=== PATIENT | male | born 1935 | race Caucasian/White ===

== ENCOUNTER → 2017-01-13 | Outpatient (CLI) | payer BC ==
[~2017-01-13] MED LIST: ALBUAER2 INH; ALLO300T2 PO; ASPI1TAB2 PO; ATOR-26 PO; AZIT250T5 PO; BISA-16 PO; CHOL1000 PO; CHOL100010 PO; FAMO20TA11 PO; FLM4 PO; IPRASOL4 INH; ISOS30TA35 PO; METO25TA56 PO; MOME200A INH; MONT1TAB3 PO; OXGN; PRD10 PO; SYMIN160 PO; VNTHFA/IN PO; bipap INH
[2017-01-13 18:13] LABS: BLOOD UREA NITROGEN 24 mg/dl (7-18); BUN/CREATININE RATIO 28.8 (10-20); CALCIUM 8.7 mg/dl (8.5-10.1); CARBON DIOXIDE 34 mmol/L (21-32); CHLORIDE 106 mmol/L (98-107); CREATININE 0.82 mg/dl (0.60-1.40); GLUCOSE 87 mg/dl (70-99); POTASSIUM 4.3 mmol/L (3.5-5.1); SODIUM 144 mmol/L (136-145)
[2017-01-13 18:21] LABS: ESTIMATED AVERAGE GLUCOSE 123 mg/dl; HA1C FLAG Normal (Normal)
--- NOTE | 2017-01-21 14:15 | CODING QUERY MEDICAL NECESSITY ---
SUPPORTING DIAGNOSIS NEEDED A supporting diagnosis is required for the test/procedure performed on this patient in order for us to be reimbursed by the patient's insurance. Please provide a supporting diagnosis for the following test/procedure listed below next to the test name along with your signature. *If there is no additional diagnosis for this patient that would support the following test/procedure please document that below next to the test/procedure. Test(s)/Procedure(s) that require a supporting diagnosis: * GLYCATED HEMOGLOBIN DIAGNOSIS: * DOS: 01/13/17 Provider Signature: Date: Thank you [facility] Once completed, please kindly fax back to [phone] For questions please call [phone]
== END | disposition home or self-care (01) ==
LOC: C.LAB1850 16:47
PROVIDERS: ATTEND Physician Assistant
DX: J44.9 Chronic obstructive pulmonary disease, unspecified (principal); D64.9 Anemia, unspecified; N28.9 Disorder of kidney and ureter, unspecified; M10.9 Gout, unspecified; R73.9 Hyperglycemia, unspecified

== ENCOUNTER → 2017-01-20 | Outpatient (CLI) | payer BC ==
[~2017-01-20] MED LIST changes: +AZIT-60 PO; -AZIT250T5 PO; +OPTIRAY 320 IV PRN
--- NOTE | 2017-01-20 13:56 | DIAGNOSTIC IMAGING REPORT ---
CT OF THE CHEST WITH IV CONTRAST CLINICAL HISTORY: Chronic respiratory failure. Chronic obstructive pulmonary disease. Non-small cell lung cancer. COMPARISON STUDY: Chest CT September 02, 2016 and PET/CT May 19, 2016. TECHNIQUE: Following IV administration of 93 mL of Optiray-320, helical axial images of the chest were obtained. Images were viewed in the axial, sagittal and coronal planes. IV contrast was administered without complication. CT DOSE: 539.24 mGy.cm FINDINGS: There are stable postoperative findings consistent with a right upper lobectomy. Right paramediastinal opacity with distortion is unchanged. A small right pleural effusion is unchanged. There is severe emphysema. There is no pneumothorax. Central airways are patent. The size of the heart is at the upper limits of normal. This extensive coronary artery calcification. A 2.5 cm left lobe thyroid nodule is noted. There are no suspicious pulmonary nodules. Bony thorax is unremarkable. There are gallstones within the gallbladder. There is a cyst within the inferior aspect of the spleen. Several renal cysts are partially imaged on this exam. Prominent right paratracheal and right axillary/retropectoral lymph nodes are similar to prior exam. IMPRESSION: 1. Stable postoperative findings following right upper lobectomy. No significant change in right paramediastinal opacity which is likely post therapeutic. Stable small right pleural effusion. 2. No significant change in prominent right paratracheal and right axillary/retropectoral lymph nodes since prior exam. These are likely benign but can be assessed on subsequent studies. Electronically signed by: Dale Borrego M.D. 01/20/2017 1:55 PM Dictated Date/Time: 01/20/2017 9:18 AM
== END | disposition home or self-care (01) ==
LOC: C.CTS 08:52
PROVIDERS: ATTEND Internal Medicine Pulmonary Disease
DX: J44.9 Chronic obstructive pulmonary disease, unspecified (principal); J96.10 Chronic respiratory failure, unspecified whether with hypoxia or hypercapnia; G47.30 Sleep apnea, unspecified; Z90.2 Acquired absence of lung [part of]

== ENCOUNTER → 2017-02-13 | Outpatient (CLI) | payer BC ==
[~2017-02-13] MED LIST changes: -OPTIRAY 320 IV PRN
[2017-02-13 12:15] LABS: BASO % 0.1 %; BASO ABS # 0.01 K/uL (0-0.2); COMPLETE YES; EOS % 1.9 %; HEMATOCRIT 37.8 % (42-52); LYMPH % 13.6 %; LYMPH ABS # 0.92 K/uL (1.2-3.4); MEAN CELL VOLUME 93.1 fL (80-100); MEAN CORPUSCULAR HEMOGLOBIN 27.8 pg (25-34); MEAN CORPUSCULAR HGB CONC 29.9 g/dl (32-36); MEAN PLATELET VOLUME 9.6 fL (7.4-10.4); MONO % 9.3 %; NEUT % 75.1 %; PLATELET COUNT 230 K/uL (130-400); RED BLOOD COUNT 4.06 M/uL (4.7-6.1); WHITE BLOOD COUNT 6.76 K/uL (4.8-10.8)
[2017-02-13 12:29] LABS: CHOLESTEROL/HDL RATIO 2.6
[2017-02-13 12:47] LABS: ESTIMATED AVERAGE GLUCOSE 123 mg/dl; HA1C FLAG Normal (Normal)
--- NOTE | 2017-02-23 10:11 | CODING QUERY MEDICAL NECESSITY ---
CQSUPPORTING DIAGNOSIS NEEDED A supporting diagnosis is required for the test/procedure performed on this patient in order for us to be reimbursed by the patient's insurance. Please provide a supporting diagnosis for the following test/procedure listed below next to the test name along with your signature. *If there is no additional diagnosis for this patient that would support the following test/procedure please document that below next to the test/procedure. Test(s)/Procedure(s) that require a supporting diagnosis: DOS 02/13/17 GLYCATED HEMOGLOBIN Provider Signature: Date: Thank you Tara Goodwin [employer] Once completed, please kindly fax back to [phone] For questions please call [phone]
== END | disposition home or self-care (01) ==
LOC: C.LAB1850 09:23
PROVIDERS: ATTEND Internal Medicine
DX: E78.00 Pure hypercholesterolemia, unspecified (principal); R73.9 Hyperglycemia, unspecified

== ENCOUNTER → 2017-03-30 | Outpatient (CLI) | payer BC ==
--- NOTE | 2017-03-30 17:01 | DIAGNOSTIC IMAGING REPORT ---
C-SPINE ROUTINE 4 OR 5 VIEWS CLINICAL HISTORY: Neck pain. COMPARISON STUDY: PET/CT May 19, 2016. FINDINGS: C7 is partially obscured on this exam. There is slight reversal of the normal cervical lordosis. No fracture or suspicious lesion is identified by radiography. There is moderate multilevel disc space narrowing and facet arthrosis. Postsurgical findings within the right upper hemithorax are again noted. These are suboptimally assessed by radiography but appear similar to prior exam of January 20, 2017. IMPRESSION: 1. No acute cervical spine fracture or subluxation although C7 is partially obscured on this exam. 2. Moderate multilevel degenerative disc disease and facet arthrosis of the cervical spine. Electronically signed by: Dale Borrego M.D. 03/30/2017 4:59 PM Dictated Date/Time: 03/30/2017 4:56 PM
== END | disposition home or self-care (01) ==
LOC: C.RAD1850 16:41
PROVIDERS: ATTEND Internal Medicine
DX: M50.30 Other cervical disc degeneration, unspecified cervical region (principal)

== ENCOUNTER → 2017-04-20 | Outpatient (CLI) | payer BC ==
[~2017-04-20] MED LIST changes: -AZIT-60 PO; +AZIT250T5 PO
--- NOTE | 2017-04-20 10:24 | DIAGNOSTIC IMAGING REPORT ---
CHEST 2 VIEWS ROUTINE CLINICAL HISTORY: J44.9 Chronic obstructive pulmonary [id number] squamous cell carcinoma COMPARISON STUDY: 05/06/2016 FINDINGS: The heart remains normal in size. There is underlying pulmonary emphysema. There is right-sided volume loss. There is a right paramediastinal opacity, similar to the preceding study. There is superior hilar retraction on the right. There is right apical pleural thickening. The right para mediastinal opacity appears slightly larger than on the preceding April 2016 chest x-ray. The right apical pleural thickening is also increased slightly.[ IMPRESSION: Postsurgical changes of right upper lobectomy. Slight interval increase in the nonspecific right apical pleural thickening and right paramediastinal soft tissue opacity Electronically signed by: Anton Styles M.D. 04/20/2017 10:23 AM Dictated Date/Time: 04/20/2017 10:20 AM
== END | disposition home or self-care (01) ==
LOC: C.RAD1850 09:52
PROVIDERS: ATTEND Internal Medicine Pulmonary Disease
DX: C34.90 Malignant neoplasm of unspecified part of unspecified bronchus or lung (principal); J44.9 Chronic obstructive pulmonary disease, unspecified; J96.10 Chronic respiratory failure, unspecified whether with hypoxia or hypercapnia; G47.30 Sleep apnea, unspecified

== ENCOUNTER 2017-05-30 06:15 | Emergency (ER) | payer BC ==
[~2017-05-30] VITALS: Ht 170.2 cm; Wt 87.8 kg
[~2017-05-30 06:15] MED LIST changes: -AZIT250T5 PO; -CHOL1000 PO; -SYMIN160 PO; -VNTHFA/IN PO
--- NOTE | 2017-05-30 06:28 | EMERGENCY ROOM VISIT NOTE ---
History Report prepared by Maria T: Odette Yan Under the Supervision of: Dr. Augustus Garcia M.D. First contact with patient: 06:24 Chief Complaint: CARDIAC ASSESSMENT Stated Complaint: CHEST PAIN WITH SHORTNESS OF BREATH History of Present Illness The patient is a 81 year old male who presents to the Emergency Room with complaints of shortness of breath beginning 10 hours ago. He also reports having chest pain beginning yesterday afternoon. The patient states that he woke up 4 hours ago and was unable to sleep due to the chest pain. He denies gaining weight in the last couple of weeks. The patient took 4 baby aspirin by EMS. The patient had a heart catheterization in 2016 with no stents, and he has a history of lung cancer with resection. Source of History: patient, EMS Onset: 10 hours ago Position: other (global) Quality: other (shortness of breath) Associated Symptoms: + chest pain Note: denies: recent weight gain Review of Systems See HPI for pertinent positives & negatives. A total of 10 systems reviewed and were otherwise negative. Past Medical & Surgical Medical Problems: (1) Asthma (2) Cancer of lower lobe of right lung (3) Chest pain at rest (4) COPD (chronic obstructive pulmonary disease) (5) History of lobectomy of lung (6) Respiratory failure with hypoxia and hypercapnia (7) SOB (shortness of breath) (8) Tachycardia Surgical Problems: (1) Hx of cholecystectomy Family History FH: cancer Social History Smoking Status: Former Smoker Alcohol Use: occasionally Drug Use: none Marital Status: Housing Status: lives with family Occupation Status: retired Current/Historical Medications Scheduled Albuterol Hfa (Ventolin Hfa), 2 PUFFS PO UD Allopurinol (Zyloprim), 300 MG PO DAILY Aspirin (Ivan Aspirin Ec Low Dose), 81 MG PO DAILY Atorvastatin (Lipitor), 80 MG PO HS Azithromycin (Zithromax), 250 MG PO DAILY Bisacodyl (Dulcolax), 5 TAB PO DAILY Budesonide/Formoterol Fumarate (Symbicort 160/4.5 Inhaler), 2 PUFFS PO BID Cholecalciferol (Vitamin D3), 1 TAB PO DAILY Famotidine (Pepcid), 20 MG PO BID Home O2 Therapy (Oxygen), 3 LITERS NA CONTINOUS Ipratropium-Albuterol (Duoneb), 1 TREATMENT INH BID Isosorbide Mononitrate Ext Rel (Imdur Ext Rel), 30 MG PO DAILY Metoprolol Tartrate (Lopressor) (Lopressor), 25 MG PO BID Montelukast Sodium (Singulair), 10 MG PO HS Tamsulosin HCl (Tamsulosin HCl), 0.4 MG PO DAILY Allergies Coded Allergies: Amoxicillin (Unverified Allergy, Mild, itching, 05/30/17) Clavulanic Acid (Unverified Allergy, Mild, itching, 05/30/17) Physical Exam Vital Signs Date Time Temp Pulse Resp B/P (MAP) Pulse Ox O2 Delivery O2 Flow Rate FiO2 05/30/17 09:05 101 16 164/109 99 Nasal Cannula 2.0 05/30/17 08:30 96 16 148/85 97 Room Air 05/30/17 07:07 103 16 115/65 99 Room Air 05/30/17 06:56 122 149/90 05/30/17 06:41 142 29 149/90 100 BiPAP 50 05/30/17 06:39 134 99 50 05/30/17 06:26 134 05/30/17 06:22 97 Nasal Cannula 3.0 05/30/17 06:15 93 Nasal Cannula 2.0 05/30/17 06:15 37.1 132 28 160/84 92 Nasal Cannula 2.0 Physical Exam GENERAL: Patient is unwell appearing and in moderate distress. HEENT: No acute trauma, normocephalic atraumatic, mucous membranes moist, no nasal congestion, no scleral icterus. NECK: No stridor, no adenopathy, no meningismus, trachea is midline. LUNGS: Dyspneic and tachypneic. Diffuse crackles/wet lung sounds throughout all lung mayorga. HEART: Tachycardic and regular rhythm. No murmurs, rubs, gallops appreciated. ABDOMEN: Large ventral scar. Soft, nontender, bowel sounds positive, no masses appreciated, no peritonitis. BACK: No midline tenderness, no CVA tenderness EXTREMITIES: 1+ edema bilateral lower legs. N/V intact NEUROLOGIC: Alert and oriented, no acute motor or sensory deficits, no focal weakness, cranial nerves grossly intact. SKIN: No rash, no jaundice, no diaphoresis. Medical Decision & Procedures ER Provider Diagnostic Interpretation: X ray results are stated below per my interpretation and the radiologist's interpretation. CHEST ONE VIEW PORTABLE HISTORY: Atypical Chest Pain COMPARISON: Chest 04/20/2017. FINDINGS: No pneumothorax. No pleural effusions. The heart is stable in size. Mild left basilar interstitial thickening, unchanged. The left upper lung zone is clear. Stable right-sided volume loss with right apical pleural thickening and right paratracheal thickening. IMPRESSION: No change compared to the prior study. Chronic changes within the right hemithorax are again noted. No new focal lung consolidations. Electronically signed by: Yuri Jaramillo M.D. 05/30/2017 7:40 AM Dictated Date/Time: 05/30/2017 7:[address] results as stated below per interpretation by me and the radiologist: CHEST CTA for PULMONARY ARTERIES CT DOSE: 1189.85 mGy.cm HISTORY: Atypical chest pain. TECHNIQUE: Multiaxial CT images of the chest were performed following the intravenous administration of contrast to evaluate the pulmonary arteries. Maximal intensity projection images were also obtained. A dose lowering technique was utilized adhering to the principles of ALARA. COMPARISON STUDY: Chest 01/20/2017. FINDINGS: Normal caliber thoracic aorta with no evidence for dissection. The heart is normal in size. Motion artifact within the left lower lobe segmental and subsegmental pulmonary arteries resulting in suboptimal evaluation. Prior right upper lobectomy. The remaining pulmonary arteries show no filling defects to suggest pulmonary embolus. Cholelithiasis. The visualized liver is unremarkable. Stable 2 cm hypodense lesion within the spleen. The visualized adrenal glands are unremarkable. A 2.5 cm left thyroid nodule, unchanged. Stable subcentimeter right subpectoral lymph nodes. Trace left pleural effusion. Small right pleural effusion, unchanged. Trace pericardial fluid, unchanged. Stable prominent upper right peritracheal lymph node measuring 14 x 8 mm. No suspicious lytic or blastic osseous lesions. Stable irregularity within the right lower lobe bronchus. Emphysema. No pneumothorax. A new 4 mm nodular density within the right lower lobe in image 161. There is also a 4 mm nodular density within the left lower lobe on image 161. Stable consolidation within the right hilar/paramediastinal location. IMPRESSION: 1. No evidence for pulmonary embolus. 2. Stable chronic findings within the right hemithorax status post right upper lobectomy. 3. Stable small right pleural effusion and trace pericardial effusion. There is a new trace left pleural effusion. 4. No significant change in the prominent right peritracheal and right subpectoral lymph nodes. 5. There are total of 2, 4 mm pulmonary nodules within the lower lobes. However, these favor mild dependent change. These bear watching on future examinations. 6. Cholelithiasis. Electronically signed by: Yuri Jaramillo M.D. 05/30/2017 9:10 AM Dictated Date/Time: 05/30/2017 8:57 AM Laboratory Results 05/30/17 06:34 Red Blood Count 4.16, Mean Corpuscular Volume 94.5, Mean Corpuscular Hemoglobin 30.0, Mean Corpuscular Hemoglobin Concent 31.8, Mean Platelet Volume 9.1, Neutrophils (%) (Auto) 72.3, Lymphocytes (%) (Auto) 12.9, Monocytes (%) (Auto) 13.1, Eosinophils (%) (Auto) 1.5, Basophils (%) (Auto) 0.1, Neutrophils # (Auto ) 5.42, Lymphocytes # (Auto) 0.97, Monocytes # (Auto) 0.98, Eosinophils # (Auto ) 0.11, Basophils # (Auto) 0.01 05/30/17 06:34 Test 05/30/17 06:34 White Blood Count 7.50 K/uL (4.8-10.8) Red Blood Count 4.16 M/uL (4.7-6.1) Hemoglobin 12.5 g/dL (14.0-18.0) Hematocrit 39.3 % (42-52) Mean Corpuscular Volume 94.5 fL (80-100) Mean Corpuscular Hemoglobin 30.0 pg (25-34) Mean Corpuscular Hemoglobin Concent 31.8 g/dl (32-36) Platelet Count 226 K/uL (130-400) Mean Platelet Volume 9.1 fL (7.4-10.4) Neutrophils (%) (Auto) 72.3 % Lymphocytes (%) (Auto) 12.9 % Monocytes (%) (Auto) 13.1 % Eosinophils (%) (Auto) 1.5 % Basophils (%) (Auto) 0.1 % Neutrophils # (Auto) 5.42 K/uL (1.4-6.5) Lymphocytes # (Auto) 0.97 K/uL (1.2-3.4) Monocytes # (Auto) 0.98 K/uL (0.11-0.59) Eosinophils # (Auto) 0.11 K/uL (0-0.5) Basophils # (Auto) 0.01 K/uL (0-0.2) RDW Standard Deviation 59.8 fL (36.4-46.3) RDW Coefficient of Variation 17.4 % (11.5-14.5) Immature Granulocyte % (Auto) 0.1 % Immature Granulocyte # (Auto) 0.01 K/uL (0.00-0.02) Venous Blood pH 7.35 (7.36-7.41) Venous Blood Partial Pressure CO2 61 mmHg (38.0-50.0) Venous Blood Partial Pressure O2 31 mmHg Venous Blood HCO3 33 mmol/L Venous Blood Oxygen Saturation < 60.0 % Venous Blood Base Excess 5.8 mEq/L Anion Gap 4.0 mmol/L (3-11) Est Creatinine Clear Calc Drug Dose 67.0 ml/min Estimated GFR () 89.5 Estimated GFR (Non- 77.3 BUN/Creatinine Ratio 22.7 (10-20) Calcium Level 9.1 mg/dl (8.5-10.1) Magnesium Level 2.1 mg/dl (1.8-2.4) Total Creatine Kinase 234 U/L (39-308) Creatine Kinase MB 1.8 ng/ml (0.5-3.6) Creatine Kinase MB Ratio 0.8 (0-3.0) Pro-B-Type Natriuretic Peptide 558 pg/ml (0-1800) Laboratory results as reviewed by me. Medications Administered Medications (Trade) Dose Ordered Sig/Cinthia Route Start Time Stop Time Status Last Admin Dose Admin Nitroglycerin (Nitrostat Tab) 0.4 mg Q5M PRN SL 05/30/17 06:30 05/30/17 11:42 DC 05/30/17 06:43 0.4 MG Metoprolol Tartrate (Lopressor Iv) 5 mg NOW STAT IV 05/30/17 06:49 05/30/17 06:50 DC 05/30/17 06:56 5 MG Methylprednisolone Sodium Succinate (Solu-Medrol IV) 125 mg NOW STAT IV 05/30/17 07:24 05/30/17 07:25 DC 8/12/17 07:48 125 MG ECG Indication: chest pain, SOB/dyspnea Rate (beats per minute): 133 Rhythm: sinus tachycardia Findings: no acute ischemic change, no ectopy ED Course 0625: The patient was evaluated in room B9. A complete history and physical exam was performed. 0630: Ordered Nitroglycerin 0.4 mg SL. 0645: With BiPAP and Nitroglycerin, the patient states that he is feeling better but is still tachycardic. 0649: Ordered Metoprolol Tartrate 5 mg IV. 0724: Ordered Methylprednisolone Sodium Succinate 125 mg IV. 0725: Discussed the patient's case with Dr. Bloom. The patient will be evaluated for further treatment and disposition. 0730: The patient initially said that he will not stay here. However, he admits that he was unable to breathe at home and he will discuss coming into the hospital with the hospitalist. 0750: Upon reevaluation, the patient is resting. Discussed results and treatment plan with the patient. He verbalized understanding and agreement with the treatment plan. The patient will be evaluated for further management. Medical Decision Differential: Cardiac Ischemia (STEMI, NSTEMI, Unstable Angina, etc), Aortic Dissection, Arrhythmia, Pulmonary Embolism, Pneumonia, Pneumothorax, MSK, Infectious, Pericarditis/Myocarditis, Esophageal Rupture, Gastrointestinal, amongst other pathologies entertained. 81 yr old male with history of COPD and previous lung resection due to CA arrives in acute repiratory distress. Exam seems more consistent with CHF, especially given how his symptoms improve with SLNTG and bipap. 1ish + edema in legs and denies recent weight gain. Has been much more active last few days. No wheezing on exam though with some retaining on vbg will start steroids. No clear evidence of infectious etiology. O2 sats doing well thus I have low suspicion for PE. HR improved with Metoprolol. Avoid Duoneb for the moment given his improvement in symptoms otherwise and fact want to avoid further tachycardia. Chest pain seems likely not ACS though could be cardiac stress related and will need further rule out. Breathing comfortably and in much better shape at time of hospitalist evaluation. Medication Reconcilliation Current Medication List: was personally reviewed by me Blood Pressure Screening Patient's blood pressure: Elevated blood pressure Blood pressure disposition: Referred to PCP Consults Time Called: 714 Consulting Physician: Dr. Bloom- [facility] Returned Call: [phone] Discussed the patient's case. The patient will be evaluated for further treatment and disposition. Impression Primary Impression: Chest pain Additional Impressions: Tachycardia Respiratory failure Critical Care I have personally spent greater than 35 minutes of critical care time in the direct management of this patient. This was a life/limb threatening event. This includes time spent evaluating patient, direct bedside care, chart review, placing orders, interpretation of diagnostic studies, discussion with consultants, patient, and family members, as well as other required patient management activities. This 35 minutes is in excess of all separately billable procedures. Scribe Attestation The scribe's documentation has been prepared under my direction and personally reviewed by me in its entirety. I confirm that the note above accurately reflects all work, treatment, procedures, and medical decision making performed by me. Departure Information Dispostion Being Evaluated By Hospitalist Jerry Sampson M.D. (PCP) Patient Instructions My [facility] Problem Qualifiers
[2017-05-30] MEDS ORDERED: AZIT250T5 PO (06:33)
[2017-05-30] MEDS ORDERED: SYMIN160 PO (06:34)
[2017-05-30] MEDS ORDERED: CHOL1000 PO (06:34)
[2017-05-30] MEDS: NITROGLYCERIN 0.4 MG SL PER TAB CHARGE SL PRN ×2 (06:34→06:43)
[2017-05-30] MEDS ORDERED: VNTHFA/IN PO (06:34)
[2017-05-30 06:39] VITALS: PULSE 134; O2SAT 99
[2017-05-30 06:45] LABS: BASO % 0.1 %; BASO ABS # 0.01 K/uL (0-0.2); COMPLETE YES; EOS % 1.5 %; HEMATOCRIT 39.3 % (42-52); IG% 0.1 %; LYMPH % 12.9 %; LYMPH ABS # 0.97 K/uL (1.2-3.4); MEAN CELL VOLUME 94.5 fL (80-100); MEAN CORPUSCULAR HGB CONC 31.8 g/dl (32-36); MEAN PLATELET VOLUME 9.1 fL (7.4-10.4); MONO % 13.1 %; NEUT % 72.3 %; PLATELET COUNT 226 K/uL (130-400); RED BLOOD COUNT 4.16 M/uL (4.7-6.1)
[2017-05-30 06:49] LABS: VEN BLD GAS O2 SATURATION < 60.0 %; VEN BLOOD GAS BASE EXCESS 5.8 mEq/L; VENOUS BLOOD GAS PCO2 61 mmHg (38.0-50.0); VENOUS BLOOD GAS PO2 31 mmHg
[2017-05-30] MEDS ORDERED: METOPROLOL TARTRATE 1 MG/ML VIAL IV STA (06:49)
[2017-05-30 07:13] LABS: BLOOD UREA NITROGEN 21 mg/dl (7-18); BUN/CREATININE RATIO 22.7 (10-20); CALCIUM 9.1 mg/dl (8.5-10.1); CARBON DIOXIDE 34 mmol/L (21-32); CHLORIDE 101 mmol/L (98-107); CREATININE 0.93 mg/dl (0.60-1.40); GLUCOSE 120 mg/dl (70-99); MAGNESIUM 2.1 mg/dl (1.8-2.4); POTASSIUM 4.4 mmol/L (3.5-5.1); SODIUM 139 mmol/L (136-145)
[2017-05-30 07:18] LABS: CKMB/CK RATIO 0.8 (0-3.0)
[2017-05-30] MEDS ORDERED: METHYLPREDNISOLONE 125 MG VIAL IV STA (07:24)
--- NOTE | 2017-05-30 07:42 | DIAGNOSTIC IMAGING REPORT ---
CHEST ONE VIEW PORTABLE HISTORY: Atypical Chest Pain COMPARISON: Chest 04/20/2017. FINDINGS: No pneumothorax. No pleural effusions. The heart is stable in size. Mild left basilar interstitial thickening, unchanged. The left upper lung zone is clear. Stable right-sided volume loss with right apical pleural thickening and right paratracheal thickening. IMPRESSION: No change compared to the prior study. Chronic changes within the right hemithorax are again noted. No new focal lung consolidations. Electronically signed by: Yuri Jaramillo M.D. 05/30/2017 7:40 AM Dictated Date/Time: 05/30/2017 7:39 AM
[2017-05-30] MEDS ORDERED: OPTIRAY 320 IV PRN (08:15)
--- NOTE | 2017-05-30 09:11 | DIAGNOSTIC IMAGING REPORT ---
CHEST CTA for PULMONARY ARTERIES CT DOSE: 1189.85 mGy.cm HISTORY: Atypical chest pain. TECHNIQUE: Multiaxial CT images of the chest were performed following the intravenous administration of contrast to evaluate the pulmonary arteries. Maximal intensity projection images were also obtained. A dose lowering technique was utilized adhering to the principles of ALARA. COMPARISON STUDY: Chest 01/20/2017. FINDINGS: Normal caliber thoracic aorta with no evidence for dissection. The heart is normal in size. Motion artifact within the left lower lobe segmental and subsegmental pulmonary arteries resulting in suboptimal evaluation. Prior right upper lobectomy. The remaining pulmonary arteries show no filling defects to suggest pulmonary embolus. Cholelithiasis. The visualized liver is unremarkable. Stable 2 cm hypodense lesion within the spleen. The visualized adrenal glands are unremarkable. A 2.5 cm left thyroid nodule, unchanged. Stable subcentimeter right subpectoral lymph nodes. Trace left pleural effusion. Small right pleural effusion, unchanged. Trace pericardial fluid, unchanged. Stable prominent upper right peritracheal lymph node measuring 14 x 8 mm. No suspicious lytic or blastic osseous lesions. Stable irregularity within the right lower lobe bronchus. Emphysema. No pneumothorax. A new 4 mm nodular density within the right lower lobe in image 161. There is also a 4 mm nodular density within the left lower lobe on image 161. Stable consolidation within the right hilar/paramediastinal location. IMPRESSION: 1. No evidence for pulmonary embolus. 2. Stable chronic findings within the right hemithorax status post right upper lobectomy. 3. Stable small right pleural effusion and trace pericardial effusion. There is a new trace left pleural effusion. 4. No significant change in the prominent right peritracheal and right subpectoral lymph nodes. 5. There are total of 2, 4 mm pulmonary nodules within the lower lobes. However, these favor mild dependent change. These bear watching on future examinations. 6. Cholelithiasis. Electronically signed by: Yuri Jaramillo M.D. 05/30/2017 9:10 AM Dictated Date/Time: 05/30/2017 8:57 AM
[2017-05-30] MEDS ORDERED: ACETAMINOPHEN 325 MG TAB PO PRN (09:30)
[2017-05-30] MEDS ORDERED: MoRPHine SULFATE 2 MG/ML CARP IV PRN (09:30)
[2017-05-30] MEDS ORDERED: NITROGLYCERIN 0.4 MG SL PER TAB CHARGE SL PRN (09:30)
[2017-05-30] MEDS ORDERED: ONDANSETRON INJ 2 MG/ML 2 ML VIAL IV PRN (09:30)
[2017-05-30] MEDS ORDERED: SODIUM CHLORIDE 0.9% 1000ML 1,000 ML IV SCH (09:30)
[2017-05-30] MEDS ORDERED: IV FLUIDS COMPLETED PRN (09:45)
[2017-05-30] MEDS ORDERED: LEVALBUTEROL 1.25MG/3ML NEB INH PRN (09:45)
[2017-05-30] MEDS ORDERED: ASPIRIN 81 MG CHEW ONE (10:17)
[2017-05-30] MEDS ORDERED: METOPROLOL TARTRATE 50 MG TAB ONE (10:17)
[2017-05-30] MEDS ORDERED: ISOSORBIDE MONONITRATE 30 MG TABCR PO ONE ×2 (10:17→12:00)
[2017-05-30] MEDS ORDERED: METOPROLOL TARTRATE 25 MG TAB PO ONE (12:00)
[2017-05-30] MEDS ORDERED: ASPIRIN 81 MG ECTAB PO ONE (12:00)
[2017-05-30] MEDS ORDERED: ALLOPURINOL 300 MG TAB PO ONE (12:00)
[2017-05-30 12:30] VITALS: BP 114/59; PULSE 78; TEMP 37; O2SAT 97
--- NOTE | 2017-05-30 12:49 | History and Physical ---
History & Physical Date & Time of Service: May 30, 2017 at 12:26 Chief Complaint: Chest Pain At Rest, Tachycardia Primary Care Physician: Jerry Boyd M.D. History of Present Illness Source: patient, family, hospital records 81 yo male with history of COPD with chronic hypoxia, episodes of hypercapnia in the past as well as right lower lobe lung cancer s/p lobectomy with remission based on PET scans, presented to the ED early this AM with complaints of chest pain and pressure at rest as well as shortness of breath. Per the patient and his daughter who is at the bedside, the patient has had a lot of increased activity the past two days that is abnormal for him. He has been hosting 20 guests and family at his home. He has been walking a lot more, lifting things, even went up stairs which he never does. He typically rests in the afternoon on his couch but instead he has been entertaining guests. He has been eating well, moving bowels, urinating well. No fever or chills, no cough and he says that his weight is stable, no edema in legs. Last night around 10pm he experienced some lower chest pain that radiated to his left neck and was associated with shortness of breath. He confirmed that he had no chest pain all day and his breathing was stable all day. His daughter says that she did not notice any difficulty breathing for him during the day. When he experienced the chest pain and dyspnea, he laid down and used his trilogy machine and tried to sleep. He could not sleep due to the pain and early in the morning when the pain did not subside he decided to call an ambulance. In the ED he was tachycardic with HR in the 130-140's, sinus. He was placed on BIPAP but there was no evidence of hypoxia, he typically wears 3L at home. EKG showed no signs of ischemia and troponin was normal. CXR showed surgical changes on the right, no infiltrate, no edema. He was given Solu Medrol 125mg and metoprolol 5mg IV x 1 and SL Nitro. At the time of my exam he felt much better, HR in the low 100's, chest pain was 2 out of 10 and he actually pointed more towards his epigastric region and abdominal muscles were sore. Given acute onset of pain, dyspnea and tachycardia, I suggested a CT scan of chest to rule out a PE. CT chest did not show a PE and also did not show any reason for his dyspnea, there was no edema, no infiltrate, just small bilateral effusions. Since patient was feeling better he wanted to go home. I discussed that it would be best to rule out for cardiac ischemia by checking two more sets of cardiac enzymes, he agreed to stay for observation. Past Medical/Surgical History Non small cell lung cancer with right lower lobe resection and recurrence in right upper lobe, resected PET scan in May 2016 with no evidence of malignancy COPD Chronic hypoxic respiratory failure h/o hypercapnic respiratory failure Obesity DANTE Asthma HTN CAD - cath in the past showed mild to moderate disease, no stents needed echo in 2014 showed EF 60% s/p cholecystectomy Gout Hyperlipidemia GERD Vitamin D deficiency Family History FH: cancer Social History Smoking Status: Former Smoker Drug Use: none Marital Status: Housing status: lives with family Occupational Status: retired Immunizations History of Influenza Vaccine: No History of Tetanus Vaccine?: No History of Pneumococcal: No History of Hepatitis B Vaccine: No Multi-Drug Resistant Organisms History of MDRO: No Allergies Coded Allergies: Amoxicillin (Unverified Allergy, Mild, itching, 05/30/17) Clavulanic Acid (Unverified Allergy, Mild, itching, 05/30/17) Home Medications Scheduled Albuterol Hfa (Ventolin Hfa), 2 PUFFS PO UD Allopurinol (Zyloprim), 300 MG PO DAILY Aspirin (Ivan Aspirin Ec Low Dose), 81 MG PO DAILY Atorvastatin (Lipitor), 80 MG PO HS Azithromycin (Zithromax), 250 MG PO DAILY Bisacodyl (Dulcolax), 5 TAB PO DAILY Budesonide/Formoterol Fumarate (Symbicort 160/4.5 Inhaler), 2 PUFFS PO BID Cholecalciferol (Vitamin D3), 1 TAB PO DAILY Famotidine (Pepcid), 20 MG PO BID Home O2 Therapy (Oxygen), 3 LITERS NA CONTINOUS Ipratropium-Albuterol (Duoneb), 1 TREATMENT INH BID Isosorbide Mononitrate Ext Rel (Imdur Ext Rel), 30 MG PO DAILY Metoprolol Tartrate (Lopressor) (Lopressor), 25 MG PO BID Montelukast Sodium (Singulair), 10 MG PO HS Tamsulosin HCl (Tamsulosin HCl), 0.4 MG PO DAILY Review of Systems Constitutional: No fever, No chills, No sweats, No weight loss, No weakness, No fatigue, No problem reported Eyes: No worsening of vision, No eye pain, No redness, No discharge, No diplopia, No problem reported ENT: No hearing loss, No unusual epistaxis, No nasal symptoms, No sore throat, No tinnitus, No dental problems, No trouble swallowing, No problem reported Respiratory: + shortness of breath, + dyspnea on exertion, No cough, No sputum , No wheezing, No dyspnea at rest, No hemoptysis Cardiovascular: + chest pain (lower chest, epigastric region), No orthopnea, No PND, No edema, No claudication, No palpitations Abdomen: No pain, No nausea, No vomiting, No diarrhea, No constipation, No GI bleeding, No problem reported Musculoskeletal: No joint pain, No muscle pain, No swelling, No calf pain, No problem reported Genitourinary - Male: No hematuria, No dysuria, No urinary frequency, No urinary urgency Neurologic: No memory loss, No paralysis, No weakness, No numbness/tingling, No vertigo, No balance problems, No problem reported Psychiatric: No depression symptoms, No anhedonism, No anxiety, No insomnia, No substance abuse, No problem reported Endocrine: No fatigue, No excessive thirst, No excessive urination, No problem reported Hematologic / Lymphatic: No abnormal bleeding/bruising, No clotting problems, No swollen lymph nodes, No night sweats, No problem reported Integumentary: No rash, No itch, No new/changing skin lesions, No color change , No bleeding, No problem reported Allergic / Immunologic: No environmental allergies, No seasonal allergies, No pet sensitivities, No food allergies, No hives, No frequent infections, No poor healing, No prolonged convalescence, No problem reported Physical Exam Vital Signs Date Time Temp Pulse Resp B/P (MAP) Pulse Ox O2 Delivery O2 Flow Rate FiO2 05/30/17 11:22 89 16 104/67 98 05/30/17 10:21 107 20 175/94 98 Nasal Cannula 2.0 05/30/17 09:05 101 16 164/109 99 Nasal Cannula 2.0 05/30/17 08:30 96 16 148/85 97 Room Air 05/30/17 07:07 103 16 115/65 99 Room Air 05/30/17 06:56 122 149/90 05/30/17 06:41 142 29 149/90 100 BiPAP 50 05/30/17 06:39 134 99 50 05/30/17 06:26 134 05/30/17 06:22 97 Nasal Cannula 3.0 05/30/17 06:15 93 Nasal Cannula 2.0 05/30/17 06:15 37.1 132 28 160/84 92 Nasal Cannula 2.0 General Appearance: no apparent distress, + obese Head: normocephalic, atraumatic Eyes: normal inspection, EOMI, sclerae normal ENT: normal ENT inspection, hearing grossly normal, pharynx normal Neck: supple, no adenopathy, no JVD, trachea midline Respiratory/Chest: chest non-tender, lungs clear, normal breath sounds, no respiratory distress, no accessory muscle use Cardiovascular: regular rate, rhythm, no edema, no gallop, no JVD, no murmur, normal peripheral pulses Abdomen/GI: normal bowel sounds, soft, no organomegaly, + tenderness ( epigastric region, more superficial like tenderness of abdominal muscles) Back: normal inspection, no CVA tenderness, no muscle spasm, normal range of motion Extremities/Musculoskelatal: normal inspection, no calf tenderness, normal capillary refill, no pedal edema, normal range of motion, pelvis stable Neurologic/Psych: hot shot II-XII nml as tested, no motor/sensory deficits, alert, normal mood/affect, normal reflexes, oriented x 3 Skin: normal color, warm/dry, no rash Diagnostics Laboratory Results Results Past 24 Hours Test 05/30/17 06:34 05/30/17 11:25 Range/Units White Blood Count 7.50 4.8-10.8 K/uL Red Blood Count 4.16 4.7-6.1 M/uL Hemoglobin 12.5 14.0-18.0 g/dL Hematocrit 39.3 42-52 % Mean Corpuscular Volume 94.5 80-100 fL Mean Corpuscular Hemoglobin 30.0 25-34 pg Mean Corpuscular Hemoglobin Concent 31.8 32-36 g/dl Platelet Count 226 130-400 K/uL Mean Platelet Volume 9.1 7.4-10.4 fL Neutrophils (%) (Auto) 72.3 % Lymphocytes (%) (Auto) 12.9 % Monocytes (%) (Auto) 13.1 % Eosinophils (%) (Auto) 1.5 % Basophils (%) (Auto) 0.1 % Neutrophils # (Auto) 5.42 1.4-6.5 K/uL Lymphocytes # (Auto) 0.97 1.2-3.4 K/uL Monocytes # (Auto) 0.98 0.11-0.59 K/uL Eosinophils # (Auto) 0.11 0-0.5 K/uL Basophils # (Auto) 0.01 0-0.2 K/uL RDW Standard Deviation 59.8 36.4-46.3 fL RDW Coefficient of Variation 17.4 11.5-14.5 % Immature Granulocyte % (Auto) 0.1 % Immature Granulocyte # (Auto) 0.01 0.00-0.02 K/uL Venous Blood pH 7.35 7.36-7.41 Venous Blood Partial Pressure CO2 61 38.0-50.0 mmHg Venous Blood Partial Pressure O2 31 mmHg Venous Blood HCO3 33 mmol/L Venous Blood Oxygen Saturation < 60.0 % Venous Blood Base Excess 5.8 mEq/L Sodium Level 139 136-145 mmol/L Potassium Level 4.4 3.5-5.1 mmol/L Chloride Level 101 98-107 mmol/L Carbon Dioxide Level 34 21-32 mmol/L Anion Gap 4.0 3-11 mmol/L Blood Urea Nitrogen 21 7-18 mg/dl Creatinine 0.93 0.60-1.40 mg/dl Est Creatinine Clear Calc Drug Dose 67.0 ml/min Estimated GFR () 89.5 Estimated GFR (Non- 77.3 BUN/Creatinine Ratio 22.7 10-20 Random Glucose 120 70-99 mg/dl Calcium Level 9.1 8.5-10.1 mg/dl Magnesium Level 2.1 1.8-2.4 mg/dl Total Creatine Kinase 234 39-308 U/L Creatine Kinase MB 1.8 0.5-3.6 ng/ml Creatine Kinase MB Ratio 0.8 0-3.0 Troponin I < 0.015 < 0.015 0-0.045 ng/ml Pro-B-Type Natriuretic Peptide 558 0-1800 pg/ml Diagnostic Radiology CHEST ONE VIEW PORTABLE HISTORY: Atypical Chest Pain COMPARISON: Chest 04/20/2017. FINDINGS: No pneumothorax. No pleural effusions. The heart is stable in size. Mild left basilar interstitial thickening, unchanged. The left upper lung zone is clear. Stable right-sided volume loss with right apical pleural thickening and right paratracheal thickening. IMPRESSION: No change compared to the prior study. Chronic changes within the right hemithorax are again noted. No new focal lung consolidations. CHEST CTA for PULMONARY ARTERIES CT DOSE: 1189.85 mGy.cm HISTORY: Atypical chest pain. TECHNIQUE: Multiaxial CT images of the chest were performed following the intravenous administration of contrast to evaluate the pulmonary arteries. Maximal intensity projection images were also obtained. A dose lowering technique was utilized adhering to the principles of ALARA. COMPARISON STUDY: Chest 01/20/2017. FINDINGS: Normal caliber thoracic aorta with no evidence for dissection. The heart is normal in size. Motion artifact within the left lower lobe segmental and subsegmental pulmonary arteries resulting in suboptimal evaluation. Prior right upper lobectomy. The remaining pulmonary arteries show no filling defects to suggest pulmonary embolus. Cholelithiasis. The visualized liver is unremarkable. Stable 2 cm hypodense lesion within the spleen. The visualized adrenal glands are unremarkable. A 2.5 cm left thyroid nodule, unchanged. Stable subcentimeter right subpectoral lymph nodes. Trace left pleural effusion. Small right pleural effusion, unchanged. Trace pericardial fluid, unchanged. Stable prominent upper right peritracheal lymph node measuring 14 x 8 mm. No suspicious lytic or blastic osseous lesions. Stable irregularity within the right lower lobe bronchus. Emphysema. No pneumothorax. A new 4 mm nodular density within the right lower lobe in image 161. There is also a 4 mm nodular density within the left lower lobe on image 161. Stable consolidation within the right hilar/paramediastinal location. IMPRESSION: 1. No evidence for pulmonary embolus. 2. Stable chronic findings within the right hemithorax status post right upper lobectomy. 3. Stable small right pleural effusion and trace pericardial effusion. There is a new trace left pleural effusion. 4. No significant change in the prominent right peritracheal and right subpectoral lymph nodes. 5. There are total of 2, 4 mm pulmonary nodules within the lower lobes. However, these favor mild dependent change. These bear watching on future examinations. 6. Cholelithiasis. EKG sinus tachycardia, normal axis, no ST depressions or TW inversions Impression Assessment and Plan 81 yo male with history of lung cancer, COPD, chronic hypoxia and mild to moderate CAD, presents with sudden onset of chest pain at rest with dyspnea, no hypoxia Improved with Solu Medrol, Lopressor IV and Nitro SL - Chest pain at rest, atypical, tenderness of epigastric muscles on exam observe for 12 hours on tele with two more sets of cardiac enzymes, EKG third troponin at 1730, if negative he can be d/c to home since he has obvious tenderness on palpation of abdominal muscles, feel that pain is related to muscle strain PE ruled out - Dyspnea without acute hypoxia in patient with chronic hypoxia unclear etiology at this time, no edema, lungs clear on exam, no PE breathing is back to baseline - Sinus tachycardia: examines slightly dry, will give NSS at 80cc/hr especially after IV contrast for CT HR in the 90's after Lopressor given, 25mg plan to d/c to home later today as long as troponin negative Level of Care Telemetry Resuscitation Status FULL RESUSCITATION VTE Prophylaxis VTE Risk Assessment Done? Y/N: Yes Risk Level: High Given or contraindicated: Treatment not indicated (short stay) Additional Copies To Jerry Boyd M.D.
[2017-05-30 13:03] VITALS: BP 121/64; PULSE 93; TEMP 36.9; O2SAT 98; Ht 170.2 cm; Wt 87.8 kg
[2017-05-30 15:22] VITALS: BP 115/68; PULSE 85; TEMP 36.7; O2SAT 94
--- NOTE | 2017-05-30 15:46 | Discharge Instructions ---
Discharge Instructions Date of Service May 30, 2017. Admission Reason for Admission: Chest Pain At Rest, Tachycardia Discharge Discharge Diagnosis / Problem: Chest pain at rest, tachycardia Discharge Goals Goal(s): Decrease discomfort, Improve function Activity Recommendations Activity Limitations: resume your previous activity Lifting Limitations: none Exercise/Sports Limitations: as tolerated May Resume Sexual Activity: when tolerated Shower/Bathe: no limitations Driving or Machine Use: no limitations . Instructions / Follow-Up Instructions / Follow-Up Medications: no changes Chest pain at rest, atypical presentation: no signs of ischemia on EKG and heart enzymes negative x 3 sets no pulmonary embolism on CT of the chest, no pneumonia, no pulmonary edema either pain likely musculoskeletal brought on by increased activity of having guests and entertaining make sure you get rest for the next few days if you have further pain you can try Ibuprofen 600mg three times a day, make sure to take with food, only take for a few days FOLLOW UP - keep all previously scheduled appointments with primary care physician and specialists Current Hospital Diet Patient's current hospital diet: AHA Diet (Heart Healthy) Discharge Diet Recommended Diet: AHA Diet (Heart Healthy) Pending Studies Studies pending at discharge: no Medical Emergencies . Who to Call and When: Medical Emergencies: If at any time you feel your situation is an emergency, please call 911 immediately. . Non-Emergent Contact Non-Emergency issues call your: Primary Care Provider Call Non-Emergent contact if: you have any medication questions . . "Provider Documentation" section prepared by Dev Bloom. . VTE Core Measure Inpt VTE Proph given/why not?: Treatment not indicated (short stay) [place] Drug Monitoring Program Search Results: no issues identified
[2017-05-30 16:00] VITALS: O2SAT 94
[2017-05-30 17:53] VITALS: BP 115/68; PULSE 85; TEMP 36.7; O2SAT 94
[2017-05-30] MEDS ORDERED: METOPROLOL TARTRATE 25 MG TAB PO SCH (21:00)
[2017-05-30] MEDS ORDERED: ATORVASTATIN 40 MG TAB PO SCH (21:00)
[2017-05-30] MEDS ORDERED: FAMOTIDINE 20 MG TAB PO SCH (21:00)
[2017-05-30] MEDS ORDERED: BUDESONIDE/FORMOTEROL FUMARATE 160/4.5 60 PUFFS/INHALER INH SCH (21:00)
[2017-05-30] MEDS ORDERED: MONTELUKAST SOD 10 MG TAB PO SCH (21:00)
--- NOTE | 2017-05-31 07:30 | Discharge Summary ---
Discharge Summary Date of Service May 30, 2017. Discharge Summary Admission Date: May 30, 2017 at 09:33 Discharge Date: May 30, 2017 Discharge Disposition: Home Principal Diagnosis: Chest pain at rest Problems/Secondary Diagnoses: Dyspnea Chronic hypoxic respiratory failure COPD/asthma DANTE h/o lung cancer s/p right lower lobectomy Immunizations: Have You Had Influenza Vaccine: No History of Tetanus Vaccine?: No History of Pneumococcal: No History of Hepatitis B Vaccine: No Procedures: none Consultations: none Medication Reconciliation Continued Medications: Albuterol Hfa (Ventolin Hfa) 200 Puffs/98465 Mcg Aers 2 PUFFS PO UD 8-12 puffs daily Allopurinol (Zyloprim) 300 Mg Tab 300 MG PO DAILY, TAB Aspirin (Ivan Aspirin Ec Low Dose) 81 Mg Tab 81 MG PO DAILY, 3 Refills Atorvastatin (Lipitor) 80 Mg Tab 80 MG PO HS, TAB Azithromycin (Zithromax) 250 Mg Tab 250 MG PO DAILY, #90 Bisacodyl (Dulcolax) 5 Mg Tab 5 TAB PO DAILY Budesonide/Formoterol Fumarate (Symbicort 160/4.5 Inhaler) 120 Puffs/ Aero 2 PUFFS PO BID Cholecalciferol (Vitamin D3) 1,000 Unit Tab 1 TAB PO DAILY, 3 Refills Famotidine (Pepcid) 20 Mg Tab 20 MG PO BID Home O2 Therapy (Oxygen) Gas 3 LITERS NA CONTINOUS Ipratropium-Albuterol (Duoneb) 3 Ml Nebu 1 TREATMENT INH BID, INHA Isosorbide Mononitrate Ext Rel (Imdur Ext Rel) 30 Mg Tabcr 30 MG PO DAILY Metoprolol Tartrate (Lopressor) (Lopressor) 25 Mg Tab 25 MG PO BID Montelukast Sodium (Singulair) 10 Mg Tab 10 MG PO HS, TAB Tamsulosin HCl (Tamsulosin HCl) 0.4 Mg Cap 0.4 MG PO DAILY Discharge Exam Patient rested in bed all day, no further chest pain during the day. Ate well. Breathing stable. Troponin negative x 3 sets total, discharged to home. Review of Systems: Constitutional: No fever, No chills, No sweats, No weight loss, No weakness , No fatigue, No problem reported Eyes: No worsening of vision, No eye pain, No redness, No discharge, No diplopia, No problem reported ENT: No hearing loss, No unusual epistaxis, No nasal symptoms, No sore throat, No tinnitus, No dental problems, No trouble swallowing, No problem reported Respiratory: + dyspnea on exertion, No cough, No sputum, No wheezing, No shortness of breath, No dyspnea at rest, No hemoptysis, No problem reported Cardiovascular: No chest pain, No orthopnea, No PND, No edema, No claudication, No palpitations, No problem reported Abdomen: No pain, No nausea, No vomiting, No diarrhea, No constipation, No GI bleeding, No problem reported Musculoskeletal: No joint pain, No muscle pain, No swelling, No calf pain, No problem reported Genitourinary - Male: No hematuria, No dysuria, No urinary frequency, No urinary urgency Neurologic: No memory loss, No paralysis, No weakness, No numbness/tingling , No vertigo, No balance problems, No problem reported Psychiatric: No depression symptoms, No anhedonism, No anxiety, No insomnia , No substance abuse, No problem reported Endocrine: No fatigue, No excessive thirst, No excessive urination, No problem reported Hematologic / Lymphatic: No abnormal bleeding/bruising, No clotting problems , No swollen lymph nodes, No night sweats, No problem reported Integumentary: No rash, No itch, No new/changing skin lesions, No color change, No bleeding, No problem reported Physical Exam: General Appearance: no apparent distress, + obese Eyes: normal inspection, EOMI, sclerae normal ENT: normal ENT inspection, hearing grossly normal, pharynx normal Neck: supple, no adenopathy, no JVD, trachea midline Respiratory/Chest: chest non-tender, lungs clear, normal breath sounds, no respiratory distress, no accessory muscle use Cardiovascular: regular rate, rhythm, no edema, no gallop, no JVD, no murmur , normal peripheral pulses Abdomen / GI: normal bowel sounds, non tender, soft, no organomegaly Extremities: normal inspection, no calf tenderness, normal capillary refill , no pedal edema, normal range of motion, pelvis stable Neurologic/Psychiatric: bark fitter II-XII nml as tested, no motor/sensory deficits , alert, normal mood/affect, normal reflexes, oriented x 3 Skin: normal color, warm/dry, no rash Lymphatic: no adenopathy Hospital Course 81 yo male with history of lung cancer, COPD, chronic hypoxia and mild to moderate CAD, presents with sudden onset of chest pain at rest with dyspnea, no hypoxia Improved with Solu Medrol, Lopressor IV and Nitro SL - Chest pain at rest, atypical, tenderness of epigastric muscles on exam observed for 12 hours on tele with two more sets of cardiac enzymes all three troponin were negative, EKG without ischemic changes d/c to home since he has obvious tenderness on palpation of abdominal muscles, feel that pain is related to muscle strain suggested that if pain persists he could take ibuprofen 600mg TID with food for a few days PE ruled out on CTA chest - Dyspnea without acute hypoxia in patient with chronic hypoxia unclear etiology at this time, no edema, lungs clear on exam, no PE breathing is back to baseline, remained stable while on observation - Sinus tachycardia: examines slightly dry, will give NSS at 80cc/hr especially after IV contrast for CT HR in the 90's after Lopressor given, 25mg HR remained stable during the day d/c to home, follow up with PCP as needed Total Time Spent: Less than 30 minutes This includes examination of the patient, discharge planning, medication reconciliation, and communication with other providers. Discharge Instructions Please refer to the electronic Patient Visit Report (Discharge Instructions) for additional information. Follow-Up Dr. Boyd as previously scheduled Additional Copies To Jerry Boyd M.D.
[2017-05-31] MEDS ORDERED: ALLOPURINOL 300 MG TAB PO SCH (09:00)
[2017-05-31] MEDS ORDERED: ISOSORBIDE MONONITRATE 30 MG TABCR PO SCH (09:00)
[2017-05-31] MEDS ORDERED: TAMSULOSIN HCL 0.4 MG CAP PO SCH (09:00)
[2017-05-31] MEDS ORDERED: BISACODYL 5 MG TABEC PO SCH (09:00)
[2017-05-31] MEDS ORDERED: AZITHROMYCIN 250 MG TAB PO SCH (09:00)
[2017-05-31] MEDS ORDERED: ASPIRIN 81 MG ECTAB PO SCH (09:00)
[2017-05-31] MEDS ORDERED: CHOLECALCIFEROL 1000 INTER.UNIT TAB PO SCH (09:00)
== END 2017-05-30 18:30 | disposition home or self-care (01) ==
LOC: EDBD 06:15 → C.EDB 06:17 → C.2T 09:33 → CANRESERV 10:13 → ENRESERV 10:13
PROVIDERS: ADMIT Internal Medicine; ATTEND Internal Medicine
DX: R07.9 Chest pain, unspecified (principal); J96.10 Chronic respiratory failure, unspecified whether with hypoxia or hypercapnia; M10.9 Gout, unspecified; J44.9 Chronic obstructive pulmonary disease, unspecified; J45.909 Unspecified asthma, uncomplicated; I25.10 Atherosclerotic heart disease of native coronary artery without angina pectoris; K21.9 Gastro-esophageal reflux disease without esophagitis; E55.9 Vitamin D deficiency, unspecified; I10 Essential (primary) hypertension; C34.90 Malignant neoplasm of unspecified part of unspecified bronchus or lung; Z87.891 Personal history of nicotine dependence; Z90.2 Acquired absence of lung [part of]; Z79.82 Long term (current) use of aspirin; Z79.899 Other long term (current) drug therapy; Z99.81 Dependence on supplemental oxygen

== ENCOUNTER → 2017-07-24 | Outpatient (CLI) | payer BC ==
[2017-07-16 11:05] LABS: BLOOD UREA NITROGEN 19 mg/dl (7-18); CREATININE 0.81 mg/dl (0.60-1.40)
[~2017-07-24] MED LIST changes: -ALBUAER2 INH; +AZIT250T5 PO; +CHOL1000 PO; -CHOL100010 PO; -MOME200A INH; +OPTIRAY 320 IV PRN; -PRD10 PO; +SYMIN160 PO; +VNTHFA/IN PO; -bipap INH
--- NOTE | 2017-07-24 10:29 | DIAGNOSTIC IMAGING REPORT ---
CT SCAN OF THE CHEST WITH IV CONTRAST CLINICAL HISTORY: Squamous cell lung cancer. COMPARISON STUDY: Chest CT scans dated 05/30/2017 and 09/24/2015. TECHNIQUE: Following the IV administration of 118 cc of Optiray 320, CT scan of the thorax was performed from the thoracic inlet to the upper abdomen. Images are reviewed in the axial, sagittal, and coronal planes. IV contrast was administered without complication. A dose lowering technique was utilized adhering to the principles of ALARA. CT DOSE: 646.52 mGy.cm FINDINGS: Thyroid: Imaged portions of the thyroid gland are normal in size and attenuation. A 2.3 cm low-attenuation nodule is again seen in the left lobe. Thoracic aorta: There is atherosclerotic calcification of the thoracic aorta, which is normal in caliber and demonstrates standard 3-vessel arch anatomy. No dissection is seen. Pulmonary vasculature: The pulmonary trunk is normal in caliber. There are no filling defects identified in the central pulmonary vessels to indicate pulmonary embolus. Note that this examination was not protocoled for evaluation of the pulmonary arteries. Heart: The heart is normal in size and configuration, and without pericardial effusion. The coronary arteries are densely calcified. Lungs and pleural spaces: Evaluation of lung parenchyma is degraded by motion artifact. Advanced emphysema is again noted. The trachea is clear. Again seen are postoperative changes from right upper lobe resection with compensatory hyperinflation of the left lung.. There is fibrotic change and consolidation seen in the right upper lung and in the right paramediastinal region. A small volume of loculated fluid is again seen in the right posterior thorax and at the right apex. These findings are unchanged from previous and likely treatment related. Minimal groundglass opacities are present the right lung base. No left-sided pulmonary lesions are identified. Mediastinum: Prominent high right paratracheal lymph nodes are similar to the 05/30/2017 examination. The largest node is seen on image #54 and measures 1.2 x 2.5 cm. No additional pathologically enlarged mediastinal lymph nodes are identified. Lower neck: No supraclavicular adenopathy is seen. Arabella: The right hilar region is obscured by fibrotic change. No left hilar adenopathy is seen. Axillae: Shotty right axillary and subpectoral lymph nodes are unchanged and are not pathologically enlarged by size criteria. The largest measures 10 mm. Upper abdomen: There are numerous calcified gallstones. A tiny hiatal hernia is identified. Renal cysts are partially imaged and measure up to 4.1 cm. A 2 cm cyst is noted in the inferior spleen. No adrenal lesion is identified. There is a fat-containing ventral hernia in the upper abdominal wall. Skeletal structures: The skeletal structures are osteopenic. Degenerative change is seen throughout the thoracic spine and in the shoulders. No lytic or blastic bony lesions are seen. IMPRESSION: 1. Advanced emphysema with postoperative change from right upper lobe resection. 2. Fibrotic change and a small volume of loculated pleural fluid in the right lung is unchanged from prior examinations and likely treatment related. 3. Mildly enlarged high right peritracheal lymph nodes as well as prominent right axillary and right subpectoral lymph nodes are unchanged from previous and remain pathologically indeterminant. 4. There is no evidence of recurrent pulmonary lesion. 5. Minimal groundglass change is seen at the right lung base. This could present atelectasis versus a mild infectious/inflammatory pneumonitis. Clinical correlation will be required. 6. Cholelithiasis. 7. Additional findings as above. Electronically signed by: Jaya Henning M.D. 07/24/2017 10:27 AM Dictated Date/Time: 07/24/2017 10:15 AM
== END | disposition home or self-care (01) ==
LOC: C.CTS 09:37
PROVIDERS: ATTEND Internal Medicine Pulmonary Disease
DX: C34.90 Malignant neoplasm of unspecified part of unspecified bronchus or lung (principal); J43.9 Emphysema, unspecified; Z90.2 Acquired absence of lung [part of]; R91.8 Other nonspecific abnormal finding of lung field; K80.20 Calculus of gallbladder without cholecystitis without obstruction

== ENCOUNTER 2017-09-17 18:11 | Emergency (ER) | payer BC ==
[~2017-09-17] VITALS: Ht 170.2 cm; Wt 87.0 kg
[~2017-09-17 18:11] MED LIST changes: -ALLO300T2 PO; +AZIT-60 PO; -AZIT250T5 PO; -FLM4 PO; -OPTIRAY 320 IV PRN
[2017-09-17 18:15] VITALS: TEMP 37.8; Ht 170.2 cm; Wt 87.0 kg
[2017-09-17] MEDS ORDERED: ASPIRIN 324 MG CHEW PO STA (18:30)
[2017-09-17] MEDS ORDERED: ASPIRIN 81 MG CHEW ONE (18:30)
[2017-09-17 18:42] VITALS: O2SAT 97
--- NOTE | 2017-09-17 18:42 | EMERGENCY ROOM VISIT NOTE ---
History Report prepared by Maria T: Iris Hardwick Under the Supervision of: Dr. Lisandro Barton D.O. First contact with patient: 18:20 Chief Complaint: REFERRED BY DOCTOR Stated Complaint: DR BOYD REFFERRED History of Present Illness The patient is a 81 year old male who presents to the Emergency Room with complaints of intermittent chest pain beginning yesterday afternoon. The patient was eating when the pain began. The patient took 3 nitroglycerin yesterday as well as 3 today. He called his PCP, Dr. Boyd, this morning who referred him to the ED. The patient is short of breath which he notes is baseline for him. He reports some upper leg swelling. Presently, the patient has no chest pain. He states his pain went away today about 3 hours ago. The patient reports taking an aspirin this morning. He denies any worsening factors. The patient states yesterday was the first time he's ever taken nitroglycerin. The patient states he got the prescriptions of nitroglycerin in June because he was having episodes of chest pain. The patient has a history of a partial heart blockage. The patient has a history of lung cancer and has part of his lung removed. The patient states he quit smoking 12 years ago. Source of History: patient Onset: yesterday afternoon Position: chest Timing: intermittent Modifying Factors (Worsening): other (none) Associated Symptoms: + chest pain, + SOB Review of Systems See HPI for pertinent positives & negatives. A total of 10 systems reviewed and were otherwise negative. Past Medical & Surgical Medical Problems: (1) Asthma (2) Cancer of lower lobe of right lung (3) Chest pain at rest (4) COPD (chronic obstructive pulmonary disease) (5) History of lobectomy of lung (6) Respiratory failure with hypoxia and hypercapnia (7) SOB (shortness of breath) (8) Tachycardia Surgical Problems: (1) Hx of cholecystectomy Family History FH: cancer Social History Smoking Status: Former Smoker Alcohol Use: occasionally Drug Use: none Marital Status: Housing Status: lives with family Occupation Status: retired Current/Historical Medications Scheduled Albuterol Hfa (Ventolin Hfa), 2 PUFFS PO UD Allopurinol (Zyloprim), 300 MG PO DAILY Aspirin (Ivan Aspirin Ec Low Dose), 81 MG PO DAILY Atorvastatin (Lipitor), 80 MG PO HS Azithromycin (Zithromax), 250 MG PO DAILY Bisacodyl (Dulcolax), 5 TAB PO DAILY Budesonide/Formoterol Fumarate (Symbicort 160/4.5 Inhaler), 2 PUFFS PO BID Cholecalciferol (Vitamin D3), 1 TAB PO DAILY Famotidine (Pepcid), 20 MG PO BID Ipratropium-Albuterol (Duoneb), 1 TREATMENT INH BID Isosorbide Mononitrate Ext Rel (Imdur Ext Rel), 30 MG PO DAILY Metoprolol Tartrate (Lopressor) (Lopressor), 25 MG PO BID Montelukast Sodium (Singulair), 10 MG PO HS Tamsulosin HCl (Tamsulosin HCl), 0.4 MG PO DAILY Allergies Coded Allergies: Amoxicillin (Unverified Allergy, Mild, itching, 09/17/17) Clavulanic Acid (Unverified Allergy, Mild, itching, 09/17/17) Physical Exam Vital Signs Date Time Temp Pulse Resp B/P (MAP) Pulse Ox O2 Delivery O2 Flow Rate FiO2 09/17/17 20:40 110 20 152/77 95 09/17/17 19:35 106 20 159/84 97 Nasal Cannula 2.0 09/17/17 19:10 110 20 180/95 95 Nasal Cannula 2.0 09/17/17 18:42 97 Nasal Cannula 2.0 09/17/17 18:42 97 Nasal Cannula 2.0 09/17/17 18:36 113 09/17/17 18:15 37.8 116 22 162/84 89 Nasal Cannula 2.0 Physical Exam GENERAL: Patient is awake, alert, and in no acute distress. Patient is resting comfortably and showing no signs of anxiety EYES: The conjunctivae are clear. The pupils are round and reactive. EARS, NOSE, MOUTH AND THROAT: The nose is without any evidence of any deformity. Mucous membranes are moist tongue is midline NECK: The neck is nontender and supple. RESPIRATORY: Lung sounds diminished throughout. Rales at both bases mild tachypnea appreciated. CARDIOVASCULAR: Regular rate and rhythm noted there no murmurs rubs or gallops normal S1 normal S2 GASTROINTESTINAL: The abdomen is soft. Bowel sounds are present in all quadrants. Abdomen is nontender MUSCULOSKELETAL/EXTREMITIES: There is no evidence of gross deformity full range of motion is noted in the hips and shoulders SKIN: Pedal edema bilaterally. There is no obvious evidence of any rash. There are no petechiae, pallor or cyanosis noted. NEUROLOGIC: Patient is awake alert and oriented x3. Medical Decision & Procedures ER Provider Diagnostic Interpretation: Radiology results as stated below per my review and radiologist interpretation: CHEST ONE VIEW PORTABLE FINDINGS: Cardiac silhouette is mildly enlarged, unchanged. There are unchanged postsurgical changes of the right upper lobe with chronic volume loss and chronic consolidation with rightward mediastinal shift. Emphysematous changes redemonstrated. Left lung appears generally clear with mild left basilar atelectasis/scarring. No pneumothorax. Bones of the chest appear grossly intact. IMPRESSION: 1. No acute cardiopulmonary process. 2. Emphysema with postsurgical changes compatible with prior right upper lobe resection with chronic right perihilar and right upper lung consolidative opacities suggesting scarring. The above report was generated using voice recognition software. It may contain grammatical, syntax or spelling errors. Electronically signed by: Diaz Aguilar M.D. Laboratory Results 09/17/17 18:39 Red Blood Count 4.14, Mean Corpuscular Volume 94.0, Mean Corpuscular Hemoglobin 29.0, Mean Corpuscular Hemoglobin Concent 30.8, Mean Platelet Volume 9.5, Neutrophils (%) (Auto) 76.8, Lymphocytes (%) (Auto) 11.1, Monocytes (%) (Auto) 11.2, Eosinophils (%) (Auto) 0.6, Basophils (%) (Auto) 0.0, Neutrophils # (Auto ) 7.33, Lymphocytes # (Auto) 1.06, Monocytes # (Auto) 1.07, Eosinophils # (Auto ) 0.06, Basophils # (Auto) 0.00 09/17/17 18:39 Test 09/17/17 18:39 White Blood Count 9.55 K/uL (4.8-10.8) Red Blood Count 4.14 M/uL (4.7-6.1) Hemoglobin 12.0 g/dL (14.0-18.0) Hematocrit 38.9 % (42-52) Mean Corpuscular Volume 94.0 fL (80-100) Mean Corpuscular Hemoglobin 29.0 pg (25-34) Mean Corpuscular Hemoglobin Concent 30.8 g/dl (32-36) Platelet Count 196 K/uL (130-400) Mean Platelet Volume 9.5 fL (7.4-10.4) Neutrophils (%) (Auto) 76.8 % Lymphocytes (%) (Auto) 11.1 % Monocytes (%) (Auto) 11.2 % Eosinophils (%) (Auto) 0.6 % Basophils (%) (Auto) 0.0 % Neutrophils # (Auto) 7.33 K/uL (1.4-6.5) Lymphocytes # (Auto) 1.06 K/uL (1.2-3.4) Monocytes # (Auto) 1.07 K/uL (0.11-0.59) Eosinophils # (Auto) 0.06 K/uL (0-0.5) Basophils # (Auto) 0.00 K/uL (0-0.2) RDW Standard Deviation 56.5 fL (36.4-46.3) RDW Coefficient of Variation 16.3 % (11.5-14.5) Immature Granulocyte % (Auto) 0.3 % Immature Granulocyte # (Auto) 0.03 K/uL (0.00-0.02) Prothrombin Time 11.4 SECONDS (9.0-12.0) Prothromb Time International Ratio 1.1 (0.9-1.1) Activated Partial Thromboplast Time 41.5 SECONDS (21.0-31.0) Partial Thromboplastin Ratio 1.6 Anion Gap 5.0 mmol/L (3-11) Est Creatinine Clear Calc Drug Dose 69.0 ml/min Estimated GFR () 93.2 Estimated GFR (Non- 80.4 BUN/Creatinine Ratio 15.5 (10-20) Calcium Level 9.1 mg/dl (8.5-10.1) Total Bilirubin 1.4 mg/dl (0.2-1) Direct Bilirubin 0.3 mg/dl (0-0.2) Aspartate Amino Transf (AST/SGOT) 15 U/L (15-37) Alanine Aminotransferase (ALT/SGPT) 19 U/L (12-78) Alkaline Phosphatase 90 U/L (45-117) Total Creatine Kinase 121 U/L (39-308) Creatine Kinase MB 1.0 ng/ml (0.5-3.6) Creatine Kinase MB Ratio 0.8 (0-3.0) Troponin I < 0.015 ng/ml (0-0.045) Total Protein 8.0 gm/dl (6.4-8.2) Albumin 3.2 gm/dl (3.4-5.0) Lipase 154 U/L (73-393) Laboratory results per my review. Medications Administered Medications (Trade) Dose Ordered Sig/Cinthia Route Start Time Stop Time Status Last Admin Dose Admin Aspirin (Aspirin Chew) 324 mg STK-MED ONCE .ROUTE 09/17/17 18:30 09/17/17 18:31 DC 09/17/17 18:35 324 MG ECG Indication: chest pain Rate (beats per minute): 114 Rhythm: sinus tachycardia Findings: no ectopy, other (No Actue ST segment, inferior [place] depression) Comparison ECG Date: 05/30/17 Change: no significant change ED Course 1821: The patient was evaluated in room B11B. A complete history and physical examination were performed. 1829: Ordered Aspirin 324 mg PO, Aspirin 324 mg .ROUTE. 1941: I updated the patient and advised him to stay in the hospital. He would like to discuss it with his family before making a decision. 2000: I discussed the patient's case with Dr. Lozano Cardiology. He will look at the patient's history 2009: Dr. Sawyer looked at the patient's previous catheterization and he recommends the patient stays in the hospital. 2014: The patient does not want to stay in the hospital and will follow up with his PCP. 2039: Upon reevaluation, the patient is resting comfortably. I discussed the results and treatment plan with him. He verbalized agreement of the treatment plan. The patient was discharged home. Medical Decision Differential diagnosis: Etiologies such as cardiac ischemia, aortic dissection, pulmonary embolism, pneumonia, pneumothorax, musculoskeletal, infections, pericarditis, myocarditis , esophageal rupture, gastrointestinal, as well as others were entertained. Nursing notes reviewed. The patient is an 81-year-old male who presented to the emergency department for an evaluation of chest discomfort. The patient called his primary care physician and was referred to the emergency department. The patient is a history of cardiac catheterization in the past which showed some lesions which at that time didn't require stenting. The patient has a history of lung cancer with resection. The patient was found to be hypertensive as well and the emergency department. I discussed the patient's laboratory and radiographic studies with him. His EKG did not show any specific change from previous in his cardiac biomarkers were negative. The patient's pain was relieved with nitroglycerin earlier in the day and at that time he presented to the emergency department he was not having chest pain. I discussed the patient's condition with the on-call [facility] audit intern. The patient requested to be discharged home. He does not wish to stay in the hospital. He was told by his primary care physician that if his cardiac biomarkers were negative he could likely be discharged. I was concerned that the patient's blood pressure may require further intervention. The patient had multiple family members who presented to the emergency Department with him. There were very concerned about his condition and trying to convince him to stay in the hospital for serial troponins but the patient ultimately wish to be discharged home. He was encouraged to rest and avoid any strenuous activity. He was also encouraged to continue all medications as prescribed and follow-up with his family doctor soon as possible. He was also encouraged to call his audit intern in the morning for follow-up appointment. Otherwise she was encouraged to return the emergency Department immediately if symptoms change worsen or the need arises. Medication Reconcilliation Current Medication List: was personally reviewed by me Blood Pressure Screening Patient's blood pressure: Elevated blood pressure Blood pressure disposition: Referred to PCP Consults Time Called: 1955 Consulting Physician: Dr. Moody Cardiogy Returned Call: 2000 I discussed the patient's case with Dr. Lozano Cardiology. He will look at the patient's history. Impression Primary Impression: Chest pain Additional Impression: Hypertension Scribe Attestation The scribe's documentation has been prepared under my direction and personally reviewed by me in its entirety. I confirm that the note above accurately reflects all work, treatment, procedures, and medical decision making performed by me. Departure Information Dispostion Home / Self-Care Referrals Jerry Boyd M.D. (PCP) Forms HOME CARE DOCUMENTATION FORM, IMPORTANT VISIT INFORMATION, WORK / SCHOOL INSTRUCTIONS Patient Instructions ED Chest Pain Angina Stable, My [facility] Additional Instructions Call your audit intern in the morning to schedule a follow-up appointment. Change some of your medications as we discussed this evening. Increase your metoprolol 25 milligrams to 3 times a day. Increase the Imdur to 60 mg a day. Rest and avoid any strenuous activity. Return to the emergency Department immediately if symptoms change worsen or the need arises. Your blood pressure was elevated this evening in the emergency department. I would recommend having her blood pressure rechecked with your family as well as your audit intern as soon as possible. Problem Qualifiers Primary Impression: Chest pain Chest pain type: unspecified Qualified Codes: R07.9 - Chest pain, unspecified Additional Impression: Hypertension Hypertension type: unspecified Qualified Codes: I10 - Essential (primary) hypertension
[2017-09-17 18:54] LABS: COMPLETE YES; EOS % 0.6 %; HEMATOCRIT 38.9 % (42-52); IG% 0.3 %; LYMPH % 11.1 %; LYMPH ABS # 1.06 K/uL (1.2-3.4); MEAN CORPUSCULAR HGB CONC 30.8 g/dl (32-36); MEAN PLATELET VOLUME 9.5 fL (7.4-10.4); MONO % 11.2 %; NEUT % 76.8 %; PLATELET COUNT 196 K/uL (130-400); RED BLOOD COUNT 4.14 M/uL (4.7-6.1); WHITE BLOOD COUNT 9.55 K/uL (4.8-10.8)
--- NOTE | 2017-09-17 18:57 | DIAGNOSTIC IMAGING REPORT ---
CHEST ONE VIEW PORTABLE HISTORY: 81 years-old Male CHEST PAIN acute atypical chest pain COMPARISON: Chest radiograph 05/30/2017, chest CT 07/24/2017 TECHNIQUE: Portable upright AP view of the chest FINDINGS: Cardiac silhouette is mildly enlarged, unchanged. There are unchanged postsurgical changes of the right upper lobe with chronic volume loss and chronic consolidation with rightward mediastinal shift. Emphysematous changes redemonstrated. Left lung appears generally clear with mild left basilar atelectasis/scarring. No pneumothorax. Bones of the chest appear grossly intact. IMPRESSION: 1. No acute cardiopulmonary process. 2. Emphysema with postsurgical changes compatible with prior right upper lobe resection with chronic right perihilar and right upper lung consolidative opacities suggesting scarring. The above report was generated using voice recognition software. It may contain grammatical, syntax or spelling errors. Electronically signed by: Diaz Aguilar M.D. 09/17/2017 6:55 PM Dictated Date/Time: 09/17/2017 6:53 PM
[2017-09-17 19:04] LABS: INR 1.1 (0.9-1.1); PARTIAL THROMBOPLASTIN RATIO 1.6; PROTHROMBIN TIME (PATIENT) 11.4 SECONDS (9.0-12.0)
[2017-09-17 19:13] LABS: ALT/SGPT 19 U/L (12-78); BLOOD UREA NITROGEN 14 mg/dl (7-18); BUN/CREATININE RATIO 15.5 (10-20); CALCIUM 9.1 mg/dl (8.5-10.1); CARBON DIOXIDE 34 mmol/L (21-32); CHLORIDE 98 mmol/L (98-107); GLUCOSE 118 mg/dl (70-99); POTASSIUM 4.6 mmol/L (3.5-5.1); SODIUM 137 mmol/L (136-145)
[2017-09-17 19:19] LABS: ALKALINE PHOSPHATASE 90 U/L (45-117); AST/SGOT 15 U/L (15-37); CKMB/CK RATIO 0.8 (0-3.0)
[2017-09-17] MEDS ORDERED: FLM4 PO (19:45)
[2017-09-17 20:40] VITALS: BP 152/77; PULSE 110; O2SAT 95
[2017-09-17] MEDS ORDERED: ALLO300T2 PO (22:30)
== END 2017-09-17 20:40 | disposition home or self-care (01) ==
LOC: C.EDB 18:12
DX: R07.9 Chest pain, unspecified (principal); I10 Essential (primary) hypertension; J45.909 Unspecified asthma, uncomplicated; J44.9 Chronic obstructive pulmonary disease, unspecified; Z87.891 Personal history of nicotine dependence; Z79.82 Long term (current) use of aspirin; J43.9 Emphysema, unspecified

== ENCOUNTER → 2017-11-04 | Outpatient (CLI) | payer BC ==
[~2017-11-04] MED LIST changes: +ALLO300T2 PO; +FLM4 PO; -OXGN
--- NOTE | 2017-11-04 12:44 | DIAGNOSTIC IMAGING REPORT ---
CHEST 2 VIEWS ROUTINE CLINICAL HISTORY: C34.90 Squamous cell carcinoma of [id number] COMPARISON STUDY: 09/17/2017 FINDINGS: The chest is emphysematous configuration. There is volume loss in the right hemithorax. Left lung is clear. There is right para hilar and mediastinal consolidative change with superior retraction. There is right apical pleural thickening. There are groundglass opacities within the right apex.[ IMPRESSION: 1. Postoperative changes on the right with right parahilar mediastinal consolidative change with superior retraction. Persistent right apical pleural thickening. Persistent right lung volume loss. Slight increase in groundglass opacity within the right apex. This could indicate a superimposed pneumonitis or other lung pathology. Electronically signed by: Anton Styles M.D. 11/04/2017 12:43 PM Dictated Date/Time: 11/04/2017 12:39 PM
== END | disposition home or self-care (01) ==
LOC: C.RAD1850 12:25
PROVIDERS: ATTEND Internal Medicine Pulmonary Disease
DX: C34.90 Malignant neoplasm of unspecified part of unspecified bronchus or lung (principal)

== ENCOUNTER → 2017-12-28 | Outpatient (CLI) | payer BC ==
[2017-12-28 17:27] LABS: BASO % 0.1 %; BASO ABS # 0.01 K/uL (0-0.2); EOS ABS # 0.21 K/uL (0-0.5); HEMATOCRIT 39.8 % (42-52); HEMOGLOBIN 12.2 g/dL (14.0-18.0); IG# 0.02 K/uL (0.00-0.02); LYMPH % 16.3 %; LYMPH ABS # 1.14 K/uL (1.2-3.4); MEAN CELL VOLUME 92.6 fL (80-100); MEAN CORPUSCULAR HEMOGLOBIN 28.4 pg (25-34); MEAN CORPUSCULAR HGB CONC 30.7 g/dl (32-36); MONO ABS # 1.19 K/uL (0.11-0.59); NEUT % 63.3 %; NEUT ABS # 4.44 K/uL (1.4-6.5); PLATELET COUNT 210 K/uL (130-400); RED CELL DISTRIBUTION WIDTH CV 16.4 % (11.5-14.5); RED CELL DISTRIBUTION WIDTH SD 56.1 fL (36.4-46.3); WHITE BLOOD COUNT 7.01 K/uL (4.8-10.8)
[2017-12-28 17:50] LABS: BLOOD UREA NITROGEN 23 mg/dl (7-18); CALCIUM 9.2 mg/dl (8.5-10.1); CARBON DIOXIDE 31 mmol/L (21-32); CREATININE 1.09 mg/dl (0.60-1.40); GLUCOSE 95 mg/dl (70-99); POTASSIUM 3.9 mmol/L (3.5-5.1); SODIUM 137 mmol/L (136-145)
--- NOTE | 2017-12-28 18:47 | DIAGNOSTIC IMAGING REPORT ---
CHEST 2 VIEWS ROUTINE HISTORY: 82 years-old Male E78.00 follow-up study in a patient with history of squamous cell carcinoma of the lung. COMPARISON: Chest radiograph 11/04/2017 TECHNIQUE: PA and lateral views of the chest FINDINGS: Cardiac silhouette is within normal limits in size, unchanged. Postoperative changes of the right lung redemonstrated with chronic volume loss, right perihilar and right para mediastinal consolidation with pleural parenchymal scarring and retraction. Slight deviation of the trachea to the right. Chronic appearing interstitial opacities within the left perihilar lung and left lung base. Bones of the chest appear grossly intact. IMPRESSION: Stable postoperative changes about the right hemithorax without acute process identified. The above report was generated using voice recognition software. It may contain grammatical, syntax or spelling errors. Electronically signed by: Diaz Aguilar M.D. 12/28/2017 6:46 PM Dictated Date/Time: 12/28/2017 6:44 PM
[2017-12-29 06:33] LABS: HEMOGLOBIN A1C 6.2 % (4.5-5.6)
== END | disposition home or self-care (01) ==
LOC: C.RAD1850 16:55
PROVIDERS: ATTEND Internal Medicine
DX: E78.00 Pure hypercholesterolemia, unspecified (principal)

== ENCOUNTER → 2018-01-18 | Outpatient (CLI) | payer BC ==
--- NOTE | 2018-01-18 13:34 | DIAGNOSTIC IMAGING REPORT ---
PARANASAL SINUSES 4 VIEWS CLINICAL HISTORY: COPD. Sinus pain. FINDINGS: 4 views of the paranasal sinuses are correlated with CT of the brain dated 09/06/2015. The skeletal structures are osteopenic. There is no radiographic evidence of paranasal sinus disease. The mastoid air cells appear well-pneumatized. The imaged calvarium appears maintained. The bony orbits are intact as visualized. IMPRESSION: There is no radiographic evidence of paranasal sinus disease. Electronically signed by: Jaya Henning M.D. 01/18/2018 1:33 PM Dictated Date/Time: 01/18/2018 1:32 PM
== END | disposition home or self-care (01) ==
LOC: C.RAD1850 12:51
PROVIDERS: ATTEND Physician Assistant
DX: J44.1 Chronic obstructive pulmonary disease with (acute) exacerbation (principal)

== ENCOUNTER → 2018-01-21 | Outpatient (CLI) | payer BC | END | disposition home or self-care (01) | LOC: C.LAB1850 10:05 | PROVIDERS: ATTEND Physician Assistant | DX: J44.1 Chronic obstructive pulmonary disease with (acute) exacerbation (principal) ==

== ENCOUNTER → 2018-02-08 | Outpatient (CLI) | payer BC | END | disposition home or self-care (01) | LOC: C.LAB1850 08:40 | PROVIDERS: ATTEND Internal Medicine | DX: E78.00 Pure hypercholesterolemia, unspecified (principal) ==

== ENCOUNTER → 2018-06-10 | Outpatient (CLI) | payer BC ==
[~2018-06-10] MED LIST changes: +IPRA-64 INH; -IPRASOL4 INH
[2018-06-10 10:13] LABS: BASO % 0.2 %; BASO ABS # 0.01 K/uL (0-0.2); EOS ABS # 0.06 K/uL (0-0.5); HEMATOCRIT 40.4 % (42-52); HEMOGLOBIN 12.4 g/dL (14.0-18.0); IG# 0.04 K/uL (0.00-0.02); LYMPH % 17.9 %; LYMPH ABS # 1.04 K/uL (1.2-3.4); MEAN CELL VOLUME 97.6 fL (80-100); MEAN CORPUSCULAR HGB CONC 30.7 g/dl (32-36); MONO ABS # 0.58 K/uL (0.11-0.59); NEUT % 70.2 %; NEUT ABS # 4.07 K/uL (1.4-6.5); PLATELET COUNT 120 K/uL (130-400); RED CELL DISTRIBUTION WIDTH SD 56.9 fL (36.4-46.3)
[2018-06-10 11:01] LABS: ALT/SGPT 50 U/L (12-78); AST/SGOT 28 U/L (15-37); BLOOD UREA NITROGEN 21 mg/dl (7-18); CALCIUM 8.6 mg/dl (8.5-10.1); CARBON DIOXIDE 33 mmol/L (21-32); CHOLESTEROL 186 mg/dl (0-200); CREATININE 0.91 mg/dl (0.60-1.40); GLUCOSE 91 mg/dl (70-99); LDL CHOLESTEROL CALCULATED 83 mg/dl; POTASSIUM 3.8 mmol/L (3.5-5.1); SODIUM 143 mmol/L (136-145)
== END | disposition home or self-care (01) ==
LOC: C.LAB1850 09:30
PROVIDERS: ATTEND Physician Assistant
DX: J44.9 Chronic obstructive pulmonary disease, unspecified (principal); I25.10 Atherosclerotic heart disease of native coronary artery without angina pectoris; D64.9 Anemia, unspecified

== ENCOUNTER 2019-07-06 20:31 | Inpatient (IN) ==
[2019-07-06] MEDS ORDERED: VANCOMYCIN CONSULT ACTIVE PRN (20:46)
[2019-07-06] MEDS ORDERED: ALBUT/IPRATROP 3MG/0.5MG NEB 3 ML VIAL NEB ONE (20:46)
[2019-07-06] MEDS ORDERED: DOXYCYCLINE HYCLATE 100 MG in DEXTROSE 5% 100 ML IV STA (20:46)
[2019-07-06] MEDS ORDERED: methylPREDNISolone 125 MG/2 ML VIAL IV STA (20:46)
[2019-07-06] MEDS ORDERED: VANCOMYCIN HCL 1,750 MG in SODIUM CHLORIDE 0.9% 500 ML IV ONE (20:46)
[2019-07-06] MEDS ORDERED: CEFEPIME 2,000 MG/20 ML VIAL IV STA (20:46)
[2019-07-06 21:05] LABS: Basophils # (auto) 0.01 K/uL (0-0.2); Basophils % (auto) 0.1 %; Eosinophils # (auto) 0.16 K/uL (0-0.5); Hemoglobin 11.1 g/dL (14.0-18.0); Immature Granulocytes # (auto) 0.01 K/uL (0.00-0.02); Immature Granulocytes % (auto) 0.1 %; Lymphocytes # (auto) 0.96 K/uL (1.2-3.4); Lymphocytes % (auto) 11.7 %; Mean Corpuscular Hemoglobin 30.8 pg (25-34); Mean Corpuscular Hgb Conc 30.8 g/dL (32-36); Mean Platelet Volume 9.7 fL (7.4-10.4); Monocytes # (auto) 0.99 K/uL (0.11-0.59); Monocytes % (auto) 12.1 %; Neutrophils # (auto) 6.06 K/uL (1.4-6.5); Platelet Count 204 K/uL (130-400); RDW Coefficient of Variation 15.3 % (11.5-14.5); RDW Standard Deviation 56.6 fL (36.4-46.3); White Blood Count 8.19 K/uL (4.8-10.8)
[2019-07-06 21:12] LABS: Base Excess VBG 2.8 mEq/L; HCO3 VBG 32 mmol/L; PCO2 VBG 73 mmHg (38-50); PO2 VBG 34 mmHg; pH VBG 7.26 (7.36-7.41)
[2019-07-06 21:13] LABS: Oxygen Saturation VBG < 60.0 %
--- NOTE | 2019-07-06 21:13 | XRay Report ---
XR chest 1V portable CLINICAL HISTORY: Sepsis. Lung cancer. COMPARISON STUDY: Chest CT February 22, 2019. Chest radiograph July 05, 2019. FINDINGS: The patient is status post right upper lobectomy as shown on chest CT of February 22, 2019.] Isabela hilar/apical opacity is unchanged. These favor scarring. There is emphysema. No pneumothorax or pleur al effusion is noted. The appearance of the chest is unchanged. There is no evidence for pulmonary ed luke. IMPRESSION: No acute cardiopulmonary findings. No change in appearance of chest with right perihilar /right apical opacity. Electronically signed by: Dale Borrego M.D. 07/06/2019 9:11 PM
[2019-07-06 21:25] LABS: Albumin Level 2.8 gm/dl (3.4-5.0); BUN Creatinine Ratio 19.4 (10-20); Calcium 8.9 mg/dl (8.5-10.1); Creatinine Clr Calc Pharmacy 47.9 ml/min; Est GFR (African American) 62.4; Est GFR (Non-African American) 53.8; Magnesium 2.5 mg/dl (1.8-2.4); Potassium 4.7 mmol/L (3.5-5.1)
[2019-07-06 21:28] LABS: Albumin Globulin Ratio 0.6 (0.9-2); Bilirubin,Total 0.5 mg/dl (0.2-1); Globulin 4.9 gm/dl (2.5-4.0); Phosphorus 3.3 mg/dl (2.5-4.9); Total Protein 7.7 gm/dl (6.4-8.2)
[2019-07-06 21:30] LABS: INR 1.1 (0.9-1.1); Partial Thromboplastin Ratio 1.3; Partial Thromboplastin Time 35.6 Seconds (21.0-31.0); Prothrombin Time 10.8 Seconds (9.0-12.0)
[2019-07-06] MEDS ORDERED: OPTIRAY 320 125ml IV PRN (22:52)
--- NOTE | 2019-07-06 23:09 | Emergency Department Note ---
Entered by Noemi Ruby acting as a scribe for History of Present Illness General Chief complaint: Shortness of Breath/Dyspnea Stated complaint: TROUBLE BREATHING, REFERRED BY DR Irvin Seen by Provider: 07/06/19 20:37 Source: patient History of Present Illness Provider complaint: Shortness of breath Onset (ago): day(s) 1 Location: chest Relieved By: + none Exacerbated By: + movement Associated symptoms: + fever/chills The patient is a 83 year old male who presents to the Emergency Room with complaints of worsening shortness of breath that began yesterday. The patient states the symptoms are not relieved by anything but they are exacerbated by movement. The patient reports experiencing a fever about 3 days ago. The patient notes that he is on 3L of oxygen and started antibiotics on Thursday. The patient mentioned he hasn't taken his water pills for 2 days and uses CIPAP at night. Home Medications Home Medications Medication Instructions Recorded Confirmed Type albuterol sulfate HFA 90 See Rx Instructions INH Q6H PRN 05/20/19 07/07/19 History mcg/actuation aerosol inhaler allopurinol 300 mg tablet 300 mg PO DAILY 05/20/19 07/07/19 History aspirin 81 mg tablet,delayed 81 mg PO DAILY 05/20/19 07/07/19 History release atorvastatin 80 mg tablet 80 mg PO QPM 05/20/19 07/07/19 History cholecalciferol (vitamin D3) 1,000 1,000 units PO DAILY 05/20/19 07/07/19 History unit capsule lifitegrast 5 % eye drops in a 1 drops OP BID 05/20/19 07/07/19 History dropperette metoprolol tartrate 25 mg tablet 75 mg PO DAILY tab 05/20/19 07/07/19 History ipratropium-albuterol 0.5 mg-3 See Rx Instructions .ROUTE 05/23/19 07/07/19 Rx mg(2.5 mg base)/3 mL nebulization .COMPLEX #180 unspecified soln isosorbide mononitrate ER 60 mg 60 mg PO DAILY #90 tab 06/09/19 07/07/19 Rx tablet,extended release 24 hr tamsulosin 0.4 mg capsule 0.4 mg PO DAILY #90 cap 06/09/19 07/07/19 Rx famotidine 20 mg tablet 40 mg PO DAILY tab 06/14/19 07/07/19 History furosemide 40 mg tablet 40 mg PO 2XWK tab 06/14/19 07/07/19 History montelukast 10 mg tablet 10 mg PO DAILY #30 tab 06/14/19 07/07/19 History nitroglycerin 0.4 mg sublingual 0.4 mg SL Q5M PRN tab 06/14/19 07/07/19 History tablet prednisone 10 mg tablet 10 mg PO DAILY #100 tab 06/21/19 07/07/19 Rx cefuroxime axetil 500 mg tablet 500 mg PO BID #20 tab 07/04/19 07/07/19 Rx budesonide-formoterol HFA 160 2 puffs INH WEEKLY gm 07/06/19 07/07/19 History mcg-4.5 mcg/actuation aerosol inhaler Allergies Allergy/AdvReac Type Severity Reaction Status Date / Time amoxicillin Allergy Mild itching Unverified 07/07/19 00:27 clavulanic acid Allergy Mild itching Unverified 07/07/19 00:27 Past Med/Surg History Medical History History of lobectomy of lung (Resolved) Fever (Acute) Hypoxia (Acute) Pneumonia (Acute) GI bleed (Acute 11/13/13) Acute GI bleeding (Acute) Lung cancer, upper lobe (Acute 02/26/11) 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) COPD (chronic obstructive pulmonary disease) (Chronic) Asthma (Chronic) Chest pain at rest Hypoxia (Acute) Respiratory failure with hypoxia and hypercapnia SOB (shortness of breath) Tachycardia Surgical History Hx of cholecystectomy (Resolved) Social History Preferred Language: Kyrgyz Communication Ability: Effective Control Systems Eng Required: No Beliefs That Will Affect Care: Tenriism Tenriism Beliefs: Priti Current Living Situation: Spouse Other Information That Helps Us Care for You: No Feels Safe at Home: Yes Safety Concerns: Feels Safe At This Time Smoking Status: Former smoker Do You Dip or Chew Tobacco: No ; Second Hand Exposure: No ; Tobacco Cessation Education Requested by Patient: No Hx Alcohol Use: Yes Alcohol type: hard liquor Hx Substance Use: No Review of Systems See HPI for pertinent positives & negatives. and A total of 10 systems reviewed and were otherwise negative Physical Exam Vital Signs Vital Signs - 24 hr 07/06/19 20:34 07/06/19 21:14 07/06/19 21:42 Temperature 37.7 C H Temperature Source Oral Sepsis Recent Fever Within 48 Hours No Sepsis New/Unexplained Change in Mental Status No Sepsis Action Taken by Nursing No Action Required Pulse Rate 100 H 89 Pulse Rate [Apical] 90 Pulse Rhythm [Apical] Respiratory Rate 26 H 26 H Respiratory Effort / Characteristics Labored Spontaneous Respiratory Depth Shallow Respiratory Pattern Blood Pressure 133/74 Blood Pressure [Left Arm] Blood Pressure Mean 93 Blood Pressure Mean [Left Arm] Blood Pressure Position Sitting Blood Pressure Position [Left Arm] Pulse Oximetry 80 L 97 99 Oxygen Delivery Method Nasal Cannula BiPAP BiPAP Oxygen Flow Rate 3 Fraction of Inspired Oxygen 30 07/06/19 21:58 07/06/19 23:08 07/06/19 23:10 Temperature Temperature Source Sepsis Recent Fever Within 48 Hours Sepsis New/Unexplained Change in Mental Status Sepsis Action Taken by Nursing Pulse Rate 78 Pulse Rate [Apical] 84 72 Pulse Rhythm [Apical] Regular Respiratory Rate 19 20 18 Respiratory Effort / Characteristics Non-Labored Non-Labored Spontaneous Respiratory Depth Normal Normal Respiratory Pattern Regular Regular Blood Pressure Blood Pressure [Left Arm] 110/62 144/80 H Blood Pressure Mean Blood Pressure Mean [Left Arm] 78 101 Blood Pressure Position Blood Pressure Position [Left Arm] Lying Pulse Oximetry 99 98 96 Oxygen Delivery Method BiPAP Room Air Oxygen Flow Rate 3 Fraction of Inspired Oxygen 30 GENERAL: Awake, alert, ill-appearing, in no distress HENT: Normocephalic, atraumatic. Oropharynx with dry mucous membranes and otherwise unremarkable. EYES: Normal conjunctiva. Sclera non-icteric. NECK: Supple. No nuchal rigidity. FROM. No JVD. RESPIRATORY: Diminished breath sounds throughout with intermittent wheeze. CARDIAC: Tachycardic rate, normal rhythm. Extremities warm and well perfused. Pulses equal. ABDOMEN: Soft, non-distended. No tenderness to palpation. No rebound or guarding. No masses. RECTAL: Deferred. MUSCULOSKELETAL: Chest examination reveals no tenderness. The back is symmetrical on inspection without obvious abnormality. There is no CVA tenderness to palpation. No joint edema. LOWER EXTREMITIES: Calves are equal size bilaterally and non-tender. No edema. No discoloration. NEURO: Normal sensorium. No sensory or motor deficits noted. SKIN: No rash or jaundice noted. Course 2039: Past medical records reviewed. The patient was evaluated in room B12B. A complete history and physical exam was performed. 2151: I reevaluated the patient and he is having improved work of breathing while on BIPAP and Nebulizers. 2207: I spoke with Dr. Bowen about the patient's case and he Administered Medications Aspirin (Ecotrin Ectab) 81 mg PO BID DANNA Stop: 08/06/19 01:20 Last Admin: 07/07/19 01:48 Dose: 81 mg Documented by: [id number] Colchicine (Colcrys) 0.6 mg PO BID DANNA Stop: 08/06/19 01:20 Last Admin: 07/07/19 01:47 Dose: 0.6 mg Documented by: [id number] Ioversol (Optiray 320 125ml) 115 ml IV ONCE PRN PRN Reason: Interaction Checking Stop: 07/10/19 22:51 Last Admin: 07/06/19 22:53 Dose: 115 ml Documented by: [id number] Discontinued Medications Albuterol (Duoneb) 12 ml NEB ONE ONE Stop: 07/06/19 20:47 Last Admin: 07/06/19 21:13 Dose: 12 ml Documented by: [id number] Cefepime HCl (Maxipime) 2,000 mg in 20 mls @ 5 mls/min IV NOW STA; Protocol Stop: 07/06/19 20:49 Last Admin: 07/06/19 21:11 Dose: 5 mls/min Documented by: [id number] Vancomycin HCl 1,750 mg/ (Sodium Chloride) 535 mls @ 200 mls/hr IV NOW ONE Stop: 07/06/19 23:26 Last Infusion: 07/07/19 00:33 Dose: 0 mls/hr Documented by: [id number] Admin: 07/06/19 21:24 Dose: 200 mls/hr Documented by: [id number] Doxycycline Hyclate 100 mg/ (Dextrose) 110 mls @ 50 mls/hr IV NOW STA Stop: 07/06/19 22:57 Last Infusion: 07/06/19 23:18 Dose: 0 mls/hr Documented by: [id number] Admin: 07/06/19 21:24 Dose: 50 mls/hr Documented by: [id number] Methylprednisolone (Solumedrol) 125 mg IV NOW STA Stop: 07/06/19 20:47 Last Admin: 07/06/19 21:11 Dose: 125 mg Documented by: [id number] Medical Decision Making Differential Diagnosis Differential diagnosis: Etiologies such as infections, reactive airway disease, COPD, pneumonia, pleural effusion, pulmonary edema, ARDS, pneumothorax, CHF, cardiac ischemia, cardiac tamponade, dysrhythmia, anemia, pulmonary embolism, musculoskeletal, gastrointestinal process, as well as others were entertained. Medical Records Attestation: I reviewed the patient's medical records. Home Medications Current Medication List: was personally reviewed by me Laboratory Data Attestation: I reviewed the patient's lab results. Result diagrams: 07/06/19 20:55 07/06/19 20:55 Lab Results 07/06/19 07/06/19 07/06/19 Range/Units 20:55 20:55 20:55 WBC 8.19 (4.8-10.8) K/uL RBC 3.60 L (4.7-6.1) M/uL Hgb 11.1 L (14.0-18.0) g/dL Hct 36.0 L (42-52) % MCV 100.0 (80-100) fL MCH 30.8 (25-34) pg MCHC 30.8 L (32-36) g/dL RDW Std Deviation 56.6 H (36.4-46.3) fL RDW Coeff of [place] 15.3 H (11.5-14.5) % Plt Count 204 (130-400) K/uL MPV 9.7 (7.4-10.4) fL Immature Gran % (Auto) 0.1 % Neut % (Auto) 74.0 % Lymph % (Auto) 11.7 % [place] % (Auto) 12.1 % Eos % (Auto) 2.0 % Baso % (Auto) 0.1 % Immature Gran # (Auto) 0.01 (0.00-0.02) K/uL Neut # (Auto) 6.06 (1.4-6.5) K/uL Lymph # (Auto) 0.96 L (1.2-3.4) K/uL [place] # (Auto) 0.99 H (0.11-0.59) K/uL Eos # (Auto) 0.16 (0-0.5) K/uL Baso # (Auto) 0.01 (0-0.2) K/uL PT 10.8 (9.0-12.0) Seconds INR 1.1 (0.9-1.1) APTT 35.6 H (21.0-31.0) Seconds PTT Ratio 1.3 VBG pH (7.36-7.41) VBG pCO2 (38-50) mmHg VBG pO2 mmHg VBG HCO3 mmol/L VBG O2 Saturation % VBG Base Excess mEq/L Barometric Pressure mm/Hg Sodium 140 (136-145) mmol/L Potassium 4.7 (3.5-5.1) mmol/L Chloride 105 (98-107) mmol/L Carbon Dioxide 31 (21-32) mmol/L Anion Gap 4.0 (3-11) BUN 24 H (7-18) mg/dl Creatinine 1.24 D (0.6-1.4) mg/dl Est Cr Clr Drug Dosing 47.9 ml/min Est GFR ( Amer) 62.4 Est GFR (Non-Af Amer) 53.8 BUN/Creatinine Ratio 19.4 (10-20) Glucose 113 H (70-99) mg/dl Lactate (0.4-2.0) mmol/L Calcium 8.9 (8.5-10.1) mg/dl Phosphorus 3.3 (2.5-4.9) mg/dl Magnesium 2.5 H (1.8-2.4) mg/dl Total Bilirubin 0.5 (0.2-1) mg/dl AST 33 (15-37) U/L ALT 37 (12-78) U/L Alkaline Phosphatase 84 (45-117) U/L Troponin I (0-0.045) ng/ml NT-Pro-B Natriuret Pep 1145 (0-1800) pg/ml Total Protein 7.7 (6.4-8.2) gm/dl Albumin 2.8 L (3.4-5.0) gm/dl Globulin 4.9 H (2.5-4.0) gm/dl Albumin/Globulin Ratio 0.6 L (0.9-2) Influenza Type A (PCR) (Neg) Influenza Type B (PCR) (Neg) 07/06/19 07/06/19 07/06/19 Range/Units 20:55 20:55 20:55 WBC (4.8-10.8) K/uL RBC (4.7-6.1) M/uL Hgb (14.0-18.0) g/dL Hct (42-52) % MCV (80-100) fL MCH (25-34) pg MCHC (32-36) g/dL RDW Std Deviation (36.4-46.3) fL RDW Coeff of [place] (11.5-14.5) % Plt Count (130-400) K/uL MPV (7.4-10.4) fL Immature Gran % (Auto) % Neut % (Auto) % Lymph % (Auto) % [place] % (Auto) % Eos % (Auto) % Baso % (Auto) % Immature Gran # (Auto) (0.00-0.02) K/uL Neut # (Auto) (1.4-6.5) K/uL Lymph # (Auto) (1.2-3.4) K/uL [place] # (Auto) (0.11-0.59) K/uL Eos # (Auto) (0-0.5) K/uL Baso # (Auto) (0-0.2) K/uL PT (9.0-12.0) Seconds INR (0.9-1.1) APTT (21.0-31.0) Seconds PTT Ratio VBG pH 7.26 L (7.36-7.41) VBG pCO2 73 H (38-50) mmHg VBG pO2 34 mmHg VBG HCO3 32 mmol/L VBG O2 Saturation < 60.0 % VBG Base Excess 2.8 mEq/L Barometric Pressure 738.2 mm/Hg Sodium (136-145) mmol/L Potassium (3.5-5.1) mmol/L Chloride (98-107) mmol/L Carbon Dioxide (21-32) mmol/L Anion Gap (3-11) BUN (7-18) mg/dl Creatinine (0.6-1.4) mg/dl Est Cr Clr Drug Dosing ml/min Est GFR ( Amer) Est GFR (Non-Af Amer) BUN/Creatinine Ratio (10-20) Glucose (70-99) mg/dl Lactate 0.9 (0.4-2.0) mmol/L Calcium (8.5-10.1) mg/dl Phosphorus (2.5-4.9) mg/dl Magnesium (1.8-2.4) mg/dl Total Bilirubin (0.2-1) mg/dl AST (15-37) U/L ALT (12-78) U/L Alkaline Phosphatase (45-117) U/L Troponin I < 0.015 (0-0.045) ng/ml NT-Pro-B Natriuret Pep (0-1800) pg/ml Total Protein (6.4-8.2) gm/dl Albumin (3.4-5.0) gm/dl Globulin (2.5-4.0) gm/dl Albumin/Globulin Ratio (0.9-2) Influenza Type A (PCR) (Neg) Influenza Type B (PCR) (Neg) 07/06/19 Range/Units 22:30 WBC (4.8-10.8) K/uL RBC (4.7-6.1) M/uL Hgb (14.0-18.0) g/dL Hct (42-52) % MCV (80-100) fL MCH (25-34) pg MCHC (32-36) g/dL RDW Std Deviation (36.4-46.3) fL RDW Coeff of [place] (11.5-14.5) % Plt Count (130-400) K/uL MPV (7.4-10.4) fL Immature Gran % (Auto) % Neut % (Auto) % Lymph % (Auto) % [place] % (Auto) % Eos % (Auto) % Baso % (Auto) % Immature Gran # (Auto) (0.00-0.02) K/uL Neut # (Auto) (1.4-6.5) K/uL Lymph # (Auto) (1.2-3.4) K/uL [place] # (Auto) (0.11-0.59) K/uL Eos # (Auto) (0-0.5) K/uL Baso # (Auto) (0-0.2) K/uL PT (9.0-12.0) Seconds INR (0.9-1.1) APTT (21.0-31.0) Seconds PTT Ratio VBG pH (7.36-7.41) VBG pCO2 (38-50) mmHg VBG pO2 mmHg VBG HCO3 mmol/L VBG O2 Saturation % VBG Base Excess mEq/L Barometric Pressure mm/Hg Sodium (136-145) mmol/L Potassium (3.5-5.1) mmol/L Chloride (98-107) mmol/L Carbon Dioxide (21-32) mmol/L Anion Gap (3-11) BUN (7-18) mg/dl Creatinine (0.6-1.4) mg/dl Est Cr Clr Drug Dosing ml/min Est GFR ( Amer) Est GFR (Non-Af Amer) BUN/Creatinine Ratio (10-20) Glucose (70-99) mg/dl Lactate (0.4-2.0) mmol/L Calcium (8.5-10.1) mg/dl Phosphorus (2.5-4.9) mg/dl Magnesium (1.8-2.4) mg/dl Total Bilirubin (0.2-1) mg/dl AST (15-37) U/L ALT (12-78) U/L Alkaline Phosphatase (45-117) U/L Troponin I (0-0.045) ng/ml NT-Pro-B Natriuret Pep (0-1800) pg/ml Total Protein (6.4-8.2) gm/dl Albumin (3.4-5.0) gm/dl Globulin (2.5-4.0) gm/dl Albumin/Globulin Ratio (0.9-2) Influenza Type A (PCR) Neg for Influ A (Neg) Influenza Type B (PCR) Neg for Influ B (Neg) Imaging Data Radiologist's Impression: Radiology results as stated below per my review and the radiologist's interpretation: XR chest 1V portable CLINICAL HISTORY: Sepsis. Lung cancer. COMPARISON STUDY: Chest CT February 22, 2019. Chest radiograph July 05, 2019. FINDINGS: The patient is status post right upper lobectomy as shown on chest CT of February 22, 2019.] Perihilar/apical opacity is unchanged. These favor scarring. There is emphysema. No pneumothorax or pleural effusion is noted. The appearance of the chest is unchanged. There is no evidence for pulmonary edema. IMPRESSION: No acute cardiopulmonary findings. No change in appearance of chest with right perihilar/right apical opacity. Electronically signed by: Dale Borrego M.D. 07/06/2019 9:11 PM ECG Data Attestation: I personally reviewed and interpreted this ECG as follows: Indication: SOB/dyspnea Rate (beats per minute): 84 Rhythm: normal sinus Findings: + other (Normal axis, leads 2, 3, and AVF) and + ST elevation (Concave up) Comparison ECG Date: from (09/17/2017) Change: the following changes noted (V3, 4, 5, and 6 are slightly more p ronounced ) Blood Pressure Blood Pressure Findings: Normal blood pressure Blood Pressure Disposition: further management by hospitalist BATSHEVA Espinoza The patient is a pleasant 83-year-old gentleman with a past medical history of COPD on 3 L home O2, history of recurrent lung cancer currently in remission, history of aortic stenosis, CKD, CAD with cath in 2016 with PRESS CLIPPER of RCA and 50% mid LAD disease who presents emergency department with worsening shortness of breath over the past several weeks in setting of being treated with oral antibiotics over the past several days without improvement and subsequently being seen by cardiology today with concern for ST elevations on his EKG per hpi. Of note, the patient did not want to come to the hospital this afternoon after seeing cardiology but agreed to have outpatient troponin performed which was subsequently negative. Patient and family report patient's symptoms haven been progressive over weeks and has never had acute episode of CP nor does he complain of chest heaviness/pain with exertion, though he becomes dyspneic easily with exertion. Tonight, the patient continued to feel worse throughout the evening and now comes to the hospital. On arrival the patient is uncomfortable in moderate respiratory distress with tripod breathing with diminished breath sounds throughout and intermittent wheezes. His temperature is 37.7, heart rate in the 100s with respiratory rate in the upper 20s and hypoxic to 80% on his baseline 3 L nasal cannula. Given the patient's respiratory distress the patient was ordered for BiPAP, steroids and continuous neb as well as blood cultures and empiric antibiotics. Chest x-ray was negative for acute process and demonstrated stable findings. EKG demonstrates ST elevations as described on cardiology note from today although they do appear to be concave up and upon review of the patient's EKG from August 2017, he did have some component of these at that time. WBC within normal limits. H/H 11.1/36 slightly increased from recent however within prior range of values. Platelets within normal limits. VBG with pH of 7.26 and PCO2 of 73 without recent prior values for comparison. Chemistry with bicarb of 31. Creatinine 1.24. Lactate within normal limits. Electrolytes and LFTs unremarkable. Troponin negative and undetectable. BNP within normal limits. Patient reevaluated and appearing significantly improved after placed on BiPAP and treatment with steroids and neb. Case discussed with Dr. Bowen, [facility] hospitalist and given outpatient cardiology's concern earlier today with EKG changes will discuss with cardiology but also order CT-PE for further evaluation of possible cause for his EKG abnormalities. CT negative for PE and comments on small to moderate pericardial effusion which was documented in August 2018 but not in February 2019 though upon review of images appears that it was also present. Limited bedside echo performed with suboptimal views does demonstrate small seemingly circumferential pericardial effusion without evidence of tamponade. However clinically the patient does not exhibit any hemodynamic instability. I did discuss the case with, Dr. Azul, [place] cardiology, and given the patient's symptoms have progressed over weeks in the setting of negative troponin and unclear chronicity the patient's EKG would not treat with heparin at this time. Dr. Bowen updated. Impression & Plan Abnormal ECG, Acute on chronic respiratory failure with hypoxia and hypercapnia, CAD (coronary artery disease), COPD (chronic obstructive pulmonary disease) Critical Care Time Critical Care Time: Yes Total Critical Care Time: 75 I have personally spent greater than 75 minutes of critical care time in the direct management of this patient. This includes bedside care, interpretation of diagnostic studies, and testing, discussion with consultants, patient, and family members, and other required patient management activities. This 75 minutes is in excess of all separately billable procedures. Discharge Plan Visit Data *Final* Discharge Date/Time: 07/07/19 00:58 Chief Complaint: Shortness of Breath/Dyspnea Stated Complaint: TROUBLE BREATHING, REFERRED BY ED Provider: Jesus Fierro Discharge Problem: Abnormal ECG, Acute on chronic respiratory failure with hypoxia and hypercapnia, CAD (coronary artery disease), COPD (chronic obstructive pulmonary disease) Patient Disposition: Admitted As Inpatient Discharge Instructions Interventions: ED Discharge Assessment Last Done: 07/07/19 00:58 The scribe's documentation has been prepared under my direction and personally reviewed by me in its entirety. I confirm that the note above accurately ref lects all work, treatment, procedures, and medical decision making performed by me.
--- NOTE | 2019-07-06 23:17 | CT Scan Report ---
CT ANGIOGRAPHY OF THE CHEST, PULMONARY EMBOLUS PROTOCOL CLINICAL HISTORY: Shortness of breath. Lung cancer. COMPARISON STUDY: Chest CT February 22, 2019. Chest radiograph performed earlier today. TECHNIQUE: Following IV administration of 115 mL of Optiray-320, helical axial images of the chest we re obtained utilizing the pulmonary embolus protocol. Maximal intensity projections and sagittal and coronal reformats were viewed on an independent 3D workstation. IV contrast was administered withou t complication. Automated exposure control was utilized for the study. A dose lowering technique wa s utilized adhering to the principles of ALARA. CT DOSE: 630.52 mGy.cm FINDINGS: No pulmonary emboli are identified. There is no evidence for thoracic aortic dissection. T here is moderate calcified plaque of the ascending aorta. The heart is mildly enlarged. A small to mo derate pericardial effusion has developed since CT of February 22, 2019. There are trace bilateral pleural effusions. The patient is status post right upper lobectomy. The postoperative appearance is unchange d since prior exam. A few mildly enlarged right paratracheal lymph nodes are unchanged. Prominent rig ht retropectoral lymph nodes are unchanged. Severe emphysema is noted. There is no consolidation to s uggest pneumonia. There are no suspicious pulmonary nodules. No suspicious osseous lesions within the bony thorax are noted. Left lobe thyroid nodule is incidentally noted. Visualized portions of the up per abdomen demonstrate trace right upper quadrant ascites. There are gallstones within the gallbladd er. Hypodense splenic lesion is benign. Suspected right renal cysts are partially imaged. IMPRESSION: 1. No pulmonary emboli identified. 2. Interval development of a small to moderate pericardial effusion since chest CT of February 22, 2019. 3. Trace bilateral pleural effusions. 4. Stable postoperative findings following right upper lobectomy with right perihilar and apical scar ring. Prominent lymph nodes which are likely benign given stability. 5. Severe emphysema. Electronically signed by: Dale Borrego M.D. 07/06/2019 11:15 PM
[2019-07-06 23:18] LABS: Influenza A virus by PCR Neg for Influ A (Neg); Influenza B virus by PCR Neg for Influ B (Neg)
[2019-07-07] MEDS ORDERED: ALUMINUM/MAGNESIUM SUSP 30 ML UDC PO PRN (01:21)
[2019-07-07] MEDS ORDERED: ACETAMINOPHEN 325 MG TAB PO PRN (01:21)
[2019-07-07] MEDS ORDERED: MAGNESIUM HYDROXIDE SUSP 30 ML UDC PO PRN (01:21)
[2019-07-07] MEDS ORDERED: NITROGLYCERIN SL 0.4 MG/TAB TAB SL PRN (01:21)
[2019-07-07] MEDS ORDERED: BUDESONIDE/FORMOTEROL FUMARATE 160/4.5 60 PUFFS/INHALER INH SCH (01:21)
[2019-07-07] MEDS ORDERED: ONDANSETRON INJ 2 MG/ML 2 ML VIAL IV PRN (01:21)
[2019-07-07] MEDS: COLCHICINE 0.6 MG TAB PO SCH ×3 (01:47→21:16)
[2019-07-07] MEDS: ASPIRIN 81 MG ECTAB PO SCH ×3 (01:48→21:15)
[2019-07-07] MEDS ORDERED: ALBUT/IPRATROP 3MG/0.5MG NEB 3 ML VIAL NEB PRN ×2 (02:30→13:01)
[2019-07-07 02:33] LABS: Appearance Urine Clear (Clear); Bacteria Urine Automated Negative (Negative); Bilirubin Urine Negative (Negative); Blood Urine Negative (Negative); Color Urine Yellow; Glucose Urine UA Negative (Negative); Ketones Urine 1+ (Negative); Leukocyte Esterase Urine Negative (Negative); Nitrite Urine Negative (Negative); Protein Urine 1+ (Negative); RBC Urine Automated 0-4 /hpf (0-4); Specific Gravity Urine > 1.045 (1.000-1.030); Urobilinogen Urine Negative (Negative)
--- NOTE | 2019-07-07 03:21 | History & Physical Report ---
Date of Service July 07, 2019 Assessment & Plan (1) Acute respiratory failure with hypoxia and hypercapnia: Acute respiratory failure with hypoxia and hypercapnia/COPD exacerbation- Continue BiPAP at current settings for now, taper to nasal cannula as symptoms improve. Difficulty obtaining ABG in the ED. Given Solu-Medrol 125 mg IV in the ED. Place on Solu-Medrol 40 mg IV every 8 hours. DuoNeb's every 4 hours as needed. He was also given cefepime 2 g IV, vancomycin 1750 mg IV and doxycycline 100 mg IV by the ED. We will hold on any further antibiotics for now, except for Azithromycin 500 mg IV daily for anti-inflammatory effect. Present on Admission?: Yes (2) COPD exacerbation: See above Present on Admission?: Yes (3) Pericarditis: EKG with ST segment elevations inferior laterally. Troponin was negative in the outpatient setting and in the ED tonight. CTA chest does show new mild to moderate pericardial effusion. Start colchicine 0.6 mg p.o. twice daily and aspirin 81 mg p.o. twice daily. Order echocardiogram for the a.m. Order follow-up troponin 3 AM. Consult cardiology. Present on Admission?: Yes (4) CAD (coronary artery disease), [place] coronary artery: CAD/hypertension- Continue aspirin 81 mg daily, isosorbide mononitrate ER 60 mg p.o. daily. Outpatient dosing has metoprolol tartrate 75 mg p.o. daily. He will be placed on metoprolol tartrate 25 mg p.o. twice daily. Present on Admission?: Yes (5) Hypertension: See above Present on Admission?: Yes (6) Hyperlipidemia: Continue atorvastatin 80 mg in evening Present on Admission?: Yes (7) History of lobectomy of lung: History of lung cancer status post lobectomy on the right side. Chest x-ray and CTA performed today are read as stable. Continue to follow with outpatient physicians Present on Admission?: Yes (8) GERD (gastroesophageal reflux disease): Continue famotidine 40 mg p.o. daily Present on Admission?: Yes (9) BPH (benign prostatic hyperplasia): Continue with tamsulosin 0.4 mg at bedtime Present on Admission?: Yes (10) Anemia: Anemia of chronic disease- Hemoglobin is 11.1 today. Range of hemoglobins has been from 11.0-12.9. Suspect this has been worked up in the outpatient setting, and will not pursue further at this time. Present on Admission?: Yes (11) Acute kidney injury: Creatinine 1.72 on 07/05/2019. Repeat today 1.24. Continue to follow. Present on Admission?: Yes (12) Hernia of abdominal wall: Family reports that the patient will tend to hold his hernia in his right lower quadrant of abdomen and as he coughs or sneezes because it can temporarily hurt him at that time, but does not persist. He has no desire to have any type of intervention done. Suggested to his family that he consider getting an abdominal wall binder Present on Admission?: Yes History of Present Illness Chief Complaint: Patient presents to the emergency department complaining of 1 to 2 months of generally not feeling well with dyspnea on exertion. Primary Care Provider: Jerry Boyd MD The patient is a 83-year-old male who has been having difficulty breathing over the past 1 to 2 months. He was recently seen by his PCP in the outpatient setting, and started on an azithromycin. He was seen by cardiology earlier in the day today, who as part of their work-up, did an EKG suggestive of inferior lateral ischemia. The patient was then recommended to go to the emergency department. However, the patient did refused to go. He did have a troponin test which was negative, and then he went home. Patient presents to the emergency department tonight with persistent and worsening shortness of breath. Upon arrival in the ED, he was found to be in respiratory distress, and was placed on BiPAP by the ED staff. Allergies Allergy/AdvReac Type Severity Reaction Status Date / Time amoxicillin Allergy Mild itching Unverified 07/07/19 00:27 clavulanic acid Allergy Mild itching Unverified 07/07/19 00:27 Home Medications Home Medications Medication Instructions Recorded Confirmed Type albuterol sulfate HFA 90 See Rx Instructions INH Q6H PRN 05/20/19 07/07/19 History mcg/actuation aerosol inhaler allopurinol 300 mg tablet 300 mg PO DAILY 05/20/19 07/07/19 History aspirin 81 mg tablet,delayed 81 mg PO DAILY 05/20/19 07/07/19 History release atorvastatin 80 mg tablet 80 mg PO QPM 05/20/19 07/07/19 History cholecalciferol (vitamin D3) 1,000 1,000 units PO DAILY 05/20/19 07/07/19 History unit capsule lifitegrast 5 % eye drops in a 1 drops OP BID 05/20/19 07/07/19 History dropperette metoprolol tartrate 25 mg tablet 75 mg PO DAILY tab 05/20/19 07/07/19 History ipratropium-albuterol 0.5 mg-3 See Rx Instructions .ROUTE 05/23/19 07/07/19 Rx mg(2.5 mg base)/3 mL nebulization .COMPLEX #180 unspecified soln isosorbide mononitrate ER 60 mg 60 mg PO DAILY #90 tab 06/09/19 07/07/19 Rx tablet,extended release 24 hr tamsulosin 0.4 mg capsule 0.4 mg PO DAILY #90 cap 06/09/19 07/07/19 Rx famotidine 20 mg tablet 40 mg PO DAILY tab 06/14/19 07/07/19 History furosemide 40 mg tablet 40 mg PO 2XWK tab 06/14/19 07/07/19 History montelukast 10 mg tablet 10 mg PO DAILY #30 tab 06/14/19 07/07/19 History nitroglycerin 0.4 mg sublingual 0.4 mg SL Q5M PRN tab 06/14/19 07/07/19 History tablet prednisone 10 mg tablet 10 mg PO DAILY #100 tab 06/21/19 07/07/19 Rx cefuroxime axetil 500 mg tablet 500 mg PO BID #20 tab 07/04/19 07/07/19 Rx budesonide-formoterol HFA 160 2 puffs INH WEEKLY gm 07/06/19 07/07/19 History mcg-4.5 mcg/actuation aerosol inhaler Past Med/Surg History Medical History History of lobectomy of lung (Resolved) Fever (Acute) Hypoxia (Acute) Pneumonia (Acute) GI bleed (Acute 11/13/13) Acute GI bleeding (Acute) Lung cancer, upper lobe (Acute 02/26/11) 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) COPD (chronic obstructive pulmonary disease) (Chronic) Asthma (Chronic) Chest pain at rest Hypoxia (Acute) Respiratory failure with hypoxia and hypercapnia SOB (shortness of breath) Tachycardia Surgical History Hx of cholecystectomy (Resolved) Social History Preferred Language: Slovenian Communication Ability: Effective Net Front End Developer Required: No Beliefs That Will Affect Care: Mormon Mormon Beliefs: Priti Current Living Situation: Spouse Other Information That Helps Us Care for You: No Feels Safe at Home: Yes Safety Concerns: Feels Safe At This Time Smoking Status: Former smoker Do You Dip or Chew Tobacco: No ; Second Hand Exposure: No ; Tobacco Cessation Education Requested by Patient: No Hx Alcohol Use: Yes Alcohol type: hard liquor Hx Substance Use: No Review of Systems Review of Systems: The patient denies chest pain, palpitations, cough, lower extremity swelling, sore throat, fevers, chills, sweats, weight change, fatigue, nausea, vomiting, diarrhea , constipation, abdominal pain, pelvic pain, blood in urine or stool, dysuria, urinary frequency or urgency, lightheadedness, dizziness, headache, memory loss, loss of consciousness, focal weakness, numbness or tingling in arms or legs, generalized arthralgias or myalgias, or night sweats. The review of systems is otherwise negative other than for that already noted above, and at least 10 systems have been reviewed. Physical Exam Physical Exam: The patient is awake, alert and oriented 3, has BiPAP mask in place, lying in bed and in no acute distress. HEENT--PERRL, EOMI, mucous membranes and oropharynx dry. Neck--supple. No JVD. No bruits. Thyroid normal, trachea midline, no adenopathy. Heart--normal S1 and S2. No murmurs, rubs or gallops. Lungs--diminished throughout. Initially described as moderate respiratory distress, no accessory muscle use. Abdomen--normal bowel sounds and soft. Nontender. Nondistended. Extremities--no cyanosis or clubbing. No edema. There are good distal pulses b/l. Dermatologic--normal skin turgor, normal color, no abnormal lymph nodes, no rash. Neurologic--cranial nerves II through XII grossly intact. Rheumatologic--normal range of motion. Psychiatric--normal affect. Results & Data Vital Signs (Past 12 Hours) Vital Signs Temp Pulse Pulse Resp BP BP Pulse Ox 07/07/19 02:35 88 22 96 07/07/19 01:22 97.9 F 87 22 131/88 100 07/07/19 00:44 78 20 138/68 96 07/06/19 23:10 78 18 96 07/06/19 23:08 72 20 144/80 H 98 07/06/19 21:58 84 19 110/62 99 07/06/19 21:42 99 07/06/19 21:14 89 90 26 H 97 07/06/19 20:34 99.9 F H 100 H 26 H 133/74 80 L Laboratory Results Laboratory Results WBC 8.19 K/uL (4.8-10.8) 07/06/19 20:55 RBC 3.60 M/uL (4.7-6.1) L 07/06/19 20:55 Hgb 11.1 g/dL (14.0-18.0) L 07/06/19 20:55 Hct 36.0 % (42-52) L 07/06/19 20:55 MCV 100.0 fL (80-100) 07/06/19 20:55 MCH 30.8 pg (25-34) 07/06/19 20:55 MCHC 30.8 g/dL (32-36) L 07/06/19 20:55 RDW Std Deviation 56.6 fL (36.4-46.3) H 07/06/19 20:55 RDW Coeff of [place] 15.3 % (11.5-14.5) H 07/06/19 20:55 Plt Count 204 K/uL (130-400) 07/06/19 20:55 MPV 9.7 fL (7.4-10.4) 07/06/19 20:55 Immature Gran % (Auto) 0.1 % 07/06/19 20:55 Neut % (Auto) 74.0 % 07/06/19 20:55 Lymph % (Auto) 11.7 % 07/06/19 20:55 Irwin % (Auto) 12.1 % 07/06/19 20:55 Eos % (Auto) 2.0 % 07/06/19 20:55 Baso % (Auto) 0.1 % 07/06/19 20:55 Immature Gran # (Auto) 0.01 K/uL (0.00-0.02) 07/06/19 20:55 Neut # (Auto) 6.06 K/uL (1.4-6.5) 07/06/19 20:55 Lymph # (Auto) 0.96 K/uL (1.2-3.4) L 07/06/19 20:55 Irwin # (Auto) 0.99 K/uL (0.11-0.59) H 07/06/19 20:55 Eos # (Auto) 0.16 K/uL (0-0.5) 07/06/19 20:55 Baso # (Auto) 0.01 K/uL (0-0.2) 07/06/19 20:55 PT 10.8 Seconds (9.0-12.0) 07/06/19 20:55 INR 1.1 (0.9-1.1) 07/06/19 20:55 APTT 35.6 Seconds (21.0-31.0) H 07/06/19 20:55 PTT Ratio 1.3 07/06/19 20:55 VBG pH 7.26 (7.36-7.41) L 07/06/19 20:55 VBG pCO2 73 mmHg (38-50) H 07/06/19 20:55 VBG pO2 34 mmHg 07/06/19 20:55 VBG HCO3 32 mmol/L 07/06/19 20:55 VBG O2 Saturation < 60.0 % 07/06/19 20:55 VBG Base Excess 2.8 mEq/L 07/06/19 20:55 Barometric Pressure 738.2 mm/Hg 07/06/19 20:55 Sodium 140 mmol/L (136-145) 07/06/19 20:55 Potassium 4.7 mmol/L (3.5-5.1) 07/06/19 20:55 Chloride 105 mmol/L (98-107) 07/06/19 20:55 Carbon Dioxide 31 mmol/L (21-32) 07/06/19 20:55 Anion Gap 4.0 (3-11) 07/06/19 20:55 BUN 24 mg/dl (7-18) H 07/06/19 20:55 Creatinine 1.24 mg/dl (0.6-1.4) D 07/06/19 20:55 Est Cr Clr Drug Dosing 47.9 ml/min 07/06/19 20:55 Est GFR ( Amer) 62.4 07/06/19 20:55 Est GFR (Non-Af Amer) 53.8 07/06/19 20:55 BUN/Creatinine Ratio 19.4 (10-20) 07/06/19 20:55 Glucose 113 mg/dl (70-99) H 07/06/19 20:55 Lactate 0.9 mmol/L (0.4-2.0) 07/06/19 20:55 Calcium 8.9 mg/dl (8.5-10.1) 07/06/19 20:55 Phosphorus 3.3 mg/dl (2.5-4.9) 07/06/19 20:55 Magnesium 2.5 mg/dl (1.8-2.4) H 07/06/19 20:55 Total Bilirubin 0.5 mg/dl (0.2-1) 07/06/19 20:55 AST 33 U/L (15-37) 07/06/19 20:55 ALT 37 U/L (12-78) 07/06/19 20:55 Alkaline Phosphatase 84 U/L (45-117) 07/06/19 20:55 Troponin I < 0.015 ng/ml (0-0.045) 07/06/19 20:55 NT-Pro-B Natriuret Pep 1145 pg/ml (0-1800) 07/06/19 20:55 Total Protein 7.7 gm/dl (6.4-8.2) 07/06/19 20:55 Albumin 2.8 gm/dl (3.4-5.0) L 07/06/19 20:55 Globulin 4.9 gm/dl (2.5-4.0) H 07/06/19 20:55 Albumin/Globulin Ratio 0.6 (0.9-2) L 07/06/19 20:55 Urine Color Yellow 07/07/19 02:20 Urine Appearance Clear (Clear) 07/07/19 02:20 Urine pH 5.0 (4.5-7.5) 07/07/19 02:20 Ur Specific [place] > 1.045 (1.000-1.030) H 07/07/19 02:20 Urine Protein 1+ (Negative) H 07/07/19 02:20 Urine Glucose (UA) Negative (Negative) 07/07/19 02:20 Urine Ketones 1+ (Negative) H 07/07/19 02:20 Urine Blood Negative (Negative) 07/07/19 02:20 Urine Nitrite Negative (Negative) 07/07/19 02:20 Urine Bilirubin Negative (Negative) 07/07/19 02:20 Urine Urobilinogen Negative (Negative) 07/07/19 02:20 Ur Leukocyte Esterase Negative (Negative) 07/07/19 02:20 Urine WBC (Auto) 1-5 /hpf (0-5) 07/07/19 02:20 Urine RBC (Auto) 0-4 /hpf (0-4) 07/07/19 02:20 U Hyaline Cast (Auto) 1-5 /lpf (0-5) 07/07/19 02:20 U Epithel Cells (Auto) 10-20 /lpf (0-5) H 07/07/19 02:20 Urine Bacteria (Auto) Negative (Negative) 07/07/19 02:20 Influenza Type A (PCR) Neg for Influ A (Neg) 07/06/19 22:30 Influenza Type B (PCR) Neg for Influ B (Neg) 07/06/19 22:30 Diagnostic Findings [place] [phone] XRay Report Patient: JESSICA ALBA Date: 07/06/19 MR#: [id number]: [address] [facility] Acct ID:[id number]: [address] Date: 1935City Zip: [place] [address] Age: 83Location: ED Sex: M Room/Bed: Att Phy:Diagnosis: TROUBLE BREATHING, REFERRED BY DR Corona Phy: Jerry Boyd MDService Date: 07/06/19 Fam Phy:Interpreting Phy: Dale Borrego MD Admit Phy: Ordering Phy: Jesus Fierro M.D. cc: ~ XR chest 1V portable CLINICAL HISTORY: Sepsis. Lung cancer. COMPARISON STUDY: Chest CT February 22, 2019. Chest radiograph July 05, 2019. FINDINGS: The patient is status post right upper lobectomy as shown on chest CT of February 22, 2019.] Perihilar/apical opacity is unchanged. These favor scarring. There is emphysema. No pneumothorax or pleural effusion is noted. The appearance of the chest is unchanged. There is no evidence for pulmonary edema. IMPRESSION: No acute cardiopulmonary findings. No change in appearance of chest with right perihilar/right apical opacity. Electronically signed by: Dale Borrego M.D. 07/06/2019 9:11 PM Dictated: 07/06/192108 Transcribed: 07/06/192108 [facility] MD [phone] CT Scan Report Patient: JESSICA ALBA DAdmit Date: 07/06/19 MR#: [id number]: [address] [facility] Acct ID:[id number]: MIKE [address]ON [address] Date: [address] Zip: [place] [address] Age: 83Location: ED Sex: M Room/Bed: Att Phy:Diagnosis: TROUBLE BREATHING, REFERRED BY DR Corona Phy: Jerry Boyd MDService Date: 07/06/19 Fam Phy:Interpreting Phy: Dale Borrego MD Admit Phy: Ordering Phy: Jesus Fierro M.D. cc: ~ CT ANGIOGRAPHY OF THE CHEST, PULMONARY EMBOLUS PROTOCOL CLINICAL HISTORY: Shortness of breath. Lung cancer. COMPARISON STUDY: Chest CT February 22, 2019. Chest radiograph performed earlier today. TECHNIQUE: Following IV administration of 115 mL of Optiray-320, helical axial images of the chest were obtained utilizing the pulmonary embolus protocol. Maximal intensity projections and sagittal and coronal reformats were viewed on an independent 3D workstation. IV contrast was administered without complication. Automated exposure control was utilized for the study. A dose lowering technique was utilized adhering to the principles of ALARA. CT DOSE: 630.52 mGy.cm FINDINGS: No pulmonary emboli are identified. There is no evidence for thoracic aortic dissection. There is moderate calcified plaque of the ascending aorta. The heart is mildly enlarged. A small to moderate pericardial effusion has developed since CT of February 22, 2019. There are trace bilateral pleural effusions. The patient is status post right upper lobectomy. The postoperative appearance is unchanged since prior exam. A few mildly enlarged right paratracheal lymph nodes are unchanged. Prominent right retropectoral lymph nodes are unchanged. Severe emphysema is noted. There is no consolidation to suggest pneumonia. There are no suspicious pulmonary nodules. No suspicious osseous lesions within the marie ny thorax are noted. Left lobe thyroid nodule is incidentally noted. Visualized portions of the upper abdomen demonstrate trace right upper quadrant ascites. There are gallstones within the gallbladder. Hypodense splenic lesion is benign. Suspected right renal cysts are partially imaged. IMPRESSION: 1. No pulmonary emboli identified. 2. Interval development of a small to moderate pericardial effusion since chest CT of February 22, 2019. 3. Trace bilateral pleural effusions. 4. Stable postoperative findings following right upper lobectomy with right perihilar and apical scarring. Prominent lymph nodes which are likely benign given stability. 5. Severe emphysema. Electronically signed by: Dale Borrego M.D. 07/06/2019 11:15 PM Dictated: 07/06/19 2259 Transcribed: 07/06/19 2259 Code Status & VTE Plan Code Status Full code VTE Prophylaxis Plan VTE Prophylaxis will be ordered: Yes PG Care Time/CCT Total # of Minutes Spent Total Time Spent with Patient: Total time spent is greater than 50% in coordination of care (as documented) at patient's floor/unit and/or counseling patient:
[2019-07-07 06:41] LABS: Hematocrit (blood only) 32.9 % (42-52); Hemoglobin 9.9 g/dL (14.0-18.0); Immature Granulocytes # (auto) 0.01 K/uL (0.00-0.02); Immature Granulocytes % (auto) 0.2 %; Lymphocytes # (auto) 0.34 K/uL (1.2-3.4); Lymphocytes % (auto) 6.9 %; Mean Corpuscular Hgb Conc 30.1 g/dL (32-36); Mean Corpuscular Volume 99.7 fL (80-100); Mean Platelet Volume 9.8 fL (7.4-10.4); Monocytes # (auto) 0.09 K/uL (0.11-0.59); Monocytes % (auto) 1.8 %; Neutrophils # (auto) 4.46 K/uL (1.4-6.5); Neutrophils % (auto) 91.1 %; Platelet Count 186 K/uL (130-400); RDW Coefficient of Variation 15.2 % (11.5-14.5); RDW Standard Deviation 55.1 fL (36.4-46.3)
[2019-07-07 07:01] LABS: Monotest Negative (Negative)
[2019-07-07 07:11] LABS: Alanine Aminotransferase 32 U/L (12-78); Albumin Level 2.5 gm/dl (3.4-5.0); Aspartate Aminotransferase 26 U/L (15-37); BUN Creatinine Ratio 21.8 (10-20); Blood Urea Nitrogen 24 mg/dl (7-18); Calcium 8.9 mg/dl (8.5-10.1); Carbon Dioxide 31 mmol/L (21-32); Chloride 106 mmol/L (98-107); Creatinine Clr Calc Pharmacy 55.6 ml/min; Est GFR (African American) 72.1; Est GFR (Non-African American) 62.2; Glucose 144 mg/dl (70-99); Magnesium 2.4 mg/dl (1.8-2.4); Potassium 5.1 mmol/L (3.5-5.1); Sodium 142 mmol/L (136-145)
[2019-07-07 07:16] LABS: Albumin Globulin Ratio 0.5 (0.9-2); Alkaline Phosphatase 78 U/L (45-117); Bilirubin,Total 0.4 mg/dl (0.2-1); Globulin 4.6 gm/dl (2.5-4.0); Total Protein 7.1 gm/dl (6.4-8.2); Troponin I < 0.015 ng/ml (0-0.045)
[2019-07-07 07:28] LABS: Lyme Ab IgM w/WB Rflx Negative (Negative)
[2019-07-07 07:29] LABS: Lyme Ab IgG w/WB Rflx Negative (Negative)
[2019-07-07] MEDS ORDERED: predniSONE 10 MG TABLET PO SCH (09:00)
[2019-07-07] MEDS ORDERED: HEPARIN SOD 5,000 UNIT/0.5 ML VIAL SQ SCH (09:00)
--- NOTE | 2019-07-07 09:33 | Cardiology Consultation ---
Date of Consultation July 07, 2019 Assessment & Plan (1) COPD exacerbation: (2) Acute respiratory failure: (3) CAD (coronary artery disease), [place] coronary artery: (4) Cancer of lower lobe of right lung: (5) Pericardial effusion: The pericardial effusion is small on the echocardiogram. There is no echocardiographic evidence for tamponode. I agree with starting the patient on colchicine. The concern here is the possibility of a malignant effusion. It may be beneficial for the patient's oncologist to see him while he is in the hospital. As far as his recent respiratory decline, this may be an exacerbation of his emphysema and COPD and I think we should have the die press operator see him especially in light of his history of lung cancer and radiation. We will follow along with you during his hospital stay. History of Present Illness Attending Physician: Clifford Jaramillo, DO History of Present Illness This is an 83-year-old male patient whom I follow in the office. He has a history of lung cancer with a right upper lobectomy in 2010 and then a reoccurrence in 2014 treated with radiation and chemotherapy. He also has a history of coronary artery disease as outlined below and mild aortic stenosis. He was a long time cigarette smoker. He has been stable for several years. Recently he developed increased secretions and progressive shortness of breath. He was put on an antibiotic as an outpatient with no improvement and eventually admitted to the hospital. His EKG has ST segment changes that could be consistent with an acute coronary syndrome however, his cardiac troponins are negative. A CT of the chest was obtained which shows a pericardial effusion which is new and could certainly account for the patient's EKG changes. An echocardiogram was obtained this morning that shows a small pericardial effusion without tamponade physiology. The patient states that while he was taking his antibiotic he stopped his diuretics out of a concern for interaction of the 2 medications. He denies chest pain. He has had no heart palpitations or tachycardia. Past medical history: 1. 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 Coronary artery disease with an occluded right coronary artery and moderate nonobstructive disease of the LAD by cardiac catheterization Feb, 2015 3. Mild aortic stenosis 4. COPD 5. History of cigarette smoking Allergies Allergy/AdvReac Type Severity Reaction Status Date / Time amoxicillin Allergy Mild itching Unverified 07/07/19 00:27 clavulanic acid Allergy Mild itching Unverified 07/07/19 00:27 Home Medications Home Medications Medication Instructions Recorded Confirmed Type albuterol sulfate HFA 90 See Rx Instructions INH Q6H PRN 05/20/19 07/07/19 History mcg/actuation aerosol inhaler allopurinol 300 mg tablet 300 mg PO DAILY 05/20/19 07/07/19 History aspirin 81 mg tablet,delayed 81 mg PO DAILY 05/20/19 07/07/19 History release atorvastatin 80 mg tablet 80 mg PO QPM 05/20/19 07/07/19 History cholecalciferol (vitamin D3) 1,000 1,000 units PO DAILY 05/20/19 07/07/19 History unit capsule lifitegrast 5 % eye drops in a 1 drops OP BID 05/20/19 07/07/19 History dropperette metoprolol tartrate 25 mg tablet 75 mg PO DAILY tab 05/20/19 07/07/19 History ipratropium-albuterol 0.5 mg-3 See Rx Instructions .ROUTE 05/23/19 07/07/19 Rx mg(2.5 mg base)/3 mL nebulization .COMPLEX #180 unspecified soln isosorbide mononitrate ER 60 mg 60 mg PO DAILY #90 tab 06/09/19 07/07/19 Rx tablet,extended release 24 hr tamsulosin 0.4 mg capsule 0.4 mg PO DAILY #90 cap 06/09/19 07/07/19 Rx famotidine 20 mg tablet 40 mg PO DAILY tab 06/14/19 07/07/19 History furosemide 40 mg tablet 40 mg PO 2XWK tab 06/14/19 07/07/19 History montelukast 10 mg tablet 10 mg PO DAILY #30 tab 06/14/19 07/07/19 History nitroglycerin 0.4 mg sublingual 0.4 mg SL Q5M PRN tab 06/14/19 07/07/19 History tablet prednisone 10 mg tablet 10 mg PO DAILY #100 tab 06/21/19 07/07/19 Rx cefuroxime axetil 500 mg tablet 500 mg PO BID #20 tab 07/04/19 07/07/19 Rx budesonide-formoterol HFA 160 2 puffs INH WEEKLY gm 07/06/19 07/07/19 History mcg-4.5 mcg/actuation aerosol inhaler Patient History Medical History History of lobectomy of lung (Resolved) Fever (Acute) Hypoxia (Acute) Pneumonia (Acute) GI bleed (Acute 11/13/13) Acute GI bleeding (Acute) Lung cancer, upper lobe (Acute 02/26/11) 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) COPD (chronic obstructive pulmonary disease) (Chronic) Asthma (Chronic) Chest pain at rest Hypoxia (Acute) Respiratory failure with hypoxia and hypercapnia SOB (shortness of breath) Tachycardia Surgical History Hx of cholecystectomy (Resolved) Social History Preferred Language: Yakut Communication Ability: Effective Engraver Letter Required: No Beliefs That Will Affect Care: Orthodoxy Orthodoxy Beliefs: Priti Current Living Situation: Spouse Other Information That Helps Us Care for You: No Feels Safe at Home: Yes Safety Concerns: Feels Safe At This Time Smoking Status: Former smoker Do You Dip or Chew Tobacco: No ; Second Hand Exposure: No ; Tobacco Cessation Education Requested by Patient: No Hx Alcohol Use: Yes Alcohol type: hard liquor Hx Substance Use: No Review of Systems Review of Systems: All systems reviewed & are unremarkable except as noted in HPI & below Nothing additional. Physical Exam Physical Exam: General: no acute distress and stated age Head: normocephalic, no masses, lesions, tenderness or abnormalities Eyes: conjunctiva are pink and non-injected, sclera clear Neck: supple, no adenopathy, no bruits, normal jugular venous pulse, no hepatojugular reflux Chest: normal shape and normal respiratory effort Lungs: Diffuse rhonchi. Some wheezing. Diminished breath sounds in the right upper lobe. Cardiac Exam: - regular rate & rhythm, no murmurs gallops or rubs - normal S1, normal S2 Pulses: 2(+) throughout Abdomen: abdomen soft, non-tender, no abnormal masses and no hepatosplenomegaly Musculoskeletal: no gait disturbance, no joint inflammation, no deforming arthritis Extremities: no edema and no cyanosis Neuro: grossly normal exam Results & Data Vital Signs (Past 12 Hours) Vital Signs Temp Pulse Pulse Pulse Resp BP Pulse Ox 07/07/19 07:53 36.7 C 101 H 24 171/83 H 93 07/07/19 07:20 98 H 12 95 07/07/19 03:32 36.6 C 90 20 123/74 93 07/07/19 02:35 88 22 96 07/07/19 01:22 36.6 C 87 22 131/88 100 07/07/19 00:44 78 20 138/68 96 07/06/19 23:10 78 18 96 07/06/19 23:08 72 20 144/80 H 98 07/06/19 21:58 84 19 110/62 99 07/06/19 21:42 99 Laboratory Results Laboratory Results - last 24 hr 07/06/19 07/06/19 07/06/19 20:55 20:55 20:55 WBC 8.19 RBC 3.60 L Hgb 11.1 L Hct 36.0 L MCV 100.0 MCH 30.8 MCHC 30.8 L RDW Std Deviation 56.6 H RDW Coeff of [place] 15.3 H Plt Count 204 MPV 9.7 Immature Gran % (Auto) 0.1 Neut % (Auto) 74.0 Lymph % (Auto) 11.7 Elk % (Auto) 12.1 Eos % (Auto) 2.0 Baso % (Auto) 0.1 Immature Gran # (Auto) 0.01 Neut # (Auto) 6.06 Lymph # (Auto) 0.96 L [place] # (Auto) 0.99 H Eos # (Auto) 0.16 Baso # (Auto) 0.01 PT 10.8 INR 1.1 APTT 35.6 H PTT Ratio 1.3 VBG pH VBG pCO2 VBG pO2 VBG HCO3 VBG O2 Saturation VBG Base Excess Barometric Pressure Sodium 140 Potassium 4.7 Chloride 105 Carbon Dioxide 31 Anion Gap 4.0 BUN 24 H Creatinine 1.24 D Est Cr Clr Drug Dosing 47.9 Est GFR ( Amer) 62.4 Est GFR (Non-Af Amer) 53.8 BUN/Creatinine Ratio 19.4 Glucose 113 H Lactate Uric Acid Calcium 8.9 Phosphorus 3.3 Magnesium 2.5 H Total Bilirubin 0.5 AST 33 ALT 37 Alkaline Phosphatase 84 Troponin I NT-Pro-B Natriuret Pep 1145 Total Protein 7.7 Albumin 2.8 L Globulin 4.9 H Albumin/Globulin Ratio 0.6 L Urine Color Urine Appearance Urine pH Ur Specific [place] Urine Protein Urine Glucose (UA) Urine Ketones Urine Blood Urine Nitrite Urine Bilirubin Urine Urobilinogen Ur Leukocyte Esterase Urine WBC (Auto) Urine RBC (Auto) U Hyaline Cast (Auto) U Epithel Cells (Auto) Urine Bacteria (Auto) Lyme Disease IgG Ab Lyme Disease IgM Ab [place] Type B(1) Ab [place] Type B(2) Ab [place] Type B(3) Ab [place] Type B(4) Ab [place] Type B(5) Ab [place] Type B(6) Ab CMV IgG Ab CMV IgM Ab EBV Capsid Ag IgG Ab EBV Capsid Ag IgM Ab EBV EA Restrict+Diffuse EBV Nuclear Antigen Ab Monoscreen Influenza Type A (PCR) Influenza Type B (PCR) Parvovirus IgG Ab Index Parvovirus IgM Ab Index 07/06/19 07/06/19 07/06/19 20:55 20:55 20:55 WBC RBC Hgb Hct MCV MCH MCHC RDW Std Deviation RDW Coeff of [place] Plt Count MPV Immature Gran % (Auto) Neut % (Auto) Lymph % (Auto) [place] % (Auto) Eos % (Auto) Baso % (Auto) Immature Gran # (Auto) Neut # (Auto) Lymph # (Auto) [place] # (Auto) Eos # (Auto) Baso # (Auto) PT INR APTT PTT Ratio VBG pH 7.26 L VBG pCO2 73 H VBG pO2 34 VBG HCO3 32 VBG O2 Saturation < 60.0 VBG Base Excess 2.8 Barometric Pressure 738.2 Sodium Potassium Chloride Carbon Dioxide Anion Gap BUN Creatinine Est Cr Clr Drug Dosing Est GFR ( Amer) Est GFR (Non-Af Amer) BUN/Creatinine Ratio Glucose Lactate 0.9 Uric Acid Calcium Phosphorus Magnesium Total Bilirubin AST ALT Alkaline Phosphatase Troponin I < 0.015 NT-Pro-B Natriuret Pep Total Protein Albumin Globulin Albumin/Globulin Ratio Urine Color Urine Appearance Urine pH Ur Specific [place] Urine Protein Urine Glucose (UA) Urine Ketones Urine Blood Urine Nitrite Urine Bilirubin Urine Urobilinogen Ur Leukocyte Esterase Urine WBC (Auto) Urine RBC (Auto) U Hyaline Cast (Auto) U Epithel Cells (Auto) Urine Bacteria (Auto) Lyme Disease IgG Ab Lyme Disease IgM Ab [place] Type B(1) Ab [place] Type B(2) Ab [place] Type B(3) Ab [place] Type B(4) Ab [place] Type B(5) Ab [place] Type B(6) Ab CMV IgG Ab CMV IgM Ab EBV Capsid Ag IgG Ab EBV Capsid Ag IgM Ab EBV EA Restrict+Diffuse EBV Nuclear Antigen Ab Monoscreen Influenza Type A (PCR) Influenza Type B (PCR) Parvovirus IgG Ab Index Parvovirus IgM Ab Index 07/06/19 07/07/19 07/07/19 22:30 02:20 06:21 WBC RBC Hgb Hct MCV MCH MCHC RDW Std Deviation RDW Coeff of [place] Plt Count MPV Immature Gran % (Auto) Neut % (Auto) Lymph % (Auto) [place] % (Auto) Eos % (Auto) Baso % (Auto) Immature Gran # (Auto) Neut # (Auto) Lymph # (Auto) [place] # (Auto) Eos # (Auto) Baso # (Auto) PT INR APTT PTT Ratio VBG pH VBG pCO2 VBG pO2 VBG HCO3 VBG O2 Saturation VBG Base Excess Barometric Pressure Sodium Potassium Chloride Carbon Dioxide Anion Gap BUN Creatinine Est Cr Clr Drug Dosing Est GFR ( Amer) Est GFR (Non-Af Amer) BUN/Creatinine Ratio Glucose Lactate Uric Acid 3.9 Calcium Phosphorus Magnesium Total Bilirubin AST ALT Alkaline Phosphatase Troponin I NT-Pro-B Natriuret Pep Total Protein Albumin Globulin Albumin/Globulin Ratio Urine Color Yellow Urine Appearance Clear Urine pH 5.0 Ur Specific [place] > 1.045 H Urine Protein 1+ H Urine Glucose (UA) Negative Urine Ketones 1+ H Urine Blood Negative Urine Nitrite Negative Urine Bilirubin Negative Urine Urobilinogen Negative Ur Leukocyte Esterase Negative Urine WBC (Auto) 1-5 Urine RBC (Auto) 0-4 U Hyaline Cast (Auto) 1-5 U Epithel Cells (Auto) 10-20 H Urine Bacteria (Auto) Negative Lyme Disease IgG Ab Lyme Disease IgM Ab [place] Type B(1) Ab [place] Type B(2) Ab [place] Type B(3) Ab [place] Type B(4) Ab [place] Type B(5) Ab [place] Type B(6) Ab CMV IgG Ab CMV IgM Ab EBV Capsid Ag IgG Ab EBV Capsid Ag IgM Ab EBV EA Restrict+Diffuse EBV Nuclear Antigen Ab Monoscreen Influenza Type A (PCR) Neg for Influ A Influenza Type B (PCR) Neg for Influ B Parvovirus IgG Ab Index Parvovirus IgM Ab Index 07/07/19 07/07/19 07/07/19 06:21 06:21 06:21 WBC 4.90 RBC 3.30 L Hgb 9.9 L Hct 32.9 L MCV 99.7 MCH 30.0 MCHC 30.1 L RDW Std Deviation 55.1 H RDW Coeff of [place] 15.2 H Plt Count 186 MPV 9.8 Immature Gran % (Auto) 0.2 Neut % (Auto) 91.1 Lymph % (Auto) 6.9 [place] % (Auto) 1.8 Eos % (Auto) 0.0 Baso % (Auto) 0.0 Immature Gran # (Auto) 0.01 Neut # (Auto) 4.46 Lymph # (Auto) 0.34 L [place] # (Auto) 0.09 L Eos # (Auto) 0.00 Baso # (Auto) 0.00 PT INR APTT PTT Ratio VBG pH VBG pCO2 VBG pO2 VBG HCO3 VBG O2 Saturation VBG Base Excess Barometric Pressure Sodium 142 Potassium 5.1 Chloride 106 Carbon Dioxide 31 Anion Gap 5.0 BUN 24 H Creatinine 1.10 Est Cr Clr Drug Dosing 55.6 Est GFR ( Amer) 72.1 Est GFR (Non-Af Amer) 62.2 BUN/Creatinine Ratio 21.8 H Glucose 144 H Lactate Uric Acid Calcium 8.9 Phosphorus Magnesium 2.4 Total Bilirubin 0.4 AST 26 ALT 32 Alkaline Phosphatase 78 Troponin I < 0.015 NT-Pro-B Natriuret Pep Total Protein 7.1 Albumin 2.5 L Globulin 4.6 H Albumin/Globulin Ratio 0.5 L Urine Color Urine Appearance Urine pH Ur Specific [place] Urine Protein Urine Glucose (UA) Urine Ketones Urine Blood Urine Nitrite Urine Bilirubin Urine Urobilinogen Ur Leukocyte Esterase Urine WBC (Auto) Urine RBC (Auto) U Hyaline Cast (Auto) U Epithel Cells (Auto) Urine Bacteria (Auto) Lyme Disease IgG Ab Negative Lyme Disease IgM Ab Negative [place] Type B(1) Ab [place] Type B(2) Ab [place] Type B(3) Ab [place] Type B(4) Ab [place] Type B(5) Ab [place] Type B(6) Ab CMV IgG Ab CMV IgM Ab EBV Capsid Ag IgG Ab EBV Capsid Ag IgM Ab EBV EA Restrict+Diffuse EBV Nuclear Antigen Ab Monoscreen Negative Influenza Type A (PCR) Influenza Type B (PCR) Parvovirus IgG Ab Index Parvovirus IgM Ab Index 07/07/19 06:21 WBC RBC Hgb Hct MCV MCH MCHC RDW Std Deviation RDW Coeff of [place] Plt Count MPV Immature Gran % (Auto) Neut % (Auto) Lymph % (Auto) [place] % (Auto) Eos % (Auto) Baso % (Auto) Immature Gran # (Auto) Neut # (Auto) Lymph # (Auto) [place] # (Auto) Eos # (Auto) Baso # (Auto) PT INR APTT PTT Ratio VBG pH VBG pCO2 VBG pO2 VBG HCO3 VBG O2 Saturation VBG Base Excess Barometric Pressure Sodium Potassium Chloride Carbon Dioxide Anion Gap BUN Creatinine Est Cr Clr Drug Dosing Est GFR ( Amer) Est GFR (Non-Af Amer) BUN/Creatinine Ratio Glucose Lactate Uric Acid Calcium Phosphorus Magnesium Total Bilirubin AST ALT Alkaline Phosphatase Troponin I NT-Pro-B Natriuret Pep Total Protein Albumin Globulin Albumin/Globulin Ratio Urine Color Urine Appearance Urine pH Ur Specific [place] Urine Protein Urine Glucose (UA) Urine Ketones Urine Blood Urine Nitrite Urine Bilirubin Urine Urobilinogen Ur Leukocyte Esterase Urine WBC (Auto) Urine RBC (Auto) U Hyaline Cast (Auto) U Epithel Cells (Auto) Urine Bacteria (Auto) Lyme Disease IgG Ab Lyme Disease IgM Ab [place] Type B(1) Ab Pending [place] Type B(2) Ab Pending [place] Type B(3) Ab Pending [place] Type B(4) Ab Pending [place] Type B(5) Ab Pending [place] Type B(6) Ab Pending CMV IgG Ab Pending CMV IgM Ab Pending EBV Capsid Ag IgG Ab Pending EBV Capsid Ag IgM Ab Pending EBV EA Restrict+Diffuse Pending EBV Nuclear Antigen Ab Pending Monoscreen Influenza Type A (PCR) Influenza Type B (PCR) Parvovirus IgG Ab Index Pending Parvovirus IgM Ab Index Pending Diagnostic Findings Echocardiogram indicates a small pericardial effusion without tamponade. Medications Administered Current Inpatient Medications Acetaminophen (Tylenol) 650 mg PO Q4H PRN PRN Reason: Pain or Fever Stop: 08/06/19 01:20 Al Hydrox/Mg Hydrox/Simethicone (Maalox) 15 ml PO Q4H PRN PRN Reason: Dyspepsia Stop: 08/06/19 01:20 Albuterol (Duoneb) 3 ml NEB Q4H PRN PRN Reason: dyspnea Stop: 08/06/19 02:29 Allopurinol (Zyloprim) 300 mg PO DAILY DANNA Stop: 08/06/19 08:59 Last Admin: 07/07/19 10:22 Dose: 300 mg Documented by: Aspirin (Ecotrin Ectab) 81 mg PO BID DANNA Stop: 08/06/19 01:20 Last Admin: 07/07/19 10:14 Dose: 81 mg Documented by: Atorvastatin Calcium (Lipitor) 80 mg PO QPM DANNA Stop: 08/06/19 20:59 Budesonide/Formoterol Fumarate (Symbicort 160mcg/4.5mcg) 2 puffs INH WEEKLY DANNA Stop: 08/06/19 01:20 Colchicine (Colcrys) 0.6 mg PO BID DANNA Stop: 08/06/19 01:20 Last Admin: 07/07/19 10:13 Dose: 0.6 mg Documented by: Famotidine (Pepcid) 40 mg PO DAILY DANNA Stop: 08/06/19 08:59 Last Admin: 07/07/19 10:19 Dose: 40 mg Documented by: Heparin Sodium (Porcine) (Heparin Sodium (Porcine)) 5,000 units SQ Q12 DANNA Stop: 08/06/19 08:59 Last Admin: 07/07/19 10:15 Dose: 5,000 units Documented by: Methylprednisolone 40 mg/ (Syringe) 0.64 mls @ 1.5 mls/min IV Q8H DANNA Stop: 08/06/19 06:59 Last Admin: 07/07/19 10:12 Dose: 1.5 mls/min Documented by: Azithromycin 500 mg/ Dextrose 255 mls @ 125 mls/hr IV DAILY DANNA Stop: 07/14/19 08:59 Last Admin: 07/07/19 10:22 Dose: 125 mls/hr Documented by: Ioversol (Optiray 320 125ml) 115 ml IV ONCE PRN PRN Reason: Interaction Checking Stop: 07/10/19 22:51 Last Admin: 07/06/19 22:53 Dose: 115 ml Documented by: Isosorbide Mononitrate (Imdur Extended Rel) 60 mg PO DAILY [facility] Stop: 08/06/19 08:59 Last Admin: 07/07/19 10:16 Dose: 60 mg Documented by: Magnesium Hydroxide (Milk Of Magnesia) 30 ml PO Q12H PRN PRN Reason: Constipation Stop: 08/06/19 01:20 Metoprolol Tartrate (Lopressor) 25 mg PO BID [facility] Stop: 08/06/19 08:59 Last Admin: 07/07/19 10:17 Dose: 25 mg Documented by: Montelukast Sodium (Singulair) 10 mg PO DAILY [facility] Stop: 08/06/19 08:59 Last Admin: 07/07/19 10:20 Dose: 10 mg Documented by: Nitroglycerin (Nitrostat) 0.4 mg SL Q5M PRN PRN Reason: chest pain Stop: 08/06/19 01:20 Ondansetron HCl (Zofran) 4 mg IV Q6H PRN PRN Reason: Nausea Stop: 08/06/19 01:20 Tamsulosin HCl (Flomax) 0.4 mg PO DAILY [facility] Stop: 08/06/19 08:59 Last Admin: 07/07/19 10:14 Dose: 0.4 mg Documented by: Vitamin D (Vitamin D3) 1,000 units PO DAILY [facility] Stop: 08/06/19 08:59 Last Admin: 07/07/19 10:21 Dose: 1,000 units Documented by: (1) Acute respiratory failure Respiratory failure complication: hypoxia Qualified Code(s): J96.01 - Acute respiratory failure with hypoxia
[2019-07-07] MEDS: methylPREDNISolone 40 MG in SYRINGE 0 ML IV SCH ×3 (10:12→22:56)
[2019-07-07] MEDS: TAMSULOSIN HCL 0.4 MG CAP PO SCH (10:14)
[2019-07-07] MEDS: ISOSORBIDE MONO EXTENDED REL 60 MG TABCR PO SCH (10:16)
[2019-07-07] MEDS: METOPROLOL TARTRATE 25 MG TAB PO SCH ×2 (10:17→21:16)
[2019-07-07] MEDS: FAMOTIDINE 20 MG TAB PO SCH (10:19)
[2019-07-07] MEDS: MONTELUKAST SODIUM 10 MG TABLET PO SCH (10:20)
[2019-07-07] MEDS: CHOLECALCIFEROL 1,000 UNITS TAB PO SCH (10:21)
[2019-07-07] MEDS: allopurinoL 300 MG TAB PO SCH (10:22)
[2019-07-07] MEDS: AZITHROMYCIN 500 MG in DEXTROSE 5% 250 ML IV SCH (10:22)
--- NOTE | 2019-07-07 11:23 | Family Medicine Progress Note ---
Date of Service July 07, 2019 Assessment & Plan (1) Acute and chronic respiratory failure ([id number]): - COPD exacerbation on Severe Emphysema - CTA of the chest showed the following: No PE, mild to moderate pericardial effusion, BL trace pleural effusions, s/p right upper lobectomy, diffuse severe emphysema, incidental L thyroid nodule No sign of PNA on CT - 125 mg IV methylprednisolone, Duonebs Q4 for COPD exacerbation management - NC with O2 titration to saturations up to 94% - Antibiotics appear unnecessary at this point given the lack of pneumonia on CT Chest - Patient was already on Azithromycin prior to coming into the hospital, reasonable to restart given anti-inflammatory abilities (2) Pericarditis: - treating with Colchicine - Pericardial effusion is mild/moderate - cardiac echo shows EF 60-65%, no signs of tamponade or requirement for pericardial window (3) Acute kidney injury: improving. 1.72 on 07/05 -> 1.10 today. (4) Anemia: - Pt's baseline Hg appears to be between 11-12. - dropped to 9.9 this morning - ordered fecal occult blood test to r/o GIB - will continue to monitor H&H - per pt's loss prevention agent he has been treated for anemia of chronic disease on a few separate occasions with EPO. - Iron panel ordered to identify if patient would benefit from iron supplementation or if it is acute sequestration in setting of disease (5) Hernia of abdominal wall: CT shows fat filled inguinal hernia. No intervention necessary at this time. (6) Hypertension: - takes 75 mg Metoprolol tartrate at home, - giving 25 metoprolol tartrate BID in hosp (7) CAD (coronary artery disease), [place] coronary artery: Supervising Physician Co-Signing Physician Notes I personally examined the patient and verified all kohli points of history and exam, discussed case, and agree with decision making with Dr Leon. feeling about the same. not worse. extensive discussion with pt and family and answered all questions to the best of my ability. vitals noted nad but fatigued lungs fairly coarse and wheezy. No accessory muscle use good effort. Skin shows no rashes no pallor or icterus. COPD exacerbationno pneumonia. Distill antibiotics down to Zithromax only. Continue steroids and inhalers. As he improves will need to look at what his home inhaler regimen is, as there is a question of what he is actually taking versus what he might have been given from the office, and we definitely want to ensure he is on a good regimen including a baseline of anticholinergic. Otherwise as above. Subjective Tense 83 yo M here for COPD exacerbation with underlying Emphysema and possible pneumonia. Patient was sent to the ED after experiencing chest pain at cardiology office and showing inferior lateral ischemia on EKG. Patient refused to go to ED, had trop neg x1 in office. Long after returning home, patient returned to ED for persistent worsening shortness of breath and was placed on Bipap, given solu-medrol as well as a multitude of antibiotics [cefepime, vanc, doxy, azithro]. He was taking azithro in outpt setting prior as well. Today, still attests to shortness of breath. Denies chest pain, pleurisy, pleuritic chest pain, pain with breathing. Does say he is unable to take a deep breath due to the weight of his body. Denies nausea, vomiting, constipation, diarrhea. Patient's , daughter and grandson at bedside when I saw them; Patient's loss prevention agent also came into the room around the same time. Appreciated his recommendations. Review of Systems Constitutional: no fever, no chills, no body aches, no weakness and no increa sed appetite Respiratory: + cough, + dyspnea, + sputum production and + wheezing; no hemoptysis and no pain with cough Cardiovascular: no chest pain, no dyspnea on exertion and no palpitations Gastrointestinal: no abdominal pain, no nausea, no vomiting, no cramping, no change in stools, no constipation and no diarrhea/loose stools Physical Exam Constitutional: well developed, + ill appearing and + overweight laying propped up in bed, with some baseline difficulty in breathing. Face is often red when he talks or forgets to breath through his nose instead of his mouth. Respiratory: + labored breathing and + cough; no respiratory distress, does not use accessory muscles, + not able to speak in complete sentence and no nasal flaring Auscultation: + wheezes (good airflow throughout both lungs however profoundly wheezy); no diminished lung sounds, no crackles and no rales Cardiovascular: Rate/Rhythm: regular rhythm and + tachycardic Heart Sounds: no gallop and no murmur (heart sounds difficult to hear over profound wheezing of lungs) Extremities: no calf tenderness Gastrointestinal (Abdomen): Inspection/Auscultation: abdomen normal to inspection; abdomen not distended Percussion/Palpation: abdomen soft; abdomen nontender and no guarding Results & Data Vital Signs (Past 12 Hours) Vital Signs Temp Pulse Pulse Pulse Resp BP Pulse Ox 07/07/19 11:08 36.8 C 109 H 22 137/68 94 07/07/19 07:53 36.7 C 101 H 24 171/83 H 93 07/07/19 07:20 98 H 12 95 07/07/19 03:32 36.6 C 90 20 123/74 93 07/07/19 02:35 88 22 96 07/07/19 01:22 36.6 C 87 22 131/88 100 07/07/19 00:44 78 20 138/68 96 Laboratory Results WBC 4.90 K/uL (4.8-10.8) 07/07/19 06:21 RBC 3.30 M/uL (4.7-6.1) L 07/07/19 06:21 Hgb 9.9 g/dL (14.0-18.0) L 07/07/19 06:21 Hct 32.9 % (42-52) L 07/07/19 06:21 MCV 99.7 fL (80-100) 07/07/19 06:21 MCH 30.0 pg (25-34) 07/07/19 06:21 MCHC 30.1 g/dL (32-36) L 07/07/19 06:21 RDW Std Deviation 55.1 fL (36.4-46.3) H 07/07/19 06:21 RDW Coeff of [place] 15.2 % (11.5-14.5) H 07/07/19 06:21 Plt Count 186 K/uL (130-400) 07/07/19 06:21 MPV 9.8 fL (7.4-10.4) 07/07/19 06:21 Immature Gran % (Auto) 0.2 % 07/07/19 06:21 Neut % (Auto) 91.1 % 07/07/19 06:21 Lymph % (Auto) 6.9 % 07/07/19 06:21 [place] % (Auto) 1.8 % 07/07/19 06:21 Eos % (Auto) 0.0 % 07/07/19 06:21 Baso % (Auto) 0.0 % 07/07/19 06:21 Immature Gran # (Auto) 0.01 K/uL (0.00-0.02) 07/07/19 06:21 Neut # (Auto) 4.46 K/uL (1.4-6.5) 07/07/19 06:21 Lymph # (Auto) 0.34 K/uL (1.2-3.4) L 07/07/19 06:21 [place] # (Auto) 0.09 K/uL (0.11-0.59) L 07/07/19 06:21 Eos # (Auto) 0.00 K/uL (0-0.5) 07/07/19 06:21 Baso # (Auto) 0.00 K/uL (0-0.2) 07/07/19 06:21 PT 10.8 Seconds (9.0-12.0) 07/06/19 20:55 INR 1.1 (0.9-1.1) 07/06/19 20:55 APTT 35.6 Seconds (21.0-31.0) H 07/06/19 20:55 PTT Ratio 1.3 07/06/19 20:55 ABG pH 7.29 (7.35-7.45) L 07/07/19 13:20 ABG pCO2 64 mmHg (35-46) H 07/07/19 13:20 ABG pO2 87 mm/Hg (80-95) 07/07/19 13:20 ABG HCO3 30 mmol/L (19-24) H 07/07/19 13:20 ABG O2 Saturation 96.0 % (90-95) H 07/07/19 13:20 ABG Base Excess 2.1 mEq/L (-9-1.8) H 07/07/19 13:20 Brian Test Pos (Pos) 07/07/19 13:20 VBG pH 7.26 (7.36-7.41) L 07/06/19 20:55 VBG pCO2 73 mmHg (38-50) H 07/06/19 20:55 VBG pO2 34 mmHg 07/06/19 20:55 VBG HCO3 32 mmol/L 07/06/19 20:55 VBG O2 Saturation < 60.0 % 07/06/19 20:55 VBG Base Excess 2.8 mEq/L 07/06/19 20:55 Barometric Pressure 738.9 mm/Hg 07/07/19 13:20 Oxygen Given 30% 07/07/19 13:20 Sodium 142 mmol/L (136-145) 07/07/19 06:21 Potassium 5.1 mmol/L (3.5-5.1) 07/07/19 06:21 Chloride 106 mmol/L (98-107) 07/07/19 06:21 Carbon Dioxide 31 mmol/L (21-32) 07/07/19 06:21 Anion Gap 5.0 (3-11) 07/07/19 06:21 BUN 24 mg/dl (7-18) H 07/07/19 06:21 Creatinine 1.10 mg/dl (0.6-1.4) 07/07/19 06:21 Est Cr Clr Drug Dosing 55.6 ml/min 07/07/19 06:21 Est GFR ( Amer) 72.1 07/07/19 06:21 Est GFR (Non-Af Amer) 62.2 07/07/19 06:21 BUN/Creatinine Ratio 21.8 (10-20) H 07/07/19 06:21 Glucose 144 mg/dl (70-99) H 07/07/19 06:21 Lactate 0.9 mmol/L (0.4-2.0) 07/06/19 20:55 Uric Acid 3.9 mg/dl (2.6-7.2) 07/07/19 06:21 Calcium 8.9 mg/dl (8.5-10.1) 07/07/19 06:21 Phosphorus 3.3 mg/dl (2.5-4.9) 07/06/19 20:55 Magnesium 2.4 mg/dl (1.8-2.4) 07/07/19 06:21 Total Bilirubin 0.4 mg/dl (0.2-1) 07/07/19 06:21 AST 26 U/L (15-37) 07/07/19 06:21 ALT 32 U/L (12-78) 07/07/19 06:21 Alkaline Phosphatase 78 U/L (45-117) 07/07/19 06:21 Troponin I < 0.015 ng/ml (0-0.045) 07/07/19 06:21 NT-Pro-B Natriuret Pep 1145 pg/ml (0-1800) 07/06/19 20:55 Total Protein 7.1 gm/dl (6.4-8.2) 07/07/19 06:21 Albumin 2.5 gm/dl (3.4-5.0) L 07/07/19 06:21 Globulin 4.6 gm/dl (2.5-4.0) H 07/07/19 06:21 Albumin/Globulin Ratio 0.5 (0.9-2) L 07/07/19 06:21 Urine Color Yellow 07/07/19 02:20 Urine Appearance Clear (Clear) 07/07/19 02:20 Urine pH 5.0 (4.5-7.5) 07/07/19 02:20 Ur Specific [place] > 1.045 (1.000-1.030) H 07/07/19 02:20 Urine Protein 1+ (Negative) H 07/07/19 02:20 Urine Glucose (UA) Negative (Negative) 07/07/19 02:20 Urine Ketones 1+ (Negative) H 07/07/19 02:20 Urine Blood Negative (Negative) 07/07/19 02:20 Urine Nitrite Negative (Negative) 07/07/19 02:20 Urine Bilirubin Negative (Negative) 07/07/19 02:20 Urine Urobilinogen Negative (Negative) 07/07/19 02:20 Ur Leukocyte Esterase Negative (Negative) 07/07/19 02:20 Urine WBC (Auto) 1-5 /hpf (0-5) 07/07/19 02:20 Urine RBC (Auto) 0-4 /hpf (0-4) 07/07/19 02:20 U Hyaline Cast (Auto) 1-5 /lpf (0-5) 07/07/19 02:20 U Epithel Cells (Auto) 10-20 /lpf (0-5) H 07/07/19 02:20 Urine Bacteria (Auto) Negative (Negative) 07/07/19 02:20 Lyme Disease IgG Ab Negative (Negative) 07/07/19 06:21 Lyme Disease IgM Ab Negative (Negative) 07/07/19 06:21 Monoscreen Negative (Negative) 07/07/19 06:21 Influenza Type A (PCR) Neg for Influ A (Neg) 07/06/19 22:30 Influenza Type B (PCR) Neg for Influ B (Neg) 07/06/19 22:30 PG Care Time/CCT Total # of Minutes Spent Total Time Spent with Patient: Total time spent is greater than 50% in coordination of care (as documented) at patient's floor/unit and/or counseling patient: Resident Activity Tracking Resident Involvement: Resident Care Provided Care Provided: Adult Hospital Medicine
--- NOTE | 2019-07-07 12:25 | Pulmonary Consultation ---
Date of Consultation July 07, 2019 Assessment & Plan (1) Acute and chronic respiratory failure ([id number]): Currently on BiPAP 14/6 FiO2 30% with 3 L of oxygen flow rate Patient is able to talk in full sentences with the mask in place EBV, CMV, coxsackie, parvovirus IgG/IgM pending Day #1 azithromycin 500 mg IV daily Received cefepime, doxycycline, and vancomycin in the emergency department Loaded with methylprednisolone 125 mg IV 07/06 at 20:46 Currently receiving Solu-Medrol 40 mg IV every 8 hours (patient chronically on 10 mg of prednisone daily at home) Patient currently ordered duo nebs as needed will change to every 6 hours scheduled and every 3 hours as needed Continue Singulair 10 mg p.o. daily Negative for influenza A and B Check MRSA screening Check ABG Echocardiogram today: * Preserved left ventricular ejection fraction of 65 to 70%. * There is a small pericardial effusion. * Mild to moderate tricuspid regurgitation. * Mild pulmonary hypertension. * No evidence of cardiac tamponade Continue current supportive measures including methylprednisolone, antibiotics, oxygen supplementation Await blood cultures x2 Continue to monitor on telemetry Consider pulmonary rehab as an outpatient (2) Pericardial effusion: Echocardiogram completed today shows no evidence of cardiac tamponade and small pericardial effusion Cardiology following (3) Lung cancer, upper lobe: Initial imaging 08/14/2011 Status post right upper lobe lobectomy 02/26/201111/2014 PET/CT with right proximal mainstem bronchus mass * Status post chemoradiation Surveillance imaging through 02/22/2019- for new disease Benign colon polyp removed 03/04/2013 at Continue to follow with Dr. Martins at [facility] (4) DVT prophylaxis: No current chemical prophylaxis secondary to drop in hemoglobin Patient with SCDs in place Ambulatory dysfunction at home secondary to pulmonary limitations Thank you for including us in the care of this patient. We will continue to follow along with you. Please refer to Dr. Justin's addendum for further recommendations. Supervising Physician Co-Signing Physician Notes I saw and examined the patient with Jaya Alberts PA-C. I agree with this assessment and plan aside for any exceptions/additions noted: He has end-stage COPD. I discussed options with him. I discussed palliative care and he was not interested. Continue inhaler regimen. Continue steroids for 5 days. Continue antibiotics for 5 days. He wants to think about pulmonary rehab at this time. His prognosis is poor overall. History of Present Illness Attending Physician: Clifford Jaramillo DO History of Present Illness Attending: Dr. Justin This is an 83-year-old male with a history of severe restrictive lung disease, COPD, cor pulmonale, pulmonary hypertension, obstructive sleep apnea on trilogy, history of squamous cell carcinoma of lung x2, morbid obesity, status post chemo radiation therapy with most recent chemotherapy in 2014. The patient has a past history of tobacco abuse but quit in 2004. The patient presents with 2 weeks of progressive shortness of breath. He is to the point where he can only walk for short distances and must stop and rest. He does have supplemental O2 at 3 to 4 L at rest and uses a trilogy ventilator at night with supplemental oxygen secondary to his obstructive sleep apnea. The patient has a past medical history of right upper lobectomy secondary to stage I b squamous cell carcinoma treated with radiation chemotherapy in 2010. He was then found to have obstruction at the right hilum of the bronchus intermedius and underwent chemoradiation with Dr. Valentine and with Dr. Yoder. He has had serial CT monitoring with the most recent CT outpatient being in February 2019 which showed no progression of the disease. The patient states he is chronically on prednisone 10 mg daily. 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 Home trilogy settings appear to be pressure support minimum 6cm, pressure support maximum 26 cm, EPAP minimum of 4 cm, EPAP maximum 15 cm, tidal volume 525 cc, auto respiratory rate, and a DC max of 30. Patient's most recent PFTs revealed severe mixed restrictive/obstructive disease with an FEV1 of 20% of predicted. There is also extremely severe reduction in DLCO. Patient follows with pulmonary with Dr. Parks and his primary care physician is Dr. Boyd. The patient denies any leg pain. No asymmetrical edema. No pleuritic pain. He felt warm and had a low-grade fever according to daughter but no quantitative information is available. The patient denies any night sweats. He has no abdominal pain other than from chronic ventral hernia. He denies any nausea or vomiting. He has no back pain or flank tenderness. The patient denies any diarrhea. The patient has no known melena, hematochezia, bright red blood per rectum. He has no hemoptysis. He has no hematemesis. He reports that he does have productive cough with clear sputum. He does have severe malaise. Otherwise, the patient has no acute complaints. Allergies Allergy/AdvReac Type Severity Reaction Status Date / Time amoxicillin Allergy Mild itching Unverified 07/07/19 00:27 clavulanic acid Allergy Mild itching Unverified 07/07/19 00:27 Home Medications Home Medications Medication Instructions Recorded Confirmed Type albuterol sulfate HFA 90 See Rx Instructions INH Q6H PRN 05/20/19 07/07/19 History mcg/actuation aerosol inhaler allopurinol 300 mg tablet 300 mg PO DAILY 05/20/19 07/07/19 History aspirin 81 mg tablet,delayed 81 mg PO DAILY 05/20/19 07/07/19 History release atorvastatin 80 mg tablet 80 mg PO QPM 05/20/19 07/07/19 History cholecalciferol (vitamin D3) 1,000 1,000 units PO DAILY 05/20/19 07/07/19 History unit capsule lifitegrast 5 % eye drops in a 1 drops OP BID 05/20/19 07/07/19 History dropperette metoprolol tartrate 25 mg tablet 75 mg PO DAILY tab 05/20/19 07/07/19 History ipratropium-albuterol 0.5 mg-3 See Rx Instructions .ROUTE 05/23/19 07/07/19 Rx mg(2.5 mg base)/3 mL nebulization .COMPLEX #180 unspecified soln isosorbide mononitrate ER 60 mg 60 mg PO DAILY #90 tab 06/09/19 07/07/19 Rx tablet,extended release 24 hr tamsulosin 0.4 mg capsule 0.4 mg PO DAILY #90 cap 06/09/19 07/07/19 Rx famotidine 20 mg tablet 40 mg PO DAILY tab 06/14/19 07/07/19 History furosemide 40 mg tablet 40 mg PO 2XWK tab 06/14/19 07/07/19 History montelukast 10 mg tablet 10 mg PO DAILY #30 tab 06/14/19 07/07/19 History nitroglycerin 0.4 mg sublingual 0.4 mg SL Q5M PRN tab 06/14/19 07/07/19 History tablet prednisone 10 mg tablet 10 mg PO DAILY #100 tab 06/21/19 07/07/19 Rx cefuroxime axetil 500 mg tablet 500 mg PO BID #20 tab 07/04/19 07/07/19 Rx budesonide-formoterol HFA 160 2 puffs INH WEEKLY gm 07/06/19 07/07/19 History mcg-4.5 mcg/actuation aerosol inhaler Patient History Medical History History of lobectomy of lung (Resolved) Fever (Acute) Hypoxia (Acute) Pneumonia (Acute) GI bleed (Acute 11/13/13) Acute GI bleeding (Acute) Lung cancer, upper lobe (Acute 02/26/11) 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) COPD (chronic obstructive pulmonary disease) (Chronic) Asthma (Chronic) Chest pain at rest Hypoxia (Acute) Respiratory failure with hypoxia and hypercapnia SOB (shortness of breath) Tachycardia Surgical History Hx of cholecystectomy (Resolved) Social History Preferred Language: [place] Communication Ability: Effective Pastry Assistant Required: No Beliefs That Will Affect Care: Evangelical Evangelical Beliefs: Priti Current Living Situation: Spouse Other Information That Helps Us Care for You: No Feels Safe at Home: Yes Safety Concerns: Feels Safe At This Time Smoking Status: Former smoker Do You Dip or Chew Tobacco: No ; Second Hand Exposure: No ; Tobacco Cessation Education Requested by Patient: No Hx Alcohol Use: Yes Alcohol type: hard liquor Hx Substance Use: No Review of Systems Review of Systems: All systems reviewed & are unremarkable except as noted in HPI & below Physical Exam Physical Exam: GENERAL : No acute distress EYES: No icterus, gaze conjugate NOSE: No evidence of epistaxis MOUTH: No lesions or candidiasis. Mucosa appears moist NECK: Supple. No stridor LUNGS: Patient has diffuse bronchospasm. There are coarse crackles at bilateral bases. Patient also appears to have some early rhonchi in the upper [place]. There is no paradoxical chest wall movement. Patient has no tenderness to palpation of the chest. HEART: Regular, rate controlled. No appreciation of ectopy. ABDOMEN: Soft, NT, ND, BS Present. No rebound tenderness. No guarding. EXTREMITIES: Trace bilateral LE edema, pedal pulses intact and equal bilaterally. SCDs are in place bilaterally NEURO: A&OX3 Results & Data Vital Signs (Past 12 Hours) Vital Signs Temp Pulse Pulse Pulse Resp BP Pulse Ox 07/07/19 11:08 36.8 C 109 H 22 137/68 94 07/07/19 07:53 36.7 C 101 H 24 171/83 H 93 07/07/19 07:20 98 H 12 95 07/07/19 03:32 36.6 C 90 20 123/74 93 07/07/19 02:35 88 22 96 07/07/19 01:22 36.6 C 87 22 131/88 100 07/07/19 00:44 78 20 138/68 96 Laboratory Results 07/07/19 06:21 07/07/19 06:[address] ANGIOGRAPHY OF THE CHEST, PULMONARY EMBOLUS PROTOCOL CLINICAL HISTORY: Shortness of breath. Lung cancer. COMPARISON STUDY: Chest CT February 22, 2019. Chest radiograph performed earlier today. TECHNIQUE: Following IV administration of 115 mL of Optiray-320, helical axial images of the chest were obtained utilizing the pulmonary embolus protocol. Maximal intensity projections and sagittal and coronal reformats were viewed on an independent 3D workstation. IV contrast was administered without complication. Automated exposure control was utilized for the study. A dose lowering technique was utilized adhering to the principles of ALARA. CT DOSE: 630.52 mGy.cm FINDINGS: No pulmonary emboli are identified. There is no evidence for thoracic aortic dissection. There is moderate calcified plaque of the ascending aorta. The heart is mildly enlarged. A small to moderate pericardial effusion has developed since CT of February 22, 2019. There are trace bilateral pleural effusions. The patient is status post right upper lobectomy. The postoperative appearance is unchanged since prior exam. A few mildly enlarged right paratracheal lymph nodes are unchanged. Prominent right retropectoral lymph nodes are unchanged. Severe emphysema is noted. There is no consolidation to suggest pneumonia. There are no suspicious pulmonary nodules. No suspicious osseous lesions within the [place] thorax are noted. Left lobe thyroid nodule is incidentally noted. Visualized portions of the upper abdomen demonstrate trace right upper quadrant ascites. There are gallstones within the gallbladder. Hypodense splenic lesion is benign. Suspected right renal cysts are partially imaged. IMPRESSION: 1. No pulmonary emboli identified. 2. Interval development of a small to moderate pericardial effusion since chest CT of February 22, 2019. 3. Trace bilateral pleural effusions. 4. Stable postoperative findings following right upper lobectomy with right perihilar and apical scarring. Prominent lymph nodes which are likely benign given stability. 5. Severe emphysema. Electronically signed by: Dale Borrego M.D. 07/06/2019 11:15 PM PG Care Time/CCT Total # of Minutes Spent Total Time Spent with Patient: Total time spent is greater than 50% in coordination of care (as documented) at patient's floor/unit and/or counseling patient: 60 minutes including discussion with family and patient
[2019-07-07 13:38] LABS: Allen Test Pos (Pos); Base Excess ABG 2.1 mEq/L (-9-1.8); HCO3 ABG 30 mmol/L (19-24); PCO2 ABG 64 mmHg (35-46); PO2 ABG 87 mm/Hg (80-95); pH ABG 7.29 (7.35-7.45)
[2019-07-07] MEDS: ALBUT/IPRATROP 3MG/0.5MG NEB 3 ML VIAL NEB SCH ×3 (15:33→23:24)
[2019-07-07] MEDS: ENOXAPARIN INJ 40 MG/0.4 ML SYR SQ SCH (16:26)
[2019-07-07] MEDS: HYDROCODONE/HOMATROPINE SYRUP 5MG/1.5MG 5ML UDP PO PRN (17:35)
[2019-07-07 17:36] LABS: Ferritin 540.8 ng/ml (8-388)
[2019-07-07] MEDS: ATORVASTATIN 40 MG TAB PO SCH (21:16)
[2019-07-08] MEDS: ALBUT/IPRATROP 3MG/0.5MG NEB 3 ML VIAL NEB SCH ×6 (03:26→23:31)
[2019-07-08] MEDS: methylPREDNISolone 40 MG in SYRINGE 0 ML IV SCH ×3 (06:04→23:49)
[2019-07-08 07:52] LABS: Hemoglobin 10.6 g/dL (14.0-18.0); Mean Corpuscular Hemoglobin 29.6 pg (25-34); Mean Corpuscular Hgb Conc 29.4 g/dL (32-36); Mean Corpuscular Volume 100.6 fL (80-100); Mean Platelet Volume 9.7 fL (7.4-10.4); Platelet Count 219 K/uL (130-400); RDW Standard Deviation 55.7 fL (36.4-46.3); Red Blood Count 3.58 M/uL (4.7-6.1); White Blood Count 6.82 K/uL (4.8-10.8)
[2019-07-08] MEDS: allopurinoL 300 MG TAB PO SCH (08:26)
[2019-07-08] MEDS: CHOLECALCIFEROL 1,000 UNITS TAB PO SCH (08:26)
[2019-07-08] MEDS: METOPROLOL TARTRATE 25 MG TAB PO SCH (08:26)
[2019-07-08] MEDS: COLCHICINE 0.6 MG TAB PO SCH ×2 (08:26→20:07)
[2019-07-08 08:27] LABS: Albumin Level 2.8 gm/dl (3.4-5.0); BUN Creatinine Ratio 26.2 (10-20); Calcium 9.2 mg/dl (8.5-10.1); Est GFR (African American) 55.8; Est GFR (Non-African American) 48.1; Potassium 5.1 mmol/L (3.5-5.1)
[2019-07-08] MEDS: ASPIRIN 81 MG ECTAB PO SCH ×2 (08:27→20:07)
[2019-07-08] MEDS: FAMOTIDINE 20 MG TAB PO SCH (08:27)
[2019-07-08] MEDS: TAMSULOSIN HCL 0.4 MG CAP PO SCH (08:27)
[2019-07-08] MEDS: MONTELUKAST SODIUM 10 MG TABLET PO SCH (08:27)
[2019-07-08] MEDS: ENOXAPARIN INJ 40 MG/0.4 ML SYR SQ SCH (08:28)
[2019-07-08] MEDS: ISOSORBIDE MONO EXTENDED REL 60 MG TABCR PO SCH (08:28)
[2019-07-08 08:29] LABS: Albumin Globulin Ratio 0.6 (0.9-2); Bilirubin,Total 0.3 mg/dl (0.2-1); Globulin 4.9 gm/dl (2.5-4.0); Total Protein 7.7 gm/dl (6.4-8.2)
[2019-07-08] MEDS: AZITHROMYCIN 500 MG in DEXTROSE 5% 250 ML IV SCH (09:02)
--- NOTE | 2019-07-08 10:21 | Family Medicine Progress Note ---
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 - NC with O2 titration to saturations up to 94% - Antibiotics appear unnecessary at this point given the lack of pneumonia on CT Chest - Azithromycin 500 mg daily for anti-inflammation - Pulmonology on board, appreciated their recommendations for outpatient pulmonary rehab after discharge. (2) Pericarditis: - treating with Colchicine 0.6 mg BID - Pericardial effusion is mild/moderate - cardiac echo shows EF 60-65%, no signs of tamponade or requirement for pericardial window - Cardio following peripherally (3) Acute kidney injury: improving. 1.72 on 07/05 -> 1.10 -> 1.36 today. Holding home lasix monitoring volume status (4) Anemia: - Pt's baseline Hg appears to be between 11-12. - dropped to 9.9, back up to 10.6 this AM. 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 - Iron panel ordered to identify if patient would benefit from iron supplementation or if it is acute sequestration in setting of disease (5) Hernia of abdominal wall: CT shows fat filled inguinal hernia. No intervention necessary at this time. (6) Hypertension: - According to patient he takes 50 mg Metoprolol BID at home - changed medication orders to mirror this and hopefully control his low level tachycardia - HTN bump likely secondary to IV steroid treatment (7) CAD (coronary artery disease), [place] coronary artery: ASA 81 daily for anti-platelet therapy Supervising Physician Co-Signing Physician Notes I personally examined the patient and verified all kohli points of history and exam, discussed case, and agree with decision making with Dr Leon. resting comfortably at the time of my arrival. dtr feels that he's looking a little better. extensive discussions on ongoing treatment plans, as well as on managmeent with inhalers after discharge. vitals noted nad breathing unlabored no accessory muscle use good effort. Skin shows no rashes no pallor or icterus. COPD exacerbationseems to be slowly improving. Given the severity of his COPD, slow improvement is no surprise. Continue current course of therapy. Antibiotics as Zithromax, given that he had no infiltrate on CT, and therefore no nidus for covering for typical bacteria, and while he has been on Zithromax chronically, with no infiltrate to cover a broader spectrum of antibiotics would likely be of little benefit, and to transition to doxycycline for a different atypical coverage seems unlikely to be of benefit. Further since he is improving, we will stay the course. We will review how he is actually taking his inhalers as he gets closer towards discharge. Acute pericarditisEKG changes consistent with pericarditis, likely brought on by the same virus that was the initial nidus for his COPD exacerbation. Continue colchicine. DVT prophylaxisheparin subcu Otherwise as above. Subjective Pt is a pleasant 83 yo M with extensive PMH of COPD, Emphysema, HTN, Anemia of Chronic Disease who was admitted to the hospital for EKG changes and shortness of breath, found to be secondary to a COPD exacerbation and concomitant pericarditis causing pericardial effusion. Today he feels his breathing is mildly improved. Denies chest pain, Chest pressure, difficulty with taking a deep breath, pain with inspiration. Has a cough that is nonproductive at this time. Review of Systems Constitutional: + body aches (right shoulder pain that started this morning); no fever, no chills and no fatigue Respiratory: + cough, + dyspnea and + wheezing; no pain on inspiration, no pain with cough and no sputum production Cardiovascular: no chest pain Gastrointestinal: no abdominal pain, no nausea, no vomiting and no cramping Physical Exam Constitutional: well developed, + obese, cooperative and comfortable; no language barrier (patient is a little hard of hearing) Sitting up at side of bed and generally looking more well than yesterday. Still gets red in the face when coughing, but had less coughing episodes while I was in the room with him today. ABle to speak in full sentences with 3L NC in place. Respiratory: + labored breathing, + cough, able to speak in complete sentences, + prolonged expiratory phase, + pursed lip breathing, + tripod positioning and symmetric chest movement; + abnormal respiratory effort, no retractions and does not use accessory muscles Auscultation: lungs clear to auscultation bilaterally, + rhonchi and + wheezes; no crackles and no rales Improvement on exam from yesterday. Right lung more rhonchorous with mixed wheezing while Left lung sounds like it is improving faster. Cardiovascular: Rate/Rhythm: regular rhythm and + tachycardic Heart Sounds: no click, no gallop and no murmur Extremities: no calf tenderness Gastrointestinal (Abdomen): Inspection/Auscultation: abdomen normal to inspection and + abdomen distended Percussion/Palpation: abdomen soft; abdomen nontender Results & Data Vital Signs (Past 12 Hours) Vital Signs Temp Pulse Pulse Resp BP Pulse Ox 07/08/19 07:14 107 H 24 95 07/08/19 07:10 36.8 C 109 H 24 151/101 H 95 07/08/19 03:44 36.7 C 85 20 129/67 93 07/08/19 03:35 83 19 95 07/08/19 03:26 83 19 95 07/07/19 23:44 36.7 C 82 20 120/62 99 07/07/19 23:37 82 18 96 07/07/19 23:35 82 18 96 Laboratory Results WBC 6.82 K/uL (4.8-10.8) 07/08/19 07:21 RBC 3.58 M/uL (4.7-6.1) L 07/08/19 07:21 Hgb 10.6 g/dL (14.0-18.0) L 07/08/19 07:21 Hct 36.0 % (42-52) L 07/08/19 07:21 MCV 100.6 fL (80-100) H 07/08/19 07:21 MCH 29.6 pg (25-34) 07/08/19 07:21 MCHC 29.4 g/dL (32-36) L 07/08/19 07:21 RDW Std Deviation 55.7 fL (36.4-46.3) H 07/08/19 07:21 RDW Coeff of [place] 15.0 % (11.5-14.5) H 07/08/19 07:21 Plt Count 219 K/uL (130-400) 07/08/19 07:21 MPV 9.7 fL (7.4-10.4) 07/08/19 07:21 Immature Gran % (Auto) 0.2 % 07/07/19 06:21 Neut % (Auto) 91.1 % 07/07/19 06:21 Lymph % (Auto) 6.9 % 07/07/19 06:21 [place] % (Auto) 1.8 % 07/07/19 06:21 Eos % (Auto) 0.0 % 07/07/19 06:21 Baso % (Auto) 0.0 % 07/07/19 06:21 Immature Gran # (Auto) 0.01 K/uL (0.00-0.02) 07/07/19 06:21 Neut # (Auto) 4.46 K/uL (1.4-6.5) 07/07/19 06:21 Lymph # (Auto) 0.34 K/uL (1.2-3.4) L 07/07/19 06:21 [place] # (Auto) 0.09 K/uL (0.11-0.59) L 07/07/19 06:21 Eos # (Auto) 0.00 K/uL (0-0.5) 07/07/19 06:21 Baso # (Auto) 0.00 K/uL (0-0.2) 07/07/19 06:21 PT 10.8 Seconds (9.0-12.0) 07/06/19 20:55 INR 1.1 (0.9-1.1) 07/06/19 20:55 APTT 35.6 Seconds (21.0-31.0) H 07/06/19 20:55 PTT Ratio 1.3 07/06/19 20:55 ABG pH 7.29 (7.35-7.45) L 07/07/19 13:20 ABG pCO2 64 mmHg (35-46) H 07/07/19 13:20 ABG pO2 87 mm/Hg (80-95) 07/07/19 13:20 ABG HCO3 30 mmol/L (19-24) H 07/07/19 13:20 ABG O2 Saturation 96.0 % (90-95) H 07/07/19 13:20 ABG Base Excess 2.1 mEq/L (-9-1.8) H 07/07/19 13:20 Brian Test Pos (Pos) 07/07/19 13:20 VBG pH 7.26 (7.36-7.41) L 07/06/19 20:55 VBG pCO2 73 mmHg (38-50) H 07/06/19 20:55 VBG pO2 34 mmHg 07/06/19 20:55 VBG HCO3 32 mmol/L 07/06/19 20:55 VBG O2 Saturation < 60.0 % 07/06/19 20:55 VBG Base Excess 2.8 mEq/L 07/06/19 20:55 Barometric Pressure 738.9 mm/Hg 07/07/19 13:20 Oxygen Given 30% 07/07/19 13:20 Sodium 142 mmol/L (136-145) 07/08/19 07:21 Potassium 5.1 mmol/L (3.5-5.1) 07/08/19 07:21 Chloride 105 mmol/L (98-107) 07/08/19 07:21 Carbon Dioxide 33 mmol/L (21-32) H 07/08/19 07:21 Anion Gap 5.0 (3-11) 07/08/19 07:21 BUN 36 mg/dl (7-18) H 07/08/19 07:21 Creatinine 1.36 mg/dl (0.6-1.4) 07/08/19 07:21 Est Cr Clr Drug Dosing 45.0 ml/min 07/08/19 07:21 Est GFR ( Amer) 55.8 07/08/19 07:21 Est GFR (Non-Af Amer) 48.1 07/08/19 07:21 BUN/Creatinine Ratio 26.2 (10-20) H 07/08/19 07:21 Glucose 172 mg/dl (70-99) H 07/08/19 07:21 Lactate 0.9 mmol/L (0.4-2.0) 07/06/19 20:55 Uric Acid 3.9 mg/dl (2.6-7.2) 07/07/19 06:21 Calcium 9.2 mg/dl (8.5-10.1) 07/08/19 07:21 Phosphorus 3.3 mg/dl (2.5-4.9) 07/06/19 20:55 Magnesium 2.4 mg/dl (1.8-2.4) 07/07/19 06:21 Iron 20 mcg/dl (35-175) L 07/07/19 06:21 TIBC 208 mcg/dl (250-450) L 07/07/19 06:21 Transferrin 154 mg/dl (200-360) L 07/07/19 06:21 Ferritin 540.8 ng/ml (8-388) H 07/07/19 06:21 Total Bilirubin 0.3 mg/dl (0.2-1) 07/08/19 07:21 AST 23 U/L (15-37) 07/08/19 07:21 ALT 33 U/L (12-78) 07/08/19 07:21 Alkaline Phosphatase 76 U/L (45-117) 07/08/19 07:21 Troponin I < 0.015 ng/ml (0-0.045) 07/07/19 06:21 NT-Pro-B Natriuret Pep 1145 pg/ml (0-1800) 07/06/19 20:55 Total Protein 7.7 gm/dl (6.4-8.2) 07/08/19 07:21 Albumin 2.8 gm/dl (3.4-5.0) L 07/08/19 07:21 Globulin 4.9 gm/dl (2.5-4.0) H 07/08/19 07:21 Albumin/Globulin Ratio 0.6 (0.9-2) L 07/08/19 07:21 Urine Color Yellow 07/07/19 02:20 Urine Appearance Clear (Clear) 07/07/19 02:20 Urine pH 5.0 (4.5-7.5) 07/07/19 02:20 Ur Specific [place] > 1.045 (1.000-1.030) H 07/07/19 02:20 Urine Protein 1+ (Negative) H 07/07/19 02:20 Urine Glucose (UA) Negative (Negative) 07/07/19 02:20 Urine Ketones 1+ (Negative) H 07/07/19 02:20 Urine Blood Negative (Negative) 07/07/19 02:20 Urine Nitrite Negative (Negative) 07/07/19 02:20 Urine Bilirubin Negative (Negative) 07/07/19 02:20 Urine Urobilinogen Negative (Negative) 07/07/19 02:20 Ur Leukocyte Esterase Negative (Negative) 07/07/19 02:20 Urine WBC (Auto) 1-5 /hpf (0-5) 07/07/19 02:20 Urine RBC (Auto) 0-4 /hpf (0-4) 07/07/19 02:20 U Hyaline Cast (Auto) 1-5 /lpf (0-5) 07/07/19 02:20 U Epithel Cells (Auto) 10-20 /lpf (0-5) H 07/07/19 02:20 Urine Bacteria (Auto) Negative (Negative) 07/07/19 02:20 Nasal Screen MRSA (PCR) Negative (Negative) 07/07/19 13:45 Stool Occult Bld Scrn Negative (Negative) 07/07/19 16:45 Lyme Disease IgG Ab Negative (Negative) 07/07/19 06:21 Lyme Disease IgM Ab Negative (Negative) 07/07/19 06:21 Monoscreen Negative (Negative) 07/07/19 06:21 Influenza Type A (PCR) Neg for Influ A (Neg) 07/06/19 22:30 Influenza Type B (PCR) Neg for Influ B (Neg) 07/06/19 22:30 PG Care Time/CCT Total # of Minutes Spent Total Time Spent with Patient: Total time spent is greater than 50% in coordination of care (as documented) at patient's floor/unit and/or counseling patient: Resident Activity Tracking Resident Involvement: Resident Care Provided Care Provided: Adult Hospital Medicine
--- NOTE | 2019-07-08 15:16 | Cardiology Progress Note ---
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 This is most likely an acute exacerbation of his COPD. I would continue his current treatment. He is tolerating the colchicine. You may want to have a follow-up echocardiogram in a few days to monitor his pericardial effusion. Subjective The patient is resting comfortably with his daughter being in the room. He seems to be improving. Review of Systems Review of Systems: All systems reviewed & are unremarkable except as noted in HPI & below Nothing additional to add. Physical Exam Physical Exam: General: no acute distress and stated age Head: normocephalic, no masses, lesions, tenderness or abnormalities Eyes: conjunctiva are pink and non-injected, sclera clear Neck: supple, no adenopathy, no bruits, normal jugular venous pulse, no hepatoj ugular reflux Chest: normal shape and normal respiratory effort Lungs: clear to auscultation and percussion Cardiac Exam: - regular rate & rhythm, no murmurs gallops or rubs - normal S1, normal S2 Pulses: 2(+) throughout Abdomen: abdomen soft, non-tender, no abnormal masses and no hepatosplenomegaly Musculoskeletal: no gait disturbance, no joint inflammation, no deforming arthritis Extremities: no edema and no cyanosis Neuro: grossly normal exam Results & Data Vital Signs (Past 12 Hours) Vital Signs Temp Pulse Pulse Resp BP Pulse Ox 07/08/19 15:02 88 18 97 07/08/19 12:26 36.9 C 91 H 18 119/63 96 07/08/19 10:54 91 H 18 98 07/08/19 08:00 94 H 07/08/19 07:14 107 H 24 95 07/08/19 07:10 36.8 C 109 H 24 151/101 H 95 07/08/19 03:44 36.7 C 85 20 129/67 93 07/08/19 03:35 83 19 95 07/08/19 03:26 83 19 95 Laboratory Results Laboratory Results - last 24 hr 07/07/19 07/07/19 07/07/19 06:21 13:45 16:45 WBC RBC Hgb Hct MCV MCH MCHC RDW Std Deviation RDW Coeff of [place] Plt Count MPV Sodium Potassium Chloride Carbon Dioxide Anion Gap BUN Creatinine Est Cr Clr Drug Dosing Est GFR ( Amer) Est GFR (Non-Af Amer) BUN/Creatinine Ratio Glucose Calcium Iron 20 L TIBC 208 L Transferrin 154 L Ferritin 540.8 H Total Bilirubin AST ALT Alkaline Phosphatase Total Protein Albumin Globulin Albumin/Globulin Ratio Nasal Screen MRSA (PCR) Negative Stool Occult Bld Scrn Negative 07/08/19 07/08/19 07:21 07:21 WBC 6.82 RBC 3.58 L Hgb 10.6 L Hct 36.0 L MCV 100.6 H MCH 29.6 MCHC 29.4 L RDW Std Deviation 55.7 H RDW Coeff of [place] 15.0 H Plt Count 219 MPV 9.7 Sodium 142 Potassium 5.1 Chloride 105 Carbon Dioxide 33 H Anion Gap 5.0 BUN 36 H Creatinine 1.36 Est Cr Clr Drug Dosing 45.0 Est GFR ( Amer) 55.8 Est GFR (Non-Af Amer) 48.1 BUN/Creatinine Ratio 26.2 H Glucose 172 H Calcium 9.2 Iron TIBC Transferrin Ferritin Total Bilirubin 0.3 AST 23 ALT 33 Alkaline Phosphatase 76 Total Protein 7.7 Albumin 2.8 L Globulin 4.9 H Albumin/Globulin Ratio 0.6 L Nasal Screen MRSA (PCR) Stool Occult Bld Scrn Medications Administered Current Inpatient Medications Acetaminophen (Tylenol) 650 mg PO Q4H PRN PRN Reason: Pain or Fever Stop: 08/06/19 01:20 Last Admin: 07/08/19 09:01 Dose: 650 mg Documented by: Al Hydrox/Mg Hydrox/Simethicone (Maalox) 15 ml PO Q4H PRN PRN Reason: Dyspepsia Stop: 08/06/19 01:20 Albuterol (Duoneb) 3 ml NEB QIDR PRN PRN Reason: dyspnea Stop: 08/06/19 02:29 Albuterol (Duoneb) 3 ml NEB Q4R DANNA Stop: 08/06/19 14:59 Last Admin: 07/08/19 15:01 Dose: 3 ml Documented by: Allopurinol (Zyloprim) 300 mg PO DAILY DANNA Stop: 08/06/19 08:59 Last Admin: 07/08/19 08:26 Dose: 300 mg Documented by: Aspirin (Ecotrin Ectab) 81 mg PO BID DANNA Stop: 08/06/19 01:20 Last Admin: 07/08/19 08:27 Dose: 81 mg Documented by: Atorvastatin Calcium (Lipitor) 80 mg PO QPM DANNA Stop: 08/06/19 20:59 Last Admin: 07/07/19 21:16 Dose: 80 mg Documented by: Budesonide/Formoterol Fumarate (Symbicort 160mcg/4.5mcg) 2 puffs INH WEEKLY DANNA Stop: 08/06/19 01:20 Colchicine (Colcrys) 0.6 mg PO BID DANNA Stop: 08/06/19 01:20 Last Admin: 07/08/19 08:26 Dose: 0.6 mg Documented by: Enoxaparin Sodium (Lovenox) 40 mg SQ QAM DANNA Stop: 08/06/19 14:59 Last Admin: 07/08/19 08:28 Dose: 40 mg Documented by: Famotidine (Pepcid) 40 mg PO DAILY DANNA Stop: 08/06/19 08:59 Last Admin: 07/08/19 08:27 Dose: 40 mg Documented by: Hydrocodone Bit/Homatropine Methylb (Hycodan) 5 ml PO Q8H PRN PRN Reason: Cough Stop: 07/21/19 16:11 Last Admin: 07/07/19 17:35 Dose: 5 ml Documented by: Methylprednisolone 40 mg/ (Syringe) 0.64 mls @ 1.5 mls/min IV Q8H DANNA Stop: 08/06/19 06:59 Last Admin: 07/08/19 06:04 Dose: 1.5 mls/min Documented by: Azithromycin 500 mg/ Dextrose 255 mls @ 125 mls/hr IV DAILY DANNA Stop: 07/14/19 08:59 Last Infusion: 07/08/19 11:59 Dose: Infused Documented by: Ioversol (Optiray 320 125ml) 115 ml IV ONCE PRN PRN Reason: Interaction Checking Stop: 07/10/19 22:51 Last Admin: 07/06/19 22:53 Dose: 115 ml Documented by: Isosorbide Mononitrate (Imdur Extended Rel) 60 mg PO DAILY DANNA Stop: 08/06/19 08:59 Last Admin: 07/08/19 08:28 Dose: 60 mg Documented by: Magnesium Hydroxide (Milk Of Magnesia) 30 ml PO Q12H PRN PRN Reason: Constipation Stop: 08/06/19 01:20 Metoprolol Tartrate (Lopressor) 50 mg PO BID [facility] Stop: 08/07/19 20:59 Montelukast Sodium (Singulair) 10 mg PO DAILY [facility] Stop: 08/06/19 08:59 Last Admin: 07/08/19 08:27 Dose: 10 mg Documented by: Nitroglycerin (Nitrostat) 0.4 mg SL Q5M PRN PRN Reason: chest pain Stop: 08/06/19 01:20 Ondansetron HCl (Zofran) 4 mg IV Q6H PRN PRN Reason: Nausea Stop: 08/06/19 01:20 Tamsulosin HCl (Flomax) 0.4 mg PO DAILY [facility] Stop: 08/06/19 08:59 Last Admin: 07/08/19 08:27 Dose: 0.4 mg Documented by: Vitamin D (Vitamin D3) 1,000 units PO DAILY [facility] Stop: 08/06/19 08:59 Last Admin: 07/08/19 08:26 Dose: 1,000 units Documented by: (1) Acute respiratory failure Respiratory failure complication: hypoxia Qualified Code(s): J96.01 - Acute respiratory failure with hypoxia
[2019-07-08] MEDS: ATORVASTATIN 40 MG TAB PO SCH (20:07)
[2019-07-08] MEDS ORDERED: HEPARIN SOD 5,000 UNIT/0.5 ML VIAL SQ SCH (21:00)
[2019-07-08] MEDS ORDERED: METOPROLOL TARTRATE 25 MG TAB PO SCH (21:00)
[2019-07-09] MEDS: ALBUT/IPRATROP 3MG/0.5MG NEB 3 ML VIAL NEB SCH ×6 (03:28→23:25)
[2019-07-09] MEDS ORDERED: METOPROLOL TARTRATE 25 MG TAB PO ONE (04:04)
[2019-07-09 08:03] LABS: iSTAT Allen Test Pass; iSTAT Arterial Blood Gas HCO3 39 meg/L (19-24); iSTAT Arterial Blood Gas pCO2 73 mmHg (35-46); iSTAT Arterial Blood Gas pH 7.34 (7.35-7.45); iSTAT Arterial Blood Gas pO2 < 32 mmHg (80-95); iSTAT Carbon Dioxide > 40 mEq/l (24-31); iSTAT Hematocrit 30 % (42-52); iSTAT Hemoglobin 10.2 g/dl (14.0-18.0); iSTAT Potassium 5.7 mEq/L (3.3-5.0); iSTAT Site L Radial; iSTAT Sodium 139 mEq/L (135-144)
--- NOTE | 2019-07-09 08:28 | CT Scan Report ---
CT OF THE HEAD WITHOUT CONTRAST CLINICAL HISTORY: mental status change COMPARISON STUDY: Head CT September 06, 2015. CT DOSE: 614.27 mGy.cm TECHNIQUE: Helical axial images of the head were obtained without IV contrast. Automated exposure con trol was utilized for the study. A dose lowering technique was utilized adhering to the principles o f ALARA. FINDINGS: Exam is mildly compromised by motion artifact. No acute intracranial hemorrhage, midline sh ift or mass effect is present. Ventricular system is unremarkable. The basilar cisterns are patent. M ild white matter hypodensity suggests small vessel disease. There are no findings to suggest acute du ral sinus thrombosis or acute territorial infarct. There are no significant calvarial abnormalities. IMPRESSION: No acute intracranial findings. Electronically signed by: Dale Borrego M.D. 07/09/2019 8:26 AM
[2019-07-09 09:23] LABS: Hematocrit (blood only) 36.7 % (42-52); Immature Granulocytes # (auto) 0.02 K/uL (0.00-0.02); Immature Granulocytes % (auto) 0.2 %; Lymphocytes # (auto) 0.34 K/uL (1.2-3.4); Lymphocytes % (auto) 3.8 %; Mean Corpuscular Hemoglobin 30.6 pg (25-34); Mean Corpuscular Volume 101.9 fL (80-100); Mean Platelet Volume 9.4 fL (7.4-10.4); Monocytes % (auto) 6.8 %; Neutrophils # (auto) 7.89 K/uL (1.4-6.5); Neutrophils % (auto) 89.2 %; Platelet Count 269 K/uL (130-400); RDW Coefficient of Variation 15.3 % (11.5-14.5); RDW Standard Deviation 57.3 fL (36.4-46.3); White Blood Count 8.85 K/uL (4.8-10.8)
[2019-07-09] MEDS: methylPREDNISolone 40 MG in SYRINGE 0 ML IV SCH ×3 (09:39→19:53)
[2019-07-09] MEDS: AZITHROMYCIN 500 MG in DEXTROSE 5% 250 ML IV SCH (09:40)
[2019-07-09 09:47] LABS: BUN Creatinine Ratio 26.5 (10-20); Est GFR (African American) 53.4; Est GFR (Non-African American) 46.1
[2019-07-09] MEDS: ISOSORBIDE MONO EXTENDED REL 60 MG TABCR PO SCH (09:47)
[2019-07-09] MEDS: METOPROLOL TARTRATE 25 MG TAB PO SCH ×2 (09:47→19:56)
[2019-07-09] MEDS: CHOLECALCIFEROL 1,000 UNITS TAB PO SCH (09:48)
[2019-07-09] MEDS: ENOXAPARIN INJ 40 MG/0.4 ML SYR SQ SCH (09:48)
[2019-07-09] MEDS: MONTELUKAST SODIUM 10 MG TABLET PO SCH (09:49)
[2019-07-09] MEDS: FAMOTIDINE 20 MG TAB PO SCH (09:49)
[2019-07-09] MEDS: allopurinoL 300 MG TAB PO SCH (09:50)
[2019-07-09] MEDS: TAMSULOSIN HCL 0.4 MG CAP PO SCH (09:50)
[2019-07-09] MEDS: COLCHICINE 0.6 MG TAB PO SCH ×2 (09:50→19:53)
[2019-07-09] MEDS: ASPIRIN 81 MG ECTAB PO SCH ×2 (09:50→19:52)
[2019-07-09 10:08] LABS: Troponin I 3.3 ng/ml (0-0.045)
--- NOTE | 2019-07-09 10:31 | Family Medicine Progress Note ---
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 - NC with O2 titration to saturations up to 94% - Antibiotics appear unnecessary at this point given the lack of pneumonia on CT Chest - Azithromycin 500 mg daily for anti-inflammation - Pulmonology on board, appreciated their recommendations for outpatient pulmonary rehab after discharge. (2) Pericarditis: - treating with Colchicine 0.6 mg BID - Pericardial effusion is mild/moderate - cardiac echo shows EF 60-65%, no signs of tamponade or requirement for pericardial window - Cardio following peripherally (3) Acute kidney injury: improving. 1.72 on 07/05 -> 1.10 -> 1.36 today. Holding home lasix monitoring volume status (4) Anemia: - Pt's baseline Hg appears to be between 11-12. - dropped to 9.9, back up to 10.6 this AM. - ordered fecal occult blood test to r/o GIB - will continue to monitor H&H - per pt's costumed character he has been treated for anemia of chronic disease on a few separate occasions with EPO, also has a hx of Acute renal failure requiring dialysis ~ 8 years ago. - Iron panel shows low iron, low TIBC, low Transferrin, high Ferritin which is in line with an anemia of chronic disease (5) Hernia of abdominal wall: CT shows fat filled inguinal hernia. No intervention necessary at this time. (6) Hypertension: - According to patient he takes 50 mg Metoprolol BID at home - changed medication orders to mirror this and hopefully control his low level tachycardia - HTN bump likely secondary to IV steroid treatment (7) CAD (coronary artery disease), [place] coronary artery: ASA 81 daily for anti-platelet therapy (8) Elevated troponin: - Troponin of 3.5 overnight - 32 beat run of Vtach overnight - EKGs stable - not complaining of chest pain - per cardio will repeat Echo tomorrow to ensure no progression of pericardial effusion causing tamponade Supervising Physician Co-Signing Physician Notes I personally examined the patient and verified all kohli points of history and exam, discussed case, and agree with decision making with Dr Leon. Sitting up in a chair looking brighter. He notes that he feels about the same, daughter notes that he looks better. Case discussed with cardiology, input appreciated. vitals noted awake and alert fatigued appearing but no distress. HEENT normocephalic atraumatic mucous membranes moist. Breathing shows his lungs to be much more clear than before, he has a few scattered rhonchi and one faint wheeze but overall much more clear. Diminished air entry no accessory muscle use. Neuro shows no focal deficits. Skin shows no rashes no pallor or icterus. COPD exacerbationshowing ongoing improvement. Prior PFTs reviewed from 3 years ago and his FEV1 was something on the order of 0.6 L, FVC approximately 1.3 L, and FEV1 to FVC ratio of about 45%. Given the severity of his COPD, slow improvement is no surprise. Continue current course of therapy. Antibiotics as Zithromax, given that he had no infiltrate on CT, and therefore no nidus for covering for typical bacteria, and while he has been on Zithromax chronically, with no infiltrate to cover a broader spectrum of antibiotics would likely be of little benefit, and to transition to doxycycline for a different atypical coverage seems unlikely to be of benefit. Seems to be showing slow and steady improvement. We will review how he is actually taking his inhalers as he gets closer towards discharge. V. tach and elevated troponinno hypoxia from his COPD exacerbation combined with his coronary artery disease likely led to hypoxic irritability of his ventricular myocardium. The elevated troponin is almost certainly demand ischemia from the whole situation. Beta-luis manuel has been increased. May need to consider antiarrhythmic therapy, but certainly would only want to do so with caution due to risk of further pulmonary toxicity. Acute pericarditisEKG changes consistent with pericarditis, likely brought on by the same virus that was the initial nidus for his COPD exacerbation. Continue colchicine. DVT prophylaxisheparin subcu Otherwise as above. Subjective Overnight patient was altered, Nursing was concerned for acute mental status change as the patient was speaking in his [place] tongue and did not appear to know where he was. He was given a breathing treatment and then sent down for a CT head without contrast which was negative for intracranial bleed. The patient also motion to his chest and mentioned chest pain at which time EKG was also performed. The EKG was unchanged from previous. This morning he is seeming more of his usual self. I talked extensively with his daughter who attested that he seems to be more "with it" when he is speaking to his family members as opposed to hospital staff. She also agrees that he seems to be more of himself compared to last night.This morning his mood is more depressed but he does not complain of any pain with breathing, chest tightness trouble breathing, chest pain this AM. Review of Systems Constitutional: + fatigue; no fever and no chills Respiratory: + cough and + dyspnea; no dyspnea on exertion, no pain on inspiration, no sputum production and no wheezing Cardiovascular: no chest pain, no palpitations and no edema Gastrointestinal: no abdominal pain, no nausea and no change in bowel habits Physical Exam Constitutional: well developed, + ill appearing, + obese, cooperative, comfortable and + overweight; no language barrier (patient is a little hard of hearing) Respiratory: + labored breathing, + cough, able to speak in complete sentences and symmetric chest movement; + abnormal respiratory effort, no respiratory distress, no retractions, does not use accessory muscles, expiratory phase not prolonged, no nasal flaring, no pursed lip breathing and no tripod positioning Auscultation: lungs clear to auscultation bilaterally and + wheezes; no diminished lung sounds, no crackles, no rales and no rhonchi Cardiovascular: Rate/Rhythm: regular rhythm and + tachycardic Heart Sounds: no click, no gallop and no murmur Extremities: no calf tenderness Gastrointestinal (Abdomen): Inspection/Auscultation: abdomen normal to inspection and + abdomen distended Percussion/Palpation: abdomen soft; abdomen nontender and no guarding Results & Data Vital Signs (Past 12 Hours) Vital Signs Temp Pulse Pulse Pulse Resp BP Pulse Ox 07/09/19 08:20 36.9 C 94 H 18 141/78 H 97 07/09/19 06:59 90 20 99 07/09/19 03:43 97 07/09/19 03:30 89 20 97 07/09/19 03:02 95 H 07/09/19 02:50 36.7 C 93 H 23 153/78 H 97 07/09/19 00:33 36.4 C L 91 H 20 126/73 96 07/08/19 23:31 86 16 100 Laboratory Results WBC 8.85 K/uL (4.8-10.8) 07/09/19 09:05 RBC 3.60 M/uL (4.7-6.1) L 07/09/19 09:05 Hgb 11.0 g/dL (14.0-18.0) L 07/09/19 09:05 POC Hgb 10.2 g/dl (14.0-18.0) L 07/09/19 07:48 Hct 36.7 % (42-52) L 07/09/19 09:05 POC Hct 30 % (42-52) L 07/09/19 07:48 MCV 101.9 fL (80-100) H 07/09/19 09:05 MCH 30.6 pg (25-34) 07/09/19 09:05 MCHC 30.0 g/dL (32-36) L 07/09/19 09:05 RDW Std Deviation 57.3 fL (36.4-46.3) H 07/09/19 09:05 RDW Coeff of [place] 15.3 % (11.5-14.5) H 07/09/19 09:05 Plt Count 269 K/uL (130-400) 07/09/19 09:05 MPV 9.4 fL (7.4-10.4) 07/09/19 09:05 Immature Gran % (Auto) 0.2 % 07/09/19 09:05 Neut % (Auto) 89.2 % 07/09/19 09:05 Lymph % (Auto) 3.8 % 07/09/19 09:05 [place] % (Auto) 6.8 % 07/09/19 09:05 Eos % (Auto) 0.0 % 07/09/19 09:05 Baso % (Auto) 0.0 % 07/09/19 09:05 Immature Gran # (Auto) 0.02 K/uL (0.00-0.02) 07/09/19 09:05 Neut # (Auto) 7.89 K/uL (1.4-6.5) H 07/09/19 09:05 Lymph # (Auto) 0.34 K/uL (1.2-3.4) L 07/09/19 09:05 [place] # (Auto) 0.60 K/uL (0.11-0.59) H 07/09/19 09:05 Eos # (Auto) 0.00 K/uL (0-0.5) 07/09/19 09:05 Baso # (Auto) 0.00 K/uL (0-0.2) 07/09/19 09:05 PT 10.8 Seconds (9.0-12.0) 07/06/19 20:55 INR 1.1 (0.9-1.1) 07/06/19 20:55 APTT 35.6 Seconds (21.0-31.0) H 07/06/19 20:55 PTT Ratio 1.3 07/06/19 20:55 Sample Site L Radial 07/09/19 07:48 POC pH 7.34 (7.35-7.45) L 07/09/19 07:48 POC pCO2 73 mmHg (35-46) H 07/09/19 07:48 POC pO2 < 32 mmHg (80-95) L 07/09/19 07:48 POC HCO3 39 julio/L (19-24) H 07/09/19 07:48 POC Total CO2 > 40 mEq/l (24-31) H* 07/09/19 07:48 POC Base Excess 13.0 julio/L (-9-1.8) H 07/09/19 07:48 ABG pH 7.29 (7.35-7.45) L 07/07/19 13:20 ABG pCO2 64 mmHg (35-46) H 07/07/19 13:20 ABG pO2 87 mm/Hg (80-95) 07/07/19 13:20 ABG HCO3 30 mmol/L (19-24) H 07/07/19 13:20 ABG O2 Saturation 96.0 % (90-95) H 07/07/19 13:20 ABG Base Excess 2.1 mEq/L (-9-1.8) H 07/07/19 13:20 Brian Test Pass 07/09/19 07:48 VBG pH 7.26 (7.36-7.41) L 07/06/19 20:55 VBG pCO2 73 mmHg (38-50) H 07/06/19 20:55 VBG pO2 34 mmHg 07/06/19 20:55 VBG HCO3 32 mmol/L 07/06/19 20:55 VBG O2 Saturation < 60.0 % 07/06/19 20:55 VBG Base Excess 2.8 mEq/L 07/06/19 20:55 Barometric Pressure 738.9 mm/Hg 07/07/19 13:20 Oxygen Given 30% 07/07/19 13:20 O2 Delivery Device Cannula 07/09/19 07:48 POC Sodium 139 mEq/L (135-144) 07/09/19 07:48 Sodium 141 mmol/L (136-145) 07/09/19 09:04 POC Potassium 5.7 mEq/L (3.3-5.0) H 07/09/19 07:48 Potassium 5.0 mmol/L (3.5-5.1) 07/09/19 09:04 Chloride 103 mmol/L (98-107) 07/09/19 09:04 Carbon Dioxide 37 mmol/L (21-32) H 07/09/19 09:04 Anion Gap 1.0 (3-11) L 07/09/19 09:04 BUN 37 mg/dl (7-18) H 07/09/19 09:04 Creatinine 1.41 mg/dl (0.6-1.4) H 07/09/19 09:04 Est Cr Clr Drug Dosing 43.0 ml/min 07/09/19 09:04 Est GFR ( Amer) 53.4 07/09/19 09:04 Est GFR (Non-Af Amer) 46.1 07/09/19 09:04 BUN/Creatinine Ratio 26.5 (10-20) H 07/09/19 09:04 Glucose 172 mg/dl (70-99) H 07/09/19 09:04 Lactate 0.9 mmol/L (0.4-2.0) 07/06/19 20:55 Uric Acid 3.9 mg/dl (2.6-7.2) 07/07/19 06:21 Calcium 9.0 mg/dl (8.5-10.1) 07/09/19 09:04 Phosphorus 3.3 mg/dl (2.5-4.9) 07/06/19 20:55 Magnesium 2.4 mg/dl (1.8-2.4) 07/07/19 06:21 Iron 20 mcg/dl (35-175) L 07/07/19 06:21 TIBC 208 mcg/dl (250-450) L 07/07/19 06:21 Transferrin 154 mg/dl (200-360) L 07/07/19 06:21 Ferritin 540.8 ng/ml (8-388) H 07/07/19 06:21 Total Bilirubin 0.3 mg/dl (0.2-1) 07/08/19 07:21 AST 23 U/L (15-37) 07/08/19 07:21 ALT 33 U/L (12-78) 07/08/19 07:21 Alkaline Phosphatase 76 U/L (45-117) 07/08/19 07:21 Troponin I Cancelled 07/09/19 09:06 NT-Pro-B Natriuret Pep 1145 pg/ml (0-1800) 07/06/19 20:55 Total Protein 7.7 gm/dl (6.4-8.2) 07/08/19 07:21 Albumin 2.8 gm/dl (3.4-5.0) L 07/08/19 07:21 Globulin 4.9 gm/dl (2.5-4.0) H 07/08/19 07:21 Albumin/Globulin Ratio 0.6 (0.9-2) L 07/08/19 07:21 Urine Color Yellow 07/07/19 02:20 Urine Appearance Clear (Clear) 07/07/19 02:20 Urine pH 5.0 (4.5-7.5) 07/07/19 02:20 Ur Specific [place] > 1.045 (1.000-1.030) H 07/07/19 02:20 Urine Protein 1+ (Negative) H 07/07/19 02:20 Urine Glucose (UA) Negative (Negative) 07/07/19 02:20 Urine Ketones 1+ (Negative) H 07/07/19 02:20 Urine Blood Negative (Negative) 07/07/19 02:20 Urine Nitrite Negative (Negative) 07/07/19 02:20 Urine Bilirubin Negative (Negative) 07/07/19 02:20 Urine Urobilinogen Negative (Negative) 07/07/19 02:20 Ur Leukocyte Esterase Negative (Negative) 07/07/19 02:20 Urine WBC (Auto) 1-5 /hpf (0-5) 07/07/19 02:20 Urine RBC (Auto) 0-4 /hpf (0-4) 07/07/19 02:20 U Hyaline Cast (Auto) 1-5 /lpf (0-5) 07/07/19 02:20 U Epithel Cells (Auto) 10-20 /lpf (0-5) H 07/07/19 02:20 Urine Bacteria (Auto) Negative (Negative) 07/07/19 02:20 Nasal Screen MRSA (PCR) Negative (Negative) 07/07/19 13:45 Stool Occult Bld Scrn Negative (Negative) 07/07/19 16:45 Lyme Disease IgG Ab Negative (Negative) 07/07/19 06:21 Lyme Disease IgM Ab Negative (Negative) 07/07/19 06:21 Monoscreen Negative (Negative) 07/07/19 06:21 Influenza Type A (PCR) Neg for Influ A (Neg) 07/06/19 22:30 Influenza Type B (PCR) Neg for Influ B (Neg) 07/06/19 22:30 PG Care Time/CCT Total # of Minutes Spent Total Time Spent with Patient: Total time spent is greater than 50% in coordination of care (as documented) at patient's floor/unit and/or counseling patient: Resident Activity Tracking Resident Involvement: Resident Care Provided Care Provided: Adult Hospital Medicine
--- NOTE | 2019-07-09 13:42 | Cardiology Progress Note ---
Date of Service July 09, 2019 Assessment & Plan (1) Paroxysmal ventricular tachycardia: (2) Pericardial effusion: (3) Acute and chronic respiratory failure ([id number]): The patient has a history of coronary heart disease with an occluded right coronary artery and moderate nonobstructive disease of the LAD by cardiac catheterization in 2014. He has a long-standing history of COPD and squamous cell carcinoma the lung diagnosed in 2010 with recurrence in 2014. He presented with an acute exacerbation of COPD and been found to have a small pericardial effusion on CT and echo cardiogram on admission. Telemetry overnight revealed a 5 beat run of nonsustained ventricular tach ycardia on 07/09/2019 1:31 AM. A 32 beat run of nonsustained ventricular tachycardia was observed at 1:36 AM with rate ranging from 117 bpm to 208 bpm while patient was sleeping. Follow-up chemistry panel revealed relatively stable findings with upper limit of normal potassium level of 5 mmol/L on chemistry panel at 904 this morning. Follow-up EKG x2 was within normal limits. Patient has no nelsy angina, ongoing shortness of breath consistent with his presenting symptoms. His troponin trended up to 3.3 this morning having had 3 normal levels earlier this hospital stay. Elevated troponin is likely sales representative livestock of myocardial strain in the setting of hypoxia from his COPD exacerbation. EKG does not suggest evidence of an acute coronary syndrome. Continue current dose of metoprolol 75 mg twice daily. I discussed my preference to obtain a repeat echocardiogram on the patient tomorrow to reassess his LV systolic function, and for reassessment of the pericardial effusion. The patient and his daughter declined this test at present. After I completed my visit with the patient, the patient's nurse shared bit with me explaining that the patient had a difficult day yesterday. Consideration of palliative care was recommended by pulmonology, and apparently the patient and family are feeling a bit discouraged. At this time we will continue to follow him. I will discuss with him my recom mendations for repeat echocardiogram when I see him tomorrow and see if he changes his mind. Subjective Chief complaint: Follow-up shortness of breath, pericardial effusion Subjective: Patient states that he still short of breath and coughing. He does not feel that he has improved during his hospital stay, and he feels perhaps he is worse than 2 days ago. Review of Systems Review of Systems: All systems reviewed & are unremarkable except as noted in HPI & below Physical Exam Physical Exam: Temp Pulse Resp BP Pulse Ox 36.9 C 87 18 141/78 H 95 07/09/19 08:20 07/09/19 11:24 07/09/19 11:24 07/09/19 08:20 07/09/19 11:24 Constitutional: WD/WN, vitals as above Respiratory: Coarse breath sounds bilaterally with inspiration Cardiovascular: Rate/Rhythm: regular rhythm Heart Sounds: no murmur Vessels: no JVD Neurologic: PERRL, EOMI, accommodation nl, no face palsy, no dysarthria Results & Data Vital Signs (Past 12 Hours) Vital Signs Temp Pulse Pulse Pulse Resp BP Pulse Ox 07/09/19 11:24 87 18 95 07/09/19 08:20 36.9 C 94 H 18 141/78 H 97 07/09/19 06:59 90 20 99 07/09/19 03:43 97 07/09/19 03:30 89 20 97 07/09/19 03:02 95 H 07/09/19 02:50 36.7 C 93 H 23 153/78 H 97 Diagnostic Findings EKG performed 07/09/2019 at 1:51 AM: Normal sinus rhythm at 94 bpm, normal EKG without significant ST segment changes, the QT interval was normal at 440 ms. EKG performed this morning 07/09/2019 at 10:42 AM and reviewed independently: Normal sinus rhythm at 93 bpm, no significant repolarization changes, stable QT interval 430 ms. Summary of echocardiogram report 07/07/2019: A small pericardial effusion was observed with no echo indications of tamponade Left ventricular systolic function is normal with ejection fraction in the range of 65 to 70%. Mild to moderate tricuspid regurgitation, normal RV systolic function, mild pulmonary hypertension
[2019-07-09] MEDS ORDERED: LACTOBACILLUS ACIDOPHILUS (FLORANEX) TAB PO STA (17:22)
[2019-07-09] MEDS: ATORVASTATIN 40 MG TAB PO SCH (19:55)
[2019-07-09] MEDS: HYDROCODONE/HOMATROPINE SYRUP 5MG/1.5MG 5ML UDP PO PRN (23:22)
[2019-07-10] MEDS: ALBUT/IPRATROP 3MG/0.5MG NEB 3 ML VIAL NEB SCH ×6 (03:13→22:55)
[2019-07-10] MEDS ORDERED: methylPREDNISolone 40 MG in SYRINGE 0 ML IV ONE (06:30)
--- NOTE | 2019-07-10 06:52 | XRay Report ---
XR chest 1V portable CLINICAL HISTORY: 83 years-old Male presenting with increased oxygen demand, crackles. TECHNIQUE: Portable upright AP view of the chest was obtained. COMPARISON: 07/06/2019. FINDINGS: Atherosclerosis of the aortic arch. Cardiac silhouette enlarged. Unchanged appearance of the right ap ex with right lung volume loss related to the history of right upper lobectomy and upper retraction o f the right hilum. Unchanged density in the right apex with possible loculated right apical effusion. Mild pulmonary vascular prominence stable to slightly increased from prior. Hyperinflation of the le ft lung. Minimal left basilar opacity unchanged. No large effusion or pneumothorax. IMPRESSION: 1. Cardiomegaly with slightly increased volume overload. No nelsy pulmonary edema. 2. Chronic changes of the right lung status post right upper lobectomy and right apical/suprahilar s carring. 3. Trace left basilar scarring or atelectasis, unchanged. 4. Hyperinflated left lung consistent with underlying emphysema. Electronically signed by: Pedro Washington M.D. 07/10/2019 6:50 AM
[2019-07-10 07:20] LABS: Hematocrit (blood only) 34.9 % (42-52); Hemoglobin 10.2 g/dL (14.0-18.0); Immature Granulocytes # (auto) 0.05 K/uL (0.00-0.02); Immature Granulocytes % (auto) 0.6 %; Lymphocytes # (auto) 0.65 K/uL (1.2-3.4); Lymphocytes % (auto) 7.3 %; Mean Corpuscular Hemoglobin 29.4 pg (25-34); Mean Corpuscular Hgb Conc 29.2 g/dL (32-36); Mean Corpuscular Volume 100.6 fL (80-100); Mean Platelet Volume 9.5 fL (7.4-10.4); Monocytes # (auto) 0.79 K/uL (0.11-0.59); Monocytes % (auto) 8.9 %; Neutrophils # (auto) 7.39 K/uL (1.4-6.5); Neutrophils % (auto) 83.2 %; Platelet Count 251 K/uL (130-400); RDW Coefficient of Variation 15.4 % (11.5-14.5); Red Blood Count 3.47 M/uL (4.7-6.1); White Blood Count 8.88 K/uL (4.8-10.8)
[2019-07-10 07:38] LABS: Base Excess VBG 7.5 mEq/L; Oxygen Saturation VBG 74.8 %; pH VBG 7.31 (7.36-7.41)
[2019-07-10 07:46] LABS: BUN Creatinine Ratio 33.9 (10-20); Calcium 8.8 mg/dl (8.5-10.1); Creatinine Clr Calc Pharmacy 46.9 ml/min; Est GFR (African American) 59.4; Est GFR (Non-African American) 51.3; Potassium 4.5 mmol/L (3.5-5.1)
[2019-07-10] MEDS: AZITHROMYCIN 500 MG in DEXTROSE 5% 250 ML IV SCH (08:51)
--- NOTE | 2019-07-10 08:53 | Family Medicine Progress Note ---
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 - NC with O2 titration to saturations up to 94% - Azithromycin 500 mg daily PO - Bipap during day and night other than meals as tolerated to help offload CO2 - following VBGs and symptomatic change - Pulmonology on board, appreciated their recommendations for outpatient pulmonary rehab after discharge. (2) Pericarditis: - treating with Colchicine 0.6 mg BID - Pericardial effusion is mild/moderate - cardiac echo shows EF 60-65%, no signs of tamponade or requirement for pericardial window - TTE today to evaluate for change in myocardial contractility and function after 32 beat run of VTach 2 nights ago - Cardio following peripherally (3) Acute kidney injury: improving. 1.72 on 07/05 -> 1.29 today. Holding home lasix monitoring volume status (4) Anemia: - Pt's baseline Hg appears to be between 11-12. - dropped to 9.9, back up to 10.6 this AM. 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 - Iron panel followed signs of anemia of chronic disease - HG stable (5) Hernia of abdominal wall: CT shows fat filled inguinal hernia. No intervention necessary at this time. (6) Hypertension: - home 50 BID metoprolol increased to 75 mg BID following VTach run 2 nights ago - blood pressures are intermittently high (7) CAD (coronary artery disease), [place] coronary artery: ASA 81 daily for anti-platelet therapy (8) Diarrhea: New onset during stay multiple episodes during morning yesterday and today denies any bloody bowel movements C Diff stool culture ordered to r/o hospital acquired C Diff/development after being on antibiotics Present on Admission?: No Supervising Physician Co-Signing Physician Notes I personally examined the patient and verified all kohli points of history and exam, discussed case, and agree with decision making with Dr Leon. Seems to be feeling about the same, still looking a bit brighter. No new complaints. vitals noted awake and alert fatigued appearing but no distress. HEENT normocephalic atraumatic mucous membranes moist. Lungs quiet but clear without rales rhonchi or wheezes. No accessory muscle use good effort. Skin shows no rashes no pallor or icterus. COPD exacerbationshowing ongoing improvement. Prior PFTs reviewed from 3 years ago and his FEV1 was something on the order of 0.6 L, FVC approximately 1.3 L, and FEV1 to FVC ratio of about 45%. Given the severity of his COPD, slow improvement is no surprise. Continue current care, cautiously follow. BiPAP when he is asleep or as needed respiratory fatigue. V. tach and elevated troponinno hypoxia from his COPD exacerbation combined with his coronary artery disease likely led to hypoxic irritability of his ventricular myocardium. Fortunately no wall motion abnormalities on repeat echo, and he has had no rhythm issues since the increase in metoprolol. Acute pericarditisEKG changes consistent with pericarditis, likely brought on by the same virus that was the initial nidus for his COPD exacerbation. Continue colchicine. Agree with cardiology that steroids for the COPD exacerbation would likely help with this as well. Initially there was concern posed by cardiology about whether or not this could be a malignant effusion, but given the improvement, as well as the high likelihood of this all having been infectious, initiated by a viral etiology, the improving effusion is very reassuring DVT prophylaxisheparin subcu Otherwise as above. Subjective Mr. Law feels okay today, does not attest to any improvement today, and didn't sleep well last night. family continues to be concerned about his episodes of mental status alteration/sundowning in the evenings. Denies chest pain, chest pressure, chest tightness. Breathing better when sitting up in chair rather than laying in bed. Also attests to breathing easier when wearing the bipap mask. Review of Systems Constitutional: + fatigue, + weakness and + anorexia; no chills Respiratory: + cough and + dyspnea; no change in sputum, no hemoptysis, no pain on inspiration, no pain with cough and no sputum production Cardiovascular: no chest pain, no palpitations, no edema and no calf pain Physical Exam Constitutional: well nourished, + obese, + frail appearing and cooperative; no acute distress Respiratory: + labored breathing, + cough, + tachypneic and + pursed lip breathing Auscultation: + rhonchi; no diminished lung sounds, no crackles, no rales and no wheezes Cardiovascular: Rate/Rhythm: regular rhythm and + tachycardic Heart Sounds: no click, no gallop and no murmur Results & Data Vital Signs (Past 12 Hours) Vital Signs Temp Pulse Pulse Pulse Resp BP Pulse Ox 07/10/19 07:37 36.8 C 93 H 20 157/78 H 98 07/10/19 07:05 94 H 26 H 96 07/10/19 06:28 94 H 24 94 07/10/19 03:13 96 H 24 95 07/10/19 02:47 36.8 C 98 H 21 147/77 H 93 07/10/19 00:06 36.7 C 96 H 20 148/85 H 95 07/09/19 23:25 96 H 22 93 07/09/19 22:20 87 07/09/19 21:55 92 H 22 96 Laboratory Results WBC 8.88 K/uL (4.8-10.8) 07/10/19 07:10 RBC 3.47 M/uL (4.7-6.1) L 07/10/19 07:10 Hgb 10.2 g/dL (14.0-18.0) L 07/10/19 07:10 POC Hgb 10.2 g/dl (14.0-18.0) L 07/09/19 07:48 Hct 34.9 % (42-52) L 07/10/19 07:10 POC Hct 30 % (42-52) L 07/09/19 07:48 MCV 100.6 fL (80-100) H 07/10/19 07:10 MCH 29.4 pg (25-34) 07/10/19 07:10 MCHC 29.2 g/dL (32-36) L 07/10/19 07:10 RDW Std Deviation 56.0 fL (36.4-46.3) H 07/10/19 07:10 RDW Coeff of [place] 15.4 % (11.5-14.5) H 07/10/19 07:10 Plt Count 251 K/uL (130-400) 07/10/19 07:10 MPV 9.5 fL (7.4-10.4) 07/10/19 07:10 Immature Gran % (Auto) 0.6 % 07/10/19 07:10 Neut % (Auto) 83.2 % 07/10/19 07:10 Lymph % (Auto) 7.3 % 07/10/19 07:10 [place] % (Auto) 8.9 % 07/10/19 07:10 Eos % (Auto) 0.0 % 07/10/19 07:10 Baso % (Auto) 0.0 % 07/10/19 07:10 Immature Gran # (Auto) 0.05 K/uL (0.00-0.02) H 07/10/19 07:10 Neut # (Auto) 7.39 K/uL (1.4-6.5) H 07/10/19 07:10 Lymph # (Auto) 0.65 K/uL (1.2-3.4) L 07/10/19 07:10 [place] # (Auto) 0.79 K/uL (0.11-0.59) H 07/10/19 07:10 Eos # (Auto) 0.00 K/uL (0-0.5) 07/10/19 07:10 Baso # (Auto) 0.00 K/uL (0-0.2) 07/10/19 07:10 PT 10.8 Seconds (9.0-12.0) 07/06/19 20:55 INR 1.1 (0.9-1.1) 07/06/19 20:55 APTT 35.6 Seconds (21.0-31.0) H 07/06/19 20:55 PTT Ratio 1.3 07/06/19 20:55 Sample Site L Radial 07/09/19 07:48 POC pH 7.34 (7.35-7.45) L 07/09/19 07:48 POC pCO2 73 mmHg (35-46) H 07/09/19 07:48 POC pO2 < 32 mmHg (80-95) L 07/09/19 07:48 POC HCO3 39 julio/L (19-24) H 07/09/19 07:48 POC Total CO2 > 40 mEq/l (24-31) H* 07/09/19 07:48 POC Base Excess 13.0 julio/L (-9-1.8) H 07/09/19 07:48 ABG pH 7.29 (7.35-7.45) L 07/07/19 13:20 ABG pCO2 64 mmHg (35-46) H 07/07/19 13:20 ABG pO2 87 mm/Hg (80-95) 07/07/19 13:20 ABG HCO3 30 mmol/L (19-24) H 07/07/19 13:20 ABG O2 Saturation 96.0 % (90-95) H 07/07/19 13:20 ABG Base Excess 2.1 mEq/L (-9-1.8) H 07/07/19 13:20 Brian Test Pass 07/09/19 07:48 VBG pH 7.31 (7.36-7.41) L 07/10/19 07:10 VBG pCO2 72 mmHg (38-50) H 07/10/19 07:10 VBG pO2 43 mmHg 07/10/19 07:10 VBG HCO3 36 mmol/L 07/10/19 07:10 VBG O2 Saturation 74.8 % 07/10/19 07:10 VBG Base Excess 7.5 mEq/L 07/10/19 07:10 Barometric Pressure 736.6 mm/Hg 07/10/19 07:10 Oxygen Given 30% 07/07/19 13:20 O2 Delivery Device Cannula 07/09/19 07:48 POC Sodium 139 mEq/L (135-144) 07/09/19 07:48 Sodium 143 mmol/L (136-145) 07/10/19 07:10 POC Potassium 5.7 mEq/L (3.3-5.0) H 07/09/19 07:48 Potassium 4.5 mmol/L (3.5-5.1) 07/10/19 07:10 Chloride 104 mmol/L (98-107) 07/10/19 07:10 Carbon Dioxide 35 mmol/L (21-32) H 07/10/19 07:10 Anion Gap 4.0 (3-11) 07/10/19 07:10 BUN 44 mg/dl (7-18) H 07/10/19 07:10 Creatinine 1.29 mg/dl (0.6-1.4) 07/10/19 07:10 Est Cr Clr Drug Dosing 46.9 ml/min 07/10/19 07:10 Est GFR ( Amer) 59.4 07/10/19 07:10 Est GFR (Non-Af Amer) 51.3 07/10/19 07:10 BUN/Creatinine Ratio 33.9 (10-20) H 07/10/19 07:10 Glucose 167 mg/dl (70-99) H 07/10/19 07:10 Lactate 0.9 mmol/L (0.4-2.0) 07/06/19 20:55 Uric Acid 3.9 mg/dl (2.6-7.2) 07/07/19 06:21 Calcium 8.8 mg/dl (8.5-10.1) 07/10/19 07:10 Phosphorus 3.3 mg/dl (2.5-4.9) 07/06/19 20:55 Magnesium 2.4 mg/dl (1.8-2.4) 07/07/19 06:21 Iron 20 mcg/dl (35-175) L 07/07/19 06:21 TIBC 208 mcg/dl (250-450) L 07/07/19 06:21 Transferrin 154 mg/dl (200-360) L 07/07/19 06:21 Ferritin 540.8 ng/ml (8-388) H 07/07/19 06:21 Total Bilirubin 0.3 mg/dl (0.2-1) 07/08/19 07:21 AST 23 U/L (15-37) 07/08/19 07:21 ALT 33 U/L (12-78) 07/08/19 07:21 Alkaline Phosphatase 76 U/L (45-117) 07/08/19 07:21 Troponin I 2.680 ng/ml (0-0.045) H* 07/09/19 17:34 NT-Pro-B Natriuret Pep 1145 pg/ml (0-1800) 07/06/19 20:55 Total Protein 7.7 gm/dl (6.4-8.2) 07/08/19 07:21 Albumin 2.8 gm/dl (3.4-5.0) L 07/08/19 07:21 Globulin 4.9 gm/dl (2.5-4.0) H 07/08/19 07:21 Albumin/Globulin Ratio 0.6 (0.9-2) L 07/08/19 07:21 Urine Color Yellow 07/07/19 02:20 Urine Appearance Clear (Clear) 07/07/19 02:20 Urine pH 5.0 (4.5-7.5) 07/07/19 02:20 Ur Specific [place] > 1.045 (1.000-1.030) H 07/07/19 02:20 Urine Protein 1+ (Negative) H 07/07/19 02:20 Urine Glucose (UA) Negative (Negative) 07/07/19 02:20 Urine Ketones 1+ (Negative) H 07/07/19 02:20 Urine Blood Negative (Negative) 07/07/19 02:20 Urine Nitrite Negative (Negative) 07/07/19 02:20 Urine Bilirubin Negative (Negative) 07/07/19 02:20 Urine Urobilinogen Negative (Negative) 07/07/19 02:20 Ur Leukocyte Esterase Negative (Negative) 07/07/19 02:20 Urine WBC (Auto) 1-5 /hpf (0-5) 07/07/19 02:20 Urine RBC (Auto) 0-4 /hpf (0-4) 07/07/19 02:20 U Hyaline Cast (Auto) 1-5 /lpf (0-5) 07/07/19 02:20 U Epithel Cells (Auto) 10-20 /lpf (0-5) H 07/07/19 02:20 Urine Bacteria (Auto) Negative (Negative) 07/07/19 02:20 Nasal Screen MRSA (PCR) Negative (Negative) 07/07/19 13:45 Stool Occult Bld Scrn Negative (Negative) 07/07/19 16:45 Lyme Disease IgG Ab Negative (Negative) 07/07/19 06:21 Lyme Disease IgM Ab Negative (Negative) 07/07/19 06:21 Monoscreen Negative (Negative) 07/07/19 06:21 Influenza Type A (PCR) Neg for Influ A (Neg) 07/06/19 22:30 Influenza Type B (PCR) Neg for Influ B (Neg) 07/06/19 22:30 PG Care Time/CCT Total # of Minutes Spent Total Time Spent with Patient: Total time spent is greater than 50% in coordination of care (as documented) at patient's floor/unit and/or counseling patient: Resident Activity Tracking Resident Involvement: Resident Care Provided Care Provided: Adult Hospital Medicine
--- NOTE | 2019-07-10 09:34 | Cardiology Progress Note ---
Date of Service July 10, 2019 Assessment & Plan (1) Paroxysmal ventricular tachycardia: No recurrence. VT and elevated troponin likely due to myocardial strain in setting of chronic CAD, remote known chronic RCA occlusion in setting of hypoxia. (2) Pericardial effusion: Pt / family agreeable to repeat echocardiogram. Recent EKG tracings from yesterday revealed interval resolution of the diffuse ST segment elevation noted on his admission EKG. Pericardial effusion may be due to inflammatory response in setting of acute exacerbation of COPD. Malignancy of course a consideration. The echocardiogram performed on admission reveals a small amount of fluid , not enough to allow pericardial sampling percutaneously. Solumedrol which pt is receiving for the AECOPD is should help treat an inflammatory pericardial effusion. Pt not a candidate for NSAIDS, and would avoid high dose ASA if possible. Pt is on ASA 81 mg BID which is reasonable for now, however typically ASA doses for pericarditis are much higher than this. (3) Acute and chronic respiratory failure ([id number]): Continue current treatment. Agree with Bipap support PRN. Subjective CC: follow up shortness of breath Subjective: Patient resting comfortabley, on Bipap. Daughter at bedside and shares with me that he only slept 2hrs last night. Telemetry reviewed. SR present. No recurrence of nonsustained or sustained ventricular tachycardia. Review of Systems Review of Systems: Unobtainable due to reduced consciousness Physical Exam Physical Exam: Temp Pulse Resp BP Pulse Ox 36.8 C 93 H 20 157/78 H 98 07/10/19 07:37 07/10/19 07:37 07/10/19 07:37 07/10/19 07:37 07/10/19 07:37 Constitutional: no acute distress, chronically ill in appearance Respiratory: course BS at the bases Cardiovascular: RRR, no murmur, no edema Vessels: no JVD Results & Data Vital Signs (Past 12 Hours) Vital Signs Temp Pulse Pulse Pulse Resp BP Pulse Ox 07/10/19 07:37 36.8 C 93 H 20 157/78 H 98 07/10/19 07:05 94 H 26 H 96 07/10/19 06:28 94 H 24 94 07/10/19 03:13 96 H 24 95 07/10/19 02:47 36.8 C 98 H 21 147/77 H 93 07/10/19 00:06 36.7 C 96 H 20 148/85 H 95 07/09/19 23:25 96 H 22 93 07/09/19 22:20 87 07/09/19 21:55 92 H 22 96 Laboratory Results Cardiac Enzymes 07/09/19 07/09/19 Range/Units 09:04 17:34 Troponin I 3.300 H* 2.680 H* (0-0.045) ng/ml CBC 07/10/19 Range/Units 07:10 WBC 8.88 (4.8-10.8) K/uL RBC 3.47 L (4.7-6.1) M/uL Hgb 10.2 L (14.0-18.0) g/dL Hct 34.9 L (42-52) % Plt Count 251 (130-400) K/uL Neut # (Auto) 7.39 H (1.4-6.5) K/uL Lymph # (Auto) 0.65 L (1.2-3.4) K/uL [place] # (Auto) 0.79 H (0.11-0.59) K/uL Eos # (Auto) 0.00 (0-0.5) K/uL Baso # (Auto) 0.00 (0-0.2) K/uL Comprehensive Metabolic Panel 07/09/19 07/10/19 Range/Units 09:04 07:10 Sodium 141 143 (136-145) mmol/L Potassium 5.0 4.5 (3.5-5.1) mmol/L Chloride 103 104 (98-107) mmol/L Carbon Dioxide 37 H 35 H (21-32) mmol/L BUN 37 H 44 H (7-18) mg/dl Creatinine 1.41 H 1.29 (0.6-1.4) mg/dl Glucose 172 H 167 H (70-99) mg/dl Calcium 9.0 8.8 (8.5-10.1) mg/dl Intake and Output 07/09/19 07/10/19 07/10/19 22:59 06:59 14:59 Intake Total 250 / 605 Output Total Balance 249 / 578 - 578 Intake: Oral 250 / 350 Output: Urine / # Bowel Movements / 2 1 Other: Other Intake Source sips # Unmeasured Voids 1 1 Weight 88.8 kg Medications Administered Current Inpatient Medications Acetaminophen (Tylenol) 650 mg PO Q4H PRN PRN Reason: Pain or Fever Stop: 08/06/19 01:20 Last Admin: 07/08/19 09:01 Dose: 650 mg Documented by: Al Hydrox/Mg Hydrox/Simethicone (Maalox) 15 ml PO Q4H PRN PRN Reason: Dyspepsia Stop: 08/06/19 01:20 Albuterol (Duoneb) 3 ml NEB QIDR PRN PRN Reason: dyspnea Stop: 08/06/19 02:29 Albuterol (Duoneb) 3 ml NEB Q4R DANNA Stop: 08/06/19 14:59 Last Admin: 07/10/19 06:28 Dose: 3 ml Documented by: Allopurinol (Zyloprim) 300 mg PO DAILY DANNA Stop: 08/06/19 08:59 Last Admin: 07/09/19 09:50 Dose: 300 mg Documented by: Aspirin (Ecotrin Ectab) 81 mg PO BID DANNA Stop: 08/06/19 01:20 Last Admin: 07/09/19 19:52 Dose: 81 mg Documented by: Atorvastatin Calcium (Lipitor) 80 mg PO QPM DANNA Stop: 08/06/19 20:59 Last Admin: 07/09/19 19:55 Dose: 80 mg Documented by: Budesonide/Formoterol Fumarate (Symbicort 160mcg/4.5mcg) 2 puffs INH WEEKLY DANNA Stop: 08/06/19 01:20 Colchicine (Colcrys) 0.6 mg PO BID DANNA Stop: 08/06/19 01:20 Last Admin: 07/09/19 19:53 Dose: 0.6 mg Documented by: Enoxaparin Sodium (Lovenox) 40 mg SQ QAM DANNA Stop: 08/06/19 14:59 Last Admin: 07/09/19 09:48 Dose: 40 mg Documented by: Famotidine (Pepcid) 40 mg PO DAILY DANNA Stop: 08/06/19 08:59 Last Admin: 07/09/19 09:49 Dose: 40 mg Documented by: Guaifenesin (Mucinex) 600 mg PO Q12 DANNA Stop: 08/09/19 08:59 Hydrocodone Bit/Homatropine Methylb (Hycodan) 5 ml PO Q8H PRN PRN Reason: Cough Stop: 07/21/19 16:11 Last Admin: 07/09/19 23:22 Dose: 5 ml Documented by: Azithromycin 500 mg/ Dextrose 255 mls @ 125 mls/hr IV DAILY DANNA Stop: 07/14/19 08:59 Last Admin: 07/10/19 08:51 Dose: 125 mls/hr Documented by: Methylprednisolone 40 mg/ (Syringe) 0.64 mls @ 1.5 mls/min IV Q12 DANNA Stop: 08/08/19 20:59 Last Admin: 07/09/19 19:53 Dose: 1.5 mls/min Documented by: Ioversol (Optiray 320 125ml) 115 ml IV ONCE PRN PRN Reason: Interaction Checking Stop: 07/10/19 22:51 Last Admin: 07/06/19 22:53 Dose: 115 ml Documented by: Isosorbide Mononitrate (Imdur Extended Rel) 60 mg PO DAILY [facility] Stop: 08/06/19 08:59 Last Admin: 07/09/19 09:47 Dose: 60 mg Documented by: Lactobacillus Acidophilus (Floranex) 4 tab PO TIDM [facility] Stop: 08/09/19 07:59 Magnesium Hydroxide (Milk Of Magnesia) 30 ml PO Q12H PRN PRN Reason: Constipation Stop: 08/06/19 01:20 Metoprolol Tartrate (Lopressor) 75 mg PO BID [facility] Stop: 08/08/19 08:59 Last Admin: 07/09/19 19:56 Dose: 75 mg Documented by: Montelukast Sodium (Singulair) 10 mg PO DAILY [facility] Stop: 08/06/19 08:59 Last Admin: 07/09/19 09:49 Dose: 10 mg Documented by: Nitroglycerin (Nitrostat) 0.4 mg SL Q5M PRN PRN Reason: chest pain Stop: 08/06/19 01:20 Ondansetron HCl (Zofran) 4 mg IV Q6H PRN PRN Reason: Nausea Stop: 08/06/19 01:20 Tamsulosin HCl (Flomax) 0.4 mg PO DAILY [facility] Stop: 08/06/19 08:59 Last Admin: 07/09/19 09:50 Dose: 0.4 mg Documented by: Vitamin D (Vitamin D3) 1,000 units PO DAILY [facility] Stop: 08/06/19 08:59 Last Admin: 07/09/19 09:48 Dose: 1,000 units Documented by:
[2019-07-10] MEDS: METOPROLOL TARTRATE 25 MG TAB PO SCH ×2 (09:44→21:09)
[2019-07-10] MEDS: FAMOTIDINE 20 MG TAB PO SCH (09:51)
[2019-07-10] MEDS: LACTOBACILLUS ACIDOPHILUS (FLORANEX) TAB PO SCH ×3 (09:51→16:59)
[2019-07-10] MEDS: COLCHICINE 0.6 MG TAB PO SCH ×2 (09:51→21:08)
[2019-07-10] MEDS: ASPIRIN 81 MG ECTAB PO SCH ×2 (09:52→21:08)
[2019-07-10] MEDS: CHOLECALCIFEROL 1,000 UNITS TAB PO SCH (09:52)
[2019-07-10] MEDS: MONTELUKAST SODIUM 10 MG TABLET PO SCH (09:52)
[2019-07-10] MEDS: ENOXAPARIN INJ 40 MG/0.4 ML SYR SQ SCH (09:52)
[2019-07-10] MEDS: ISOSORBIDE MONO EXTENDED REL 60 MG TABCR PO SCH (12:21)
[2019-07-10] MEDS: allopurinoL 300 MG TAB PO SCH (12:21)
[2019-07-10] MEDS: guaiFENesin 600 MG TABCR PO SCH ×2 (12:22→21:08)
[2019-07-10] MEDS: TAMSULOSIN HCL 0.4 MG CAP PO SCH (12:22)
[2019-07-10] MEDS: methylPREDNISolone 40 MG in SYRINGE 0 ML IV SCH (21:08)
[2019-07-10] MEDS: ATORVASTATIN 40 MG TAB PO SCH (21:08)
[2019-07-10] MEDS: NON-FORMULARY PATIENT'S OWN MED SCH (21:09)
[2019-07-11] MEDS: ALBUT/IPRATROP 3MG/0.5MG NEB 3 ML VIAL NEB SCH ×6 (03:02→23:31)
[2019-07-11 06:45] LABS: Base Excess VBG 10.8 mEq/L; HCO3 VBG 40 mmol/L; PCO2 VBG 80 mmHg (38-50); PO2 VBG 32 mmHg; pH VBG 7.31 (7.36-7.41)
[2019-07-11 06:46] LABS: Oxygen Saturation VBG < 60.0 %
[2019-07-11 06:55] LABS: Hematocrit (blood only) 34.1 % (42-52); Mean Corpuscular Hemoglobin 29.5 pg (25-34); Mean Corpuscular Hgb Conc 29.3 g/dL (32-36); Mean Corpuscular Volume 100.6 fL (80-100); Mean Platelet Volume 9.7 fL (7.4-10.4); Platelet Count 220 K/uL (130-400); RDW Coefficient of Variation 15.3 % (11.5-14.5); RDW Standard Deviation 56.1 fL (36.4-46.3); Red Blood Count 3.39 M/uL (4.7-6.1); White Blood Count 5.98 K/uL (4.8-10.8)
[2019-07-11 07:18] LABS: BUN Creatinine Ratio 29.3 (10-20); Calcium 8.3 mg/dl (8.5-10.1); Creatinine Clr Calc Pharmacy 49.6 ml/min; Est GFR (African American) 63.6; Est GFR (Non-African American) 54.9; Potassium 4.8 mmol/L (3.5-5.1)
[2019-07-11] MEDS ORDERED: AZITHROMYCIN 250 MG TAB PO SCH (09:00)
[2019-07-11] MEDS: ISOSORBIDE MONO EXTENDED REL 60 MG TABCR PO SCH (09:04)
[2019-07-11] MEDS: ASPIRIN 81 MG ECTAB PO SCH ×2 (09:04→20:12)
[2019-07-11] MEDS: methylPREDNISolone 40 MG in SYRINGE 0 ML IV SCH ×2 (09:04→20:13)
[2019-07-11] MEDS: CHOLECALCIFEROL 1,000 UNITS TAB PO SCH (09:04)
[2019-07-11] MEDS: METOPROLOL TARTRATE 25 MG TAB PO SCH ×2 (09:04→20:10)
[2019-07-11] MEDS: guaiFENesin 600 MG TABCR PO SCH ×2 (09:05→20:13)
[2019-07-11] MEDS: LACTOBACILLUS ACIDOPHILUS (FLORANEX) TAB PO SCH ×3 (09:05→17:23)
[2019-07-11] MEDS: COLCHICINE 0.6 MG TAB PO SCH ×2 (09:05→20:15)
[2019-07-11] MEDS: MONTELUKAST SODIUM 10 MG TABLET PO SCH (09:06)
[2019-07-11] MEDS: FAMOTIDINE 20 MG TAB PO SCH (09:06)
[2019-07-11] MEDS: TAMSULOSIN HCL 0.4 MG CAP PO SCH (09:06)
[2019-07-11] MEDS: ENOXAPARIN INJ 40 MG/0.4 ML SYR SQ SCH (09:06)
[2019-07-11] MEDS: AZITHROMYCIN 250 MG TAB PO SCH (09:07)
[2019-07-11] MEDS: NON-FORMULARY PATIENT'S OWN MED SCH ×2 (09:07→20:14)
[2019-07-11] MEDS: allopurinoL 300 MG TAB PO SCH (09:07)
--- NOTE | 2019-07-11 10:46 | Communication Note ---
Date of Service: July 11, 2019 When I went to round on the patient, a family member expressed they would prefer to let him rest than for me to see him. Telemetry reviewed. SR in the 70 bpm range overnight and today. No additional ventricular arrhythmia noted. Echo 07/10 revealed resolution of the pericardial effusion. From what I can see from the patient's doorway , he is off of Bipap and resting comfortably. Recommendations: continue current cardiac medications.
[2019-07-11] MEDS ORDERED: PSYLLIUM 58.6% POWDER PACKET PO STA (16:21)
--- NOTE | 2019-07-11 16:27 | Family Medicine Progress Note ---
Date of Service July 11, 2019 Assessment & Plan (1) Acute and chronic respiratory failure ([id number]): COPD exacerbation w/ Severe Emphysema - CTA of the chest showed the following: No PE, mild to moderate pericardial effusion, BL trace pleural effusions, s/p right upper lobectomy, diffuse severe emphysema, incidental L thyroid nodule. No sign of PNA on CT - symptomatic improvement of breathing today - 40 mg IV methylpred Q12, Duonebs Q4 for COPD exacerbation management. - NC with O2 titration to saturations up to 94% - Azithromycin 500 mg daily PO - Bipap during day and night other than meals as tolerated to help offload CO2 - following VBGs and symptomatic change - Pulmonology on board, appreciated their recommendations for outpatient pulmonary rehab after discharge. Pericarditis likely 2/2 viral infection - follow up on EBV, CMV, Coxacie, Parvo currently pending - improved pericardial effusion on ECHO - continue colchicine 6 mg BID - Methylpred. 40 mg q12 V-tach with no prior history - Cardiology following - metoprolol increasing from 50 mg to 75 mg - no episodes today CELESTINO - improving. Cr. - 1.72 on 07/05 -> 1.22 today. - Lasix held Diarrhea w/ negative c. diff. (07/10) - either secondary to Azithromycin, or Colchicine - fiber added to diet - will consider retesting for c. diff if no resolution of diarrhea CAD - daily ASA 81 mg DVT: Heparin Code: full Diet: heart healthy fiber added Subjective Mr. Law states that he is doing alright and said his breathing is better. He was unsure if he had slept well overnight. Collateral information was obtained from and daughter in the room. Daughter stated that congestion is the same as it has been in the past. Previously he was exercising 1 1/2 weeks ago. Family stated that he was more conversant today and less confused. He had 6 bowel movements over the day. Review of Systems Constitutional: no fever and no chills Respiratory: + cough and + chest congestion sputum production but unable to spit up Cardiovascular: no chest pain and no palpitations Gastrointestinal: no abdominal pain and no vomiting Physical Exam Constitutional: well developed, well nourished and + acute distress Respiratory: Lungs coarse and increased expiratory phase with air movement heard in all lung [place]a Cardiovascular: RRR, no murmur, no edema Gastrointestinal (Abdomen): normal bowel sounds, nTTP Skin: no rashes, warm and dry Psychiatric: Alert and oriented to name, place and unsure of the date mistaking it for July Results & Data Vital Signs (Past 12 Hours) Vital Signs Temp Pulse Pulse Pulse Resp BP Pulse Ox 07/11/19 15:41 75 22 93 07/11/19 15:21 36.9 C 75 23 117/55 L 95 07/11/19 11:23 37.0 C 74 22 126/63 93 07/11/19 10:52 70 18 97 07/11/19 08:00 65 07/11/19 07:09 36.7 C 88 18 145/85 H 98 07/11/19 07:00 74 74 18 97 PG Care Time/CCT Total # of Minutes Spent Total Time Spent with Patient: Total time spent is greater than 50% in coordination of care (as documented) at patient's floor/unit and/or counseling patient: Resident Activity Tracking Resident Involvement: Resident Care Provided Care Provided: Adult Hospital Medicine
[2019-07-11] MEDS: ATORVASTATIN 40 MG TAB PO SCH (20:12)
[2019-07-12] MEDS: ALBUT/IPRATROP 3MG/0.5MG NEB 3 ML VIAL NEB SCH ×6 (02:56→23:31)
[2019-07-12 04:00] LABS: CMV IgG Antibody >10.00 U/ML; CMV IgM Antibody <30.00 Au/mL; Coxsackie B2 <1:8 (<1:8); Coxsackie B3 <1:8 (<1:8); Coxsackie B4 <1:8 (<1:8); Coxsackie B5 <1:8 (<1:8); Coxsackie B6 <1:8 (<1:8); EBV Nuclear Ag Antibody < 18.00 U/ML; EBV Virus Capsid Ag IgG Ab >750.00 U/ML; Epstein Barr Virus Early Ag Ab >150.00 U/ML; Parvovirus IgG 0.4 (<0.9); Parvovirus IgM 0.1 (<0.9)
[2019-07-12 05:49] LABS: Base Excess VBG 10.4 mEq/L; Oxygen Saturation VBG 84.5 %; pH VBG 7.35 (7.36-7.41)
[2019-07-12 06:11] LABS: Hematocrit (blood only) 33.8 % (42-52); Hemoglobin 9.8 g/dL (14.0-18.0); Mean Corpuscular Hemoglobin 28.9 pg (25-34); Mean Corpuscular Volume 99.7 fL (80-100); Mean Platelet Volume 10.3 fL (7.4-10.4); Platelet Count 250 K/uL (130-400); RDW Coefficient of Variation 15.2 % (11.5-14.5); RDW Standard Deviation 54.7 fL (36.4-46.3); Red Blood Count 3.39 M/uL (4.7-6.1); White Blood Count 6.19 K/uL (4.8-10.8)
[2019-07-12 06:55] LABS: BUN Creatinine Ratio 35.5 (10-20); Calcium 8.5 mg/dl (8.5-10.1); Creatinine Clr Calc Pharmacy 54.5 ml/min; Est GFR (African American) 71.3; Est GFR (Non-African American) 61.5; Potassium 4.4 mmol/L (3.5-5.1)
[2019-07-12] MEDS: LACTOBACILLUS ACIDOPHILUS (FLORANEX) TAB PO SCH ×3 (08:37→15:42)
[2019-07-12] MEDS: METOPROLOL TARTRATE 25 MG TAB PO SCH ×2 (08:37→20:28)
[2019-07-12] MEDS: guaiFENesin 600 MG TABCR PO SCH ×2 (08:38→20:28)
[2019-07-12] MEDS: FAMOTIDINE 20 MG TAB PO SCH (08:38)
[2019-07-12] MEDS: CHOLECALCIFEROL 1,000 UNITS TAB PO SCH (08:38)
[2019-07-12] MEDS: ISOSORBIDE MONO EXTENDED REL 60 MG TABCR PO SCH (08:38)
[2019-07-12] MEDS: allopurinoL 300 MG TAB PO SCH (08:38)
[2019-07-12] MEDS: MONTELUKAST SODIUM 10 MG TABLET PO SCH (08:38)
[2019-07-12] MEDS: COLCHICINE 0.6 MG TAB PO SCH (08:38)
[2019-07-12] MEDS: ASPIRIN 81 MG ECTAB PO SCH ×2 (08:38→20:27)
[2019-07-12] MEDS: AZITHROMYCIN 250 MG TAB PO SCH (08:38)
[2019-07-12] MEDS: TAMSULOSIN HCL 0.4 MG CAP PO SCH (08:38)
[2019-07-12] MEDS: NON-FORMULARY PATIENT'S OWN MED SCH ×2 (08:39→20:29)
[2019-07-12] MEDS: methylPREDNISolone 40 MG in SYRINGE 0 ML IV SCH ×2 (08:39→20:26)
[2019-07-12] MEDS: PSYLLIUM 58.6% POWDER PACKET PO SCH (08:39)
[2019-07-12] MEDS: ENOXAPARIN INJ 40 MG/0.4 ML SYR SQ SCH (08:39)
--- NOTE | 2019-07-12 13:10 | Cardiology Progress Note ---
Date of Service July 12, 2019 Assessment & Plan (1) Paroxysmal ventricular tachycardia: On 07/09/2019 a 5 beat edwin of nonsustained ventricular tachycardia was observed at 1:31 AM. This was followed by a 32 beat run of nonsustained ventricular tachycardia at 1:36 AM ranging in heart rate from 172 to 30 bpm on 07/09/2019. The patient was sleeping when this event occurred. Follow-up chemistry panel revealed mild elevation his potassium which is since improved. His troponin was mildly elevated, and follow-up EKG tracings the next day were within normal limits much improved compared to his admission EKG. The arrhythmia and elevation troponin is likely due to myocardial strain in the setting of respiratory insufficiency. This seems to have improved with ongoing improvement in his COPD exacerbation. Continue current dose of metoprolol tartrate 75 mg twice daily. (2) Pericardial effusion: Follow-up echocardiogram performed 07/10/2019 revealed resolution of the previously noted small circumferential pericardial effusion. Patient was on IV corticosteroids for COPD, which is likely help to treat the effusion as well. He is on colchicine. The patient reports no diarrhea today. Given GI complaints, I am going to reduce the colchicine from 0.6 mg twice daily to once a day. (3) COPD exacerbation: Improving. Continue subcutaneous Lovenox for DVT prophylaxis. Subjective Chief complaint: Follow-up shortness of breath Subjective: Patient was sitting the bedside chair. He was much more comfortable than when I had examined him 2 days ago. He is off of BiPAP. He does have a coarse cough. Telemetry reveals sinus rhythm in the 70 be per minute range, without recurrence of the previous tachycardia. Review of Systems Review of Systems: All systems reviewed & are unremarkable except as noted in HPI & below Physical Exam Physical Exam: Temp Pulse Resp BP Pulse Ox 36.8 C 77 18 129/66 97 07/12/19 11:21 07/12/19 11:21 07/12/19 11:21 07/12/19 11:21 07/12/19 11:21 Constitutional: + ill appearing Respiratory: Rales or rhonchi, coarse breath sounds noted on inspiration and with cough Cardiovascular: RRR, no murmur, no edema Vessels: no JVD Neurologic: PERRL, EOMI, accommodation nl, no face palsy, no dysarthria Results & Data Vital Signs (Past 12 Hours) Vital Signs Temp Pulse Pulse Resp BP Pulse Ox 07/12/19 11:21 36.8 C 77 18 129/66 97 07/12/19 11:04 83 18 94 07/12/19 07:08 78 18 96 07/12/19 07:04 36.8 C 77 21 149/87 H 96 07/12/19 04:49 36.7 C 74 21 153/72 H 98 07/12/19 02:57 79 18 97 07/12/19 02:56 79 18 97
--- NOTE | 2019-07-12 17:19 | Family Medicine Progress Note ---
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 Will benefit from bipap at home. - needing bipap here at night. - CO2 level better this am. - Keep O2 sat around 88-90 acute COPD exacerbation potentially 2/2 viral infection - CTA of the chest showed the following: No PE, mild to moderate pericardial effusion, BL trace pleural effusions, s/p right upper lobectomy, diffuse severe emphysema, incidental L thyroid nodule. - continued improvement in breathing - 40 mg IV methylpred Q12, Duonebs Q4 for COPD exacerbation management. - Azithromycin 500 mg daily PO EOT date 07/13 Pericarditis possibly 2/2 viral infection - CMV, Parvo, and EBV capsid Ag IgM ab negative - EBV capsid Ag IgG ab H - EBV EA restrict + diffuse >150 H - Coxsackie B(1) 1:8 H positive H - improved pericardial effusion on ECHO (07/10) - continue colchicine 6 mg BID for 3 months - Methylpred. 40 mg q12 V-tach with no prior history potentially 2/2 hypoxia - Cardiology following - metoprolol increasing from 50 mg to 75 mg - no episodes today CELESTINO (resolved) - improving. Cr. - 1.72 on 07/05 -> 1.11 today. - Lasix held Diarrhea w/ negative c. diff. (07/10) - either secondary to Azithromycin, or Colchicine - appears to be improving with 1 bowel movement over the morning - fiber added to diet - will consider retesting for c. diff if worsening symptoms Hx of CAD - continue home Atorvastatin 80 mg PO QPM - continue home ASA 81 mg daily DVT: Lovenox Code: full FEN: following electrolytes, diet: heart healthy, fiber added (2) COPD exacerbation: (3) CAD (coronary artery disease), [place] coronary artery: (4) Hypertension: (5) CKD (chronic kidney disease): Supervising Physician Co-Signing Physician Notes Resident Physician Supervision Note: I independently interviewed and examined the patient and verified the kohli history and physical, reviewed labs and image studies, discussed the case with the resident Dr. Resendiz and agree with the findings and care plan. Subjective Mr. Law is doing well today, he was up 2 times over the night and had a bowel movement each time. was in the room this morning and mentioned that they would like a room with a bathroom and shower since her had not had a shower in a few days. Family feels that Mr. Law is improving. Review of Systems Constitutional: no fever and no chills Respiratory: + cough Gastrointestinal: no nausea and no vomiting Physical Exam Constitutional: sitting in chair, somnolent Respiratory: + labored breathing wheeze with coarse breath sounds worse on the right side Cardiovascular: RRR, no murmur, no edema Gastrointestinal (Abdomen): normal bowel sounds nTTP Skin: no rashes, warm and dry Psychiatric: interactive with a bright affect Results & Data Vital Signs (Past 12 Hours) Vital Signs Temp Pulse Resp BP Pulse Ox 07/12/19 15:35 80 17 97 07/12/19 11:21 36.8 C 77 18 129/66 97 07/12/19 11:04 83 18 94 07/12/19 07:08 78 18 96 07/12/19 07:04 36.8 C 77 21 149/87 H 96 PG Care Time/CCT Total # of Minutes Spent Total Time Spent with Patient: Total time spent is greater than 50% in coordination of care (as documented) at patient's floor/unit and/or counseling patient: (1) CKD (chronic kidney disease) Chronic kidney disease stage: unspecified stage Qualified Code(s): N18.9 - Chronic kidney disease, unspecified
--- NOTE | 2019-07-12 17:29 | Pulmonology Progress Note ---
Date of Service July 12, 2019 Assessment & Plan (1) Paroxysmal ventricular tachycardia: (2) Acute and chronic respiratory failure ([id number]): Patient has a complex medical and surgical history. 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 He has mild pulmonary hypertension with cor pulmonale. He has an ischemic cardiomyopathy with stable angina pectoralis and suspect elevated troponin on admission was secondary to demand ischemia. An upper respiratory infection or viral infection may have triggered this admission and been responsible for the pericardial effusion and pericarditis seems to responded to high-dose steroid therapy. He has not undergone bronchoscopic evaluation since 2014 when he presented with hemoptysis and recurrence of his squamous cell carcinoma. While his CT scan of the chest is stable since February(it remains quite abnormal with significant postoperative and post chemo radiation effect involving the right lung.) There is no sign for tracheal stenosis by exam from previous tracheostomy. I had a lengthy discussion with both the patient and his daughter and apparently his will be in tomorrow morning so that I can discuss his case with her. He remains on azithromycin, aerosolized bronchodilator in the form of DuoNeb, IV Solu-Medrol 40 mg q.12 hours, and BiPAP an oxygen at night with O2 at 3 L during the day. He is on Lopressor 75 mg p.o. b.i.d. as well . We may decide to broaden his antibiotic therapy a perhaps at percussion therapy to his regimen. Additional nebulizer treatment with either Mucomyst or 7% normal saline may help thin out his secretions. Aggressive intervention i.e. bronchoscopy with BAL could be entertained but would have to be done in the OR with patient's airway secured intubated receiving mechanical ventilator assistance. That would be a high risk procedure in this patient but his current respiratory status and clinical exam remain marginal at best. Will discuss further with his sonoscope operator and with the hospitalist service as well as the family tomorrow morning. 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 Jerry Boyd to follow up with Mr. Law. He was seen in consultation by Jaya Justin on 07/07/2019. Patient is a history of severe COPD and a restrictive ventilatory defect along with cor pulmonale, pulmonary hypertension, obstructive sleep apnea on CPAP at home(currently receiving BiPAP with O2 supplementation here at the [facility] nocturn[facility]). To summarize he has a history of squamous cell carcinoma of the right upper lobe and status post thoracotomy with right upper lobe resection 2010(stage 1b) with Dr. Almas Martins at [facility]. He had a recurrence involving his right mainstem bronchus presenting with gross hemoptysis in 2014 and subsequently undergoing chemo radiation no overt or obvious evidence for recurrence. He quit smoking in 2004 after lengthy history of tobacco abuse. His daughter was in attendance by bedside today and she noted progressive dyspnea over the past 2 months to the point where he can barely walk 5 feet without extreme symptomatology. He is currently receiving oxygen at 3 L with noninvasive positive-pressure ventilation in the form of a trilogy unit at night. He apparently has a CPAP unit at home. He was found to be obstructed at the right hilum/bronchus intermedius in 2014 and received chemo radiation under the care of Dr. Valentine along with Dr. Yoder. He has been under close surveillance with serial CT monitoring both in February of 2019 and currently. He has been on chronic prednisone at 10 mg. While there has been no overt or obvious evidence for recurrence of his disease with stable lymphadenopathy he did developed a pericardial effusion that was evaluated by Dr. Jad Sawyer and Dr. Shultz with apparently complete resolution of the pericardial effusion when evaluated this past Thursday. He has been on high-dose steroid therapy. He is under the care of from a respiratory standpoint as an outpatient. He has also been seen by Dr. Martins in March and June of this year with stable disease. Nitrate therapy has been titrated for mild anginal symptoms. CT angiography of the chest performed on 07/06/2019 with comparison to 02/22/2019 showed no evidence of pulmonary thromboemboli. Interval development of a small to moderate pericardial effusion that has resolved as of Thursday. Trace bilateral pleural effusions and stable postoperative findings following right upper lobectomy with right perihilar and apical scarring. There are few mildly enlarged right paratracheal lymph nodes that are unchanged and a prominent right retro pectoral lymph node that is unchanged and and severe emphysema noted. Review of Systems Constitutional: no problem reported Eyes: no problem reported Ear, Nose, Mouth, Throat: no problem reported Respiratory: no problem reported Cardiovascular: no problem reported Gastrointestinal: no problem reported Genitourinary: no problem reported Musculoskeletal: no problem reported Integumentary: no problem reported Neurologic: no problem reported Psychiatric: no problem reported Endocrine: no problem reported Hematologic / Lymphatic: no problem reported Allergy / Immunological: no problem reported Physical Exam Constitutional: well developed and well nourished; no acute distress Eyes: PERRL, conjunctivae normal, anicteric sclerae ENMT: external ear and nose normal, oropharynx normal Neck: trachea midline, no thyromegaly trachea midline Respiratory: + respiratory distress (Mild respiratory distress), + prolonged expiratory phase and + stridor (No palpable or auditory stridor auscultating over the trachea) Auscultation: lungs clear to auscultation bilaterally, + diminished lung sounds (Diminished breath sounds at the bases) and + wheezes (coarse wheezes and rhonchi right greater than left) Cardiovascular: RRR, no murmur, no edema Rate/Rhythm: regular rhythm (No evidence for tamponade physiology) Palpation: normal PMI; no thrill Extremities: + pedal edema (Trace pedal edema bilaterally) Gastrointestinal (Abdomen): normal bowel sounds, soft, nontender, no hepatosplenomegaly Musculoskeletal: no cyanosis or clubbing, extremities motor strength 5/5 Gait: normal gait Skin: no rashes, warm and dry Neurologic: PERRL, EOMI, accommodation nl, no face palsy, no dysarthria Psychiatric: A+Ox3, euthymic affect Lymphatic: no cervical or axillary lymphadenopathy Results & Data Vital Signs (Past 12 Hours) Vital Signs Temp Pulse Resp BP Pulse Ox 07/12/19 15:35 80 17 97 07/12/19 11:21 36.8 C 77 18 129/66 97 07/12/19 11:04 83 18 94 07/12/19 07:08 78 18 96 07/12/19 07:04 36.8 C 77 21 149/87 H 96 Laboratory Results Abnormal Labs 07/06/19 07/06/19 07/06/19 20:55 20:55 20:55 RBC 3.60 L Hgb 11.1 L POC Hgb Hct 36.0 L POC Hct MCV MCHC 30.8 L RDW Std Deviation 56.6 H RDW Coeff of [place] 15.3 H Immature Gran # (Auto) Neut # (Auto) Lymph # (Auto) 0.96 L Davie # (Auto) 0.99 H APTT 35.6 H POC pH POC pCO2 POC pO2 POC HCO3 POC Total CO2 POC Base Excess ABG pH ABG pCO2 ABG HCO3 ABG O2 Saturation ABG Base Excess VBG pH VBG pCO2 POC Potassium Carbon Dioxide Anion Gap BUN 24 H Creatinine BUN/Creatinine Ratio Glucose 113 H Calcium Magnesium 2.5 H Iron TIBC Transferrin Ferritin Troponin I Albumin 2.8 L Globulin 4.9 H Albumin/Globulin Ratio 0.6 L Ur Specific [place] Urine Protein Urine Ketones U Epithel Cells (Auto) [place] Type B(1) Ab EBV Capsid Ag IgG Ab EBV EA Restrict+Diffuse 07/06/19 07/07/19 07/07/19 20:55 02:20 06:21 RBC Hgb POC Hgb Hct POC Hct MCV MCHC RDW Std Deviation RDW Coeff of [place] Immature Gran # (Auto) Neut # (Auto) Lymph # (Auto) [place] # (Auto) APTT POC pH POC pCO2 POC pO2 POC HCO3 POC Total CO2 POC Base Excess ABG pH ABG pCO2 ABG HCO3 ABG O2 Saturation ABG Base Excess VBG pH 7.26 L VBG pCO2 73 H POC Potassium Carbon Dioxide Anion Gap BUN 24 H Creatinine BUN/Creatinine Ratio 21.8 H Glucose 144 H Calcium Magnesium Iron TIBC Transferrin Ferritin Troponin I Albumin 2.5 L Globulin 4.6 H Albumin/Globulin Ratio 0.5 L Ur Specific [place] > 1.045 H Urine Protein 1+ H Urine Ketones 1+ H U Epithel Cells (Auto) 10-20 H [place] Type B(1) Ab EBV Capsid Ag IgG Ab EBV EA Restrict+Diffuse 07/07/19 07/07/19 07/07/19 06:21 06:21 06:21 RBC 3.30 L Hgb 9.9 L POC Hgb Hct 32.9 L POC Hct MCV MCHC 30.1 L RDW Std Deviation 55.1 H RDW Coeff of [place] 15.2 H Immature Gran # (Auto) Neut # (Auto) Lymph # (Auto) 0.34 L [place] # (Auto) 0.09 L APTT POC pH POC pCO2 POC pO2 POC HCO3 POC Total CO2 POC Base Excess ABG pH ABG pCO2 ABG HCO3 ABG O2 Saturation ABG Base Excess VBG pH VBG pCO2 POC Potassium Carbon Dioxide Anion Gap BUN Creatinine BUN/Creatinine Ratio Glucose Calcium Magnesium Iron 20 L TIBC 208 L Transferrin 154 L Ferritin 540.8 H Troponin I Albumin Globulin Albumin/Globulin Ratio Ur Specific [place] Urine Protein Urine Ketones U Epithel Cells (Auto) [place] Type B(1) Ab 1:8 H EBV Capsid Ag IgG Ab >750.00 H EBV EA Restrict+Diffuse >150.00 H 07/07/19 07/08/19 07/08/19 13:20 07:21 07:21 RBC 3.58 L Hgb 10.6 L POC Hgb Hct 36.0 L POC Hct MCV 100.6 H MCHC 29.4 L RDW Std Deviation 55.7 H RDW Coeff of [place] 15.0 H Immature Gran # (Auto) Neut # (Auto) Lymph # (Auto) [place] # (Auto) APTT POC pH POC pCO2 POC pO2 POC HCO3 POC Total CO2 POC Base Excess ABG pH 7.29 L ABG pCO2 64 H ABG HCO3 30 H ABG O2 Saturation 96.0 H ABG Base Excess 2.1 H VBG pH VBG pCO2 POC Potassium Carbon Dioxide 33 H Anion Gap BUN 36 H Creatinine BUN/Creatinine Ratio 26.2 H Glucose 172 H Calcium Magnesium Iron TIBC Transferrin Ferritin Troponin I Albumin 2.8 L Globulin 4.9 H Albumin/Globulin Ratio 0.6 L Ur Specific [place] Urine Protein Urine Ketones U Epithel Cells (Auto) [place] Type B(1) Ab EBV Capsid Ag IgG Ab EBV EA Restrict+Diffuse 07/09/19 07/09/19 07/09/19 07:48 09:04 09:05 RBC 3.60 L Hgb 11.0 L POC Hgb 10.2 L Hct 36.7 L POC Hct 30 L MCV 101.9 H MCHC 30.0 L RDW Std Deviation 57.3 H RDW Coeff of [place] 15.3 H Immature Gran # (Auto) Neut # (Auto) 7.89 H Lymph # (Auto) 0.34 L [place] # (Auto) 0.60 H APTT POC pH 7.34 L POC pCO2 73 H POC pO2 < 32 L POC HCO3 39 H POC Total CO2 > 40 H* POC Base Excess 13.0 H ABG pH ABG pCO2 ABG HCO3 ABG O2 Saturation ABG Base Excess VBG pH VBG pCO2 POC Potassium 5.7 H Carbon Dioxide 37 H Anion Gap 1.0 L BUN 37 H Creatinine 1.41 H BUN/Creatinine Ratio 26.5 H Glucose 172 H Calcium Magnesium Iron TIBC Transferrin Ferritin Troponin I 3.300 H* Albumin Globulin Albumin/Globulin Ratio Ur Specific [place] Urine Protein Urine Ketones U Epithel Cells (Auto) [place] Type B(1) Ab EBV Capsid Ag IgG Ab EBV EA Restrict+Diffuse 07/09/19 07/10/19 07/10/19 17:34 07:10 07:10 RBC Hgb POC Hgb Hct POC Hct MCV MCHC RDW Std Deviation RDW Coeff of [place] Immature Gran # (Auto) Neut # (Auto) Lymph # (Auto) [place] # (Auto) APTT POC pH POC pCO2 POC pO2 POC HCO3 POC Total CO2 POC Base Excess ABG pH ABG pCO2 ABG HCO3 ABG O2 Saturation ABG Base Excess VBG pH 7.31 L VBG pCO2 72 H POC Potassium Carbon Dioxide 35 H Anion Gap BUN 44 H Creatinine BUN/Creatinine Ratio 33.9 H Glucose 167 H Calcium Magnesium Iron TIBC Transferrin Ferritin Troponin I 2.680 H* Albumin Globulin Albumin/Globulin Ratio Ur Specific [place] Urine Protein Urine Ketones U Epithel Cells (Auto) [place] Type B(1) Ab EBV Capsid Ag IgG Ab EBV EA Restrict+Diffuse 07/10/19 07/11/19 07/11/19 07:10 06:22 06:22 RBC 3.47 L 3.39 L Hgb 10.2 L 10.0 L POC Hgb Hct 34.9 L 34.1 L POC Hct MCV 100.6 H 100.6 H MCHC 29.2 L 29.3 L RDW Std Deviation 56.0 H 56.1 H RDW Coeff of [place] 15.4 H 15.3 H Immature Gran # (Auto) 0.05 H Neut # (Auto) 7.39 H Lymph # (Auto) 0.65 L [place]ie # (Auto) 0.79 H APTT POC pH POC pCO2 POC pO2 POC HCO3 POC Total CO2 POC Base Excess ABG pH ABG pCO2 ABG HCO3 ABG O2 Saturation ABG Base Excess VBG pH VBG pCO2 POC Potassium Carbon Dioxide 38 H Anion Gap 2.0 L BUN 36 H Creatinine BUN/Creatinine Ratio 29.3 H Glucose 161 H Calcium 8.3 L Magnesium Iron TIBC Transferrin Ferritin Troponin I Albumin Globulin Albumin/Globulin Ratio Ur Specific [place] Urine Protein Urine Ketones U Epithel Cells (Auto) [place] Type B(1) Ab EBV Capsid Ag IgG Ab EBV EA Restrict+Diffuse 07/11/19 07/12/19 07/12/19 06:26 05:35 05:35 RBC 3.39 L Hgb 9.8 L POC Hgb Hct 33.8 L POC Hct MCV MCHC 29.0 L RDW Std Deviation 54.7 H RDW Coeff of [place] 15.2 H Immature Gran # (Auto) Neut # (Auto) Lymph # (Auto) [place] # (Auto) APTT POC pH POC pCO2 POC pO2 POC HCO3 POC Total CO2 POC Base Excess ABG pH ABG pCO2 ABG HCO3 ABG O2 Saturation ABG Base Excess VBG pH 7.31 L VBG pCO2 80 H POC Potassium Carbon Dioxide 37 H Anion Gap BUN 39 H Creatinine BUN/Creatinine Ratio 35.5 H Glucose 192 H Calcium Magnesium Iron TIBC Transferrin Ferritin Troponin I Albumin Globulin Albumin/Globulin Ratio Ur Specific [place] Urine Protein Urine Ketones U Epithel Cells (Auto) [place] Type B(1) Ab EBV Capsid Ag IgG Ab EBV EA Restrict+Diffuse 07/12/19 05:39 RBC Hgb POC Hgb Hct POC Hct MCV MCHC RDW Std Deviation RDW Coeff of [place] Immature Gran # (Auto) Neut # (Auto) Lymph # (Auto) [place] # (Auto) APTT POC pH POC pCO2 POC pO2 POC HCO3 POC Total CO2 POC Base Excess ABG pH ABG pCO2 ABG HCO3 ABG O2 Saturation ABG Base Excess VBG pH 7.35 L VBG pCO2 71 H POC Potassium Carbon Dioxide Anion Gap BUN Creatinine BUN/Creatinine Ratio Glucose Calcium Magnesium Iron TIBC Transferrin Ferritin Troponin I Albumin Globulin Albumin/Globulin Ratio Ur Specific [place] Urine Protein Urine Ketones U Epithel Cells (Auto) [place] Type B(1) Ab EBV Capsid Ag IgG Ab EBV EA Restrict+Diffuse Medications Administered Current Inpatient Medications Acetaminophen (Tylenol) 650 mg PO Q4H PRN PRN Reason: Pain or Fever Stop: 08/06/19 01:20 Last Admin: 07/08/19 09:01 Dose: 650 mg Documented by: Al Hydrox/Mg Hydrox/Simethicone (Maalox) 15 ml PO Q4H PRN PRN Reason: Dyspepsia Stop: 08/06/19 01:20 Albuterol (Duoneb) 3 ml NEB QIDR PRN PRN Reason: dyspnea Stop: 08/06/19 02:29 Albuterol (Duoneb) 3 ml NEB Q4R DANNA Stop: 08/06/19 14:59 Last Admin: 07/12/19 15:31 Dose: 3 ml Documented by: Allopurinol (Zyloprim) 300 mg PO DAILY DANNA Stop: 08/06/19 08:59 Last Admin: 07/12/19 08:38 Dose: 300 mg Documented by: Aspirin (Ecotrin Ectab) 81 mg PO BID DANNA Stop: 08/06/19 01:20 Last Admin: 07/12/19 08:38 Dose: 81 mg Documented by: Atorvastatin Calcium (Lipitor) 80 mg PO QPM DANNA Stop: 08/06/19 20:59 Last Admin: 07/11/19 20:12 Dose: 80 mg Documented by: Azithromycin (Zithromax) 500 mg PO DAILY DANNA Stop: 07/14/19 08:59 Last Admin: 07/12/19 08:38 Dose: 500 mg Documented by: Budesonide/Formoterol Fumarate (Symbicort 160mcg/4.5mcg) 2 puffs INH WEEKLY DANNA Stop: 08/06/19 01:20 Colchicine (Colcrys) 0.6 mg PO QAM DANNA Stop: 08/12/19 08:59 Enoxaparin Sodium (Lovenox) 40 mg SQ QAM DANNA Stop: 08/06/19 14:59 Last Admin: 07/12/19 08:39 Dose: 40 mg Documented by: Famotidine (Pepcid) 40 mg PO DAILY DANNA Stop: 08/06/19 08:59 Last Admin: 07/12/19 08:38 Dose: 40 mg Documented by: Guaifenesin (Mucinex) 600 mg PO Q12 DANNA Stop: 08/09/19 08:59 Last Admin: 07/12/19 08:38 Dose: 600 mg Documented by: Hydrocodone Bit/Homatropine Methylb (Hycodan) 5 ml PO Q8H PRN PRN Reason: Cough Stop: 07/21/19 16:11 Last Admin: 07/09/19 23:22 Dose: 5 ml Documented by: Methylprednisolone 40 mg/ (Syringe) 0.64 mls @ 1.5 mls/min IV Q12 DANNA Stop: 08/08/19 20:59 Last Admin: 07/12/19 08:39 Dose: 1.5 mls/min Documented by: Isosorbide Mononitrate (Imdur Extended Rel) 60 mg PO DAILY [facility] Stop: 08/06/19 08:59 Last Admin: 07/12/19 08:38 Dose: 60 mg Documented by: Lactobacillus Acidophilus (Floranex) 4 tab PO TIDM [facility] Stop: 08/09/19 07:59 Last Admin: 07/12/19 15:42 Dose: Not Given Documented by: Magnesium Hydroxide (Milk Of Magnesia) 30 ml PO Q12H PRN PRN Reason: Constipation Stop: 08/06/19 01:20 Metoprolol Tartrate (Lopressor) 75 mg PO BID [facility] Stop: 08/08/19 08:59 Last Admin: 07/12/19 08:37 Dose: 75 mg Documented by: Montelukast Sodium (Singulair) 10 mg PO DAILY [facility] Stop: 08/06/19 08:59 Last Admin: 07/12/19 08:38 Dose: 10 mg Documented by: Nitroglycerin (Nitrostat) 0.4 mg SL Q5M PRN PRN Reason: chest pain Stop: 08/06/19 01:20 Non-Formulary Medication (Non-Formulary Patient's Own Med) 1 ea N/A BID [facility] Stop: 08/09/19 20:59 Last Admin: 07/12/19 08:39 Dose: 1 tab Documented by: Ondansetron HCl (Zofran) 4 mg IV Q6H PRN PRN Reason: Nausea Stop: 08/06/19 01:20 Psyllium Hydrophilic Mucilloid (Metamucil) 1 pkt PO QAM [facility] Stop: 08/11/19 08:59 Last Admin: 07/12/19 08:39 Dose: 1 pkt Documented by: Tamsulosin HCl (Flomax) 0.4 mg PO DAILY DANNA Stop: 08/06/19 08:59 Last Admin: 07/12/19 08:38 Dose: 0.4 mg Documented by: Vitamin D (Vitamin D3) 1,000 units PO DAILY DANNA Stop: 08/06/19 08:59 Last Admin: 07/12/19 08:38 Dose: 1,000 units Documented by: PG Care Time/CCT Total # of Minutes Spent Total Time Spent with Patient: Total time spent is greater than 50% in coordination of care (as documented) at patient's floor/unit and/or counseling patient:
[2019-07-12] MEDS: CEFEPIME 2,000 MG in SYRINGE 7.5 ML IV SCH (19:16)
[2019-07-12] MEDS: SODIUM CHLOR 7% 4 ML NEB INH SCH (19:41)
[2019-07-12] MEDS: ATORVASTATIN 40 MG TAB PO SCH (20:28)
[2019-07-13] MEDS: ALBUT/IPRATROP 3MG/0.5MG NEB 3 ML VIAL NEB SCH ×6 (03:34→22:05)
[2019-07-13] MEDS: CEFEPIME 2,000 MG in SYRINGE 7.5 ML IV SCH ×2 (06:19→17:12)
[2019-07-13 06:31] LABS: Hematocrit (blood only) 34.3 % (42-52); Hemoglobin 10.2 g/dL (14.0-18.0); Mean Corpuscular Hemoglobin 29.6 pg (25-34); Mean Corpuscular Hgb Conc 29.7 g/dL (32-36); Mean Corpuscular Volume 99.4 fL (80-100); Mean Platelet Volume 10.2 fL (7.4-10.4); Platelet Count 217 K/uL (130-400); RDW Standard Deviation 54.7 fL (36.4-46.3); Red Blood Count 3.45 M/uL (4.7-6.1); White Blood Count 6.35 K/uL (4.8-10.8)
[2019-07-13 06:35] LABS: Base Excess VBG 10.5 mEq/L; Oxygen Saturation VBG 81.1 %; pH VBG 7.31 (7.36-7.41)
[2019-07-13 07:04] LABS: BUN Creatinine Ratio 35.7 (10-20); Calcium 8.6 mg/dl (8.5-10.1); Creatinine Clr Calc Pharmacy 55.8 ml/min; Est GFR (African American) 74.5; Est GFR (Non-African American) 64.3; Potassium 4.6 mmol/L (3.5-5.1)
[2019-07-13] MEDS: SODIUM CHLOR 7% 4 ML NEB INH SCH ×2 (07:32→19:02)
[2019-07-13] MEDS: guaiFENesin 600 MG TABCR PO SCH ×2 (08:52→20:12)
[2019-07-13] MEDS: ISOSORBIDE MONO EXTENDED REL 60 MG TABCR PO SCH (08:52)
[2019-07-13] MEDS: LACTOBACILLUS ACIDOPHILUS (FLORANEX) TAB PO SCH ×3 (08:52→16:35)
[2019-07-13] MEDS: ASPIRIN 81 MG ECTAB PO SCH ×2 (08:52→20:13)
[2019-07-13] MEDS: COLCHICINE 0.6 MG TAB PO SCH (08:52)
[2019-07-13] MEDS: NON-FORMULARY PATIENT'S OWN MED SCH ×2 (08:52→20:11)
[2019-07-13] MEDS: AZITHROMYCIN 250 MG TAB PO SCH (08:53)
[2019-07-13] MEDS: allopurinoL 300 MG TAB PO SCH (08:53)
[2019-07-13] MEDS: METOPROLOL TARTRATE 25 MG TAB PO SCH ×2 (08:53→20:13)
[2019-07-13] MEDS: MONTELUKAST SODIUM 10 MG TABLET PO SCH (08:53)
[2019-07-13] MEDS: TAMSULOSIN HCL 0.4 MG CAP PO SCH (08:53)
[2019-07-13] MEDS: CHOLECALCIFEROL 1,000 UNITS TAB PO SCH (08:53)
[2019-07-13] MEDS: FAMOTIDINE 20 MG TAB PO SCH (08:53)
[2019-07-13] MEDS: ENOXAPARIN INJ 40 MG/0.4 ML SYR SQ SCH (08:54)
[2019-07-13] MEDS: PSYLLIUM 58.6% POWDER PACKET PO SCH (08:55)
[2019-07-13] MEDS: methylPREDNISolone 40 MG in SYRINGE 0 ML IV SCH ×2 (08:55→20:13)
--- NOTE | 2019-07-13 10:54 | Family Medicine Progress Note ---
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 Will benefit from BIPAP at home - needing bipap here at night - CO2 level better this AM - keep 02 sat around 88-90 acute COPD exacerbation potentially 2/2 viral infection in the setting of end stage copd - CTA of the chest showed the following: No PE, mild to moderate pericardial effusion, BL trace pleural effusions, s/p right upper lobectomy, diffuse severe emphysema, incidental L thyroid nodule. - Pulmonology following, appreciate recs. - Continue cefepime (07/12) - Chest percussion therapy BID, flutter valve TID - Continue 40 mg IV Methylpred Q12, Duonebs Q4 for COPD exacerbation management. - Continue Azithromycin 500 mg, Singulair 10 mg PO daily, Smbyicort Pericarditis possibly 2/2 viral infection - viral and infectious panel reviewed - improved pericardial effusion on ECHO (07/10) showing trivial fluid and systolic function normal - continue colchicine 6 mg BID for 3 months - continue Methylpred. 40 mg q12 V-tach with no prior history - no incidence since 07/09 - transferred from telemetry to medical floor - Cardiology following - continue metoprolol at 75 mg CELESTINO (resolved) - continue to hold Lasix and follow I's and O's closely Diarrhea w/ negative c. diff. (resolved) - either secondary to Azithromycin, or Colchicine - continue bulking agents Hx. of CAD - continue home Atorvastatin 80 mg PO QPM - continue home ASA 81 mg daily GERD - continue Famotidine 40 mg Gout - continue Allopurinol 300mg DVT: Lovenox Code: full FEN: following electrolytes, diet: heart healthy, fiber added Supervising Physician Co-Signing Physician Notes Resident Physician Supervision Note: I independently interviewed and examined the patient and verified the kohli history and physical, reviewed labs and image studies, discussed the case with the resident Dr. Resendiz and agree with the findings and care plan. Subjective Mr. Law was up and talkative this morning and wanted to know when he could go home. He slept well overnight and was using the BIPAP the entire time. He asked about going home and I discussed with him that I would talk with his PCP and the Respiratory Care Instructor to get a better idea of when we thought he would be stable enough to return home. Review of Systems Constitutional: no fever and no chills Respiratory: + cough Cardiovascular: no chest pain and no palpitations Gastrointestinal: no nausea and no vomiting Physical Exam Constitutional: well developed, well nourished, cooperative and comfortable; no acute distress sitting in chair comfortably talking in short sentences Respiratory: Coarse breath sounds with good air movement in all lung mayorga, increased expiratory phase and no focal findings. Stridor heard in the upper airway. Cardiovascular: Extremities: no edema Distant with regular rate and rhythm no m/r/g appreciated Gastrointestinal (Abdomen): normal bowel sounds, soft, nontender, no hepatosplenomegaly Skin: no rashes, warm and dry Results & Data Vital Signs (Past 12 Hours) Vital Signs Temp Pulse Pulse Resp BP Pulse Ox 07/13/19 08:05 36.7 C 92 H 16 168/70 H 90 07/13/19 07:32 77 18 97 07/13/19 03:39 75 18 99 07/13/19 03:34 75 18 99 07/12/19 23:40 36.9 C 74 17 157/78 H 96 07/12/19 23:36 66 20 99 07/12/19 23:31 66 20 99 PG Care Time/CCT Total # of Minutes Spent Total Time Spent with Patient: Total time spent is greater than 50% in coordination of care (as documented) at patient's floor/unit and/or counseling patient: Resident Activity Tracking Resident Involvement: Resident Care Provided Care Provided: Adult Hospital Medicine
--- NOTE | 2019-07-13 14:19 | Pulmonology Progress Note ---
Date of Service July 13, 2019 Assessment & Plan (1) Paroxysmal ventricular tachycardia: (2) Elevated troponin: (3) Acute and chronic respiratory failure ([id number]): Patient seems somewhat better today I had a lengthy discussion with the patient's daughter . The patient very much would like to go home and the family would like to bring him home. Had a discussion with the aspiratory budget technician from [facility]. Patient was originally started on a Trilogy unit at home by Dr. angelique olivo and is being closely monitored by Dr. Parks. He was given a trilogy AVAPS unit on auto currently is receiving EPAP max at 15 and min at 8 cm water pressure with a Pr max of 35 and Ps max 26 cm and tvol 525cc and w backup rate. I see no advantage to switching to a BiPAP AVAPS unit at this juncture for a multitude of reasons. At the current settings patient appears to tolerate the unit without difficulty at home. I would continue the IV cefepime until discharge possibly Thursday and continue current regimen. Either the steroid therapy or reinstitution of diuretic has contributed to the dissipation of the pericardial fluid may simply have abated on its own. Family is a good understanding of how to care for him at home and they fully understand how severely ill Mr. Law is with a very complex medical history. I suspect at a later date probably not too far in the future hospice consultation will need to be discussed. 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 Patient's pericardial effusion appears to have resolved according to Dr. Rico by echocardiography performed on Thursday. CT scanning of the chest although quite abnormal has not significantly changed from February. Will place patient on IV cefepime last evening along with his azithromycin and steroid therapy. Additional nebulizer treatments with 7% normal saline was added and patient continues with noninvasive positive pressure ventilation. O2 is been titrated to 2 L. Patient seems better today less congested though slightly hypersomnolent but easily arousable and conversant and oriented. Very much wants to go home. Spoke with his and daughter today who were at bedside. Review of Systems Constitutional: no problem reported Eyes: no problem reported Ear, Nose, Mouth, Throat: no problem reported Respiratory: no problem reported Cardiovascular: no problem reported Gastrointestinal: no problem reported Genitourinary: no problem reported Musculoskeletal: no problem reported Integumentary: no problem reported Neurologic: no problem reported Psychiatric: no problem reported Endocrine: no problem reported Hematologic / Lymphatic: no problem reported Allergy / Immunological: no problem reported Physical Exam Constitutional: well developed and well nourished; no acute distress Eyes: PERRL, conjunctivae normal, anicteric sclerae ENMT: external ear and nose normal, oropharynx normal Neck: trachea midline, no thyromegaly Respiratory: normal respiratory effort, + hyperresonance to percussion and + prolonged expiratory phase Auscultation: lungs clear to auscultation bilaterally, + diminished lung sounds (Diminished breath sounds right base) and + wheezes (Wheezing and rhonchi less prominently auscultated today especially the right lung) Cardiovascular: RRR, no murmur, no edema Palpation: normal PMI; no thrill Gastrointestinal (Abdomen): normal bowel sounds, soft, nontender, no hepatosplenomegaly Musculoskeletal: no cyanosis or clubbing, extremities motor strength 5/5 Gait: normal gait Skin: no rashes, warm and dry Neurologic: PERRL, EOMI, accommodation nl, no face palsy, no dysarthria Psychiatric: A+Ox3, euthymic affect Lymphatic: no cervical or axillary lymphadenopathy Results & Data Vital Signs (Past 12 Hours) Vital Signs Temp Pulse Pulse Resp BP Pulse Ox 07/13/19 13:40 74 20 94 07/13/19 11:04 85 18 91 07/13/19 08:05 36.7 C 92 H 16 168/70 H 90 07/13/19 07:32 77 18 97 07/13/19 03:39 75 18 99 07/13/19 03:34 75 18 99 Laboratory Results Abnormal Labs 07/06/19 07/06/19 07/06/19 20:55 20:55 20:55 RBC 3.60 L Hgb 11.1 L POC Hgb Hct 36.0 L POC Hct MCV MCHC 30.8 L RDW Std Deviation 56.6 H RDW Coeff of [place] 15.3 H Immature Gran # (Auto) Neut # (Auto) Lymph # (Auto) 0.96 L Hendricks # (Auto) 0.99 H APTT 35.6 H POC pH POC pCO2 POC pO2 POC HCO3 POC Total CO2 POC Base Excess ABG pH ABG pCO2 ABG HCO3 ABG O2 Saturation ABG Base Excess VBG pH VBG pCO2 POC Potassium Carbon Dioxide Anion Gap BUN 24 H Creatinine BUN/Creatinine Ratio Glucose 113 H Calcium Magnesium 2.5 H Iron TIBC Transferrin Ferritin Troponin I Albumin 2.8 L Globulin 4.9 H Albumin/Globulin Ratio 0.6 L Ur Specific [place] Urine Protein Urine Ketones U Epithel Cells (Auto) [place] Type B(1) Ab EBV Capsid Ag IgG Ab EBV EA Restrict+Diffuse 07/06/19 07/07/19 07/07/19 20:55 02:20 06:21 RBC Hgb POC Hgb Hct POC Hct MCV MCHC RDW Std Deviation RDW Coeff of [place] Immature Gran # (Auto) Neut # (Auto) Lymph # (Auto) Hendricks # (Auto) APTT POC pH POC pCO2 POC pO2 POC HCO3 POC Total CO2 POC Base Excess ABG pH ABG pCO2 ABG HCO3 ABG O2 Saturation ABG Base Excess VBG pH 7.26 L VBG pCO2 73 H POC Potassium Carbon Dioxide Anion Gap BUN 24 H Creatinine BUN/Creatinine Ratio 21.8 H Glucose 144 H Calcium Magnesium Iron TIBC Transferrin Ferritin Troponin I Albumin 2.5 L Globulin 4.6 H Albumin/Globulin Ratio 0.5 L Ur Specific [place] > 1.045 H Urine Protein 1+ H Urine Ketones 1+ H U Epithel Cells (Auto) 10-20 H [place] Type B(1) Ab EBV Capsid Ag IgG Ab EBV EA Restrict+Diffuse 07/07/19 07/07/19 07/07/19 06:21 06:21 06:21 RBC 3.30 L Hgb 9.9 L POC Hgb Hct 32.9 L POC Hct MCV MCHC 30.1 L RDW Std Deviation 55.1 H RDW Coeff of [place] 15.2 H Immature Gran # (Auto) Neut # (Auto) Lymph # (Auto) 0.34 L Hendricks # (Auto) 0.09 L APTT POC pH POC pCO2 POC pO2 POC HCO3 POC Total CO2 POC Base Excess ABG pH ABG pCO2 ABG HCO3 ABG O2 Saturation ABG Base Excess VBG pH VBG pCO2 POC Potassium Carbon Dioxide Anion Gap BUN Creatinine BUN/Creatinine Ratio Glucose Calcium Magnesium Iron 20 L TIBC 208 L Transferrin 154 L Ferritin 540.8 H Troponin I Albumin Globulin Albumin/Globulin Ratio Ur Specific [place] Urine Protein Urine Ketones U Epithel Cells (Auto) [place] Type B(1) Ab 1:8 H EBV Capsid Ag IgG Ab >750.00 H EBV EA Restrict+Diffuse >150.00 H 07/07/19 07/08/19 07/08/19 13:20 07:21 07:21 RBC 3.58 L Hgb 10.6 L POC Hgb Hct 36.0 L POC Hct MCV 100.6 H MCHC 29.4 L RDW Std Deviation 55.7 H RDW Coeff of [place] 15.0 H Immature Gran # (Auto) Neut # (Auto) Lymph # (Auto) Hendricks # (Auto) APTT POC pH POC pCO2 POC pO2 POC HCO3 POC Total CO2 POC Base Excess ABG pH 7.29 L ABG pCO2 64 H ABG HCO3 30 H ABG O2 Saturation 96.0 H ABG Base Excess 2.1 H VBG pH VBG pCO2 POC Potassium Carbon Dioxide 33 H Anion Gap BUN 36 H Creatinine BUN/Creatinine Ratio 26.2 H Glucose 172 H Calcium Magnesium Iron TIBC Transferrin Ferritin Troponin I Albumin 2.8 L Globulin 4.9 H Albumin/Globulin Ratio 0.6 L Ur Specific [place] Urine Protein Urine Ketones U Epithel Cells (Auto) [place] Type B(1) Ab EBV Capsid Ag IgG Ab EBV EA Restrict+Diffuse 07/09/19 07/09/19 07/09/19 07:48 09:04 09:05 RBC 3.60 L Hgb 11.0 L POC Hgb 10.2 L Hct 36.7 L POC Hct 30 L MCV 101.9 H MCHC 30.0 L RDW Std Deviation 57.3 H RDW Coeff of [place] 15.3 H Immature Gran # (Auto) Neut # (Auto) 7.89 H Lymph # (Auto) 0.34 L Hendricks # (Auto) 0.60 H APTT POC pH 7.34 L POC pCO2 73 H POC pO2 < 32 L POC HCO3 39 H POC Total CO2 > 40 H* POC Base Excess 13.0 H ABG pH ABG pCO2 ABG HCO3 ABG O2 Saturation ABG Base Excess VBG pH VBG pCO2 POC Potassium 5.7 H Carbon Dioxide 37 H Anion Gap 1.0 L BUN 37 H Creatinine 1.41 H BUN/Creatinine Ratio 26.5 H Glucose 172 H Calcium Magnesium Iron TIBC Transferrin Ferritin Troponin I 3.300 H* Albumin Globulin Albumin/Globulin Ratio Ur Specific [place] Urine Protein Urine Ketones U Epithel Cells (Auto) [place] Type B(1) Ab EBV Capsid Ag IgG Ab EBV EA Restrict+Diffuse 07/09/19 07/10/19 07/10/19 17:34 07:10 07:10 RBC Hgb POC Hgb Hct POC Hct MCV MCHC RDW Std Deviation RDW Coeff of [place] Immature Gran # (Auto) Neut # (Auto) Lymph # (Auto) Hendricks # (Auto) APTT POC pH POC pCO2 POC pO2 POC HCO3 POC Total CO2 POC Base Excess ABG pH ABG pCO2 ABG HCO3 ABG O2 Saturation ABG Base Excess VBG pH 7.31 L VBG pCO2 72 H POC Potassium Carbon Dioxide 35 H Anion Gap BUN 44 H Creatinine BUN/Creatinine Ratio 33.9 H Glucose 167 H Calcium Magnesium Iron TIBC Transferrin Ferritin Troponin I 2.680 H* Albumin Globulin Albumin/Globulin Ratio Ur Specific [place] Urine Protein Urine Ketones U Epithel Cells (Auto) [place] Type B(1) Ab EBV Capsid Ag IgG Ab EBV EA Restrict+Diffuse 07/10/19 07/11/19 07/11/19 07:10 06:22 06:22 RBC 3.47 L 3.39 L Hgb 10.2 L 10.0 L POC Hgb Hct 34.9 L 34.1 L POC Hct MCV 100.6 H 100.6 H MCHC 29.2 L 29.3 L RDW Std Deviation 56.0 H 56.1 H RDW Coeff of [place] 15.4 H 15.3 H Immature Gran # (Auto) 0.05 H Neut # (Auto) 7.39 H Lymph # (Auto) 0.65 L Hendricks # (Auto) 0.79 H APTT POC pH POC pCO2 POC pO2 POC HCO3 POC Total CO2 POC Base Excess ABG pH ABG pCO2 ABG HCO3 ABG O2 Saturation ABG Base Excess VBG pH VBG pCO2 POC Potassium Carbon Dioxide 38 H Anion Gap 2.0 L BUN 36 H Creatinine BUN/Creatinine Ratio 29.3 H Glucose 161 H Calcium 8.3 L Magnesium Iron TIBC Transferrin Ferritin Troponin I Albumin Globulin Albumin/Globulin Ratio Ur Specific [place] Urine Protein Urine Ketones U Epithel Cells (Auto) [place] Type B(1) Ab EBV Capsid Ag IgG Ab EBV EA Restrict+Diffuse 07/11/19 07/12/19 07/12/19 06:26 05:35 05:35 RBC 3.39 L Hgb 9.8 L POC Hgb Hct 33.8 L POC Hct MCV MCHC 29.0 L RDW Std Deviation 54.7 H RDW Coeff of [place] 15.2 H Immature Gran # (Auto) Neut # (Auto) Lymph # (Auto) [place] # (Auto) APTT POC pH POC pCO2 POC pO2 POC HCO3 POC Total CO2 POC Base Excess ABG pH ABG pCO2 ABG HCO3 ABG O2 Saturation ABG Base Excess VBG pH 7.31 L VBG pCO2 80 H POC Potassium Carbon Dioxide 37 H Anion Gap BUN 39 H Creatinine BUN/Creatinine Ratio 35.5 H Glucose 192 H Calcium Magnesium Iron TIBC Transferrin Ferritin Troponin I Albumin Globulin Albumin/Globulin Ratio Ur Specific [place] Urine Protein Urine Ketones U Epithel Cells (Auto) [place] Type B(1) Ab EBV Capsid Ag IgG Ab EBV EA Restrict+Diffuse 07/12/19 07/13/19 07/13/19 05:39 06:19 06:19 RBC 3.45 L Hgb 10.2 L POC Hgb Hct 34.3 L POC Hct MCV MCHC 29.7 L RDW Std Deviation 54.7 H RDW Coeff of [place] 15.0 H Immature Gran # (Auto) Neut # (Auto) Lymph # (Auto) [place] # (Auto) APTT POC pH POC pCO2 POC pO2 POC HCO3 POC Total CO2 POC Base Excess ABG pH ABG pCO2 ABG HCO3 ABG O2 Saturation ABG Base Excess VBG pH 7.35 L 7.31 L VBG pCO2 71 H 79 H POC Potassium Carbon Dioxide Anion Gap BUN Creatinine BUN/Creatinine Ratio Glucose Calcium Magnesium Iron TIBC Transferrin Ferritin Troponin I Albumin Globulin Albumin/Globulin Ratio Ur Specific [place] Urine Protein Urine Ketones U Epithel Cells (Auto) [place] Type B(1) Ab EBV Capsid Ag IgG Ab EBV EA Restrict+Diffuse 07/13/19 06:19 RBC Hgb POC Hgb Hct POC Hct MCV MCHC RDW Std Deviation RDW Coeff of [place] Immature Gran # (Auto) Neut # (Auto) Lymph # (Auto) Hend[place] # (Auto) APTT POC pH POC pCO2 POC pO2 POC HCO3 POC Total CO2 POC Base Excess ABG pH ABG pCO2 ABG HCO3 ABG O2 Saturation ABG Base Excess VBG pH VBG pCO2 POC Potassium Carbon Dioxide 39 H Anion Gap 2.0 L BUN 38 H Creatinine BUN/Creatinine Ratio 35.7 H Glucose 176 H Calcium Magnesium Iron TIBC Transferrin Ferritin Troponin I Albumin Globulin Albumin/Globulin Ratio Ur Specific [place] Urine Protein Urine Ketones U Epithel Cells (Auto) [place] Type B(1) Ab EBV Capsid Ag IgG Ab EBV EA Restrict+Diffuse Diagnostic Findings Laboratory Results WBC 6.35 K/uL (4.8-10.8) 07/13/19 06:19 RBC 3.45 M/uL (4.7-6.1) L 07/13/19 06:19 Hgb 10.2 g/dL (14.0-18.0) L 07/13/19 06:19 POC Hgb 10.2 g/dl (14.0-18.0) L 07/09/19 07:48 Hct 34.3 % (42-52) L 07/13/19 06:19 POC Hct 30 % (42-52) L 07/09/19 07:48 MCV 99.4 fL (80-100) 07/13/19 06:19 MCH 29.6 pg (25-34) 07/13/19 06:19 MCHC 29.7 g/dL (32-36) L 07/13/19 06:19 RDW Std Deviation 54.7 fL (36.4-46.3) H 07/13/19 06:19 RDW Coeff of [place] 15.0 % (11.5-14.5) H 07/13/19 06:19 Plt Count 217 K/uL (130-400) 07/13/19 06:19 MPV 10.2 fL (7.4-10.4) 07/13/19 06:19 Immature Gran % (Auto) 0.6 % 07/10/19 07:10 Neut % (Auto) 83.2 % 07/10/19 07:10 Lymph % (Auto) 7.3 % 07/10/19 07:10 Hendricks % (Auto) 8.9 % 07/10/19 07:10 Eos % (Auto) 0.0 % 07/10/19 07:10 Baso % (Auto) 0.0 % 07/10/19 07:10 Immature Gran # (Auto) 0.05 K/uL (0.00-0.02) H 07/10/19 07:10 Neut # (Auto) 7.39 K/uL (1.4-6.5) H 07/10/19 07:10 Lymph # (Auto) 0.65 K/uL (1.2-3.4) L 07/10/19 07:10 Hendricks # (Auto) 0.79 K/uL (0.11-0.59) H 07/10/19 07:10 Eos # (Auto) 0.00 K/uL (0-0.5) 07/10/19 07:10 Baso # (Auto) 0.00 K/uL (0-0.2) 07/10/19 07:10 PT 10.8 Seconds (9.0-12.0) 07/06/19 20:55 INR 1.1 (0.9-1.1) 07/06/19 20:55 APTT 35.6 Seconds (21.0-31.0) H 07/06/19 20:55 PTT Ratio 1.3 07/06/19 20:55 Sample Site L Radial 07/09/19 07:48 POC pH 7.34 (7.35-7.45) L 07/09/19 07:48 POC pCO2 73 mmHg (35-46) H 07/09/19 07:48 POC pO2 < 32 mmHg (80-95) L 07/09/19 07:48 POC HCO3 39 julio/L (19-24) H 07/09/19 07:48 POC Total CO2 > 40 mEq/l (24-31) H* 07/09/19 07:48 POC Base Excess 13.0 ujlio/L (-9-1.8) H 07/09/19 07:48 ABG pH 7.29 (7.35-7.45) L 07/07/19 13:20 ABG pCO2 64 mmHg (35-46) H 07/07/19 13:20 ABG pO2 87 mm/Hg (80-95) 07/07/19 13:20 ABG HCO3 30 mmol/L (19-24) H 07/07/19 13:20 ABG O2 Saturation 96.0 % (90-95) H 07/07/19 13:20 ABG Base Excess 2.1 mEq/L (-9-1.8) H 07/07/19 13:20 Brian Test Pass 07/09/19 07:48 VBG pH 7.31 (7.36-7.41) L 07/13/19 06:19 VBG pCO2 79 mmHg (38-50) H 07/13/19 06:19 VBG pO2 50 mmHg 07/13/19 06:19 VBG HCO3 39 mmol/L 07/13/19 06:19 VBG O2 Saturation 81.1 % 07/13/19 06:19 VBG Base Excess 10.5 mEq/L 07/13/19 06:19 Barometric Pressure 730.6 mm/Hg 07/13/19 06:19 Oxygen Given 30% 07/07/19 13:20 O2 Delivery Device Cannula 07/09/19 07:48 POC Sodium 139 mEq/L (135-144) 07/09/19 07:48 Sodium 143 mmol/L (136-145) 07/13/19 06:19 POC Potassium 5.7 mEq/L (3.3-5.0) H 07/09/19 07:48 Potassium 4.6 mmol/L (3.5-5.1) 07/13/19 06:19 Chloride 102 mmol/L (98-107) 07/13/19 06:19 Carbon Dioxide 39 mmol/L (21-32) H 07/13/19 06:19 Anion Gap 2.0 (3-11) L 07/13/19 06:19 BUN 38 mg/dl (7-18) H 07/13/19 06:19 Creatinine 1.07 mg/dl (0.6-1.4) 07/13/19 06:19 Est Cr Clr Drug Dosing 55.8 ml/min 07/13/19 06:19 Est GFR ( Amer) 74.5 07/13/19 06:19 Est GFR (Non-Af Amer) 64.3 07/13/19 06:19 BUN/Creatinine Ratio 35.7 (10-20) H 07/13/19 06:19 Glucose 176 mg/dl (70-99) H 07/13/19 06:19 Lactate 0.9 mmol/L (0.4-2.0) 07/06/19 20:55 Uric Acid 3.9 mg/dl (2.6-7.2) 07/07/19 06:21 Calcium 8.6 mg/dl (8.5-10.1) 07/13/19 06:19 Phosphorus 3.3 mg/dl (2.5-4.9) 07/06/19 20:55 Magnesium 2.4 mg/dl (1.8-2.4) 07/07/19 06:21 Iron 20 mcg/dl (35-175) L 07/07/19 06:21 TIBC 208 mcg/dl (250-450) L 07/07/19 06:21 Transferrin 154 mg/dl (200-360) L 07/07/19 06:21 Ferritin 540.8 ng/ml (8-388) H 07/07/19 06:21 Total Bilirubin 0.3 mg/dl (0.2-1) 07/08/19 07:21 AST 23 U/L (15-37) 07/08/19 07:21 ALT 33 U/L (12-78) 07/08/19 07:21 Alkaline Phosphatase 76 U/L (45-117) 07/08/19 07:21 Troponin I 2.680 ng/ml (0-0.045) H* 07/09/19 17:34 NT-Pro-B Natriuret Pep 1145 pg/ml (0-1800) 07/06/19 20:55 Total Protein 7.7 gm/dl (6.4-8.2) 07/08/19 07:21 Albumin 2.8 gm/dl (3.4-5.0) L 07/08/19 07:21 Globulin 4.9 gm/dl (2.5-4.0) H 07/08/19 07:21 Albumin/Globulin Ratio 0.6 (0.9-2) L 07/08/19 07:21 Urine Color Yellow 07/07/19 02:20 Urine Appearance Clear (Clear) 07/07/19 02:20 Urine pH 5.0 (4.5-7.5) 07/07/19 02:20 Ur Specific [place] > 1.045 (1.000-1.030) H 07/07/19 02:20 Urine Protein 1+ (Negative) H 07/07/19 02:20 Urine Glucose (UA) Negative (Negative) 07/07/19 02:20 Urine Ketones 1+ (Negative) H 07/07/19 02:20 Urine Blood Negative (Negative) 07/07/19 02:20 Urine Nitrite Negative (Negative) 07/07/19 02:20 Urine Bilirubin Negative (Negative) 07/07/19 02:20 Urine Urobilinogen Negative (Negative) 07/07/19 02:20 Ur Leukocyte Esterase Negative (Negative) 07/07/19 02:20 Urine WBC (Auto) 1-5 /hpf (0-5) 07/07/19 02:20 Urine RBC (Auto) 0-4 /hpf (0-4) 07/07/19 02:20 U Hyaline Cast (Auto) 1-5 /lpf (0-5) 07/07/19 02:20 U Epithel Cells (Auto) 10-20 /lpf (0-5) H 07/07/19 02:20 Urine Bacteria (Auto) Negative (Negative) 07/07/19 02:20 Nasal Screen MRSA (PCR) Negative (Negative) 07/12/19 19:25 Stool Occult Bld Scrn Negative (Negative) 07/07/19 16:45 Stl C. diff Tox B Gene Negative Cdiff Gene (Neg) 07/12/19 19:25 Lyme Disease IgG Ab Negative (Negative) 07/07/19 06:21 Lyme Disease IgM Ab Negative (Negative) 07/07/19 06:21 [place] Type B(1) Ab 1:8 (<1:8) H 07/07/19 06:21 [place] Type B(2) Ab <1:8 (<1:8) 07/07/19 06:21 [place] Type B(3) Ab <1:8 (<1:8) 07/07/19 06:21 [place] Type B(4) Ab <1:8 (<1:8) 07/07/19 06:21 [place] Type B(5) Ab <1:8 (<1:8) 07/07/19 06:21 [place] Type B(6) Ab <1:8 (<1:8) 07/07/19 06:21 CMV IgG Ab >10.00 U/ML 07/07/19 06:21 CMV IgM Ab <30.00 Au/mL 07/07/19 06:21 EBV Capsid Ag IgG Ab >750.00 U/ML H 07/07/19 06:21 EBV Capsid Ag IgM Ab < 36.00 U/ML 07/07/19 06:21 EBV EA Restrict+Diffuse >150.00 U/ML H 07/07/19 06:21 EBV Nuclear Antigen Ab < 18.00 U/ML 07/07/19 06:21 Monoscreen Negative (Negative) 07/07/19 06:21 Influenza Type A (PCR) Neg for Influ A (Neg) 07/06/19 22:30 Influenza Type B (PCR) Neg for Influ B (Neg) 07/06/19 22:30 Parvovirus IgG Ab Index 0.4 (<0.9) 07/07/19 06:21 Parvovirus IgM Ab Index 0.1 (<0.9) 07/07/19 06:21 [place], [place] [phone] CT Scan Report Patient: JESSICA LAW Date: 07/06/19 MR#: [id number]: [address] [facility] Acct ID:[id number]: [address] Date: 1935City Zip: [place] [address] Age: 83Location: ED Sex: M Room/Bed: Att Phy:Diagnosis: TROUBLE BREATHING, REFERRED BY DR Corona Phy: Jerry Boyd MDService Date: 07/06/19 Fam Phy:Interpreting Phy: Dale Borrego MD Admit Phy: Ordering Phy: Jesus Fierro M.D. cc: ~ CT ANGIOGRAPHY OF THE CHEST, PULMONARY EMBOLUS PROTOCOL CLINICAL HISTORY: Shortness of breath. Lung cancer. COMPARISON STUDY: Chest CT February 22, 2019. Chest radiograph performed earlier today. TECHNIQUE: Following IV administration of 115 mL of Optiray-320, helical axial images of the chest were obtained utilizing the pulmonary embolus protocol. Maximal intensity projections and sagittal and coronal reformats were viewed on an independent 3D workstation. IV contrast was administered without complication. Automated exposure control was utilized for the study. A dose lowering technique was utilized adhering to the principles of ALARA. CT DOSE: 630.52 mGy.cm FINDINGS: No pulmonary emboli are identified. There is no evidence for thoracic aortic dissection. There is moderate calcified plaque of the ascending aorta. The heart is mildly enlarged. A small to moderate pericardial effusion has developed since CT of February 22, 2019. There are trace bilateral pleural effusions. The patient is status post right upper lobectomy. The postoperative appearance is unchanged since prior exam. A few mildly enlarged right paratracheal lymph nodes are unchanged. Prominent right retropectoral lymph nodes are unchanged. Severe emphysema is noted. There is no consolidation to suggest pneumonia. There are no suspicious pulmonary nodules. No suspicious osseous lesions within the bony thorax are noted. Left lobe thyroid nodule is incidentally noted. Visualize d portions of the upper abdomen demonstrate trace right upper quadrant ascites. There are gallstones within the gallbladder. Hypodense splenic lesion is benign. Suspected right renal cysts are partially imaged. IMPRESSION: 1. No pulmonary emboli identified. 2. Interval development of a small to moderate pericardial effusion since chest CT of February 22, 2019. 3. Trace bilateral pleural effusions. 4. Stable postoperative findings following right upper lobectomy with right perihilar and apical scarring. Prominent lymph nodes which are likely benign given stability. 5. Severe emphysema. Electronically signed by: Dale Borrego M.D. [facility] [phone] XRay Report Patient: JESSICA LAW DAdmit Date: 07/07/19 MR#: [id number]: [address] [facility] Acct ID:[id number]: [address] Date: 1935City Zip: [place] [address] Age: 83Location: 2E Sex: M Room/Bed: E2[facility] Att Phy: Clifford Jaramillo D.O.Diagnosis: SOB,DENSON,PERICARDITIS Chloe Phy: Jerry Boyd MDService Date: 07/10/19 Fam Phy:Interpreting Phy: Pedro Washington MD Admit Phy: Timothy Bowen M.D. Ordering Phy: Kell Kunz MD cc: ~ XR chest 1V portable CLINICAL HISTORY: 83 years-old Male presenting with increased oxygen demand, crackles. TECHNIQUE: Portable upright AP view of the chest was obtained. COMPARISON: 07/06/2019. FINDINGS: Atherosclerosis of the aortic arch. Cardiac silhouette enlarged. Unchanged appearance of the right apex with right lung volume loss related to the history of right upper lobectomy and upper retraction of the right hilum. Unchanged density in the right apex with possible loculated right apical effusion. Mild pulmonary vascular prominence stable to slightly increased from prior. Hyperinfl ation of the left lung. Minimal left basilar opacity unchanged. No large effusion or pneumothorax. IMPRESSION: 1. Cardiomegaly with slightly increased volume overload. No nelsy pulmonary edema. 2. Chronic changes of the right lung status post right upper lobectomy and right apical/suprahilar scarring. 3. Trace left basilar scarring or atelectasis, unchanged. 4. Hyperinflated left lung consistent with underlying emphysema. PG Care Time/CCT Total # of Minutes Spent Total Time Spent with Patient: Total time spent is greater than 50% in coordination of care (as documented) at patient's floor/unit and/or counseling patient:
[2019-07-13] MEDS: ATORVASTATIN 40 MG TAB PO SCH (20:12)
[2019-07-14] MEDS: ALBUT/IPRATROP 3MG/0.5MG NEB 3 ML VIAL NEB SCH ×3 (03:16→10:56)
[2019-07-14] MEDS: CEFEPIME 2,000 MG in SYRINGE 7.5 ML IV SCH (05:58)
[2019-07-14 06:39] LABS: Hematocrit (blood only) 36.2 % (42-52); Hemoglobin 10.8 g/dL (14.0-18.0); Mean Corpuscular Hemoglobin 29.7 pg (25-34); Mean Corpuscular Hgb Conc 29.8 g/dL (32-36); Mean Corpuscular Volume 99.5 fL (80-100); Mean Platelet Volume 10.2 fL (7.4-10.4); Nucleated RBC # (auto) 0.02 K/uL (0-0); Nucleated RBC % (auto) 0.2 %; Platelet Count 219 K/uL (130-400); RDW Coefficient of Variation 14.9 % (11.5-14.5); RDW Standard Deviation 54.6 fL (36.4-46.3); Red Blood Count 3.64 M/uL (4.7-6.1); White Blood Count 8.32 K/uL (4.8-10.8)
[2019-07-14 06:43] LABS: Base Excess VBG 12.2 mEq/L; Oxygen Saturation VBG 61.1 %; pH VBG 7.34 (7.36-7.41)
[2019-07-14 07:20] LABS: BUN Creatinine Ratio 33.9 (10-20); Calcium 8.8 mg/dl (8.5-10.1); Creatinine Clr Calc Pharmacy 51.2 ml/min; Est GFR (African American) 67.6; Est GFR (Non-African American) 58.3; Potassium 4.7 mmol/L (3.5-5.1)
[2019-07-14] MEDS: guaiFENesin 600 MG TABCR PO SCH ×2 (08:55→09:14)
[2019-07-14] MEDS ORDERED: predniSONE 50 MG TAB PO SCH (09:00)
[2019-07-14] MEDS: CHOLECALCIFEROL 1,000 UNITS TAB PO SCH (09:14)
[2019-07-14] MEDS: allopurinoL 300 MG TAB PO SCH (09:15)
[2019-07-14] MEDS: ISOSORBIDE MONO EXTENDED REL 60 MG TABCR PO SCH (09:15)
[2019-07-14] MEDS: COLCHICINE 0.6 MG TAB PO SCH (09:16)
[2019-07-14] MEDS: ASPIRIN 81 MG ECTAB PO SCH (09:16)
[2019-07-14] MEDS: TAMSULOSIN HCL 0.4 MG CAP PO SCH (09:17)
[2019-07-14] MEDS: LACTOBACILLUS ACIDOPHILUS (FLORANEX) TAB PO SCH ×2 (09:17→12:49)
[2019-07-14] MEDS: METOPROLOL TARTRATE 25 MG TAB PO SCH (09:18)
[2019-07-14] MEDS: MONTELUKAST SODIUM 10 MG TABLET PO SCH (09:18)
[2019-07-14] MEDS: ENOXAPARIN INJ 40 MG/0.4 ML SYR SQ SCH ×2 (09:19→12:12)
[2019-07-14] MEDS: NON-FORMULARY PATIENT'S OWN MED SCH (09:20)
[2019-07-14] MEDS: PSYLLIUM 58.6% POWDER PACKET PO SCH (09:21)
[2019-07-14] MEDS: FAMOTIDINE 20 MG TAB PO SCH (12:48)
--- NOTE | 2019-07-14 13:37 | Pulmonology Progress Note ---
Date of Service July 14, 2019 Assessment & Plan (1) Acute and chronic respiratory failure ([id number]): (2) Pericardial effusion: (3) CAD (coronary artery disease), [place] coronary artery: (4) Pericarditis: (5) COPD exacerbation: Discussion with both patient his and his daughter and with Dr. Boyd in attendance. Be discharged on cefuroxime and azithromycin with a prednisone taper to be left on a chronic maintenance dose at 20 mg for now. I spoke to the hospitalist service and will have patient continue utilizing a flutter valve 3 times daily. Percussion and postural drainage with a vibration vest certainly optional but may have helped patient in the hospital with pulmonary toilet. Could be arranged as an outpatient as needed. Would continue noninvasive positive pressure ventilation in the form of a trilogy unit at home with O2 supplementation. Follow-up with Dr. Boyd and Dr. Parks. No sign for pseudomembranous colitis. Stools negative x3 for C. difficile toxin. 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 Patient seen proved over the past 48 hours when compared to my initial evaluation 3 days ago. He has developed significant diarrhea without crampy abdominal pain or melena. He is oriented and conversant and wishes to go home today. His and daughter were in the room and Dr. Boyd was in attendance. I did speak with the respiratory therapist from [facility] states patient is extremely compliant with the use of the Trilogy unit at home with oxygen at 2-1/2 L per he has a concentrator at home as well as one in the office and does have a portable device as well. He wishes to go home and see no advantage to keeping him hospitalized at this point in time. Review of Systems Constitutional: no problem reported Eyes: no problem reported Ear, Nose, Mouth, Throat: no problem reported Respiratory: no problem reported Cardiovascular: no problem reported Gastrointestinal: no problem reported Genitourinary: no problem reported Musculoskeletal: no problem reported Integumentary: no problem reported Neurologic: no problem reported Psychiatric: no problem reported Endocrine: no problem reported Hematologic / Lymphatic: no problem reported Allergy / Immunological: no problem reported Physical Exam Constitutional: well developed and well nourished; no acute distress Eyes: PERRL, conjunctivae normal, anicteric sclerae ENMT: external ear and nose normal, oropharynx normal Neck: trachea midline, no thyromegaly Respiratory: normal respiratory effort and + hyperresonance to percussion Auscultation: + diminished lung sounds and + wheezes (Digital rhonchi and wheeze right base diminished breath) Cardiovascular: RRR, no murmur, no edema Palpation: normal PMI; no thrill Gastrointestinal (Abdomen): normal bowel sounds, soft, nontender, no hepatosplenomegaly Musculoskeletal: no cyanosis or clubbing, extremities motor strength 5/5 Gait: normal gait Skin: no rashes, warm and dry Neurologic: PERRL, EOMI, accommodation nl, no face palsy, no dysarthria Psychiatric: A+Ox3, euthymic affect Lymphatic: no cervical or axillary lymphadenopathy Results & Data Vital Signs (Past 12 Hours) Vital Signs Temp Pulse Pulse Pulse Resp BP BP 07/14/19 13:01 37.2 C 77 67 18 152/63 H 164/67 H 07/14/19 10:56 67 18 07/14/19 08:19 37.2 C 77 16 152/63 H 07/14/19 07:40 88 21 07/14/19 07:39 20 07/14/19 04:03 76 76 20 Pulse Ox 07/14/19 13:01 94 07/14/19 10:56 94 07/14/19 08:19 94 07/14/19 07:40 96 07/14/19 07:39 95 07/14/19 04:03 97 Laboratory Results Abnormal Labs 07/06/19 07/06/19 07/06/19 20:55 20:55 20:55 RBC 3.60 L Hgb 11.1 L POC Hgb Hct 36.0 L POC Hct MCV MCHC 30.8 L RDW Std Deviation 56.6 H RDW Coeff of [place] 15.3 H Immature Gran # (Auto) Neut # (Auto) Lymph # (Auto) 0.96 L [place] # (Auto) 0.99 H Absolute Nucleated RBC APTT 35.6 H POC pH POC pCO2 POC pO2 POC HCO3 POC Total CO2 POC Base Excess ABG pH ABG pCO2 ABG HCO3 ABG O2 Saturation ABG Base Excess VBG pH VBG pCO2 POC Potassium Carbon Dioxide Anion Gap BUN 24 H Creatinine BUN/Creatinine Ratio Glucose 113 H Calcium Magnesium 2.5 H Iron TIBC Transferrin Ferritin Troponin I Albumin 2.8 L Globulin 4.9 H Albumin/Globulin Ratio 0.6 L Ur Specific [place] Urine Protein Urine Ketones U Epithel Cells (Auto) [place] Type B(1) Ab EBV Capsid Ag IgG Ab EBV EA Restrict+Diffuse 07/06/19 07/07/19 07/07/19 20:55 02:20 06:21 RBC Hgb POC Hgb Hct POC Hct MCV MCHC RDW Std Deviation RDW Coeff of [place] Immature Gran # (Auto) Neut # (Auto) Lymph # (Auto) [place] # (Auto) Absolute Nucleated RBC APTT POC pH POC pCO2 POC pO2 POC HCO3 POC Total CO2 POC Base Excess ABG pH ABG pCO2 ABG HCO3 ABG O2 Saturation ABG Base Excess VBG pH 7.26 L VBG pCO2 73 H POC Potassium Carbon Dioxide Anion Gap BUN 24 H Creatinine BUN/Creatinine Ratio 21.8 H Glucose 144 H Calcium Magnesium Iron TIBC Transferrin Ferritin Troponin I Albumin 2.5 L Globulin 4.6 H Albumin/Globulin Ratio 0.5 L Ur Specific [place] > 1.045 H Urine Protein 1+ H Urine Ketones 1+ H U Epithel Cells (Auto) 10-20 H [place] Type B(1) Ab EBV Capsid Ag IgG Ab EBV EA Restrict+Diffuse 07/07/19 07/07/19 07/07/19 06:21 06:21 06:21 RBC 3.30 L Hgb 9.9 L POC Hgb Hct 32.9 L POC Hct MCV MCHC 30.1 L RDW Std Deviation 55.1 H RDW Coeff of [place] 15.2 H Immature Gran # (Auto) Neut # (Auto) Lymph # (Auto) 0.34 L [place] # (Auto) 0.09 L Absolute Nucleated RBC APTT POC pH POC pCO2 POC pO2 POC HCO3 POC Total CO2 POC Base Excess ABG pH ABG pCO2 ABG HCO3 ABG O2 Saturation ABG Base Excess VBG pH VBG pCO2 POC Potassium Carbon Dioxide Anion Gap BUN Creatinine BUN/Creatinine Ratio Glucose Calcium Magnesium Iron 20 L TIBC 208 L Transferrin 154 L Ferritin 540.8 H Troponin I Albumin Globulin Albumin/Globulin Ratio Ur Specific [place] Urine Protein Urine Ketones U Epithel Cells (Auto) [place] Type B(1) Ab 1:8 H EBV Capsid Ag IgG Ab >750.00 H EBV EA Restrict+Diffuse >150.00 H 07/07/19 07/08/19 07/08/19 13:20 07:21 07:21 RBC 3.58 L Hgb 10.6 L POC Hgb Hct 36.0 L POC Hct MCV 100.6 H MCHC 29.4 L RDW Std Deviation 55.7 H RDW Coeff of [place] 15.0 H Immature Gran # (Auto) Neut # (Auto) Lymph # (Auto) [place] # (Auto) Absolute Nucleated RBC APTT POC pH POC pCO2 POC pO2 POC HCO3 POC Total CO2 POC Base Excess ABG pH 7.29 L ABG pCO2 64 H ABG HCO3 30 H ABG O2 Saturation 96.0 H ABG Base Excess 2.1 H VBG pH VBG pCO2 POC Potassium Carbon Dioxide 33 H Anion Gap BUN 36 H Creatinine BUN/Creatinine Ratio 26.2 H Glucose 172 H Calcium Magnesium Iron TIBC Transferrin Ferritin Troponin I Albumin 2.8 L Globulin 4.9 H Albumin/Globulin Ratio 0.6 L Ur Specific [place] Urine Protein Urine Ketones U Epithel Cells (Auto) [place] Type B(1) Ab EBV Capsid Ag IgG Ab EBV EA Restrict+Diffuse 07/09/19 07/09/19 07/09/19 07:48 09:04 09:05 RBC 3.60 L Hgb 11.0 L POC Hgb 10.2 L Hct 36.7 L POC Hct 30 L MCV 101.9 H MCHC 30.0 L RDW Std Deviation 57.3 H RDW Coeff of [place] 15.3 H Immature Gran # (Auto) Neut # (Auto) 7.89 H Lymph # (Auto) 0.34 L [place] # (Auto) 0.60 H Absolute Nucleated RBC APTT POC pH 7.34 L POC pCO2 73 H POC pO2 < 32 L POC HCO3 39 H POC Total CO2 > 40 H* POC Base Excess 13.0 H ABG pH ABG pCO2 ABG HCO3 ABG O2 Saturation ABG Base Excess VBG pH VBG pCO2 POC Potassium 5.7 H Carbon Dioxide 37 H Anion Gap 1.0 L BUN 37 H Creatinine 1.41 H BUN/Creatinine Ratio 26.5 H Glucose 172 H Calcium Magnesium Iron TIBC Transferrin Ferritin Troponin I 3.300 H* Albumin Globulin Albumin/Globulin Ratio Ur Specific [place] Urine Protein Urine Ketones U Epithel Cells (Auto) [place] Type B(1) Ab EBV Capsid Ag IgG Ab EBV EA Restrict+Diffuse 07/09/19 07/10/19 07/10/19 17:34 07:10 07:10 RBC Hgb POC Hgb Hct POC Hct MCV MCHC RDW Std Deviation RDW Coeff of [place] Immature Gran # (Auto) Neut # (Auto) Lymph # (Auto) [place] # (Auto) Absolute Nucleated RBC APTT POC pH POC pCO2 POC pO2 POC HCO3 POC Total CO2 POC Base Excess ABG pH ABG pCO2 ABG HCO3 ABG O2 Saturation ABG Base Excess VBG pH 7.31 L VBG pCO2 72 H POC Potassium Carbon Dioxide 35 H Anion Gap BUN 44 H Creatinine BUN/Creatinine Ratio 33.9 H Glucose 167 H Calcium Magnesium Iron TIBC Transferrin Ferritin Troponin I 2.680 H* Albumin Globulin Albumin/Globulin Ratio Ur Specific [place] Urine Protein Urine Ketones U Epithel Cells (Auto) [place] Type B(1) Ab EBV Capsid Ag IgG Ab EBV EA Restrict+Diffuse 07/10/19 07/11/19 07/11/19 07:10 06:22 06:22 RBC 3.47 L 3.39 L Hgb 10.2 L 10.0 L POC Hgb Hct 34.9 L 34.1 L POC Hct MCV 100.6 H 100.6 H MCHC 29.2 L 29.3 L RDW Std Deviation 56.0 H 56.1 H RDW Coeff of [place] 15.4 H 15.3 H Immature Gran # (Auto) 0.05 H Neut # (Auto) 7.39 H Lymph # (Auto) 0.65 L [place] # (Auto) 0.79 H Absolute Nucleated RBC APTT POC pH POC pCO2 POC pO2 POC HCO3 POC Total CO2 POC Base Excess ABG pH ABG pCO2 ABG HCO3 ABG O2 Saturation ABG Base Excess VBG pH VBG pCO2 POC Potassium Carbon Dioxide 38 H Anion Gap 2.0 L BUN 36 H Creatinine BUN/Creatinine Ratio 29.3 H Glucose 161 H Calcium 8.3 L Magnesium Iron TIBC Transferrin Ferritin Troponin I Albumin Globulin Albumin/Globulin Ratio Ur Specific [place] Urine Protein Urine Ketones U Epithel Cells (Auto) [place] Type B(1) Ab EBV Capsid Ag IgG Ab EBV EA Restrict+Diffuse 07/11/19 07/12/19 07/12/19 06:26 05:35 05:35 RBC 3.39 L Hgb 9.8 L POC Hgb Hct 33.8 L POC Hct MCV MCHC 29.0 L RDW Std Deviation 54.7 H RDW Coeff of [place] 15.2 H Immature Gran # (Auto) Neut # (Auto) Lymph # (Auto) [place] # (Auto) Absolute Nucleated RBC APTT POC pH POC pCO2 POC pO2 POC HCO3 POC Total CO2 POC Base Excess ABG pH ABG pCO2 ABG HCO3 ABG O2 Saturation ABG Base Excess VBG pH 7.31 L VBG pCO2 80 H POC Potassium Carbon Dioxide 37 H Anion Gap BUN 39 H Creatinine BUN/Creatinine Ratio 35.5 H Glucose 192 H Calcium Magnesium Iron TIBC Transferrin Ferritin Troponin I Albumin Globulin Albumin/Globulin Ratio Ur Specific [place] Urine Protein Urine Ketones U Epithel Cells (Auto) [place] Type B(1) Ab EBV Capsid Ag IgG Ab EBV EA Restrict+Diffuse 07/12/19 07/13/19 07/13/19 05:39 06:19 06:19 RBC 3.45 L Hgb 10.2 L POC Hgb Hct 34.3 L POC Hct MCV MCHC 29.7 L RDW Std Deviation 54.7 H RDW Coeff of [place] 15.0 H Immature Gran # (Auto) Neut # (Auto) Lymph # (Auto) [place] # (Auto) Absolute Nucleated RBC APTT POC pH POC pCO2 POC pO2 POC HCO3 POC Total CO2 POC Base Excess ABG pH ABG pCO2 ABG HCO3 ABG O2 Saturation ABG Base Excess VBG pH 7.35 L 7.31 L VBG pCO2 71 H 79 H POC Potassium Carbon Dioxide Anion Gap BUN Creatinine BUN/Creatinine Ratio Glucose Calcium Magnesium Iron TIBC Transferrin Ferritin Troponin I Albumin Globulin Albumin/Globulin Ratio Ur Specific [place] Urine Protein Urine Ketones U Epithel Cells (Auto) [place] Type B(1) Ab EBV Capsid Ag IgG Ab EBV EA Restrict+Diffuse 07/13/19 07/14/19 07/14/19 06:19 06:31 06:31 RBC 3.64 L Hgb 10.8 L POC Hgb Hct 36.2 L POC Hct MCV MCHC 29.8 L RDW Std Deviation 54.6 H RDW Coeff of [place] 14.9 H Immature Gran # (Auto) Neut # (Auto) Lymph # (Auto) [place] # (Auto) Absolute Nucleated RBC 0.02 H APTT POC pH POC pCO2 POC pO2 POC HCO3 POC Total CO2 POC Base Excess ABG pH ABG pCO2 ABG HCO3 ABG O2 Saturation ABG Base Excess VBG pH 7.34 L VBG pCO2 78 H POC Potassium Carbon Dioxide 39 H Anion Gap 2.0 L BUN 38 H Creatinine BUN/Creatinine Ratio 35.7 H Glucose 176 H Calcium Magnesium Iron TIBC Transferrin Ferritin Troponin I Albumin Globulin Albumin/Globulin Ratio Ur Specific [place] Urine Protein Urine Ketones U Epithel Cells (Auto) [place] Type B(1) Ab EBV Capsid Ag IgG Ab EBV EA Restrict+Diffuse 07/14/19 06:31 RBC Hgb POC Hgb Hct POC Hct MCV MCHC RDW Std Deviation RDW Coeff of [place] Immature Gran # (Auto) Neut # (Auto) Lymph # (Auto) [place] # (Auto) Absolute Nucleated RBC APTT POC pH POC pCO2 POC pO2 POC HCO3 POC Total CO2 POC Base Excess ABG pH ABG pCO2 ABG HCO3 ABG O2 Saturation ABG Base Excess VBG pH VBG pCO2 POC Potassium Carbon Dioxide 40 H Anion Gap 2.0 L BUN 39 H Creatinine BUN/Creatinine Ratio 33.9 H Glucose 182 H Calcium Magnesium Iron TIBC Transferrin Ferritin Troponin I Albumin Globulin Albumin/Globulin Ratio Ur Specific [place] Urine Protein Urine Ketones U Epithel Cells (Auto) [place] Type B(1) Ab EBV Capsid Ag IgG Ab EBV EA Restrict+Diffuse Medications Administered Current Inpatient Medications Acetaminophen (Tylenol) 650 mg PO Q4H PRN PRN Reason: Pain or Fever Stop: 08/06/19 01:20 Last Admin: 07/08/19 09:01 Dose: 650 mg Documented by: Al Hydrox/Mg Hydrox/Simethicone (Maalox) 15 ml PO Q4H PRN PRN Reason: Dyspepsia Stop: 08/06/19 01:20 Albuterol (Duoneb) 3 ml NEB QIDR PRN PRN Reason: dyspnea Stop: 08/06/19 02:29 Albuterol (Duoneb) 3 ml NEB Q4R DANNA Stop: 08/06/19 14:59 Last Admin: 07/14/19 10:56 Dose: 3 ml Documented by: Allopurinol (Zyloprim) 300 mg PO DAILY [facility] Stop: 08/06/19 08:59 Last Admin: 07/14/19 09:15 Dose: 300 mg Documented by: Aspirin (Ecotrin Ectab) 81 mg PO BID [facility] Stop: 08/06/19 01:20 Last Admin: 07/14/19 09:16 Dose: 81 mg Documented by: Atorvastatin Calcium (Lipitor) 80 mg PO QPM [facility] Stop: 08/06/19 20:59 Last Admin: 07/13/19 20:12 Dose: 80 mg Documented by: Budesonide/Formoterol Fumarate (Symbicort 160mcg/4.5mcg) 2 puffs INH WEEKLY [facility] Stop: 08/06/19 01:20 Colchicine (Colcrys) 0.6 mg PO QAM [facility] Stop: 08/12/19 08:59 Last Admin: 07/14/19 09:16 Dose: 0.6 mg Documented by: Enoxaparin Sodium (Lovenox) 40 mg SQ QAM [facility] Stop: 08/06/19 14:59 Last Admin: 07/14/19 12:12 Dose: Not Given Documented by: Famotidine (Pepcid) 40 mg PO DAILY [facility] Stop: 08/06/19 08:59 Last Admin: 07/14/19 12:48 Dose: 40 mg Documented by: Guaifenesin (Mucinex) 600 mg PO Q12 [facility] Stop: 08/09/19 08:59 Last Admin: 07/14/19 08:55 Dose: 600 mg Documented by: Hydrocodone Bit/Homatropine Methylb (Hycodan) 5 ml PO Q8H PRN PRN Reason: Cough Stop: 07/21/19 16:11 Last Admin: 07/09/19 23:22 Dose: 5 ml Documented by: Cefepime HCl 2,000 mg/ Syringe 20 mls @ 5.5 mls/min IV BID@0600,1800 [facility]; Protocol Stop: 07/19/19 18:59 Last Admin: 07/14/19 05:58 Dose: 5.5 mls/min Documented by: Isosorbide Mononitrate (Imdur Extended Rel) 60 mg PO DAILY [facility] Stop: 08/06/19 08:59 Last Admin: 07/14/19 09:15 Dose: 60 mg Documented by: Lactobacillus Acidophilus (Floranex) 4 tab PO TIDM [facility] Stop: 08/09/19 07:59 Last Admin: 07/14/19 12:49 Dose: 4 tab Documented by: Magnesium Hydroxide (Milk Of Magnesia) 30 ml PO Q12H PRN PRN Reason: Constipation Stop: 08/06/19 01:20 Metoprolol Tartrate (Lopressor) 75 mg PO BID [facility] Stop: 08/08/19 08:59 Last Admin: 07/14/19 09:18 Dose: 75 mg Documented by: Montelukast Sodium (Singulair) 10 mg PO DAILY [facility] Stop: 08/06/19 08:59 Last Admin: 07/14/19 09:18 Dose: 10 mg Documented by: Nitroglycerin (Nitrostat) 0.4 mg SL Q5M PRN PRN Reason: chest pain Stop: 08/06/19 01:20 Non-Formulary Medication (Non-Formulary Patient's Own Med) 1 ea N/A BID [facility] Stop: 08/09/19 20:59 Last Admin: 07/14/19 09:20 Dose: 1 tab Documented by: Ondansetron HCl (Zofran) 4 mg IV Q6H PRN PRN Reason: Nausea Stop: 08/06/19 01:20 Prednisone (Prednisone) 50 mg PO BID [facility] Stop: 08/13/19 08:59 Last Admin: 07/14/19 12:48 Dose: 50 mg Documented by: Psyllium Hydrophilic Mucilloid (Metamucil) 1 pkt PO QAM [facility] Stop: 08/11/19 08:59 Last Admin: 07/14/19 09:21 Dose: 1 pkt Documented by: Sodium Chloride (Sodium Chlor 7% Neb Solution) 4 ml INH BIDR [facility] Stop: 08/11/19 18:59 Last Admin: 07/13/19 19:02 Dose: 4 ml Documented by: Tamsulosin HCl (Flomax) 0.4 mg PO DAILY [facility] Stop: 08/06/19 08:59 Last Admin: 07/14/19 09:17 Dose: 0.4 mg Documented by: Vitamin D (Vitamin D3) 1,000 units PO DAILY [facility] Stop: 08/06/19 08:59 Last Admin: 07/14/19 09:14 Dose: 1,000 units Documented by: PG Care Time/CCT Total # of Minutes Spent Total Time Spent with Patient: Total time spent is greater than 50% in coordination of care (as documented) at patient's floor/unit and/or counseling patient:
--- NOTE | 2019-07-14 19:11 | Discharge Summary ---
Date of Service July 14, 2019 Admission HPI Per Admitting Provider The patient is a 83-year-old male who has been having difficulty breathing over the past 1 to 2 months. He was recently seen by his PCP in the outpatient setting, and started on an azithromycin. He was seen by cardiology earlier in the day today, who as part of their work-up, did an EKG suggestive of inferior lateral ischemia. The patient was then recommended to go to the emergency department. However, the patient did refused to go. He did have a troponin test which was negative, and then he went home. Patient presents to the emergency department tonight with persistent and worsening shortness of breath. Upon arrival in the ED, he was found to be in respiratory distress, and was placed on BiPAP by the ED staff. Admission Exam Per Admitting Provider The patient is awake, alert and oriented 3, has BiPAP mask in place, lying in bed and in no acute distress. HEENT--PERRL, EOMI, mucous membranes and oropharynx dry. Neck--supple. No JVD. No bruits. Thyroid normal, trachea midline, no adenopathy. Heart--normal S1 and S2. No murmurs, rubs or gallops. Lungs--diminished throughout. Initially described as moderate respiratory distress, no accessory muscle use. Abdomen--normal bowel sounds and soft. Nontender. Nondistended. Extremities--no cyanosis or clubbing. No edema. There are good distal pulses b/l. Dermatologic--normal skin turgor, normal color, no abnormal lymph nodes, no rash. Neurologic--cranial nerves II through XII grossly intact. Rheumatologic--normal range of motion. Psychiatric--normal affect. Principal Diagnosis Acute COPD exacerbation Diarrhea Pericarditis CELESTINO HTN Gout GERD V-tach Anemia Hernia CAD Discharge Exam Constitutional well developed, cooperative and comfortable; no acute distress Eyes + abnormal pupil size; pupils not fixed Respiratory + labored breathing and + stridor improved lung exam with coarse sounds in the right lung [place]orga Cardiovascular RRR, no murmur, no edema Extremities: no edema Gastrointestinal (Abdomen) normal bowel sounds, soft, nontender, no hepatosplenomegaly Skin no rashes, warm and dry Neurologic alert and aware with no focal deficits Psychiatric Orientation: alert and cooperative Eye Contact: good eye contact Speech: no pressured speech Discharge Data Allergies Allergy/AdvReac Type Severity Reaction Status Date / Time amoxicillin Allergy Mild itching Unverified 07/07/19 00:27 clavulanic acid Allergy Mild itching Unverified 07/07/19 00:27 Consultations 07/06/19 21:53 ED Decision to Admit Stat 07/07/19 01:21 Consult Cardiology Routine Consult Case Management - Discharge Planning Routine 07/07/19 09:33 Consult Pulmonology Routine Ordered Studies 07/06/19 22:12 CT angio chest PE protocol Stat 07/09/19 02:17 CT head/brain wo con Urgent Hospital Course (1) Acute and chronic respiratory failure ([id number]): 83 yo M w/ PMHx.: COPD emphysema, s/p RUL lobectomy for SCC, 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 Acute on chronic hypoxic/hypercapneic respiratory failure -sec to copd exacerbation -kept on bipap. later hospital stay he needed it mostly at night. -CO2 level mostly around 70 in the mornings. -to continue home O2. instructed to keep SaO2 88-90 - continue use of Trilogy unit at home acute COPD exacerbation potentially 2/2 viral infection - CTA of the chest showed the following: No PE, mild to moderate pericardial effusion, BL trace pleural effusions, s/p right upper lobectomy, diffuse severe emphysema, incidental L thyroid nodule. -started on IV steroids and IV zithromycin and nebs. - Pulmonology consulted. -started on cefepime as well. -percussion vest -flutter valve -With improvement - home on -Cefuroxime 500 mg BID w/ EOT date 07/21, Azithromycin 250 mg daily, prednisone, flutter valve - To Continue home meds - Duonebs Q4, Singulair 10 mg PO daily, Symbicort - Patient interested in percussion vest at home, discussed with care management unable to obtain prior to discharge, will follow up with Dr. Parks to further pursue Pericarditis possibly 2/2 viral infection - Viral panel reviewed with Coxsackie Type B(1) ab positive - ECHO on 07/10 showing trivial fluid and systolic function normal - was already on steroid for copd and later started on colchicine. symptoms much improved. colchicine d/tanmay on discharge due to diarrhea. V-tach with no prior history potentially 2/2 hypoxia - Resolved, cardiology followed and increased metoprolol dose to 75 mg CELESTINO (resolved) - Continue home dose of 40 mg Lasix twice a week Diarrhea w/ negative c. diff. X3 (resolved) - Secondary to Azithromycin or Colchicine - discontinued Colchicine Hx. of CAD - Continue home Atorvastatin 80 mg PO QPM - Continue home ASA 81 mg daily GERD - Continue Famotidine 40 mg Gout - Continue Allopurinol 300mg Code: full Total Time Total Time Spent Total Time Spent (In Minutes): 30 Discharge Plan Discharge Items Patient Disposition: Home - Self-Care Reason For Visit: SOB,DENSON,PERICARDITIS Discharge Diagnosis: COPD exacerbation resolving Activity: Per Instructions section Non-emergency contact: Primary Care Provider Call non-emergency contact if: your symptoms worsen Follow-up/Referrals: Jerry Boyd MD [Primary Care Provider] - (Please, follow up at Dr. oByd's office. *A nurse from this office will call you with the appointment details. If you have any questions, call the office at [phone].) Diet: Heart Healthy Addtl Attending Provider Instructions: Mr. Law was admitted for acute worsening of his COPD possibly caused by a viral infection. You also had pericarditis that was seen to be improved with ultrasound imaging. You had a pericardial effusion (fluid on the heart) that improved over your hospitalization and found to have resolve on ultrasound imaging of the heart. Mr. Law has improved with his breathing over the course of his hospital stay. You are on 3L of oxygen now, you can regulate the amount of oxygen that you require to stay at an oxygen saturation of low 90s. You were found to have an acute worsening of your COPD and for this we gave you steroids to help with the inflammation. You will continue the an oral steroid ta per. Take 50 mg on the day of discharge, and then take: 80 mg (40mg twice a day) for 3 days, 60 mg (30mg twice a day) for 3 days, 40 mg (20mg twice a day) for 3 days After you finish the taper, we would like continue Prednisone 20 mg daily until you see your [facility]. You were also given Azithromycin and you will take this indefinitely. This is a antibiotic used to help prevent pneumonia. In addition, you will complete a course of an antibiotic called cefuroxime. You were noted to have an increased heart rate and we increased your Metoprolol from 50 to 75 mg with no further increased heart rate noted after this change. Follow up will be with your primary care doctor Oliver. We are sending you home with a flutter valve. Please use as instructed. Warning signs to look out for include: worsening shortness of breath and increased work of breathing with increased use of stomach muscles and chest muscles to breath. If breathing worsens and you notice increased confusion this may be due to continued worsening of you COPD. If you are noticing chest pain or irregular heart rate with dizziness or feeling light headed this is concerning for an increased heart rate, or worsening of the Pericarditis. If you notice any of these warning signs we would like for you to be evaluated by either calling or returning. Pending Studies at Discharge: No Stand-Alone Forms: My [facility] Medications and DC Order Prescriptions: New azithromycin 250 mg tablet 250 mg PO DAILY 14 Days Qty: 14 RF: 0 prednisone 10 mg tablet 10 mg PO DAILY Qty: 60 RF: 0 prednisone 20 mg tablet 20 mg PO DAILY 30 Days Qty: 30 RF: 0 cefuroxime axetil 500 mg tablet 500 mg PO BID Qty: 7 RF: 0 prednisone 50 mg tablet 50 mg PO ONCE Qty: 1 RF: 0 Continued isosorbide mononitrate 60 mg tablet extended release 24 hr 60 mg PO DAILY Qty: 90 RF: 3 tamsulosin 0.4 mg capsule 0.4 mg PO DAILY Qty: 90 RF: 1 montelukast 10 mg tablet 10 mg PO DAILY Qty: 30 RF: 0 allopurinol 300 mg tablet 300 mg PO DAILY RF: 0 atorvastatin 80 mg tablet 80 mg PO QPM RF: 0 metoprolol tartrate 25 mg tablet 75 mg PO DAILY RF: 0 aspirin [Adult Aspirin Regimen] 81 mg tablet,delayed release (DR/EC) 81 mg PO DAILY RF: 0 cholecalciferol (vitamin D3) 1,000 unit capsule 1,000 units PO DAILY RF: 0 Xiidra 5 % dropperette 1 drops OP BID RF: 0 famotidine 20 mg tablet 40 mg PO DAILY RF: 0 furosemide 40 mg tablet 40 mg PO 2XWK RF: 0 nitroglycerin 0.4 mg tablet, sublingual 0.4 mg SL Q5M PRN (Reason: chest pain) RF: 0 Symbicort 160-4.5 mcg/actuation HFA aerosol inhaler 2 puffs INH WEEKLY RF: 0 ipratropium-albuterol 0.5 mg-3 mg(2.5 mg base)/3 mL solution for nebulization See Rx Instructions .ROUTE .COMPLEX Qty: 180 RF: 12 albuterol sulfate [Ventolin HFA] 90 mcg/actuation HFA aerosol inhaler See Patient Comments INH Q6H PRN (Reason: sob) Qty: 0 RF: 0 Discontinued prednisone 10 mg tablet 10 mg PO DAILY Qty: 100 RF: 0 cefuroxime axetil 500 mg tablet 500 mg PO BID Qty: 20 RF: 0 Discharge Orders: Discharge Order (Routine); Ordered 07/14/19 Ordered By: Pawel Russ/Other Patient Handouts: DVT Prevent Admission Data Admit Date/Time: 07/07/19 00:32 Attending Provider: Hansa Haider Admit Provider: Timothy Bowen Primary Care Provider: Jerry Boyd Other Providers: Mei Leon ; Clifford Jaramillo ; Pawel Resendiz ; Timothy Bowen ; Lloyd Shultz ; Chapin Hagen Other Interventions: Discharge Summary Assessment (RN) Last Done: 07/14/19 13:01 DC Date/Time DO NOT enter until pt leaves facility: 07/14/19 14:07 Supervising Physician Co-Signing Physician Notes Resident Physician Supervision Note: I independently interviewed and examined the patient and verified the kohli history and physical, reviewed labs and image studies, discussed the case with the resident Dr. Resendiz and agree with the findings and care plan. Resident Activity Tracking Resident Involvement: Resident Care Provided Care Provided: Adult Hospital Medicine
== END 2019-07-14 14:07 | disposition home or self-care (01) | DRG 314 ==
LOC: ED 20:31 → SUATTDRO 07-07 00:32 → 2E 07-07 00:32 → 3E 07-12 14:34

== ENCOUNTER 2020-10-17 16:32 | Inpatient (IN) ==
--- NOTE | 2020-10-17 16:55 | Emergency Department Note ---
Impression & Plan Acute hypoxemic respiratory failure, COPD (chronic obstructive pulmonary disease) ED Provider Note NAME: JESSICA ALBA AGE: 84 SEX: M : 1935 ARRIVES VIA: Walk-In INFORMANT: Patient, ED PROVIDER(S): Tacho Ledezma MD Chief Complaint: Shortness of breath HPI: Patient has had worsening shortness of breath over the last 2 weeks with associated nonproductive dry cough. The patient does use 2 L of oxygen at baseline but has felt in need to use the CPAP that he has at home more and more. The patient is accompanied by his daughter who states that they did try using this during the day and try to increase his pressure but it did not seem to improve as his sats were in the low 80s. Patient does have a known history of COPD along with pulmonary hypertension and aortic stenosis. The patient's primary care physician Dr. Almanza Recommended them to present today as they were concerned about the possibility of elevated CO2 levels. Patient denies any chest pains. Patient denies any fevers or chills. Patient denies any active smoking. Patient denies any sick contacts or recent travel. ROS: See HPI for pertinent positives and negatives. A total of 10 systems were reviewed and otherwise negative. Past medical history: See below Surgical history: See below Social history: See below Physical Exam: GENERAL: Well appearing, well nourished, NAD, non-toxic. EYE EXAM: Normal conjunctiva. PERRL, no anisocoria and EOM's grossly intact w/o pain. NECK: Supple, no nuchal rigidity, no adenopathy, non-tender. No signs of meningismus. LUNGS: Mild tachypnea noted, diffuse wheezing throughout. HEART: Tachycardic and regular, no MRG. ABDOMEN: Abdomen soft, non-tender, normo-active bowel sounds, no masses, no rebound or guarding. BACK: No CVA TTP. SKIN: No rashes and no bruising. UPPER EXTREMITIES: Upper extremities are grossly normal. LOWER EXTREMITIES: Grossly normal. NEURO EXAM: A&O x3, cranial nerves II-XII grossly intact, normal speech, moves all 4 extremities on command w/o issue. Differential diagnoses: Reactive airway disease, pneumonia, pneumothorax, COPD, CHF, infections, cardiac ischemia, pulmonary embolism, musculoskeletal, gastrointestinal, as well as other pathologies. Course: Patient was seen and evaluated the bedside. Full history physical exam was performed. EKG: Indication: Shortness of breath EKG shows sinus tachycardia rate of 104 with normal intervals and axis, T wave inversion in lead III. No obvious changes from comparison EKG July 09, 2019. Imaging Studies: Radiology results as stated below per my review in the radiologist's interpretation: XR chest 1V portable HISTORY: 84 years-old Male SEPSIS acute sepsis COMPARISON: Chest CT 09/23/2020, chest radiograph 04/09/2020 TECHNIQUE: Portable AP view of the chest FINDINGS: Cardiac silhouette is enlarged. Postsurgical and posttreatment related changes of the right lung redemonstrated with right lung volume loss. Emphysema with chronic interstitial coarsening. No pneumothorax, pleural effusion, overt pulmonary edema or new airspace consolidation. Compensatory hyperinflation of the left lung. Degenerative changes of the shoulders and spine. IMPRESSION: 1. No acute process. 2. Chronic postsurgical and posttreatment related changes of the right lung. 3. Emphysema. ACT 112: Negative or not required by law. The above report was generated using voice recognition software. It may contain grammatical, syntax or spelling errors. Electronically signed by: Diaz Aguilar M.D. 10/17/2020 6:57 PM Dictated: 10/17/201854Transcribed: 10/17/201854 Cardiac monitoring: An order was placed for continuous cardiac monitoring. The monitor shows a rate of 100 with sinus rhythm. MDM: Patient was seen due to concern for increasing shortness of breath. Patient was placed on BiPAP given the patient's low oxygen saturations in triage and work of breathing. Blood work was obtained and the patient was given magnesium and steroids as there was a concern for the possibility of a COPD exacerbation. VBG was also obtained along with a Covid swab. EKG shows sinus tach with no acute changes. Patient has a normal white count mild anemia with hemoglobin of 10 and normal platelet count. Patient's VBG does show elevated PCO2 but relatively normal pH at 7.34. The patient does have elevated bicarb likely consistent with the patient's chronic CO2 retention. I did attempt to titrate the patient's respiratory pressure as well as PEEP along with FiO2. And even slight changes the patient with sometimes desats into the 80s. The patient does not appear confused or somnolent. Rapid Covid was negative. Urinalysis does have leuks and whites but numerous epithelial cells and no reports of any urinary complaints. Given the patient's likely requirement for the BiPAP and hypoxic re spiratory failure I do believe the patient would benefit from inpatient treatment for continued steroids and nebs. I did speak with the on-call hospitalist Dr. Sheppard. The patient was admitted to the medicine service. Critical Care: I have personally spent 45 minutes of critical care time in direct management of this patient. This includes bedside care, interpretation of diagnostic studies, and testing, discussion with consultants, patient, and family members, and other require inpatient management activities. This 45 minutes is in excess of all separately billable procedures. 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 Thyroid nodule Surgical History History of appendectomy History of cataract surgery History of lobectomy of lung History of shoulder surgery Hx of cholecystectomy Family History Father Leukemia Social History Smoking Status: Former smoker Second Hand Exposure: No; Hx Alcohol Use: Yes Alcohol type: hard liquor Hx Substance Use: No Preferred Language: Yoruba Communication Ability: Effective Ratoprinter Required: No Beliefs That Will Affect Care: Jew Jew Beliefs: Priti Current Living Situation: Spouse Feels Safe at Home: Yes Assistive Devices: BiPap Allergies Allergies Allergy/AdvReac Type Severity Reaction Status Date / Time amoxicillin Allergy Mild itching Verified 09/24/20 16:04 clavulanic acid Allergy Mild itching Verified 09/24/20 16:04 Home Meds Home Medications Medication Instructions Recorded Confirmed aspirin 81 mg tablet,delayed 81 mg PO DAILY 05/20/19 10/17/20 release cholecalciferol (vitamin D3) 25 1,000 units PO DAILY 05/20/19 10/17/20 mcg (1,000 unit) capsule nitroglycerin 0.4 mg sublingual 0.4 mg SL Q5M PRN tab 06/14/19 10/17/20 tablet azithromycin 250 mg PO DAILY 10/17/20 10/17/20 budesonide-formoterol [Symbicort] 2 puff INHALATION BID 10/17/20 10/17/20 furosemide 40 mg PO 3XWK 10/17/20 10/17/20 ipratropium-albuterol 3 ml INHALATION BID 10/17/20 10/17/20 lidocaine 1 patch TOPICAL DAILY 10/17/20 10/17/20 metoprolol tartrate 100 mg PO DAILY 10/17/20 10/17/20 Previous Rx's Medication Instructions Recorded allopurinol 300 mg tablet 300 mg PO DAILY #90 tab 01/30/20 montelukast 10 mg tablet 10 mg PO DAILY #90 tab 05/21/20 tamsulosin 0.4 mg capsule 0.4 mg PO DAILY #90 cap 06/11/20 atorvastatin 80 mg tablet 80 mg PO QPM #90 tab 06/19/20 tobramycin with nebulizer 300 mg/5 300 mg INHALATION .COMPLEX #150 ml 07/04/20 mL solution for nebulization isosorbide mononitrate 60 mg 60 mg PO DAILY #90 tab 07/26/20 tablet,extended release 24 hr tiotropium bromide 2.5 2 puff INHALATION DAILY #1 inhaler 08/22/20 mcg/actuation mist for inhalation prednisone 20 mg tablet 20 mg PO DAILY #60 tab 10/02/20 famotidine 40 mg tablet 40 mg PO BID #180 tab 10/07/20 tramadol 50 mg tablet 50 mg PO Q4H PRN #180 tab 10/07/20 albuterol sulfate 90 mcg/actuation 2 puff INH Q6H PRN #18 gm 10/17/20 aerosol inhaler Results & Data (ED) Vital Signs Vital Signs - 24 hr 10/17/20 16:46 10/17/20 17:00 10/17/20 17:20 Temperature 36.3 C L Temperature Source Temporal Artery Scan Pulse Rate 104 H Pulse Rate [Apical] Pulse Rate from SpO2 Sensor Respiratory Rate 28 H Respiratory Effort / Characteristics Short of Breath Non-Labored SOB on Exertion Labored Short of Breath SOB on Exertion Respiratory Depth Normal Respiratory Pattern Regular Blood Pressure 119/77 Blood Pressure [Left Arm] Blood Pressure Mean 91 Blood Pressure Mean [Left Arm] Blood Pressure Position Sitting Pulse Oximetry 81 L 92 Oxygen Delivery Method Nasal Cannula Nasal Cannula Nasal Cannula Oxygen Flow Rate 2 3 3 Fraction of Inspired Oxygen SaO2/FiO2 Ratio Sepsis Recent Fever Within 48 Hours No Sepsis New/Unexplained Change in Mental Status No Sepsis Action Taken by Nursing Physician Notified 10/17/20 17:36 10/17/20 17:38 10/17/20 17:45 Temperature Temperature Source Pulse Rate 104 H 103 H 102 H Pulse Rate [Apical] Pulse Rate from SpO2 Sensor 105 H 102 H Respiratory Rate 23 24 22 Respiratory Effort / Characteristics Non-Labored Spontaneous Respiratory Depth Normal Respiratory Pattern Regular Blood Pressure Blood Pressure [Left Arm] Blood Pressure Mean Blood Pressure Mean [Left Arm] Blood Pressure Position Pulse Oximetry 98 100 97 Oxygen Delivery Method Oxygen Flow Rate Fraction of Inspired Oxygen 28 SaO2/FiO2 Ratio Sepsis Recent Fever Within 48 Hours Sepsis New/Unexplained Change in Mental Status Sepsis Action Taken by Nursing 10/17/20 17:50 10/17/20 18:00 10/17/20 18:12 Temperature Temperature Source Pulse Rate 100 H 103 H Pulse Rate [Apical] Pulse Rate from SpO2 Sensor 100 H 103 H Respiratory Rate 23 19 Respiratory Effort / Characteristics SOB on Exertion Respiratory Depth Respiratory Pattern Blood Pressure 118/62 Blood Pressure [Left Arm] Blood Pressure Mean 98 Blood Pressure Mean [Left Arm] Blood Pressure Position Pulse Oximetry 96 92 Oxygen Delivery Method Oxygen Flow Rate Fraction of Inspired Oxygen SaO2/FiO2 Ratio Sepsis Recent Fever Within 48 Hours Sepsis New/Unexplained Change in Mental Status Sepsis Action Taken by Nursing 10/17/20 18:15 10/17/20 18:20 10/17/20 18:23 Temperature Temperature Source Pulse Rate 100 H Pulse Rate [Apical] Pulse Rate from SpO2 Sensor 100 H Respiratory Rate 20 Respiratory Effort / Characteristics SOB on Exertion Respiratory Depth Respiratory Pattern Blood Pressure Blood Pressure [Left Arm] Blood Pressure Mean Blood Pressure Mean [Left Arm] Blood Pressure Position Pulse Oximetry 98 Oxygen Delivery Method BiPAP Oxygen Flow Rate Fraction of Inspired Oxygen SaO2/FiO2 Ratio Sepsis Recent Fever Within 48 Hours Sepsis New/Unexplained Change in Mental Status Sepsis Action Taken by Nursing 10/17/20 18:30 10/17/20 18:31 10/17/20 19:00 Temperature Temperature Source Pulse Rate 101 H 100 H Pulse Rate [Apical] 100 H Pulse Rate from SpO2 Sensor 99 H 100 H Respiratory Rate 20 20 20 Respiratory Effort / Characteristics SOB on Exertion Respiratory Depth Respiratory Pattern Blood Pressure 132/65 Blood Pressure [Left Arm] 122/69 Blood Pressure Mean 101 Blood Pressure Mean [Left Arm] 86 Blood Pressure Position Pulse Oximetry 90 94 89 L Oxygen Delivery Method BiPAP Oxygen Flow Rate Fraction of Inspired Oxygen 28 SaO2/FiO2 Ratio 317 Sepsis Recent Fever Within 48 Hours Sepsis New/Unexplained Change in Mental Status Sepsis Action Taken by Nursing 10/17/20 19:05 10/17/20 19:30 10/17/20 20:00 Temperature Temperature Source Pulse Rate 100 H 100 H Pulse Rate [Apical] Pulse Rate from SpO2 Sensor Respiratory Rate 20 21 Respiratory Effort / Characteristics Non-Labored Spontaneous Non-Labored Respiratory Depth Normal Respiratory Pattern Regular Blood Pressure 124/73 Blood Pressure [Left Arm] Blood Pressure Mean 101 Blood Pressure Mean [Left Arm] Blood Pressure Position Pulse Oximetry 92 98 Oxygen Delivery Method Oxygen Flow Rate 3 Fraction of Inspired Oxygen 28 SaO2/FiO2 Ratio Sepsis Recent Fever Within 48 Hours Sepsis New/Unexplained Change in Mental Status Sepsis Action Taken by Nursing 10/17/20 21:00 10/17/20 21:30 10/17/20 21:31 Temperature Temperature Source Pulse Rate 104 H 113 H 110 H Pulse Rate [Apical] Pulse Rate from SpO2 Sensor 109 H 111 H Respiratory Rate 24 23 20 Respiratory Effort / Characteristics Respiratory Depth Respiratory Pattern Blood Pressure 135/78 160/93 H Blood Pressure [Left Arm] Blood Pressure Mean 84 133 Blood Pressure Mean [Left Arm] Blood Pressure Position Pulse Oximetry 97 95 93 Oxygen Delivery Method BiPAP Oxygen Flow Rate Fraction of Inspired Oxygen 30 SaO2/FiO2 Ratio Sepsis Recent Fever Within 48 Hours Sepsis New/Unexplained Change in Mental Status Sepsis Action Taken by Care Home Medications Current Medication List: was personally reviewed by me Laboratory Data Attestation: I reviewed the patient's lab results. Result diagrams: 10/17/20 17:34 10/17/20 17:34 Lab Results 10/17/20 10/17/20 10/17/20 Range/Units 17:34 17:34 17:34 WBC 7.70 (4.8-10.8) K/uL RBC 3.51 L (4.7-6.1) M/uL Hgb 10.6 L (14.0-18.0) g/dL Hct 34.4 L (42-52) % MCV 98.0 (80-100) fL MCH 30.2 (25-34) pg MCHC 30.8 L (32-36) g/dL RDW Std Deviation 56.8 H (36.4-46.3) fL RDW Coeff of [place] 15.8 H (11.5-14.5) % Plt Count 291 (130-400) K/uL MPV 9.3 (7.4-10.4) fL Immature Gran % (Auto) 0.5 % Neut % (Auto) 61.8 % Lymph % (Auto) 19.7 % [place] % (Auto) 16.1 % Eos % (Auto) 1.8 % Baso % (Auto) 0.1 % Neut # (Auto) 4.75 (1.4-6.5) K/uL Lymph # (Auto) 1.52 (1.2-3.4) K/uL [place] # (Auto) 1.24 H (0.11-0.59) K/uL Eos # (Auto) 0.14 (0-0.5) K/uL Baso # (Auto) 0.01 (0-0.2) K/uL Immature Gran # (Auto) 0.04 H (0.00-0.02) K/uL PT 11.8 (9.0-12.0) Seconds INR 1.1 (0.9-1.1) APTT 31.0 (21.0-31.0) Seconds PTT Ratio 1.1 VBG pH (7.36-7.41) VBG pCO2 (38-50) mmHg VBG pO2 mmHg VBG HCO3 mmol/L VBG O2 Saturation % VBG Base Excess mEq/L Barometric Pressure mm/Hg Sodium 139 (136-145) mmol/L Potassium 4.2 (3.5-5.1) mmol/L Chloride 97 L (98-107) mmol/L Carbon Dioxide 36 H (21-32) mmol/L Anion Gap 6.0 (3-11) BUN 17 (7-18) mg/dl Creatinine 1.18 (0.6-1.4) mg/dl Est Cr Clr Drug Dosing Not Reportable Est GFR ( Amer) 65.7 Est GFR (Non-Af Amer) 56.7 BUN/Creatinine Ratio 14.2 (10-20) Glucose 128 H (70-99) mg/dl Lactate (0.4-2.0) mmol/L Calcium 9.4 (8.5-10.1) mg/dl Magnesium 2.0 (1.8-2.4) mg/dl Total Bilirubin 0.7 (0.2-1) mg/dl AST 34 (15-37) U/L ALT 38 (12-78) U/L Alkaline Phosphatase 87 (45-117) U/L Troponin I 0.021 (0-0.045) ng/ml Total Protein 7.2 (6.4-8.2) gm/dl Albumin 2.5 L (3.4-5.0) gm/dl Globulin 4.7 H (2.5-4.0) gm/dl Albumin/Globulin Ratio 0.5 L (0.9-2) Procalcitonin (0-0.5) ng/ml Urine Color Urine Appearance (Clear) Urine pH (4.5-7.5) Ur Specific [place] (1.000-1.030) Urine Protein (Negative) Urine Glucose (UA) (Negative) Urine Ketones (Negative) Urine Blood (Negative) Urine Nitrite (Negative) Urine Bilirubin (Negative) Urine Urobilinogen (Negative) Ur Leukocyte Esterase (Negative) Urine WBC (Auto) (0-5) /hpf Urine RBC (Auto) (0-4) /hpf U Hyaline Cast (Auto) (0-5) /lpf U Epithel Cells (Auto) (0-5) /lpf Urine Bacteria (Auto) (Negative) Ur Renal Epithelial Cell (0-5) /lpf COVID-19 Eval Order SARS-CoV-2, RNA, NAAT (NEGATIVE) 10/17/20 10/17/20 10/17/20 Range/Units 17:34 17:34 18:20 WBC (4.8-10.8) K/uL RBC (4.7-6.1) M/uL Hgb (14.0-18.0) g/dL Hct (42-52) % MCV (80-100) fL MCH (25-34) pg MCHC (32-36) g/dL RDW Std Deviation (36.4-46.3) fL RDW Coeff of [place] (11.5-14.5) % Plt Count (130-400) K/uL MPV (7.4-10.4) fL Immature Gran % (Auto) % Neut % (Auto) % Lymph % (Auto) % [place] % (Auto) % Eos % (Auto) % Baso % (Auto) % Neut # (Auto) (1.4-6.5) K/uL Lymph # (Auto) (1.2-3.4) K/uL [place] # (Auto) (0.11-0.59) K/uL Eos # (Auto) (0-0.5) K/uL Baso # (Auto) (0-0.2) K/uL Immature Gran # (Auto) (0.00-0.02) K/uL PT (9.0-12.0) Seconds INR (0.9-1.1) APTT (21.0-31.0) Seconds PTT Ratio VBG pH (7.36-7.41) VBG pCO2 (38-50) mmHg VBG pO2 mmHg VBG HCO3 mmol/L VBG O2 Saturation % VBG Base Excess mEq/L Barometric Pressure mm/Hg Sodium (136-145) mmol/L Potassium (3.5-5.1) mmol/L Chloride (98-107) mmol/L Carbon Dioxide (21-32) mmol/L Anion Gap (3-11) BUN (7-18) mg/dl Creatinine (0.6-1.4) mg/dl Est Cr Clr Drug Dosing Est GFR ( Amer) Est GFR (Non-Af Amer) BUN/Creatinine Ratio (10-20) Glucose (70-99) mg/dl Lactate 1.2 (0.4-2.0) mmol/L Calcium (8.5-10.1) mg/dl Magnesium (1.8-2.4) mg/dl Total Bilirubin (0.2-1) mg/dl AST (15-37) U/L ALT (12-78) U/L Alkaline Phosphatase (45-117) U/L Troponin I (0-0.045) ng/ml Total Protein (6.4-8.2) gm/dl Albumin (3.4-5.0) gm/dl Globulin (2.5-4.0) gm/dl Albumin/Globulin Ratio (0.9-2) Procalcitonin 0.13 (0-0.5) ng/ml Urine Color Yellow Urine Appearance Clear (Clear) Urine pH 5.0 (4.5-7.5) Ur Specific [place] 1.016 (1.000-1.030) Urine Protein 1+ H (Negative) Urine Glucose (UA) Negative (Negative) Urine Ketones Negative (Negative) Urine Blood 2+ H (Negative) Urine Nitrite Negative (Negative) Urine Bilirubin Negative (Negative) Urine Urobilinogen Negative (Negative) Ur Leukocyte Esterase 2+ H (Negative) Urine WBC (Auto) >30 H (0-5) /hpf Urine RBC (Auto) 5-10 H (0-4) /hpf U Hyaline Cast (Auto) >30 H (0-5) /lpf U Epithel Cells (Auto) >30 H (0-5) /lpf Urine Bacteria (Auto) Negative (Negative) Ur Renal Epithelial Cell 0-5 (0-5) /lpf COVID-19 Eval Order SARS-CoV-2, RNA, NAAT (NEGATIVE) 10/17/20 10/17/20 10/17/20 Range/Units 18:25 18:25 18:39 WBC (4.8-10.8) K/uL RBC (4.7-6.1) M/uL Hgb (14.0-18.0) g/dL Hct (42-52) % MCV (80-100) fL MCH (25-34) pg MCHC (32-36) g/dL RDW Std Deviation (36.4-46.3) fL RDW Coeff of [place] (11.5-14.5) % Plt Count (130-400) K/uL MPV (7.4-10.4) fL Immature Gran % (Auto) % Neut % (Auto) % Lymph % (Auto) % [place] % (Auto) % Eos % (Auto) % Baso % (Auto) % Neut # (Auto) (1.4-6.5) K/uL Lymph # (Auto) (1.2-3.4) K/uL [place] # (Auto) (0.11-0.59) K/uL Eos # (Auto) (0-0.5) K/uL Baso # (Auto) (0-0.2) K/uL Immature Gran # (Auto) (0.00-0.02) K/uL PT (9.0-12.0) Seconds INR (0.9-1.1) APTT (21.0-31.0) Seconds PTT Ratio VBG pH 7.34 L (7.36-7.41) VBG pCO2 69 H (38-50) mmHg VBG pO2 21 mmHg VBG HCO3 36 mmol/L VBG O2 Saturation < 60.0 % VBG Base Excess 8.5 mEq/L Barometric Pressure 734.5 mm/Hg Sodium (136-145) mmol/L Potassium (3.5-5.1) mmol/L Chloride (98-107) mmol/L Carbon Dioxide (21-32) mmol/L Anion Gap (3-11) BUN (7-18) mg/dl Creatinine (0.6-1.4) mg/dl Est Cr Clr Drug Dosing Est GFR ( Amer) Est GFR (Non-Af Amer) BUN/Creatinine Ratio (10-20) Glucose (70-99) mg/dl Lactate (0.4-2.0) mmol/L Calcium (8.5-10.1) mg/dl Magnesium (1.8-2.4) mg/dl Total Bilirubin (0.2-1) mg/dl AST (15-37) U/L ALT (12-78) U/L Alkaline Phosphatase (45-117) U/L Troponin I (0-0.045) ng/ml Total Protein (6.4-8.2) gm/dl Albumin (3.4-5.0) gm/dl Globulin (2.5-4.0) gm/dl Albumin/Globulin Ratio (0.9-2) Procalcitonin (0-0.5) ng/ml Urine Color Urine Appearance (Clear) Urine pH (4.5-7.5) Ur Specific [place] (1.000-1.030) Urine Protein (Negative) Urine Glucose (UA) (Negative) Urine Ketones (Negative) Urine Blood (Negative) Urine Nitrite (Negative) Urine Bilirubin (Negative) Urine Urobilinogen (Negative) Ur Leukocyte Esterase (Negative) Urine WBC (Auto) (0-5) /hpf Urine RBC (Auto) (0-4) /hpf U Hyaline Cast (Auto) (0-5) /lpf U Epithel Cells (Auto) (0-5) /lpf Urine Bacteria (Auto) (Negative) Ur Renal Epithelial Cell (0-5) /lpf COVID-19 Eval [facility] SARS-CoV-2, RNA, NAAT NEGATIVE (NEGATIVE) Administered Medications Discontinued Medications Magnesium Sulfate/Dextrose (Magnesium Sulfate / D5w) 1 gm in 100 mls @ 200 mls/hr IV NOW STA Stop: 10/17/20 17:51 Last Infusion: 10/17/20 18:59 Dose: 0 mls/hr Documented by: [id number] Admin: 10/17/20 18:00 Dose: 200 mls/hr Documented by: [id number] Methylprednisolone (Methylprednisolone 40 Mg/Ml Vial) 40 mg IV NOW STA Stop: 10/17/20 17:23 Last Admin: 10/17/20 18:00 Dose: 40 mg Documented by: [id number] Discharge Plan Visit Data Chief Complaint: Respiratory Problems Stated Complaint: SENT BY DR BECKETT - RESPIRATORY PROBLEMS ED Provider: Tacho Ledezma Discharge Problem: Acute hypoxemic respiratory failure, COPD (chronic obstructive pulmonary disease) Forms Stand Alone Forms: My [facility] [place] [employer] Prescriptions Prescriptions: No Action allopurinol 300 mg tablet 300 mg PO DAILY Qty: 90 RF: 3 montelukast 10 mg tablet 10 mg PO DAILY Qty: 90 RF: 1 tamsulosin 0.4 mg capsule 0.4 mg PO DAILY Qty: 90 RF: 1 atorvastatin 80 mg tablet 80 mg PO QPM Qty: 90 RF: 3 tobramycin with nebulizer 300 mg/5 mL solution for nebulization 300 mg inhalation .COMPLEX Qty: 150 RF: 6 isosorbide mononitrate 60 mg tablet extended release 24 hr 60 mg PO DAILY Qty: 90 RF: 3 prednisone 20 mg tablet 20 mg PO DAILY Qty: 60 RF: 11 famotidine 40 mg tablet 40 mg PO BID Qty: 180 RF: 3 tramadol 50 mg tablet 50 mg PO Q4H PRN (Reason: pain) Qty: 180 RF: 0 albuterol sulfate [Ventolin HFA] 90 mcg/actuation HFA aerosol inhaler 2 puff INH Q6H PRN (Reason: sob) Qty: 18 RF: 3 Spiriva Respimat 2.5 mcg/actuation mist 2 puff inhalation DAILY Qty: 1 RF: 11 aspirin [Adult Aspirin Regimen] 81 mg tablet,delayed release (DR/EC) 81 mg PO DAILY RF: 0 cholecalciferol (vitamin D3) 1,000 unit capsule 1,000 units PO DAILY RF: 0 nitroglycerin 0.4 mg tablet, sublingual 0.4 mg SL Q5M PRN (Reason: chest pain) RF: 0 metoprolol tartrate 25 mg tablet 100 mg PO DAILY RF: 0 furosemide 40 mg tablet 40 mg PO 3XWK RF: 0 budesonide-formoterol [Symbicort] 160-4.5 mcg/actuation HFA aerosol inhaler 2 puff inhalation BID RF: 0 ipratropium-albuterol 0.5 mg-3 mg(2.5 mg base)/3 mL solution for nebulization 3 ml inhalation BID RF: 0 lidocaine 5 % adhesive patch,medicated 1 patch topical DAILY RF: 0 azithromycin 250 mg tablet 250 mg PO DAILY RF: 0 Discharge Problem: COPD (chronic obstructive pulmonary disease) Qualifiers: COPD type: unspecified COPD Qualified Code(s): J44.9 - Chronic obstructive pulmonary disease, unspecified
[2020-10-17] MEDS ORDERED: MAGNESIUM SULFATE / D5W 1 GM/100 ML BAG IV STA (17:22)
[2020-10-17 17:51] LABS: Basophils # (auto) 0.01 K/uL (0-0.2); Basophils % (auto) 0.1 %; Eosinophils # (auto) 0.14 K/uL (0-0.5); Eosinophils % (auto) 1.8 %; Hematocrit (blood only) 34.4 % (42-52); Hemoglobin 10.6 g/dL (14.0-18.0); Immature Granulocytes # (auto) 0.04 K/uL (0.00-0.02); Immature Granulocytes % (auto) 0.5 %; Lymphocytes # (auto) 1.52 K/uL (1.2-3.4); Lymphocytes % (auto) 19.7 %; Mean Corpuscular Hemoglobin 30.2 pg (25-34); Mean Corpuscular Hgb Conc 30.8 g/dL (32-36); Mean Platelet Volume 9.3 fL (7.4-10.4); Monocytes # (auto) 1.24 K/uL (0.11-0.59); Monocytes % (auto) 16.1 %; Neutrophils # (auto) 4.75 K/uL (1.4-6.5); Neutrophils % (auto) 61.8 %; Platelet Count 291 K/uL (130-400); RDW Coefficient of Variation 15.8 % (11.5-14.5); RDW Standard Deviation 56.8 fL (36.4-46.3); Red Blood Count 3.51 M/uL (4.7-6.1)
[2020-10-17 18:06] LABS: Alanine Aminotransferase 38 U/L (12-78); Albumin Level 2.5 gm/dl (3.4-5.0); Aspartate Aminotransferase 34 U/L (15-37); BUN Creatinine Ratio 14.2 (10-20); Blood Urea Nitrogen 17 mg/dl (7-18); Calcium 9.4 mg/dl (8.5-10.1); Carbon Dioxide 36 mmol/L (21-32); Chloride 97 mmol/L (98-107); Est GFR (African American) 65.7; Est GFR (Non-African American) 56.7; Glucose 128 mg/dl (70-99); Potassium 4.2 mmol/L (3.5-5.1); Sodium 139 mmol/L (136-145)
[2020-10-17 18:11] LABS: Albumin Globulin Ratio 0.5 (0.9-2); Alkaline Phosphatase 87 U/L (45-117); Bilirubin,Total 0.7 mg/dl (0.2-1); Globulin 4.7 gm/dl (2.5-4.0); Total Protein 7.2 gm/dl (6.4-8.2); Troponin I 0.021 ng/ml (0-0.045)
[2020-10-17 18:14] LABS: INR 1.1 (0.9-1.1); Partial Thromboplastin Ratio 1.1; Prothrombin Time 11.8 Seconds (9.0-12.0)
[2020-10-17 18:50] LABS: Base Excess VBG 8.5 mEq/L; HCO3 VBG 36 mmol/L; PCO2 VBG 69 mmHg (38-50); PO2 VBG 21 mmHg; pH VBG 7.34 (7.36-7.41)
[2020-10-17 18:57] LABS: Appearance Urine Clear (Clear); Bacteria Urine Automated Negative (Negative); Bilirubin Urine Negative (Negative); Blood Urine 2+ (Negative); Color Urine Yellow; Epithelial Cell Urine Auto >30 /lpf (0-5); Glucose Urine UA Negative (Negative); Ketones Urine Negative (Negative); Leukocyte Esterase Urine 2+ (Negative); Nitrite Urine Negative (Negative); Protein Urine 1+ (Negative); Specific Gravity Urine 1.016 (1.000-1.030); Urobilinogen Urine Negative (Negative); WBC Urine Automated >30 /hpf (0-5)
--- NOTE | 2020-10-17 18:58 | XRay Report ---
XR chest 1V portable HISTORY: 84 years-old Male SEPSIS acute sepsis COMPARISON: Chest CT 09/23/2020, chest radiograph 04/09/2020 TECHNIQUE: Portable AP view of the chest FINDINGS: Cardiac silhouette is enlarged. Postsurgical and posttreatment related changes of the right lung rede monstrated with right lung volume loss. Emphysema with chronic interstitial coarsening. No pneumothor ax, pleural effusion, overt pulmonary edema or new airspace consolidation. Compensatory hyperinflatio n of the left lung. Degenerative changes of the shoulders and spine. IMPRESSION: 1. No acute process. 2. Chronic postsurgical and posttreatment related changes of the right lung. 3. Emphysema. ACT 112: Negative or not required by law. The above report was generated using voice recognition software. It may contain grammatical, syntax o r spelling errors. Electronically signed by: Diaz Aguilar M.D. 10/17/2020 6:57 PM
[2020-10-17 19:03] LABS: Oxygen Saturation VBG < 60.0 %
[2020-10-17 19:06] LABS: Cast Urine Automated >30 /lpf (0-5)
[2020-10-17 19:07] LABS: Renal Epithelial Cells Urine 0-5 /lpf (0-5)
--- NOTE | 2020-10-17 20:51 | History & Physical Report ---
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 Patient 81% on his usual 2L NC. His saturations decreased with movement. Some relief with BiPAP Ddx to include acute exacerbation of COPD, possible CHF component - patient reports increase in bilateral LE edema. Do not favor infectious process - Covid-19 NEGATIVE in ER. Doubt PE. Patient does not seem to be hypercarbic above baseline chronic respiratory acidosis -Admit to PCU -Procalcitonin and BNP pending -Maintain BiPAP for now -Lasix 40mg IV given - monitor UOP and weights -Solumedrol 60mg IV TID -Duonebs q 4 hours -Albuterol q 2 hours PRN -Azithromycin 250mg IV daily Present on Admission?: Yes (2) COPD (chronic obstructive pulmonary disease): Suspect acute exacerbation of COPD contributing to poor respiratory status as well as some volume overload as discussed above. -DuoNebs as above -Albuterol as needed -Fluticasone/Vilanterol daily (Patient on Symbicort at home) -Continue Singulair Present on Admission?: Yes (3) CKD (chronic kidney disease): BUN and Cr are near baseline -Avoid nephrotoxic agents -Monitor BUN, Cr, electrolytes and I/Os Present on Admission?: Yes (4) Cor pulmonale: Patient with Cor pulmonale, possible volume overload contributing to poor respiratory status -BNP pending -Lasix 40mg IV given - monitor output, repeat dosing as needed -Continue Isosorbide 60mg po daily -Goal for negative I/O balance Present on Admission?: Yes (5) GERD (gastroesophageal reflux disease): Chronic. Stable. Patient's Pepcid recently increased to BID -Continue Pepcid 40mg po BID Present on Admission?: Yes (6) BPH (benign prostatic hyperplasia): Chronic. Stable. Patient urinating without difficulty -Flomax 0.4mg po daily Present on Admission?: Yes (7) Hypertension: Chronic. Stable -Continue metoprolol 100mg po daily Present on Admission?: Yes (8) Anemia: Patient with stable normochromic/normocytic anemia. Hgb=10.6, Hct=34.4 today which is near baseline values. No active bleeding -Continue to monitor H/H Present on Admission?: Yes (9) Hypercholesterolemia: Chronic. Stable -Continue Lipitor 80mg po daily Present on Admission?: Yes (10) Back pain: Patient with low back pain following a fall two weeks ago. L1 endplate fracture noted on imaging. No neurological deficits. Patient still with discomfort -Lidoderm patch -Heating pad -Tramadol as needed for pain Present on Admission?: Yes (11) Lower extremity edema: Equal bilaterally. Possibly secondary to CHF -Check bilateral LE doppler F/E/N- Diuresis with Lasix 40mg IVl monitor I/Os, weights, monitor electrolytes and replete as needed, Heart healthy diet as tolerated Zofran PRN Nausea Miralax PRN constipation Ppx - Lovenox Code - Conditional - patient would want intubation and ventilation in event of respiratory failure but would not want CPR Dispo -Admit to PCU Family very reluctant to keep the patient in the hospital due to concerns over Covid-19 exposure as well as the inability to have visitors in the room. Patient's and daughter are very active in his care. They want patient to come home tomorrow evening. 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 He follows with Pulmonary - Dr. Parks. Patient presents today with his daughter with complaint of 3 days of progressive SOB, DENSON and cough. Daughter states that they have been titrating his oxygen at home to meet his needs, occasional dips into the low 80's which especially occur with sleeping and ambulation. He denies chest pain, palpitations, fever, chills or sweats. No purulent sputum. He has had worsening of bilateral LE edema over the last few days. Daughter states that patient sustained a mechanical fall appx 10 days ago and sustained an injury to his back - CT with mild superior endplate compression fracture at L1. Daughter states that patient has been overall doing poorly since the fall. He has not been eating and he has been constipated. He has been requiring a walker for ambulation as well. Patient was previously on Prednisone 10mg po daily which he reportedly self- discontinued due to stomach irritation approximately 15 days ago. He has also run out of one of his inhalers - possibly Albuterol. On arrival to the ER he was found to be tachycardic at 104 bpm, tachypneic at 28 and saturation of 81% on his baseline 2L. VBG with evidence of chronic respiratory acidosis, CO2 retention. He was placed on BiPAP 08/24 30% FiO2. Patient maintained saturations on above settings, however did become hypoxic with movement - 83% with sitting up for me and reportedly dropped into the 70's with nursing. Allergies Allergy/AdvReac Type Severity Reaction Status Date / Time amoxicillin Allergy Mild itching Verified 10/17/20 21:45 clavulanic acid Allergy Mild itching Verified 10/17/20 21:45 Home Medications Medication Instructions Recorded Confirmed Type aspirin 81 mg tablet,delayed 81 mg PO DAILY 05/20/19 10/17/20 History release cholecalciferol (vitamin D3) 25 1,000 units PO DAILY 05/20/19 10/17/20 History mcg (1,000 unit) capsule nitroglycerin 0.4 mg sublingual 0.4 mg SL Q5M PRN tab 06/14/19 10/17/20 History tablet allopurinol 300 mg tablet 300 mg PO DAILY #90 tab 01/30/20 10/17/20 Rx montelukast 10 mg tablet 10 mg PO DAILY #90 tab 05/21/20 10/17/20 Rx tamsulosin 0.4 mg capsule 0.4 mg PO DAILY #90 cap 06/11/20 10/17/20 Rx atorvastatin 80 mg tablet 80 mg PO QPM #90 tab 06/19/20 10/17/20 Rx tobramycin with nebulizer 300 mg/5 300 mg INHALATION .COMPLEX #150 ml 07/04/20 10/17/20 Rx mL solution for nebulization isosorbide mononitrate 60 mg 60 mg PO DAILY #90 tab 07/26/20 10/17/20 Rx tablet,extended release 24 hr prednisone 20 mg tablet 20 mg PO DAILY #60 tab 10/02/20 10/17/20 Rx famotidine 40 mg tablet 40 mg PO BID #180 tab 10/07/20 10/17/20 Rx tramadol 50 mg tablet 50 mg PO Q4H PRN #180 tab 10/07/20 10/17/20 Rx albuterol sulfate 90 mcg/actuation 2 puff INH Q6H PRN #18 gm 10/17/20 10/17/20 Rx aerosol inhaler azithromycin 250 mg PO DAILY 10/17/20 10/17/20 History budesonide-formoterol [Symbicort] 2 puff INHALATION BID 10/17/20 10/17/20 History furosemide 40 mg PO 3XWK 10/17/20 10/17/20 History ipratropium-albuterol 3 ml INHALATION BID 10/17/20 10/17/20 History lidocaine 1 patch TOPICAL DAILY 10/17/20 10/17/20 History metoprolol tartrate 100 mg PO DAILY 10/17/20 10/17/20 History Past Med/Surg History Medical History Arteriosclerosis of coronary artery Arteriosclerotic cardiovascular disease (ASCVD) Asthma Benign paroxysmal positional vertigo CAD (coronary artery disease), [place] coronary artery Hernia of abdominal wall Lung cancer, upper lobe (02/26/11) Sciatica Sensorineural hearing loss of both ears Squamous cell carcinoma of lung Thyroid nodule Surgical History History of appendectomy History of cataract surgery History of lobectomy of lung History of shoulder surgery Hx of cholecystectomy Family History Father Leukemia Social History Smoking Status: Former smoker Second Hand Exposure: No; Hx Alcohol Use: Yes Alcohol type: hard liquor Hx Substance Use: No Preferred Language: Lebanese Communication Ability: Effective [employer] Controls Operator Required: No Beliefs That Will Affect Care: Episcopalian Episcopalian Beliefs: Priti Current Living Situation: Spouse Other Information That Helps Us Care for You: No Feels Safe at Home: Yes Safety Concerns: Feels Safe At This Time Assistive Devices: BiPap and Oxygen - Continuous Review of Systems Review of Systems: All systems reviewed & are unremarkable except as noted in HPI & below Physical Exam Physical Exam: General: patient resting comfortably, BiPAP in place, NAD, breathing comfortably Skin: warm, dry, intact, venous stasis changes present on bilateral LEs HEENT: NC/AT, PERRL, EOMI, anicteric sclera, conjunctiva without injection, external ear normal to inspection and nontender, nares patent, moist mucus membranes, dentition intact, no oropharyngeal lesions, neck supple, trachea midline, no LAD, no thyromegaly, no JVD Heart: +S1/S2, regular, no m/r/g Lungs: markedly diminished breath sounds bilaterally with bibasilar crackles, end-expiratory wheezing throughout Abd: obese, +BS, soft, NT/ND, no masses/organomegaly/ascites Ext: warm, 2+ pulses in UE/LE bilaterally, no clubbing/cyanosis, 1+ edema of bilateral LEs Neuro: nonfocal, patient AA&O x 4, speech intact, no facial droop, moving all extremities on command with equal strength 5/5 Results & Data Results & Data ([facility]) Vital Signs (Past 12 Hours) Vital Signs Temp Pulse Pulse Resp BP BP Pulse Ox 10/17/20 19:30 100 H 21 124/73 98 10/17/20 19:05 100 H 20 92 10/17/20 19:00 100 H 20 122/69 89 L 10/17/20 18:31 100 H 20 94 10/17/20 18:30 101 H 20 132/65 90 10/17/20 18:15 100 H 20 98 10/17/20 18:12 103 H 19 118/62 92 10/17/20 18:00 100 H 23 96 10/17/20 17:45 102 H 22 97 10/17/20 17:38 103 H 24 100 10/17/20 17:36 104 H 23 98 10/17/20 17:20 92 10/17/20 16:46 36.3 C L 104 H 28 H 119/77 81 L Laboratory Results Lab Results 10/17/20 10/17/20 10/17/20 Range/Units 17:34 17:34 17:34 WBC 7.70 (4.8-10.8) K/uL RBC 3.51 L (4.7-6.1) M/uL Hgb 10.6 L (14.0-18.0) g/dL Hct 34.4 L (42-52) % MCV 98.0 (80-100) fL MCH 30.2 (25-34) pg MCHC 30.8 L (32-36) g/dL RDW Std Deviation 56.8 H (36.4-46.3) fL RDW Coeff of [place] 15.8 H (11.5-14.5) % Plt Count 291 (130-400) K/uL MPV 9.3 (7.4-10.4) fL Immature Gran % (Auto) 0.5 % Neut % (Auto) 61.8 % Lymph % (Auto) 19.7 % Caroline % (Auto) 16.1 % Eos % (Auto) 1.8 % Baso % (Auto) 0.1 % Neut # (Auto) 4.75 (1.4-6.5) K/uL Lymph # (Auto) 1.52 (1.2-3.4) K/uL Caroline # (Auto) 1.24 H (0.11-0.59) K/uL Eos # (Auto) 0.14 (0-0.5) K/uL Baso # (Auto) 0.01 (0-0.2) K/uL Immature Gran # (Auto) 0.04 H (0.00-0.02) K/uL PT 11.8 (9.0-12.0) Seconds INR 1.1 (0.9-1.1) APTT 31.0 (21.0-31.0) Seconds PTT Ratio 1.1 VBG pH (7.36-7.41) VBG pCO2 (38-50) mmHg VBG pO2 mmHg VBG HCO3 mmol/L VBG O2 Saturation % VBG Base Excess mEq/L Barometric Pressure mm/Hg Sodium 139 (136-145) mmol/L Potassium 4.2 (3.5-5.1) mmol/L Chloride 97 L (98-107) mmol/L Carbon Dioxide 36 H (21-32) mmol/L Anion Gap 6.0 (3-11) BUN 17 (7-18) mg/dl Creatinine 1.18 (0.6-1.4) mg/dl Est Cr Clr Drug Dosing Not Reportable Est GFR ( Amer) 65.7 Est GFR (Non-Af Amer) 56.7 BUN/Creatinine Ratio 14.2 (10-20) Glucose 128 H (70-99) mg/dl Lactate (0.4-2.0) mmol/L Calcium 9.4 (8.5-10.1) mg/dl Magnesium 2.0 (1.8-2.4) mg/dl Total Bilirubin 0.7 (0.2-1) mg/dl AST 34 (15-37) U/L ALT 38 (12-78) U/L Alkaline Phosphatase 87 (45-117) U/L Troponin I 0.021 (0-0.045) ng/ml Total Protein 7.2 (6.4-8.2) gm/dl Albumin 2.5 L (3.4-5.0) gm/dl Globulin 4.7 H (2.5-4.0) gm/dl Albumin/Globulin Ratio 0.5 L (0.9-2) Procalcitonin (0-0.5) ng/ml Urine Color Urine Appearance (Clear) Urine pH (4.5-7.5) Ur Specific [place] (1.000-1.030) Urine Protein (Negative) Urine Glucose (UA) (Negative) Urine Ketones (Negative) Urine Blood (Negative) Urine Nitrite (Negative) Urine Bilirubin (Negative) Urine Urobilinogen (Negative) Ur Leukocyte Esterase (Negative) Urine WBC (Auto) (0-5) /hpf Urine RBC (Auto) (0-4) /hpf U Hyaline Cast (Auto) (0-5) /lpf U Epithel Cells (Auto) (0-5) /lpf Urine Bacteria (Auto) (Negative) Ur Renal Epithelial Cell (0-5) /lpf COVID-19 Eval Order SARS-CoV-2, RNA, NAAT (NEGATIVE) 10/17/20 10/17/20 10/17/20 Range/Units 17:34 17:34 18:20 WBC (4.8-10.8) K/uL RBC (4.7-6.1) M/uL Hgb (14.0-18.0) g/dL Hct (42-52) % MCV (80-100) fL MCH (25-34) pg MCHC (32-36) g/dL RDW Std Deviation (36.4-46.3) fL RDW Coeff of [place] (11.5-14.5) % Plt Count (130-400) K/uL MPV (7.4-10.4) fL Immature Gran % (Auto) % Neut % (Auto) % Lymph % (Auto) % Caroline % (Auto) % Eos % (Auto) % Baso % (Auto) % Neut # (Auto) (1.4-6.5) K/uL Lymph # (Auto) (1.2-3.4) K/uL Caroline # (Auto) (0.11-0.59) K/uL Eos # (Auto) (0-0.5) K/uL Baso # (Auto) (0-0.2) K/uL Immature Gran # (Auto) (0.00-0.02) K/uL PT (9.0-12.0) Seconds INR (0.9-1.1) APTT (21.0-31.0) Seconds PTT Ratio VBG pH (7.36-7.41) VBG pCO2 (38-50) mmHg VBG pO2 mmHg VBG HCO3 mmol/L VBG O2 Saturation % VBG Base Excess mEq/L Barometric Pressure mm/Hg Sodium (136-145) mmol/L Potassium (3.5-5.1) mmol/L Chloride (98-107) mmol/L Carbon Dioxide (21-32) mmol/L Anion Gap (3-11) BUN (7-18) mg/dl Creatinine (0.6-1.4) mg/dl Est Cr Clr Drug Dosing Est GFR ( Amer) Est GFR (Non-Af Amer) BUN/Creatinine Ratio (10-20) Glucose (70-99) mg/dl Lactate 1.2 (0.4-2.0) mmol/L Calcium (8.5-10.1) mg/dl Magnesium (1.8-2.4) mg/dl Total Bilirubin (0.2-1) mg/dl AST (15-37) U/L ALT (12-78) U/L Alkaline Phosphatase (45-117) U/L Troponin I (0-0.045) ng/ml Total Protein (6.4-8.2) gm/dl Albumin (3.4-5.0) gm/dl Globulin (2.5-4.0) gm/dl Albumin/Globulin Ratio (0.9-2) Procalcitonin 0.13 (0-0.5) ng/ml Urine Color Yellow Urine Appearance Clear (Clear) Urine pH 5.0 (4.5-7.5) Ur Specific [place] 1.016 (1.000-1.030) Urine Protein 1+ H (Negative) Urine Glucose (UA) Negative (Negative) Urine Ketones Negative (Negative) Urine Blood 2+ H (Negative) Urine Nitrite Negative (Negative) Urine Bilirubin Negative (Negative) Urine Urobilinogen Negative (Negative) Ur Leukocyte Esterase 2+ H (Negative) Urine WBC (Auto) >30 H (0-5) /hpf Urine RBC (Auto) 5-10 H (0-4) /hpf U Hyaline Cast (Auto) >30 H (0-5) /lpf U Epithel Cells (Auto) >30 H (0-5) /lpf Urine Bacteria (Auto) Negative (Negative) Ur Renal Epithelial Cell 0-5 (0-5) /lpf COVID-19 Eval Order SARS-CoV-2, RNA, NAAT (NEGATIVE) 10/17/20 10/17/20 10/17/20 Range/Units 18:25 18:25 18:39 WBC (4.8-10.8) K/uL RBC (4.7-6.1) M/uL Hgb (14.0-18.0) g/dL Hct (42-52) % MCV (80-100) fL MCH (25-34) pg MCHC (32-36) g/dL RDW Std Deviation (36.4-46.3) fL RDW Coeff of [place] (11.5-14.5) % Plt Count (130-400) K/uL MPV (7.4-10.4) fL Immature Gran % (Auto) % Neut % (Auto) % Lymph % (Auto) % Caroline % (Auto) % Eos % (Auto) % Baso % (Auto) % Neut # (Auto) (1.4-6.5) K/uL Lymph # (Auto) (1.2-3.4) K/uL Caroline # (Auto) (0.11-0.59) K/uL Eos # (Auto) (0-0.5) K/uL Baso # (Auto) (0-0.2) K/uL Immature Gran # (Auto) (0.00-0.02) K/uL PT (9.0-12.0) Seconds INR (0.9-1.1) APTT (21.0-31.0) Seconds PTT Ratio VBG pH 7.34 L (7.36-7.41) VBG pCO2 69 H (38-50) mmHg VBG pO2 21 mmHg VBG HCO3 36 mmol/L VBG O2 Saturation < 60.0 % VBG Base Excess 8.5 mEq/L Barometric Pressure 734.5 mm/Hg Sodium (136-145) mmol/L Potassium (3.5-5.1) mmol/L Chloride (98-107) mmol/L Carbon Dioxide (21-32) mmol/L Anion Gap (3-11) BUN (7-18) mg/dl Creatinine (0.6-1.4) mg/dl Est Cr Clr Drug Dosing Est GFR ( Amer) Est GFR (Non-Af Amer) BUN/Creatinine Ratio (10-20) Glucose (70-99) mg/dl Lactate (0.4-2.0) mmol/L Calcium (8.5-10.1) mg/dl Magnesium (1.8-2.4) mg/dl Total Bilirubin (0.2-1) mg/dl AST (15-37) U/L ALT (12-78) U/L Alkaline Phosphatase (45-117) U/L Troponin I (0-0.045) ng/ml Total Protein (6.4-8.2) gm/dl Albumin (3.4-5.0) gm/dl Globulin (2.5-4.0) gm/dl Albumin/Globulin Ratio (0.9-2) Procalcitonin (0-0.5) ng/ml Urine Color Urine Appearance (Clear) Urine pH (4.5-7.5) Ur Specific [place] (1.000-1.030) Urine Protein (Negative) Urine Glucose (UA) (Negative) Urine Ketones (Negative) Urine Blood (Negative) Urine Nitrite (Negative) Urine Bilirubin (Negative) Urine Urobilinogen (Negative) Ur Leukocyte Esterase (Negative) Urine WBC (Auto) (0-5) /hpf Urine RBC (Auto) (0-4) /hpf U Hyaline Cast (Auto) (0-5) /lpf U Epithel Cells (Auto) (0-5) /lpf Urine Bacteria (Auto) (Negative) Ur Renal Epithelial Cell (0-5) /lpf COVID-19 Eval Order Covid19 IDNow atMDCC SARS-CoV-2, RNA, NAAT NEGATIVE (NEGATIVE) Diagnostic Findings XR chest 1V portable HISTORY: 84 years-old Male SEPSIS acute sepsis COMPARISON: Chest CT 09/23/2020, chest radiograph 04/09/2020 TECHNIQUE: Portable AP view of the chest FINDINGS: Cardiac silhouette is enlarged. Postsurgical and posttreatment related changes of the right lung redemonstrated with right lung volume loss. Emphysema with chronic interstitial coarsening. No pneumothorax, pleural effusion, overt pulmonary edema or new airspace consolidation. Compensatory hyperinflation of the left lung. Degenerative changes of the shoulders and spine. IMPRESSION: 1. No acute process. 2. Chronic postsurgical and posttreatment related changes of the right lung. 3. Emphysema. ACT 112: Negative or not required by law. The above report was generated using voice recognition software. It may contain grammatical, syntax or spelling errors. Electronically signed by: Diaz Aguilar M.D. 10/17/2020 6:57 PM Dictated: 10/17/[id number]: 10/17/201854 ECG Additional Comments: EKG wtih ST at 104bpm, normal axis, UW=347, QRS=74, XHj=963, no acute ischemic changes PG Care Time/CCT Total # of Minutes Spent Total Time Spent with Patient: Total time spent is greater than 50% in coordination of care (as documented) at patient's floor/unit and/or counseling patient: Coding Level of Care Code 64338 Initial Inpt Care Lvl 3 Diagnoses Acute hypoxemic respiratory failure J96.01 COPD (chronic obstructive pulmonary disease) J44.9 COPD type: unspecified COPD CKD (chronic kidney disease) N18.9 Chronic kidney disease stage: unspecified stage Cor pulmonale I27.81 GERD (gastroesophageal reflux disease) K21.9 Esophagitis presence: esophagitis presence not specified BPH (benign prostatic hyperplasia) N40.0 Lower urinary tract symptom presence: unspecified whether lower urinary tract symptoms present Hypertension I10 Hypertension type: essential hypertension Anemia D64.9 Anemia type: unspecified type Hypercholesterolemia E78.00 Back pain M54.5 Back pain location: low back pain Chronicity: unspecified Back pain laterality: unspecified Sciatica presence: unspecified whether sciatica present Lower extremity edema R60.0 (1) BPH (benign prostatic hyperplasia) Lower urinary tract symptom presence: unspecified whether lower urinary tract symptoms present Qualified Code(s): N40.0 - Benign prostatic hyperplasia without lower urinary tract symptoms (2) Anemia Anemia type: unspecified type Qualified Code(s): D64.9 - Anemia, unspecified (3) CKD (chronic kidney disease) Chronic kidney disease stage: unspecified stage Qualified Code(s): N18.9 - Chronic kidney disease, unspecified (4) COPD (chronic obstructive pulmonary disease) COPD type: unspecified COPD Qualified Code(s): J44.9 - Chronic obstructive pulmonary disease, unspecified (5) GERD (gastroesophageal reflux disease) Esophagitis presence: esophagitis presence not specified Qualified Code(s): K21.9 - Gastro-esophageal reflux disease without esophagitis (6) Hypertension Hypertension type: essential hypertension Qualified Code(s): I10 - Essential (primary) hypertension (7) Back pain Back pain location: low back pain Chronicity: unspecified Back pain laterality: unspecified Sciatica presence: unspecified whether sciatica present Qualified Code(s): M54.5 - Low back pain
[2020-10-17] MEDS ORDERED: FUROSEMIDE 40 MG/4 ML VIAL IV STA (21:44)
[2020-10-17] MEDS ORDERED: METOPROLOL TARTRATE 25 MG TAB PO SCH (21:45)
[2020-10-17] MEDS: METOPROLOL TARTRATE 100 MG TAB PO SCH (22:40)
[2020-10-17] MEDS ORDERED: DOCUSATE SODIUM 100 MG CAP PO PRN (23:15)
[2020-10-17] MEDS ORDERED: traMADol HCL 50 MG TABLET PO PRN (23:15)
[2020-10-17] MEDS ORDERED: ALBUTEROL 0.5% NEB SOLN 2.5 MG/0.5 ML VIAL NEB PRN (23:15)
[2020-10-17] MEDS ORDERED: ONDANSETRON INJ 2 MG/ML 2 ML VIAL IV PRN (23:15)
[2020-10-17] MEDS ORDERED: ACETAMINOPHEN 325 MG TAB PO PRN (23:15)
[2020-10-17] MEDS ORDERED: POLYETHYLENE (MIRALAX) 17 GM PACK PO PRN (23:15)
[2020-10-17] MEDS ORDERED: methylPREDNISolone 125 MG/2 ML VIAL IV SCH (23:15)
[2020-10-17] MEDS: ALBUT/IPRATROP 3MG/0.5MG NEB 3 ML VIAL NEB SCH (23:31)
[2020-10-18 00:12] LABS: Phosphorus 4.8 mg/dl (2.5-4.9)
[2020-10-18] MEDS: ALBUT/IPRATROP 3MG/0.5MG NEB 3 ML VIAL NEB SCH ×4 (03:15→15:12)
[2020-10-18 05:06] LABS: Hematocrit (blood only) 34.9 % (42-52); Hemoglobin 10.5 g/dL (14.0-18.0); Immature Granulocytes # (auto) 0.02 K/uL (0.00-0.02); Immature Granulocytes % (auto) 0.4 %; Lymphocytes # (auto) 0.79 K/uL (1.2-3.4); Lymphocytes % (auto) 17.1 %; Mean Corpuscular Hemoglobin 29.3 pg (25-34); Mean Corpuscular Hgb Conc 30.1 g/dL (32-36); Mean Corpuscular Volume 97.5 fL (80-100); Mean Platelet Volume 9.3 fL (7.4-10.4); Monocytes # (auto) 0.08 K/uL (0.11-0.59); Monocytes % (auto) 1.7 %; Neutrophils # (auto) 3.73 K/uL (1.4-6.5); Neutrophils % (auto) 80.8 %; Platelet Count 249 K/uL (130-400); RDW Coefficient of Variation 15.3 % (11.5-14.5); RDW Standard Deviation 54.4 fL (36.4-46.3); Red Blood Count 3.58 M/uL (4.7-6.1); White Blood Count 4.62 K/uL (4.8-10.8)
[2020-10-18 05:33] LABS: BUN Creatinine Ratio 15.9 (10-20); Calcium 9.2 mg/dl (8.5-10.1); Creatinine Clr Calc Pharmacy 54.4 ml/min; Est GFR (African American) 74.9; Est GFR (Non-African American) 64.6; Potassium 4.2 mmol/L (3.5-5.1)
[2020-10-18] MEDS ORDERED: GLUCOSE 40% GEL 15 GM TUBE PO PRN (06:54)
[2020-10-18] MEDS ORDERED: CARBOHYDRATES FOR HYPOGLYCEMIA PO PRN (06:54)
[2020-10-18] MEDS ORDERED: DEXTROSE 50% 50 ML SYRINGE IV PRN (06:54)
[2020-10-18] MEDS ORDERED: GLUCOSE 10 TABS/TUBE PO PRN (06:54)
[2020-10-18] MEDS ORDERED: GLUCAGON FOR INJ 1 MG VIAL SQ PRN (06:54)
[2020-10-18] MEDS: methylPREDNISolone 60 MG in SYRINGE 0 ML IV SCH ×2 (07:35)
[2020-10-18] MEDS: FAMOTIDINE 40 MG TABLET PO SCH ×2 (08:14)
[2020-10-18] MEDS: METOPROLOL TARTRATE 100 MG TAB PO SCH (08:15)
--- NOTE | 2020-10-18 08:17 | Hospitalist Progress Note ---
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 Patient 81% on his usual 2L NC. His saturations decreased with movement. Some relief with BiPAP Ddx to include acute exacerbation of COPD, possible CHF component - patient rep orts increase in bilateral LE edema. Do not favor infectious process - Covid-19 NEGATIVE in ER. Doubt PE. Patient does not seem to be hypercarbic above baseline chronic respiratory acidosis -Admit to PCU -Procalcitonin and BNP pending -Maintain BiPAP for now -Lasix 40mg IV given - monitor UOP and weights -Solumedrol 60mg IV TID -Duonebs q 4 hours -Albuterol q 2 hours PRN -Azithromycin 250mg IV daily (2) COPD (chronic obstructive pulmonary disease): Suspect acute exacerbation of COPD contributing to poor respiratory status as well as some volume overload as discussed above. -DuoNebs as above -Albuterol as needed -Fluticasone/Vilanterol daily (Patient on Symbicort at home) -Continue Singulair (3) CKD (chronic kidney disease): CKD 3 BUN and Cr are near baseline -Avoid nephrotoxic agents -Monitor BUN, Cr, electrolytes and I/Os (4) Cor pulmonale: Patient with Cor pulmonale, Chronic diasolic heart failurepossible volume overload contributing to poor respiratory status -BNP pending -Lasix 40mg IV given - monitor output, repeat dosing as needed -Continue Isosorbide 60mg po daily -Goal for negative I/O balance (5) GERD (gastroesophageal reflux disease): Chronic. Stable. Patient's Pepcid recently increased to BID -Continue Pepcid 40mg po BID (6) BPH (benign prostatic hyperplasia): Chronic. Stable. Patient urinating without difficulty -Flomax 0.4mg po daily (7) Hypertension: Chronic. Stable -Continue metoprolol 100mg po daily (8) Anemia: Patient with stable normochromic/normocytic anemia. Hgb=10.6, Hct=34.4 today which is near baseline values. No active bleeding -Continue to monitor H/H (9) Hypercholesterolemia: Chronic. Stable -Continue Lipitor 80mg po daily (10) Back pain: Patient with low back pain following a fall two weeks ago. L1 endplate fracture noted on imaging. No neurological deficits. Patient still with discomfort -Lidoderm patch -Heating pad -Tramadol as needed for pain (11) Lower extremity edema: Equal bilaterally. Possibly secondary to CHF -Check bilateral LE doppler F/E/N- Diuresis with Lasix 40mg IVl monitor I/Os, weights, monitor electrolytes and replete as needed, Heart healthy diet as tolerated Zofran PRN Nausea Miralax PRN constipation Ppx - Lovenox Code - Conditional - patient would want intubation and ventilation in event of respiratory failure but would not want CPR Dispo -Admit to PCU Family very reluctant to keep the patient in the hospital due to concerns over Covid-19 exposure as well as the inability to have visitors in the room. Patient's and daughter are very active in his care. They want patient to come home tomorrow evening. Please update family daily: Heidy () [phone] and Mac (daughter) [phone] Admission and Anticipated Discharge Date Admission Date: October 17, 2020 Subjective pt is a bit more obtunded after breakfast today, will return to bipap. Results & Data Results & Data ([facility]) Vital Signs (Past 12 Hours) Vital Signs Temp Pulse Pulse Resp BP BP Pulse Ox 10/18/20 08:05 90 18 100 10/18/20 05:48 86 18 138/91 94 10/18/20 03:28 98.6 F 83 19 108/60 99 10/18/20 03:16 83 17 91 10/18/20 03:15 83 17 91 10/18/20 00:05 86 10/17/20 23:32 91 H 22 90 10/17/20 23:31 91 H 22 90 10/17/20 23:18 98.8 F 90 19 109/56 L 93 10/17/20 22:51 110 H 22 92 10/17/20 22:30 109 H 22 152/74 H 93 10/17/20 22:01 108 H 23 137/67 92 10/17/20 21:31 110 H 20 93 10/17/20 21:30 113 H 23 160/93 H 95 10/17/20 21:00 104 H 24 135/78 97 PG Care Time/CCT Total # of Minutes Spent Total Time Spent with Patient: Total time spent is greater than 50% in coordination of care (as documented) at patient's floor/unit and/or counseling patient: Coding Diagnoses Acute hypoxemic respiratory failure J96.01 COPD (chronic obstructive pulmonary disease) J44.9 COPD type: unspecified COPD CKD (chronic kidney disease) N18.9 Chronic kidney disease stage: unspecified stage Cor pulmonale I27.81 GERD (gastroesophageal reflux disease) K21.9 Esophagitis presence: esophagitis presence not specified BPH (benign prostatic hyperplasia) N40.0 Lower urinary tract symptom presence: unspecified whether lower urinary tract symptoms present Hypertension I10 Hypertension type: essential hypertension Anemia D64.9 Anemia type: unspecified type Hypercholesterolemia E78.00 Back pain M54.5 Back pain laterality: unspecified Back pain location: low back pain Chronicity: unspecified Sciatica presence: unspecified whether sciatica present Lower extremity edema R60.0 (1) BPH (benign prostatic hyperplasia) Lower urinary tract symptom presence: unspecified whether lower urinary tract symptoms present Qualified Code(s): N40.0 - Benign prostatic hyperplasia without lower urinary tract symptoms (2) Anemia Anemia type: unspecified type Qualified Code(s): D64.9 - Anemia, unspecified (3) Back pain Back pain laterality: unspecified Back pain location: low back pain Chronicity: unspecified Sciatica presence: unspecified whether sciatica present Qualified Code(s): M54.5 - Low back pain (4) CKD (chronic kidney disease) Chronic kidney disease stage: unspecified stage Qualified Code(s): N18.9 - Chronic kidney disease, unspecified (5) COPD (chronic obstructive pulmonary disease) COPD type: unspecified COPD Qualified Code(s): J44.9 - Chronic obstructive pulmonary disease, unspecified (6) GERD (gastroesophageal reflux disease) Esophagitis presence: esophagitis presence not specified Qualified Code(s): K21.9 - Gastro-esophageal reflux disease without esophagitis (7) Hypertension Hypertension type: essential hypertension Qualified Code(s): I10 - Essential (primary) hypertension
[2020-10-18] MEDS: INSULIN ASPART 100 UNITS/ML 3 ML PEN SC SCH ×2 (08:32→12:49)
[2020-10-18] MEDS ORDERED: FUROSEMIDE 40 MG in SYRINGE 0 ML IV SCH (09:00)
[2020-10-18] MEDS ORDERED: TAMSULOSIN HCL 0.4 MG CAP PO SCH (09:00)
[2020-10-18] MEDS ORDERED: ISOSORBIDE MONO EXTENDED REL 60 MG TABCR PO SCH (09:00)
[2020-10-18] MEDS ORDERED: MONTELUKAST SODIUM 10 MG TABLET PO SCH (09:00)
[2020-10-18] MEDS ORDERED: allopurinoL 300 MG TAB PO SCH (09:00)
[2020-10-18] MEDS ORDERED: LIDOCAINE 5% 1 PATCH TD SCH (09:00)
[2020-10-18] MEDS ORDERED: AZITHROMYCIN 250 MG in DEXTROSE 5% 250 ML IV SCH (09:00)
[2020-10-18] MEDS ORDERED: FLUTICASONE/VILANTEROL 200/25MCG 14 PUFFS/INHALER INH SCH (09:00)
[2020-10-18] MEDS ORDERED: ASPIRIN 81 MG ECTAB PO SCH (09:00)
[2020-10-18] MEDS ORDERED: ENOXAPARIN INJ 40 MG/0.4 ML SYR SQ SCH (09:00)
--- NOTE | 2020-10-18 09:17 | Ultrasound Report ---
BILATERAL LOWER EXTREMITY VENOUS DOPPLER HISTORY: Lower extremity swelling. COMPARISON STUDY: None. FINDINGS: There is normal compressibility, flow, and augmentation within the bilateral lower extremit y deep venous systems. IMPRESSION: No DVT within the right or left lower extremity. ACT 112: Negative or not required by law. Electronically signed by: Yuri Jaramillo M.D. 10/18/2020 9:16 AM
--- NOTE | 2020-10-18 11:08 | Pulmonary Consultation ---
Date of Consultation October 18, 2020 Assessment & Plan (1) Acute hypoxemic respiratory failure: Mr. 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 - on chart review, VBG obtained 10/17 prior to admission showed a PCO2 of 69 - however the degree of hypercapnia is actually lower compared to previous measurements. Primary Acid Base Disturbance is a Respiratory Acidosis with a compensatory metabolic alkalosis (bicarb 40; not totally compensated). ABG today obtained after patient was placed on BiPAP for 30 minutes showed improvement as pCO2 reduced from 69 to 59. - as for the etiology of his acute on chronic respiratory failure, the d ifferential includes infection, pulmonary vascular congestion (volume overload), COPD exacerbation - patient afebrile. WBC normal. procal not elevated. COVID 19 negative. Blood cultures drawn on admission, pending. CXR on admission showing no acute process. CT scan of chest from 09/27/20 was reviewed and is showing new scattered focal nodularities, which could be infectious foci. 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 Recommend treating with IV Cefepime for pseudomonal coverage in the event symptoms are secondary to new onset PNA. Recommend changing from azithromycin to doxycycline for atypical coverage, as patient is on MWF chronic azithromycin therapy. - BNP was elevated on admission to 3,000; CXR without obvious pleural effusion. patient was given 40mg IV lasix on admission for direusis - patient self discontinued prednisone therapy 15 days MEDICAL LEAD and has been without one of his inhalers for past 2 days, making COPD exacerbation secondary to medication non-compliance a possibility. Recommend continuing Solumedrol 60mg, TID, Duonebs q4h, doxycycline 100mg, BID. - palliative care consultation was recommended to patient on several previous admission, but patient has refused to meet with them (2) COPD (chronic obstructive pulmonary disease): - patient with underlying severe obstructive disease - baseline oxygen requirement of 2-3L - home medication regimen consists of Symbicort, azithromycin MWF, montelukast, ipratropium-albuterol and albuterol neb prn - perviously patient was on a prednisone taper MEDICAL LEAD, which he self discontinued 15 days ago - patient does use a nocturnal positive pressure with a home trilogy unit ( believes it is set to CPAP mode) - patient is advised to be using flutter valve twice daily, however he admits to using it "once every 2-3 days" - on several occasions, pulmonary rehab has been offered to patient, although he has declined participation COPD type: unspecified COPD Qualified Code(s): J44.9 - Chronic obstructive pulmonary disease, unspecified (3) Bronchiectasis: - with fibrosis secondary to radiation course (in 2014) - he does use hypertonic saline on a regular basis - patient with chronic pseudomonal colonization (fluoroquinolone resistant) as above - in the fall 2019 he did a trial of inhaled tobramycin 300 mg daily 14 days on 14 days off (4) Cor pulmonale: - secondary to underlying lung disease, increased PVR - it is possible BNP is chronically elevated for this reason (5) Lymphopenia: - although this is associated with COVID 19 infection, patient was negative on admission - suspect secondary to longstanding steroid use (6) Hx of cancer of lung: - patient diagnosed in 2010 with squamous cell carcinoma of R lung, s/p R upper lobar pneumonectomy - he developing an obstructing right mainstem mass in 2014 which required radiation therapy. Unfortunately this has resulted in fibrosis as above Supervising Physician Co-Signing Physician Notes Dr. Noyola Was the resident-physician during care of patient. I separately evaluated patient for kohli portions of the history and the exam. I was present during the critical portion of medical decision making, and I discussed the case with the resident. I generally agree with the findings and plan except for any additions/exceptions noted. 84-year-old male with a history of chronic respiratory failure, bronchiectasis and lung cancer status post radiation to the right upper lobe with right upper lobectomy for squamous cell carcinoma presented to the hospital due to a COPD exacerbation. He has a history of pseudomonal colonization. The patient and family apparently are requesting discharge. His hypercapnia improved with BiPAP therapy. Recommend discharge with 5 days of antibiotics and increased prednisone with a taper over 7 to 10 days. He can follow-up with his primary leather seasoner Dr. Springer in the outpatient clinic. He he needs to be compliant with his noninvasive ventilation at home to prevent further hypercapnic respiratory failure. Patient also has a history of WHO class II and III pulmonary hypertension. Recommend diuresis as needed. History of Present Illness Attending Physician: Wolf Cruz MD History of Present Illness Mr. Law is an 84 yo gentleman with a PMHx of severe COPD (PFTs most recently completed 5 years ago; baseline oxygen requirement of 2-3L), squamous cell lung carcinoma (diagnosed in 2010, status post R upper lobectomy), bronchiectasis and fibrosis (thought to be secondary to radiation course completed in 2014) and cor pulmonale who was admitted to [facility] on 10/17/20. On the day of admission, patient initially presented to his outpatient leather seasoner's office (Dr. Parks) who ordered an venous blood gas, after which patient was advised to come to the emergency department. For 7-10 days prior to admission, patient was reportedly becoming increasingly dyspneic with increased cough and sputum production. He denies any other cold- like symptoms, such as fever/chills, nausea/vomiting, or body aches. On arrival, Mr. Law was afebrile, but tachycardiac (low 100s), tachypneic (respiratory rate of 28) and hypoxic (81%). Patient does endorse a recent change to his medication regimen. He was previously on a prednisone taper - apparently his dose was at 10mg, daily, which he self-discontinued 15 days MEDICAL LEAD. Mr. Law said he became convinced his body was having an allergic reaction to the prednisone - although he is unable to describe the symptoms he was experiencing at the time. He also ran out of 1 of his inhalers earlier this week - he is unable to say which one, but he only missed two days worth of doses. Mr. Law appears to have poor knowledge of his condition and medication regimens - he does not know the names of any medication he takes, nor is he able to report their doses. His apparently organizes most of his medical information and pills for him. At this time, he says his breathing is much improved from when he initially came into the hospital. Allergies Allergy/AdvReac Type Severity Reaction Status Date / Time amoxicillin Allergy Mild itching Verified 10/17/20 21:45 clavulanic acid Allergy Mild itching Verified 10/17/20 21:45 Home Medications Medication Instructions Recorded Confirmed Type aspirin 81 mg tablet,delayed 81 mg PO DAILY 05/20/19 10/17/20 History release cholecalciferol (vitamin D3) 25 1,000 units PO DAILY 05/20/19 10/17/20 History mcg (1,000 unit) capsule nitroglycerin 0.4 mg sublingual 0.4 mg SL Q5M PRN tab 06/14/19 10/17/20 History tablet allopurinol 300 mg tablet 300 mg PO DAILY #90 tab 01/30/20 10/17/20 Rx montelukast 10 mg tablet 10 mg PO DAILY #90 tab 05/21/20 10/17/20 Rx tamsulosin 0.4 mg capsule 0.4 mg PO DAILY #90 cap 06/11/20 10/17/20 Rx atorvastatin 80 mg tablet 80 mg PO QPM #90 tab 06/19/20 10/17/20 Rx tobramycin with nebulizer 300 mg/5 300 mg INHALATION .COMPLEX #150 ml 07/04/20 10/17/20 Rx mL solution for nebulization isosorbide mononitrate 60 mg 60 mg PO DAILY #90 tab 07/26/20 10/17/20 Rx tablet,extended release 24 hr prednisone 20 mg tablet 20 mg PO DAILY #60 tab 10/02/20 10/17/20 Rx famotidine 40 mg tablet 40 mg PO BID #180 tab 10/07/20 10/17/20 Rx albuterol sulfate 90 mcg/actuation 2 puff INH Q6H PRN #18 gm 10/17/20 10/17/20 Rx aerosol inhaler budesonide-formoterol [Symbicort] 2 puff INHALATION BID 10/17/20 10/17/20 History furosemide 40 mg PO 3XWK 10/17/20 10/17/20 History ipratropium-albuterol 3 ml INHALATION BID 10/17/20 10/17/20 History lidocaine 1 patch TOPICAL DAILY 10/17/20 10/17/20 History metoprolol tartrate 100 mg PO DAILY 10/17/20 10/17/20 History cefdinir 300 mg PO BID 5 Days #10 cap 10/18/20 Rx doxycycline hyclate 100 mg PO BID 5 Days #10 cap 10/18/20 Rx Patient History Medical History Arteriosclerosis of coronary artery Arteriosclerotic cardiovascular disease (ASCVD) Asthma Benign paroxysmal positional vertigo CAD (coronary artery disease), [place] coronary artery Hernia of abdominal wall Lung cancer, upper lobe (02/26/11) Sciatica Sensorineural hearing loss of both ears Squamous cell carcinoma of lung Thyroid nodule Surgical History History of appendectomy History of cataract surgery History of lobectomy of lung History of shoulder surgery Hx of cholecystectomy Family History Father Leukemia Social History Smoking Status: Former smoker Second Hand Exposure: No; Hx Alcohol Use: Yes Alcohol type: hard liquor Hx Substance Use: No Preferred Language: Tajik Communication Ability: Effective Raw Products Director Required: No Beliefs That Will Affect Care: Episcopalian Episcopalian Beliefs: Chrisitian Current Living Situation: Spouse Feels Safe at Home: Yes Assistive Devices: BiPap and Oxygen - Continuous Review of Systems Respiratory: + cough and + dyspnea Cardiovascular: no chest pain Physical Exam Constitutional: well developed, well nourished and cooperative Eyes: + anicteric sclerae ENMT: external ear and nose normal, oropharynx normal Neck: normal visual inspection Respiratory: normal respiratory effort Auscultation: + rhonchi (on inspiration ) and + wheezes (diffusely throughout b/l lung [place]); no crackles and no vesicular breath sounds (coarse ) Currently breathing on 5 liters via NC. Cardiovascular: Rate/Rhythm: regular rate and regular rhythm Heart Sounds: normal S1 and normal S2 Extremities: + pedal edema (trace ) Gastrointestinal (Abdomen): Inspection/Auscultation: normal bowel sounds Percussion/Palpation: abdomen soft and + hernia (periumbilical ); abdomen nontender and no guarding Skin: no rashes, warm and dry Psychiatric: A+Ox3, euthymic affect Genitourinary: [place] catheter in place Results & Data Results & Data ([facility]) Vital Signs (Past 12 Hours) Vital Signs Temp Pulse Pulse Resp BP Pulse Ox 10/18/20 10:00 92 H 18 93 10/18/20 08:05 90 18 100 10/18/20 07:00 82 10/18/20 05:48 86 18 138/91 94 10/18/20 03:28 37.0 C 83 19 108/60 99 10/18/20 03:16 83 17 91 10/18/20 03:15 83 17 91 10/18/20 00:05 86 10/17/20 23:32 91 H 22 90 10/17/20 23:31 91 H 22 90 10/17/20 23:18 37.1 C 90 19 109/56 L 93 Resident Activity Tracking Resident Involvement: Resident Care Provided Care Provided: Adult Hospital Medicine
--- NOTE | 2020-10-18 11:17 | Electrocardiogram Report ---
Test Reason : Blood Pressure : / mmHG Vent. Rate : 104 BPM Atrial Rate : 104 BPM P-R Int : 160 ms QRS Dur : 074 ms QT Int : 352 ms P-R-T Axes : 079 074 059 degrees QTc Int : 462 ms Poor data quality, interpretation may be adversely affected Sinus tachycardia Otherwise normal ECG When compared with ECG of 09-JUL-2019 10:42, No significant change was found Confirmed by Abdulkadir Lo ([id number]) on 10/18/2020 11:17:31 AM Referred By: Real Parks Confirmed By:Lebron Lo
[2020-10-18 11:58] LABS: Base Excess ABG 11.2 mEq/L (-9-1.8); HCO3 ABG 38 mmol/L (19-24); Oxygen Saturation ABG 68.6 % (90-95); PCO2 ABG 59 mmHg (35-46); PO2 ABG 37 mmHg (80-95); pH ABG 7.42 (7.35-7.45)
[2020-10-18] MEDS ORDERED: CEFEPIME 2,000 MG in SYRINGE 0 ML IV SCH (12:00)
[2020-10-18 12:19] LABS: Allen Test Pos (Pos)
--- NOTE | 2020-10-18 15:59 | Discharge Summary ---
Date of Service October 18, 2020 Admission HPI Per Admitting Provider Hardy Law is an 84yo male with history of very severe COPD on home O2 2- 3.5L as needed as well as CPAP qHS, history of lung cancer s/p lobectomy, bronchiectasis with radiation fibrosis. He follows with Pulmonary - Dr. Parks. Patient presents today with his daughter with complaint of 3 days of progressive SOB, DENSON and cough. Daughter states that they have been titrating his oxygen at home to meet his needs, occasional dips into the low 80's which especially occur with sleeping and ambulation. He denies chest pain, palpitations, fever, chills or sweats. No purulent sputum. He has had worsening of bilateral LE edema over the last few days. Daughter states that patient sustained a mechanical fall appx 10 days ago and sustained an injury to his back - CT with mild superior endplate compression fra cture at L1. Daughter states that patient has been overall doing poorly since the fall. He has not been eating and he has been constipated. He has been requiring a walker for ambulation as well. Patient was previously on Prednisone 10mg po daily which he reportedly self- discontinued due to stomach irritation approximately 15 days ago. He has also run out of one of his inhalers - possibly Albuterol. On arrival to the ER he was found to be tachycardic at 104 bpm, tachypneic at 28 and saturation of 81% on his baseline 2L. VBG with evidence of chronic respiratory acidosis, CO2 retention. He was placed on BiPAP 11/6 30% FiO2. Patient maintained saturations on above settings, however did become hypoxic with movement - 83% with sitting up for me and reportedly dropped into the 70's with nursing. Principal Diagnosis Acute on chronic hypercarbic and hypoxic respiratory failure Cor pulmonale, diastolic heart failure Discharge Exam The patient appeared chronically ill Vital signs as documented. Lungs are coarse bilaterally with breath sounds absent to the right upper lung area Cardiac exam, Rhythm is regular.. No murmurs, rubs or gallops. Abdominal exam reveals normal bowel sounds, soft non tender, no masses Extremities are mildly edematous bilaterally Neurologic exam is alert and oriented, no focal loss of strength or sensation overall improved with noninvasive positive pressure ventilation to where he is awake alert makes sense Discharge Data Allergies Allergy/AdvReac Type Severity Reaction Status Date / Time amoxicillin Allergy Mild itching Verified 10/17/20 21:45 clavulanic acid Allergy Mild itching Verified 10/17/20 21:45 Consultations 10/17/20 20:05 ED Decision to Admit Stat 10/18/20 01:16 Consult Pulmonology Routine Ordered Studies 10/18/20 US venous doppler [facility] Routine Hospital Course (1) Acute hypoxemic respiratory failure: 84yo C male with history 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 Covid-19 NEGATIVE in ER. Procalcitonin negative -Lasix 40mg IV given - Patient is on parenteral steroids will be converted to higher dose of home oral steroids. Cefdinir and doxy for 5 days and return to azithromycin suppressive therapy as he is on at home. We will attempt to change his trilogy home CPAP machine to BiPAP with a IPAP of 10 and EPAP & 30% FiO2 Spoke with the daughter and today. I spoke frankly with the daughter about the consideration of palliative care or hospice therapy as as this patient ages his pulmonary function is going to declining with the amount of preceding lung injury has been accrued is likely going to come to a point where he becomes more dependent on noninvasive positive pressure ventilation. She listened to my discussion with did not seem open to this at this point time. Is also nelsy with the patient and the family about the possibility the patient declining at home and returning. The family voiced a fear of being in the hospital because of Covid and wanted to take good care of the patient at home. I did also speak to the patient's primary care physician Dr. Boyd who agrees he will see the patient next week in the office (2) COPD (chronic obstructive pulmonary disease): Suspect acute exacerbation of COPD contributing to poor respiratory status as well as some volume overload as discussed above. -Fluticasone/Vilanterol daily (Patient on Symbicort at home) -Continue Singulair (3) CKD (chronic kidney disease): CKD 3 BUN and Cr are near baseline -Avoid nephrotoxic agents (4) Cor pulmonale: Patient with Cor pulmonale, Chronic diasolic heart failurepossible volume overload contributing to poor respiratory status -BNP pending -Lasix 40mg IV given - -Continue Isosorbide 60mg po daily (5) GERD (gastroesophageal reflux disease): Chronic. -Continue Pepcid 40mg po BID (6) BPH (benign prostatic hyperplasia): Chronic. Stable. Patient urinating without difficulty -Flomax 0.4mg po daily (7) Hypertension: Chronic. Stable -Continue metoprolol 100mg po daily (8) Anemia: Patient with stable normochromic/normocytic anemia. Hgb=10.6, Hct=34.4 today which is near baseline values. No active bleeding Anemia of chronic disease (9) Hypercholesterolemia: Chronic. Stable -Continue Lipitor 80mg po daily (10) Back pain: Patient with low back pain following a fall two weeks ago. L1 endplate fracture noted on imaging. No neurological deficits. Patient still with discomfort -Lidoderm patch/Salonpas Consider Voltaren gel Discontinue tramadol (11) Lower extremity edema: Equal bilaterally. Possibly secondary to CHF -Check bilateral LE doppler Code - Conditional - patient would want intubation and ventilation in event of respiratory failure but would not want CPR Please update family daily: Heidy () [phone] and Mac (daughter) [phone] Total Time Total Time Spent Total Time Spent (In Minutes): It required greater than 30 minutes to prepare this patient for discharge Discharge Plan Discharge Items Patient Disposition: Home - Home Health Services Reason For Visit: COPD EXACERBATION Discharge Diagnosis: acute on chronic respiratory failure possible pneumonia vs chronic colonization Activity: Per Instructions section Activity Comment: please limit exertion Non-emergency contact: Primary Care Provider and [employer] Call non-emergency contact if: your symptoms worsen Follow-up/Referrals: Jerry Boyd MD [Primary Care Provider] - Diet: Low Sodium (2gm) Addtl Attending Provider Instructions: we are concerned that you maybe retaining carbon dioxide so any periods on decreased responsiveness please return to the ER. Please wear your Trilogy device when sleeping and resting please double your prednisone for the next 5 days then resume azithromycin please use external attempts to control his pain such as solonpas patches or voltaren gel topically Pending Studies at Discharge: Yes Studies:: blood cultures Stand-Alone Forms: My [employer], Smoking Cessation Medications and DC Order Prescriptions: New cefdinir 300 mg capsule 300 mg PO BID 5 Days Qty: 10 RF: 0 doxycycline hyclate 100 mg capsule 100 mg PO BID 5 Days Qty: 10 RF: 0 Continued allopurinol 300 mg tablet 300 mg PO DAILY Qty: 90 RF: 3 montelukast 10 mg tablet 10 mg PO DAILY Qty: 90 RF: 1 tamsulosin 0.4 mg capsule 0.4 mg PO DAILY Qty: 90 RF: 1 atorvastatin 80 mg tablet 80 mg PO QPM Qty: 90 RF: 3 tobramycin with nebulizer 300 mg/5 mL solution for nebulization 300 mg inhalation .COMPLEX Qty: 150 RF: 6 isosorbide mononitrate 60 mg tablet extended release 24 hr 60 mg PO DAILY Qty: 90 RF: 3 prednisone 20 mg tablet 20 mg PO DAILY Qty: 60 RF: 11 famotidine 40 mg tablet 40 mg PO BID Qty: 180 RF: 3 albuterol sulfate [Ventolin HFA] 90 mcg/actuation HFA aerosol inhaler 2 puff INH Q6H PRN (Reason: sob) Qty: 18 RF: 3 aspirin [Adult Aspirin Regimen] 81 mg tablet,delayed release (DR/EC) 81 mg PO DAILY RF: 0 cholecalciferol (vitamin D3) 1,000 unit capsule 1,000 units PO DAILY RF: 0 nitroglycerin 0.4 mg tablet, sublingual 0.4 mg SL Q5M PRN (Reason: chest pain) RF: 0 metoprolol tartrate 25 mg tablet 100 mg PO DAILY RF: 0 furosemide 40 mg tablet 40 mg PO 3XWK RF: 0 budesonide-formoterol [Symbicort] 160-4.5 mcg/actuation HFA aerosol inhaler 2 puff inhalation BID RF: 0 ipratropium-albuterol 0.5 mg-3 mg(2.5 mg base)/3 mL solution for nebulization 3 ml inhalation BID RF: 0 lidocaine 5 % adhesive patch,medicated 1 patch topical DAILY RF: 0 Discontinued tramadol 50 mg tablet 50 mg PO Q4H PRN (Reason: pain) Qty: 180 RF: 0 azithromycin 250 mg tablet 250 mg PO DAILY RF: 0 Discharge Orders: Discharge Order (Routine); Ordered 10/18/20 Ordered By: Wolf Cruz Admission Data Admit Date/Time: 10/17/20 20:51 Attending Provider: Wolf Cruz Admit Provider: Louise Sheppard Primary Care Provider: Jerry Boyd Other Providers: Louise Sheppard ; Bradly Justin ; Mallory,[facility] Other Interventions: Discharge Summary Assessment (RN) Last Done: 10/18/20 14:18 Coding Level of Care Code D/C Day Management >30 mins Diagnoses Acute hypoxemic respiratory failure J96.01 COPD (chronic obstructive pulmonary disease) J44.9 COPD type: unspecified COPD CKD (chronic kidney disease) N18.9 Chronic kidney disease stage: unspecified stage Cor pulmonale I27.81 GERD (gastroesophageal reflux disease) K21.9 Esophagitis presence: esophagitis presence not specified BPH (benign prostatic hyperplasia) N40.0 Lower urinary tract symptom presence: unspecified whether lower urinary tract symptoms present Hypertension I10 Hypertension type: essential hypertension Anemia D64.9 Anemia type: unspecified type Hypercholesterolemia E78.00 Back pain M54.5 Back pain location: low back pain Chronicity: unspecified Back pain laterality: unspecified Sciatica presence: unspecified whether sciatica present Lower extremity edema R60.0
[2020-10-18] MEDS ORDERED: ATORVASTATIN 40 MG TAB PO SCH (21:00)
[2020-10-18] MEDS ORDERED: DOXYCYCLINE HYCLATE 100 MG CAP PO SCH (21:00)
== END 2020-10-18 15:13 | disposition home health service (06) | DRG 189 ==
LOC: ED 16:32 → SUATTDRO 20:51 → 1E 20:51